=== PATIENT | female | born 1970 | race Caucasian/White ===

== ENCOUNTER → 2017-11-20 09:25 | Outpatient (CLI) | payer OTHER, SELFPAY ==
--- NOTE | 2017-11-20 09:32 | HPBI_ITS ---
MAMMOGRAPHY - BILATERAL SCREENING REASON FOR EXAM: Female, 47 years old. Routine annual screening examination. PERTINENT HISTORY: Non-contributory. TECHNIQUE: Digital bilateral breast dequan (3D mammographic acquisition) in the CC and MLO projections. 2-D mediolateral oblique (MLO) and craniocaudad (CC) views of both breasts were obtained. CAD: Full Field Digital Mammography with Computer Added Detection was performed. COMPARISON: Comparison is made with prior outside examination dated October 31, 2016. FINDINGS: Breast Composition: The breasts are heterogeneously dense, which may obscure small masses. There are no dominant masses or suspicious calcifications. No other significant abnormalities are identified. There has been no significant change since the prior study. HPBI/SCREENING MAMM (CAD), BILAT IMPRESSION: Stable bilateral screening mammogram. Yearly follow-up mammogram recommended. (A) ASSESSMENT CATEGORY: BIRADS Category 1: Negative. A letter regarding these results will be sent to the patient by the facility within 30 days. Approximately 10% of breast cancers are not detected by mammography. A normal mammogram should not delay biopsy of a clinically suspicious abnormality. [id number] Electronically Signed: Rocael Aldridge MD at 10:59 EST Tel [phone], Service support ,
== END ==
PROVIDERS: Family Provider Internal Medicine; PCP Internal Medicine; Visit Provider Obstetrics & Gynecology
DX: Z12.31 Encounter for screening mammogram for malignant neoplasm of breast (principal)
CPT/HCPCS: 77063; 77067

== ENCOUNTER → 2017-11-20 18:01 | Outpatient (CLI) | payer OTHER, SELFPAY ==
[2017-11-26 07:58] LABS: HPV APTIMA, High Risk Negative (Negative)
== END ==
PROVIDERS: Family Provider Internal Medicine; PCP Internal Medicine; Visit Provider Obstetrics & Gynecology
DX: Z12.4 Encounter for screening for malignant neoplasm of cervix (principal)
CPT/HCPCS: 88175; G0145

== ENCOUNTER → 2018-05-05 12:11 | Outpatient (CLI) | payer OTHER, SELFPAY ==
[2018-05-05 12:25] LABS: Potassium 3.9 mmol/L (3.5-5.1)
== END ==
PROVIDERS: Family Provider Nurse Practitioner; PCP Nurse Practitioner; Visit Provider Nurse Practitioner
DX: R79.9 Abnormal finding of blood chemistry, unspecified (principal)
CPT/HCPCS: 84132

== ENCOUNTER → 2018-12-14 13:03 | Outpatient (CLI) | payer OTHER, SELFPAY ==
--- NOTE | 2018-12-14 13:05 | BI_ITS ---
MAMMOGRAPHY - BILATERAL SCREENING REASON FOR EXAM: Female, 48 years old. Routine annual screening examination. PERTINENT HISTORY: Non-contributory. TECHNIQUE: Digital bilateral breast kareem (3D mammographic acquisition) in the CC and MLO projections. 2-D mediolateral oblique (MLO) and craniocaudad (CC) views of both breasts were obtained. CAD: Full Field Digital Mammography with Computer Added Detection was performed. COMPARISON: Comparison is made with prior study dated November 20, 2017 and July 11, 2011. FINDINGS: Breast Composition: The breasts are heterogeneously dense, which may obscure small masses. There are no dominant masses or suspicious calcifications. No other significant abnormalities are identified. There has been no significant change since the prior study. BI/SCREEN MAMM (CAD) W/KRAEEM BILAT IMPRESSION: Stable bilateral screening mammogram. Yearly follow-up mammogram recommended. (A) ASSESSMENT CATEGORY: BIRADS Category 1: Negative. A letter regarding these results will be sent to the patient by the facility within 30 days. Approximately 10% of breast cancers are not detected by mammography. A normal mammogram should not delay biopsy of a clinically suspicious abnormality. [id number] Electronically Signed: Rocael Aldridge, at 15:52 EDT , Service support ,
== END ==
PROVIDERS: Family Provider Internal Medicine; PCP Internal Medicine; Referring Provider Obstetrics & Gynecology; Visit Provider Obstetrics & Gynecology
DX: Z12.31 Encounter for screening mammogram for malignant neoplasm of breast (principal)
CPT/HCPCS: 77063; 77067

== ENCOUNTER → 2020-02-14 07:39 | Outpatient (CLI) | payer OTHER, SELFPAY ==
[2019-03-24 11:34] VITALS: BMI 24.3
--- NOTE | 2020-02-14 07:41 | BI_ITS ---
MAMMOGRAPHY - BILATERAL SCREENING REASON FOR EXAM: Female, 49 years old. Routine annual screening examination. PERTINENT HISTORY: Non-contributory. TECHNIQUE: Digital bilateral breast kareem (3D mammographic acquisition) in the CC and MLO projections. 2-D mediolateral oblique (MLO) and craniocaudad (CC) views of both breasts were obtained. CAD: Full Field Digital Mammography with Computer Added Detection was performed. COMPARISON: Comparison is made with prior examination dated December 14, 2018 and November 20, 2017. FINDINGS: Breast Composition: The breasts are heterogeneously dense, which may obscure small masses. There are no dominant masses or suspicious calcifications. No other significant abnormalities are identified. There has been no significant change since the prior study. BI/SCREEN MAMM (CAD) W/KAREEM BILAT IMPRESSION: Stable bilateral screening mammogram. Yearly follow-up mammogram recommended. (A) ASSESSMENT CATEGORY: BIRADS Category 1: Negative. A letter regarding these results will be sent to the patient by the facility within 30 days. Approximately 10% of breast cancers are not detected by mammography. A normal mammogram should not delay biopsy of a clinically suspicious abnormality. [id number] Electronically Signed: Rocael Aldridge, at 8:43 EDT , Service support ,
== END ==
PROVIDERS: PCP Internal Medicine; Referring Provider Obstetrics & Gynecology; Visit Provider Obstetrics & Gynecology
DX: Z12.31 Encounter for screening mammogram for malignant neoplasm of breast (principal)
CPT/HCPCS: 77063; 77067

== ENCOUNTER 2021-11-30 07:29 | Outpatient (CLI) | payer OTHER, SELFPAY ==
--- NOTE | 2021-11-30 07:45 | BI_ITS ---
MAMMOGRAPHY - BILATERAL SCREENING REASON FOR EXAM: Female, 51 years old. Routine annual screening examination. PERTINENT HISTORY: Non-contributory. TECHNIQUE: Digital bilateral breast kareem (3D mammographic acquisition) in the CC and MLO projections. 2-D mediolateral oblique (MLO) and craniocaudad (CC) views of both breasts were obtained. CAD: Full Field Digital Mammography with Computer Added Detection was performed. COMPARISON: Comparison is made with prior examination dated 02/14/2020 and 12/14/2018. FINDINGS: Breast Composition: The breasts are heterogeneously dense, which may obscure small masses. There are no dominant masses or suspicious calcifications. No other significant abnormalities are identified. There has been no significant change since the prior study. BI/SCRN MAMM (CAD)W/KAREEM BILAT IMPRESSION: Stable bilateral screening mammogram. Yearly follow-up mammogram recommended. (A) ASSESSMENT CATEGORY: BIRADS Category 1: Negative. A letter regarding these results will be sent to the patient by the facility within 30 days. Approximately 10% of breast cancers are not detected by mammography. A normal mammogram should not delay biopsy of a clinically suspicious abnormality. [id number] Electronically Signed: Rocael Aldridge MD at 8:14 EST ,
== END 2021-11-30 23:59 | disposition home or self-care (01) ==
LOC: OPBI 07:44
PROVIDERS: PCP Internal Medicine; Referring Provider Obstetrics & Gynecology; Visit Provider Obstetrics & Gynecology
DX: Z12.31 Encounter for screening mammogram for malignant neoplasm of breast (principal)
CPT/HCPCS: 77063; 77067

== ENCOUNTER 2022-04-24 06:27 | Day surgery (SDC) | payer OTHER, SELFPAY ==
[2022-04-24] MEDS: Lactated Ringers 1,000 ML 15 ML IV (07:10)
[2022-04-24 07:12] VITALS: BP 132/82; PULSE 86; RESP 18; TEMP 36.8; O2SAT 99; BMI 22.7
--- NOTE | 2022-04-24 07:27 | PCM.HP.STD ---
HPI - General General Chief Complaint: Screening colonoscopy HPI Narrative NAREN LOREDO, is a 51 F who presents today for a colonoscopy. She has no significant past medical story. She has no family history of colon cancer or colon polyps. She has no personal issues with constipation, diarrhea, abdominal pain or has experienced any change in bowel habits. She is not having any bleeding. She is not having any chest pain, shortness of breath or nausea. Overall she is in a very good state health she does take vitamins on a daily basis for preventative disease. [facility] Medical History (Updated 04/22/22 @ 15:37 by Samanta Shah) History of echocardiogram History of stress test Non-smoker Osteopenia Post-menopausal Seasonal allergies Wears contact lenses Wears glasses Home Medications ascorbate calcium (vitamin C) 500 mg tablet 500 mg PO DAILY 02/27/22 [History Last Taken Unknown] cholecalciferol (vitamin D3) 50 mcg (2,000 unit) capsule 50 mcg PO DAILY 02/27/22 [History Last Taken Unknown] multivitamin 1 tab PO DAILY 02/27/22 [History Last Taken Unknown] zinc 50 mg tablet 50 mg PO DAILY 02/27/22 [History Last Taken Unknown] Allergy/AdvReac Type Severity Reaction Status Date / Time No Known Allergies Allergy Verified 04/22/22 15:30 Family History Mother Multiple sclerosis Father Cancer prostate Grandmother Diabetes Cancer lung Grandfather Cancer prostate Surgical History (Updated 04/22/22 @ 15:37 by Samanta Shah) Hx of wisdom tooth extraction Social History (Updated 02/27/22 @ 08:11 by Iraida Murillo) current occupational status: employed 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 Smoking Status: Never smoker alcohol intake: never substance use type: does not use caffeine: Yes what type of physical activity do you participate in: none seatbelt use: always do you feel safe at home: Yes additional social history: [employer]- Self Employed ROS Review of Systems ROS Unobtainable: other Constitutional Constitutional: Denies fatigue, fever(s), poor appetite, weight gain or weight loss ENT HEENT: Denies mouth lesions Cardiovascular Cardiovascular: Denies abdominal bloating, abdominal edema or abdominal pain Respiratory/Chest Respiratory/Chest: Denies change in mental status, change in phlegm color, chest congestion or chest tightness Gastrointestinal Gastrointestinal: Denies belching, bloating, change in bowel habits, change in stool character, chewing difficulty, coffee ground emesis, constipation, cramping, diarrhea, dyspepsia, dysphagia, early satiety, excessive flatus, fecal incontinence, heartburn, hematemesis, hematochezia, hemorrhoids, loose stools, melena, nausea, odynophagia, rectal bleeding, tenesmus, vomiting or weight changes Genitourinary Genitourinary: Denies abdominal discomfort, burning urination or itching Musculoskeletal Musculoskeletal: Reports as per HPI; Denies muscle weakness or myalgias Integumentary Integumentary: Denies jaundice Neurologic Neurologic: Denies lack of coordination or weakness Psychiatric Psychiatric: Denies confusion, depression, memory loss, mood swings, paranoia or suicidal ideation Endocrine Endocrinology: Denies systems reviewed and no addt'l complaints, except as documented Hematologic/Lymphatic Hematologic/Lymphatic: Denies anemia, easy bleeding, easy bruising or lymphadenopathy Allergic/Immunologic Allergic/Immunologic: Denies systems reviewed and no addt'l complaints, except as documented Vital Signs Vital Signs Vital Signs: 04/24/22 07:12 04/24/22 07:12 Temperature 98.3 F Temperature Source Temporal Pulse Rate 86 Respiratory Rate 18 Respiratory Pattern Normal Blood Pressure 132/82 H Blood Pressure Mean 98 Blood Pressure Source Monitor Blood Pressure Position Semi-Fowlers Blood Pressure Location Right Arm Pulse Ox 99 Oxygen Delivery Method Room Air Weight Weight: 145 lb Body Mass Index (BMI) 22.7 Physical Exam Const alert, oriented x3, no apparent distress, healthy appearing and well nourished General Appearance: cooperative, comfortable, well kempt and well developed Orientation / Consciousness: awake and oriented to person HEENT Head and Scalp: normocephalic and atraumatic Face and Sinus: normal facial exam Mouth: oral and palatal mucosa normal Eyes General Eye: normal appearance of both eyes Neck full ROM Lymph Lymphatic: no lymphadenopathy noted Chest inspection of chest normal Resp normal respiratory effort and no use of accessory muscles Cardio regular rate and regular rhythm GI normal to inspection, nondistended, normoactive bowel sounds, soft to palpation, non-tender, non-distended and no masses Auscultation: normoactive bowel sounds Palpation: soft Percussion: normal to percussion Rectal Exam: visual inspection normal and normal sphincter tone no CVA tenderness Back/Spine no CVA tenderness and normal ROM Extremity normal to inspection Peripheral Pulses: Yes pulses 2+ throughout Skin no rashes or lesions noted General Skin Exam: no breakdown, elasticity normal and turgor normal Neuro oriented x3 Motor Exam: strength 5/5 throughout Psych mental status grossly normal Appearance: grossly normal Attitude: calm Activity / Motor Behavior: appropriate eye contact Speech: normal speech Thought Process: normal thought process Thought Content: normal thought content Attention / Concentration: attention grossly intact Memory / Cognition: memory grossly intact Insight: insight good Judgement: judgement good Assessment & Plan Assessment/Plan (1) Encounter for screening for malignant neoplasm of colon: PLAN: She was explained risk and benefits including not withstanding bleeding, infection, sepsis, perforation, missed polyps, need for emergent surgery and . She would have an ASA of 1 for the procedure.
[2022-04-24 08:06] VITALS: BP 104/79; BP 132/82; PULSE 73; RESP 16; TEMP 36.2; O2SAT 98
--- NOTE | 2022-04-24 08:06 | OP.COLON_ITS ---
Patient Name: Sri Hudson Procedure Date: 04/24/2022 7:27 AM Date of : 1970 Age: 51 Procedure: Colonoscopy Indications: Screening for colorectal malignant neoplasm Providers: Rocael Deras DO Medicines: Monitored Anesthesia Care Patient Profile: This is a 51 year old female. Refer to note in patient chart for documentation of history and physical. Last Colonoscopy: none. The patient's first colonoscopy is today. Complications: No immediate complications. Procedure: Pre-Anesthesia Assessment: - Prior to the procedure, a History and Physical was performed, and patient medications and allergies were reviewed. The risks and benefits of the procedure and the sedation options and risks were discussed with the patient. All questions were answered and informed consent was obtained. Patient identification and proposed procedure were verified by the physician in the pre-procedure area. Mental Status Examination: alert and oriented. Airway Examination: normal oropharyngeal airway and neck mobility. Respiratory Examination: clear to auscultation. CV Examination: normal. Prophylactic Antibiotics: The patient does not require prophylactic antibiotics. Prior Anticoagulants: The patient has taken no previous anticoagulant or antiplatelet agents. After reviewing the risks and benefits, the patient was deemed in satisfactory condition to undergo the procedure. The anesthesia plan was to use moderate sedation / analgesia (conscious sedation). Immediately prior to administration of medications, the patient was re-assessed for adequacy to receive sedatives. The heart rate, respiratory rate, oxygen saturations, blood pressure, adequacy of pulmonary ventilation, and response to care were monitored throughout the procedure. The physical status of the patient was re-assessed after the procedure. After I obtained informed consent, the scope was passed under direct vision. Throughout the procedure, the patient's blood pressure, pulse, and oxygen saturations were monitored continuously. The pediatric colonoscope was introduced through the anus and advanced to the cecum, identified by appendiceal orifice and ileocecal valve. The colonoscopy was performed without difficulty. The patient tolerated the procedure well. The quality of the bowel preparation was good. Scope In: 7:42:26 AM Scope Withdrawal Time 0 hours 11 minutes 49 seconds Scope Out: 8:02:48 AM Total Procedure Duration Time 0 hours 20 minutes 22 seconds Findings: Hemorrhoids were found on perianal exam. The colon (entire examined portion) appeared normal. The retroflexed view of the distal rectum and anal verge was normal and showed no anal or rectal abnormalities. Impression: - Hemorrhoids found on perianal exam. - The entire examined colon is normal. - No specimens collected. Recommendation: - Discharge patient to home. - Resume previous diet. - Continue present medications. - Repeat colonoscopy in 10 years for screening purposes. Procedure Code(s): --- Professional --- G0121, Colorectal cancer screening; colonoscopy on individual not meeting criteria for high risk CPT copyright 2017 [employer]. All rights reserved. The codes documented in this report are preliminary and upon caretaker resort review may be revised to meet current compliance requirements. Rocael Deras DO 04/24/2022 8:06:02 AM This report has been signed electronically. Number of Addenda: 1 Note Initiated On: 04/24/2022 7:27 AM Addendum Number: 1 Addendum Date: 07/10/2022 6:16:08 AM MAC was used as sedation for this procedure. Rocael Deras DO 07/10/2022 6:16:12 AM This report has been signed electronically.
--- NOTE | 2022-04-24 08:07 | OP.CCLET_ITS ---
07/10/2022 Lanny Breen [address] [place] [address] Re : Colonoscopy procedure for Sri Hudson Dear Dr. Breen This procedure was performed on Sunday, April 24, 2022. My impressions and recommendations are as follows: Impressions : - Hemorrhoids found on perianal exam. - The entire examined colon is normal. - No specimens collected. Recommendations : - Discharge patient to home. - Resume previous diet. - Continue present medications. - Repeat colonoscopy in 10 years for screening purposes. My findings are described in the full procedure note, which is enclosed. If I can be of further assistance, please feel free to contact me at . Sincerely, Rocael Deras, 04/24/2022 8:06:02 AM This report has been signed electronically.
[2022-04-24 08:10] VITALS: BP 109/78; BP 132/82; PULSE 71; RESP 16; O2SAT 98
[2022-04-24 08:15] VITALS: BP 104/77; BP 132/82; PULSE 76; RESP 16; O2SAT 99
[2022-04-24 08:20] VITALS: BP 109/84; BP 132/82; PULSE 72; RESP 16; TEMP 36.2; O2SAT 99
[2022-04-24 08:37] VITALS: BP 132/82
== END 2022-04-24 08:39 | disposition home or self-care (01) ==
LOC: EN 06:28 → AC 06:29
PROVIDERS: PCP Internal Medicine; Referring Provider Internal Medicine; Visit Provider Internal Medicine Gastroenterology
PROC: 0DJD8ZZ Inspection of Lower Intestinal Tract, Via Natural or Artificial Opening Endoscopic (ICD-10-PCS; CPT 45378; principal; 2022-04-24 07:25)
DX: Z12.11 Encounter for screening for malignant neoplasm of colon (principal); K64.9 Unspecified hemorrhoids
CPT/HCPCS: 45378; J7120; J2405

== ENCOUNTER → 2022-12-11 | Outpatient (CLI) | payer OTHER, SELFPAY ==
--- NOTE | 2022-12-11 07:13 | BI_ITS ---
MAMMOGRAPHY - BILATERAL SCREENING REASON FOR EXAM: Female, 52 years old. Routine annual screening examination. PERTINENT HISTORY: Non-contributory. TECHNIQUE: Digital bilateral breast kareem (3D mammographic acquisition) in the CC and MLO projections. 2-D mediolateral oblique (MLO) and craniocaudad (CC) views of both breasts were obtained. CAD: Full Field Digital Mammography with Computer Added Detection was performed. COMPARISON: Comparison is made with prior study of November 30, 2021 and February 14, 2020. FINDINGS: Breast Composition: The breasts are heterogeneously dense, which may obscure small masses. There are no dominant masses or suspicious calcifications. No other significant abnormalities are identified. There has been no significant change since the prior study. BI/SCRN MAMM (CAD)W/KAREEM BILAT IMPRESSION: Stable bilateral screening mammogram. Yearly follow-up mammogram recommended. (A) ASSESSMENT CATEGORY: BIRADS Category 1: Negative. A letter regarding these results will be sent to the patient by the facility within 30 days. Approximately 10% of breast cancers are not detected by mammography. A normal mammogram should not delay biopsy of a clinically suspicious abnormality. [id number] Electronically Signed: Rocael Aldridge MD at 12:24 EST ,
== END | disposition home or self-care (01) ==
LOC: OPBI 07:12
PROVIDERS: PCP Internal Medicine; Referring Provider Nurse Practitioner Women's Health; Visit Provider Nurse Practitioner Women's Health
DX: Z12.31 Encounter for screening mammogram for malignant neoplasm of breast (principal)
CPT/HCPCS: 77063; 77067

== ENCOUNTER → 2023-03-05 | Outpatient (CLI) | payer OTHER, SELFPAY ==
[2023-03-10 15:07] LABS: HPV APTIMA, High Risk Negative (Negative)
== END | disposition home or self-care (01) ==
LOC: LABSPEC 10:20
PROVIDERS: PCP Internal Medicine; Referring Provider Nurse Practitioner Women's Health; Visit Provider Nurse Practitioner Women's Health
DX: Z78.0 Asymptomatic menopausal state (principal)
CPT/HCPCS: 87624; 88175; G0145

== ENCOUNTER 2023-03-26 07:00 | Outpatient (RCR) | payer OTHER, SELFPAY ==
--- NOTE | 2023-02-21 07:54 | HP.PTEVAL ---
Patient's Visit Information NAREN LOREDO is a 52 year old F referred to Physical Therapy by Dr. Lanny Breen DO with a diagnosis of LBP with scoliosis. Date of Evaluation: 02/21/23 Physical Therapist: Juan Francisco Davalos PT, ATC - Visit Plan Frequency: 1x/Week Duration: 2 Weeks Plan: Pt was issued and instructed on a HEP of L side bending and L rotational stretches for the spine. Pt will follow up in 3 weeks to assess benefit of stretching program and to add core strengthening ex's at that time. - Subjective Pt reports her LBP has been present since October. Pt reports she was being treated by a chiropractor over this time span but the pain has remained the same. Pt reports her pain had an insidious onset in nature. Pt reports she was very inactive over the winter and believes this may have been the cause. Pt reports she has had xrays which revealed scoliosis. Pt denies any tingling or numbness in her LE's, but does reports pain along the IT band in both legs. Pt reports no sleep difficulty at this time but does note he experiences pain when she is lying on her stomach and lifts her head. Pt reports in general it is bending backwards that provokes her pain (like when she is in the shower washing her hair). Pt [place] and notes she is limited with daily chores at times secondary to pain. 0/10 pain at rest, 1/10 pain at worst - Pain LBP Pain Intensity (Out of 10): 0 Pain Intensity Range: 1 - Objective Neuro: B LE sensation is WNL to light touch. B patellar reflex= 2/3. palpation: pt presents with scoliosis of spine, R concavity with L convexity. MMT: B LE's are grossly 5/5 throughout. ROM: Pt is moderately limited with L/S ext, and R SB. All other motions are WNL - Balance/Special Test Scores Oswestry Low Back Score: 0 - Goals Goal 1:: I with HEP of spinal stretches and core strengthening Goal Time Frame: 2-4 Weeks Goal 2:: Decrease back pain x 50% to aid with IADL's Goal Time Frame: 2-4 Weeks - Rehabilitation Potential Physical Therapy Diagnosis: Pt has LBP and difficulty with performing IADL's secondary to scoliosis Rehabilitation Potential: Good - Anticipated Interventions Patient/Client Instruction: Educate patient on: Condition, Plan of Care For the Purpose of:: To improve self management Therapeutic Exercise to Include: Strength training, Body mechanics, Postural training, Flexibilty training, Dynamic Lumbar Stabilization For the Purpose of:: To decrease pain, To increase ROM, To improve muscle performance and motor function Thank you for the opportunity to evaluate your patient. For Medicare and Medicare HMO plans, please review the plan of care and approve it. It will need to be FAXED BACK to us at [phone] for Medicare purposes. For Medicare only, by signing this I certify the plan of care. Please let me know if there are questions or concerns regarding this plan of care. Physician Signature: Date:
--- NOTE | 2023-06-18 12:51 | HP.PT.NRP ---
Patient Information Patient Information: NAREN LOREDO was seen in my office for initial evaluation on 02/21/23. The following Plan of Care was established for this patient: POC Established Initial Frequency: 1x/Week Initial Duration: 2 Weeks Anticipated Interventions Patient/Client Instruction: Educate patient on: Condition and Plan of Care For the Purpose of:: To improve self management Therapeutic Exercise to Include: Strength training, Body mechanics, Postural training, Flexibilty training and Dynamic Lumbar Stabilization For the Purpose of:: To decrease pain, To increase ROM and To improve muscle performance and motor function Last Seen Last Seen: This patient was last seen in our office . Pertinent comments regarding their Physical therapy will appear below: Pt was treated for 2 PT visits for LBP through the date of 03/26/23. Pt has not returned through this date and is discontinued at this time. At this point I will be discontinuing this patient from physical therapy. I would be happy to see this patient again in the future if found appropriate by the physician. Thank you! Juan Francisco Davalos, PT, ATC Balance/Gait/Functional tests Balance/Special Test Scores Oswestry Low Back Score: 0
== END 2023-03-26 19:00 | disposition home or self-care (01) ==
LOC: PT 07:00
PROVIDERS: PCP Internal Medicine; Referring Provider Internal Medicine; Visit Provider Internal Medicine
DX: M41.9 Scoliosis, unspecified (principal); M54.50 Low back pain, unspecified
CPT/HCPCS: 97110; 97161

== ENCOUNTER → 2024-10-29 | Outpatient (CLI) | payer OTHER, SELFPAY ==
--- NOTE | 2024-10-29 07:29 | BI_ITS ---
MAMMOGRAPHY - BILATERAL SCREENING REASON FOR EXAM: Female, 54 years old. Routine annual screening examination. PERTINENT HISTORY: Non-contributory. TECHNIQUE: Digital bilateral breast kareem (3D mammographic acquisition) in the CC and MLO projections. 2-D mediolateral oblique (MLO) and craniocaudad (CC) views of both breasts were obtained. CAD: Full Field Digital Mammography with Computer Added Detection was performed. COMPARISON: Comparison is made with prior study dated December 11, 2022 and June 28, 2022. FINDINGS: Breast Composition: The breasts are extremely dense, which lowers the sensitivity of mammography. There are no dominant masses or suspicious calcifications. No other significant abnormalities are identified. There has been no significant change since the prior study. BI/SCRN MAMM (CAD)W/KAREEM BILAT IMPRESSION: Stable bilateral screening mammogram. Yearly follow-up mammogram recommended. (A) ASSESSMENT CATEGORY: BIRADS Category 1: Negative. A letter regarding these results will be sent to the patient by the facility within 30 days. Approximately 10% of breast cancers are not detected by mammography. A normal mammogram should not delay biopsy of a clinically suspicious abnormality. [id number] Electronically Signed: Rocael Aldridge MD at 8:52 EST ,
== END | disposition home or self-care (01) ==
LOC: OPBI 07:28
PROVIDERS: PCP Internal Medicine; Referring Provider Nurse Practitioner Women's Health; Visit Provider Nurse Practitioner Women's Health
DX: Z12.31 Encounter for screening mammogram for malignant neoplasm of breast (principal)
CPT/HCPCS: 77063; 77067

== ENCOUNTER → 2025-09-09 | Outpatient (CLI) | payer OTHER, SELFPAY ==
--- OUTSIDE RECORDS SUMMARY | 2025-09-09 07:38 | XMS RPT_ITS | CCD ---
Author Organization [facility] Care Team Providers Care Director Of Annual Giving Name Role Phone Lanny Breen Unavailable Lanny Breen Unavailable [place] Unavailable Rina Vance Unavailable Unavailable Unavailable Unavailable JamshidLanny aguayo DO Unavailable JamshidLanny aguayo DO Unavailable [facility] Unavailable Rina Vance LPN Unavailable Unavailable Indiana Johnson RN Unavailable Unavailable Unavailable Unavailable Patricia Walsh MA Unavailable Unavailable Lanny Breen DO Unavailable Friend, Dr. Cote Unavailable Dr. Dylan Rodriguez Unavailable [phone] Lanny Breen Primary Care Provider [phone] Dr. Lanny Breen Referring Provider Xi KEY ACCOUNT DIRECTOR, JUSTIN Villalobos Attending Provider [phone] Friend, Dr. Cote Attending Provider Friend, Dr. Cote Other Provider Madai Friend CMA Unavailable Unavailable Lanny Breen DO Attending Unavailable Lanny Breen DO Referring Unavailable Lanny Breen DO Consulting Unavailable [facility] Unavailable Dacia Hernández MA Unavailable Unavailable Dr. Lanny Breen Primary Care Provider [phone] Dr. Lanny Breen Referring Provider [phone] Xi KEY ACCOUNT DIRECTOR, ELPIDIOC Griselda Attending Provider Griselda Layne NP Referring Unavailable Griselda Layne NP Attending Unavailable Lanny Breen Primary Care Unavailable Lanny Breen Primary Care Unavailable Griselda Layne NP Attending Unavailable Lanny Breen Referring Unavailable Medications Current Medications Medication Drug Class(es) Dates Sig (Normalized) Sig (Original) calcium ascorbate 500 mg oral tablet (4 sources) Start: 02-27-2022 take 500 mg by mouth once daily Ascorbate Calcium (Vitamin C) Active 500 MG PO DAILY February 27, 2022 12:00am cholecalciferol 0.05 mg oral capsule (4 sources) Vitamin D Start: 02-27-2022 take 50 ug by mouth once daily Cholecalciferol (Vitamin D3) Active 50 MCG PO DAILY February 27, 2022 12:00am fluconazole 150 mg oral tablet (2 sources) Azole Antifungal Start: 03-05-2023 Fluconazole Active 150 MG PO .COMPLEX 2 March 05, 2023 12:00am 150 mg PO take one po now and repeat in 3 days Multivitamin preparation (20 sources) Start: 02-27-2022 take 1 tablet by mouth once daily Multivitamin Active 1 TABLET PO DAILY February 27, 2022 12:00am End: 08-21-2011 MULTIVITAMIN (PO Liquid) Uns ure When remembers for 0 days Refills: 0 Ordered: 21-Aug-2011 Inocencia Uribe RN End : 21-Aug-2011 Discontinued Comments: This order discontinued per [facility]. End: 08-21-2011 MULTIVITAMIN (PO Liquid) Uns ure When remembers for 0 days Refills: 0 Ordered: 21-Aug-2011 Inocencia Uribe LPN End : 21-Aug-2011 Discontinued Comments: This order discontinued per [facility]. Comment on above: This order discontin ued per [facility]. Zinc (4 sources) Start: 02-27-2022 take 50 mg by mouth once daily Zinc Active 50 MG PO DAILY February 27, 2022 12:00am Completed/Discontinued Medications Medication Drug Class(es) Dates Sig (Normalized) Sig (Original) [id number] 200 actuat albuterol 0.09 mg/actuat metered dose inhaler (16 sources) beta2-Adrenergic Agonist Start: 08-05-2017 End: 05-06-2018 take 2 puff(s) by inhalation every six hours as needed ProAir HFA 108 (90 Base) MCG/ACT Inhalation Aerosol Solution 2 (two) Puff q 6hr prn for 0 days Quantity: 1 {Inhaler} Refills: 0 Ordered: 06-May-2018 Inocencia Uribe RN Start : 05-Aug-2017 End : 06-May-2018 Inactive Start: 08-05-2017 End: 05-06-2018 take 2 puff(s) by inhalation every six hours as needed ProAir HFA 108 (90 Base) MCG/ACT Inhalation Aerosol Solution 2 (two) Puff q 6hr prn for 0 days Quantity: 1 {Inhaler} Refills: 0 Ordered: 06-May-2018 Inocencia Uribe LPN Start : 05-Aug-2017 End : 06-May-2018 Inactive amoxicillin 875 mg / clavulanate 125 mg oral tablet (16 sources) Penicillin-class Antibacterial Start: 12-23-2019 End: 08-06-2021 take 1 tablet by mouth twice daily Amoxicillin-Pot Clavulanate 875-125 MG Oral Tablet 1 (one) Tablet bid for 0 days Quantity: 20 {Tablet} Refills: 0 Ordered: 06-Aug-2021 Rina Vance LPN Start : 23-Dec-2019 End : 06-Aug-2021 Inactive Start: 05-06-2018 End: 07-14-2019 take 1 tablet by mouth twice daily Amoxicillin-Pot Clavulanate 875-125 MG Oral Tablet 1 (one) Tablet bid for 0 days Quantity: 20 {Tablet} Refills: 0 Ordered: 14-Jul-2019 Rina Vance LPN Start : 06-May-2018 End : 14-Jul-2019 Inactive azithromycin 250 mg oral tablet (11 sources) Macrolide Antimicrobial Start: 01-28-2022 End: 02-02-2022 Zithromax Z-Mt 250 MG Oral Tablet 1 (one) Tablet uad - 2 the first day and 1qd x 4 days for 5 days Quantity: 1 {Packet} Refills: 0 Ordered: 28-Jan-2022 Lanny Brene DO, DO, Kathleen Start : 28-Jan-2022 End : 02-Feb-2022 Inactive Start: 12-31-2019 End: 01-05-2020 Zithromax Z-Mt 250 MG Oral Tablet 1 (one) Tablet uad - 2 the first day and 1qd x 4 days for 5 days Quantity: 1 {Package} Refills: 0 Ordered: 31-Dec-2019 Indiana Johnson RN Start : 31-Dec-2019 End : 05-Jan-2020 Inactive benzonatate 200 mg oral capsule (16 sources) Non-narcotic Antitussive Start: 07-21-2017 End: 08-05-2017 take 1 capsule by mouth three times daily as needed for cough Benzonatate 200 MG Oral Capsule 1 (one) Capsule PO TID PRN Cough for 0 days Quantity: 21 {Capsule} Refills: 0 Ordered: 05-Aug-2017 Indiana Johnson RN Start : 21-Jul-2017 End : 05-Aug-2017 Inactive budesonide 0.032 mg/actuat metered dose nasal spray (16 sources) Corticosteroid Start: 11-19-2010 End: 08-21-2011 RHINOCORT AQUA, 32MCG/ACT (Nasal Suspension) 2 (two) Puff(s) once daily for 0 days Quantity: 1 {Suspension} Refills: 0 Ordered: 21-Aug-2011 Inocencia Uribe RN Start : 19-Nov-2010 End : 21-Aug-2011 Inactive citalopram 10 mg oral tablet (16 sources) Serotonin Reuptake Inhibitor Start: 07-14-2019 End: 08-06-2021 take 1 tablet by mouth once daily at bedtime CeleXA 10 MG Oral Tablet 1 (one) Tablet qhs for 0 days Quantity: 30 {Tablet} Refills: 3 Ordered: 06-Aug-2021 Rina Vance LPN Start : 14-Jul-2019 End : 06-Aug-2021 Inactive 12 hr fexofenadine hydrochloride 60 mg / pseudoephedrine hydrochloride 120 mg extended release oral tablet (16 sources) alpha-Adrenergic Agonist, Histamine-1 Receptor Antagonist Start: 11-19-2010 End: 08-21-2011 take 60-120 mg by mouth every twelve hours BRIANNE-D 12 HOUR, 60-120MG (Oral Tablet Extended Release 12 Hour) 1 Tablet ER 12HR q12hr for 0 days Quantity: 20 {Tablet_ER_12HR} Refills: 0 Ordered: 19-Nov-2010 Inocencia Uribe RN Start : 19-Nov-2010 End : 21-Aug-2011 Discontinued Comments: This order discontinued per [facility]. Comment on above: This order discontin ued per [facility]. fluticasone furoate 0.0275 mg/actuat metered dose nasal spray (16 sources) Corticosteroid Start: 12-21-2007 End: 11-19-2010 VERAMYST, 27.5MCG/SPRAY (Nasal Suspension) 2 (two) Suspension Daily for 0 days Refills: 0 Ordered: 19-Nov-2010 Start : 21-Dec-2007 End : 19-Nov-2010 Inactive hyoscyamine sulfate 0.125 mg sublingual tablet (16 sources) Start: 12-16-2006 End: 12-21-2007 take 1 tablet under the tongue three times daily as needed LEVSIN/SL, 0.125MG (Sublingual Tablet Sublingual) Tab Sublingual TID/PRN for 0 days Quantity: 10 {Tab_Sublingual} Refills: 3 Ordered: 16-Dec-2006 Inocencia Uribe RN Start : 16-Dec-2006 End : 21-Dec-2007 Inactive lansoprazole 30 mg delayed release oral capsule (16 sources) Proton Pump Inhibitor Start: 11-24-2006 End: 12-21-2007 PREVACID, 30MG (Oral Capsule Delayed Release) Capsule DR QD for 0 days Quantity: 30 {Capsule_DR} Refills: 0 Ordered: 24-Nov-2006 Inocencia Uribe RN Start : 24-Nov-2006 End : 21-Dec-2007 Inactive levoFLOXacin 500 mg oral tablet (16 sources) Quinolone Antimicrobial Start: 12-21-2007 End: 11-19-2010 take 1 tablet by mouth once daily LEVAQUIN, 500MG (Oral Tablet) 1 Tablet Daily for 0 days Quantity: 10 {Tablet} Refills: 0 Ordered: 19-Nov-2010 Start : 21-Dec-2007 End : 19-Nov-2010 Inactive No current meds at this time. (12 sources) No current meds at this time. Inactive No current meds at this time. Active predniSONE 10 mg oral tablet (20 sources) Start: 07-16-2020 End: 02-27-2022 Prednisone Discontinued 10 M G PO .COMPLEX July 16, 2020 12:00am February 27, 2022 8:10am Take 4 pills for 3 days, 3 pills for 3 days, 2 pills for 3 days, take 1 pill for 3 days Start: 05-05-2015 End: 11-21-2016 PredniSONE 10 MG Oral Tablet 3 (three) Tablet pills for 3 days 2 pills for 3 days 1 pill for 3 days for 0 days Quantity: 18 {Tablet} Refills: 0 Ordered: 21-Nov-2016 Inocencia Uribe RN Start : 05-May-2015 End : 21-Nov-2016 Inactive Comments: take with food in am Comment on above: take with food in am Problems Active Problems Problem Classification Problem Date Documented Date Episodic/Chronic Abdominal pain (20 sources) Acute abdominal pain; Translations: [Epigastric pain] Resolved: 05-24-2014 11-21-2016 Episodic Comment on above: better?ibs? colonic gas, ? follicle burst reveiwed with patient recent tests CT and labs good, ocass cramp in colon, told call if return, consider egd or colonscope if return told to call if vomiting, lightheadedness, blood in stools, fever, intractable diarrhea, severe abdominal pain. Administrative/social admission (19 sources) Counseling procedure with explicit context; Translations: [Vaccine counseling] 08-06-2021 Episodic Allergic reactions (20 sources) Eczema; Translations: [Dermatitis] 07-14-2019 Episodic Anxiety disorders (20 sources) Acute stress disorder; Translations: [Stress reaction] Resolved: 02-13-2023 07-14-2019 Chronic Coronary atherosclerosis and other heart disease (12 sources) Coronary atherosclerosis and other heart disease Fever of unknown origin (20 sources) Fever; Translations: [Fever, unspecified] 07-14-2019 Episodic Fluid and electrolyte disorders (20 sources) Hyperkalemia; Translations: [Acidosis] Resolved: 11-21-2016 11-21-2016 Episodic Heart valve disorders (20 sources) Mitral valve prolapse; Translations: [Mitral valve prolapse] 07-14-2019 Chronic Comment on above: very minor and not p resent on repeat echo very minor and not p resent on repeat echono valvular disorder Immunizations and screening for infectious disease (19 sources) Contact with or exposure to other viral diseases; Translations: [Exposure to COVID-19 virus] 08-06-2021 Episodic Lymphadenitis (20 sources) Lymphadenopathy; Translations: [Enlarged lymph nodes, unspecified] Resolved: 11-21-2016 11-21-2016 Episodic Menstrual disorders (20 sources) Amenorrhea; Translations: [Amenorrhea] Resolved: 11-21-2016 11-21-2016 Chronic Miscellaneous mental health disorders (15 sources) Crying; Translations: [Tearfulness] Resolved: 02-13-2023 08-06-2021 Episodic Mood disorders (20 sources) Acute depression; Translations: [Depression, acute] Resolved: 02-13-2023 07-14-2019 Chronic Nutritional deficiencies (20 sources) Vitamin D deficiency, unspecified; Translations: [Vitamin D deficiency] 07-14-2019 Chronic Other bone disease and musculoskeletal deformities (16 sources) Idiopathic scoliosis AND/OR kyphoscoliosis; Translations: [Scoliosis (and kyphoscoliosis), idiopathic] 07-14-2019 Chronic Other bone disease and musculoskeletal deformities (6 sources) Bone pain; Translations: [Bone pain] 01-29-2023 Episodic Other bone disease and musculoskeletal deformities (2 sources) Osteopenia; Translations: [Osteopenia] 02-13-2023 Episodic Other circulatory disease (20 sources) Abnormal chest sounds; Translations: [Abnormal lung sounds] Resolved: 04-30-2018 04-30-2018 Episodic Other congenital anomalies (2 sources) Congenital postural scoliosis; Translations: [Congenital scoliosis] 02-13-2023 Chronic Other lower respiratory disease (20 sources) Cough; Translations: [Cough] 07-14-2019 Episodic Other lower respiratory disease (20 sources) Wheezing; Translations: [Wheezing] Resolved: 02-23-2009 11-21-2016 Episodic Other lower respiratory disease (20 sources) Productive cough ; Translations: [Cough with expectoration] Resolved: 04-30-2018 04-30-2018 Episodic Other nutritional; endocrine; and metabolic disorders (20 sources) Overweight in adulthood with body mass index of 25 or more but less than 30; Translations: [BMI 25.0-25.9,adult] Resolved: 07-14-2019 08-05-2017 Episodic Other screening for suspected conditions (not mental disorders or infectious disease) (20 sources) Blood chemistry abnormal; Translations: [Mammography abnormal] Onset: 12-08-2024 Resolved: 11-21-2016 07-14-2019 Episodic Other upper respiratory infections (20 sources) Bacterial sinusitis; Translations: [Sinusitis, bacterial] Resolved: 02-13-2023 07-14-2019 Chronic Other upper respiratory infections (20 sources) Viral upper respiratory tract infection; Translations: [Acute sinusitis] Resolved: 02-23-2009 07-14-2019 Episodic Pneumonia (except that caused by tuberculosis or sexually transmitted disease) (18 sources) Severe acute respiratory syndrome; Translations: [SARS (severe acute respiratory syndrome)] 01-28-2022 Episodic Residual codes; unclassified (20 sources) Memory loss; Translations: [Memory impairment] Episodic Residual codes; unclassified (20 sources) FH: Hypercholesterolemia; Translations: [Family history of high cholesterol] 07-14-2019 Episodic Residual codes; unclassified (20 sources) FH: Diabetes mellitus; Translations: [Family history of diabetes mellitus] 07-14-2019 Episodic Residual codes; unclassified (20 sources) Postmenopausal state; Translations: [Postmenopausal] 07-14-2019 Episodic Comment on above: as of 2013 Residual codes; unclassified (20 sources) Body mass index 20-24 - normal; Translations: [BMI 22.0-22.9, adult] Resolved: 07-14-2019 08-06-2021 Episodic Residual codes; unclassified (20 sources) Non-smoker; Translations: [Non-smoker] 08-06-2021 Episodic Spondylosis; intervertebral disc disorders; other back problems (2 sources) Low back pain; Translations: [Low back pain, episodic] 02-13-2023 Episodic Unclassified (20 sources) Abnormal blood chemistry Unclassified (20 sources) Unclassified (20 sources) Patient encounter status; Translations: [Encounter for screening for lipid disorder] 07-14-2019 Unclassified (20 sources) Non-smoker; Translations: [Non-smoker] 07-14-2019 Unclassified (12 sources) Family history of high cholesterol Unclassified (12 sources) Postmenopausal Unclassified (20 sources) BMI 25.0-25.9,adult Unclassified (20 sources) Sinusitis, bacterial Unclassified (12 sources) BMI 26.0-26.9,adult Viral infection (20 sources) Infectious mononucleosis; Translations: [Viral disease] Resolved: 05-24-2014 11-21-2016 Episodic Comment on above: 08/10 Past or Other Problems Problem Classification Problem Date Documented Date Episodic/Chronic Anxiety disorders (5 sources) Crying; Translations: [Tearfulness] 07-14-2019 Mood disorders (12 sources) Mood disorders Nonmalignant breast conditions (16 sources) Mastodynia; Translations: [Mastodynia] Resolved: 11-21-2016 11-21-2016 Episodic Nonspecific chest pain (16 sources) Chest pain; Translations: [Other chest pain] Resolved: 05-24-2014 11-21-2016 Episodic Other connective tissue disease (16 sources) Muscle pain; Translations: [Myalgia and myositis] Resolved: 02-23-2009 11-21-2016 Episodic Comment on above: Musculoskeletal Other nutritional; endocrine; and metabolic disorders (10 sources) Body mass index 25-29 - overweight; Translations: [BMI 26.0-26.9,adult] Resolved: 07-14-2019 07-14-2019 Chronic Other nutritional; endocrine; and metabolic disorders (10 sources) Body mass index 25-29 - overweight; Translations: [BMI 25.0-25.9,adult] Resolved: 07-14-2019 08-05-2017 Episodic Residual codes; unclassified (16 sources) Memory impairment; Translations: [Memory loss] Resolved: 11-21-2016 11-21-2016 Episodic Comment on above: mri sched for sat -- ins will cover this instead of ct Unclassified (12 sources) SYMPTOMS INVOLVING CARDIOVASCULAR SYSTEM; ENLARGEMENT OF LYMPH NODES (785.6) Unclassified (16 sources) Deliveries (Parity); Translations: [Deliveries (Parity)] 07-14-2019 Comment on above: Term, 3 Unclassified (20 sources) Abdominal Pain,LLQ (789.04) Unclassified (12 sources) SYMPTOM, FEVER, UNSPECIFIED (780.60) Unclassified (16 sources) Pregnancies (); Translations: [Pregnancies ()] 07-14-2019 Comment on above: 3 Unclassified (20 sources) Abnormal blood chemistry (790.6) Unclassified (20 sources) Body mass index 20-24 - normal; Translations: [BMI 23.0-23.9, adult] Resolved: 07-14-2019 07-14-2019 Unclassified (12 sources) Viral upper respiratory tract infection with cough Unclassified (12 sources) Abnormal lung sounds Unclassified (12 sources) Fever, unspecified Unclassified (12 sources) Cough with expectoration Unclassified (5 sources) Screening status; Translations: [Screening for hyperlipidemia] Resolved: 05-24-2014 11-21-2016 Unclassified (20 sources) BMI 22.0-22.9, adult Unclassified (12 sources) Tearfulness Unclassified (12 sources) Stress reaction Unclassified (20 sources) Unspecified Diagnosis 12-31-2019 Unclassified (13 sources) Vaccine counseling Unclassified (14 sources) Exposure to COVID-19 virus Unclassified (10 sources) Encounter for screening colonoscopy Viral infection (11 sources) Disease caused by 2019-nCoV Results Test Name Value Interpretation Reference Range Facility [facility] Visit Reporton 12-08-2024 [facility] Visit Report [facility]'[address], [address] [place] [address] OFFICE VISIT Date of Service: 12/08/24 MR#: [id number] Acct: [id number] Name: NAREN LOREDO Rep #: [id number] : 1970 Provider: JUSTIN mckoy Age/Sex: 54/F [place] [facility] [place]: Signed Intake Vital Signs 03/05/23 08:53 12/08/24 09:19 12/08/24 09:22 Height 5 ft 7 in 5 ft 7 in 5 ft 7 in Weight: 146 lb BMI 22.8 BP 116/82 H 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COMPLEX #2 tabs 3 12/08/24 Rx Is last menstrual period known: No Post menopausal: Yes Patient : No : No PFSH Medical History Post-menopausal Wears contact lenses Wears glasses Non-smoker History of stress test History of echocardiogram Seasonal allergies Osteopenia Surgical History Hx of wisdom tooth extraction Family History Mother Multiple sclerosis Father Cancer prostate Grandmother Diabetes Cancer lung Grandfather Cancer prostate Social History current occupational status: employed 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 Date Name GA/Weeks Outcome Route Bth Weight Infant Gen Labor Lgth Anesthesia Del Locatn Provider FOB Unknown 1994 Esvin Unknown 1996 Thuan Unknown 1999 Oswaldo HPI Encounter for routine gynecological examination Details: NAREN LOREDO is a 54 year old who presents for annual exam. Denies concern Last PAP: 2022 History of abnormal PAP: no Last mammogram: 10/2024 History of abnormal mammogram: no Colon cancer screenin Other preventative health care screenings: Jamshid Female Reproductive History Questions: metorrhagia: No, sexually active: Yes, dyspareunia: No and PCB: No ROS Const Constitutional: Denies fatigue, weight gain or weight loss Cardio Card: Denies chest pain Resp Resp: Denies cough or dyspnea on exertion GI GI: Denies abdominal pain, bloating, change in stool character, constipation or vomiting : Reports as per HPI; Denies difficulty voiding, pelvic pain, urinary frequency, urinary incontinence, urinary urgency, vaginal discharge or vaginal pruritus Exam Const General: cooperative, healthy appearing, no acute distress and well developed Orientation: alert, oriented to person and oriented to place HENWA Head: normal to inspection Neck Neck: normal visual inspection Thyroid: thyroid normal Lymphatic: no lymphadenopathy noted Chest Breast inspection: normal inspection of the breasts and normal inspection of the axillae Breast palpation: normal palpation of the breasts, normal palpation of the axillae and no axillary lymphadenopathy Resp Effort Inspection: normal respiratory effort GI Palpation: soft, no masses and nontender Rectal Exam: deferred External Female Exam: normal external appearance and normal appearance of the urethra Urethra: normal appearance of the urethra and normal palpation Speculum Exam - Vagina: normal appearance of the vagina and normal vaginal discharge Speculum Exam - Cervix: normal appearance of the cervix Bimanual Exam- Vagina Uterus: normal bimanual exam, uterine size normal, uterine shape normal and non-tender Bimanual Exam- Adnexa, other: normal adnexae, no masses, normal and non-tender Pelvic Support: normal Neuro General: patient alert and patient oriented x3 Psych Affect: normal affect Coding Level of Care Code Off vis,est,prev 40-64yrs Diagnoses Encounter for gynecological examination without abnormal findin (more content not included)... Normal [facility] SCRN MAMM (CAD)W/KAREEM BILATo n 10-29-2024 SCRN MAMM (CAD)W/KAREEM [facility] [address] [place] [address] SCRN MAMM (CAD)W/KAREEM BILAT MR#: [id number] Acct: [id number] Name: NAREN LOREDO Rep #: [id number] : 1970 F 54 From: Rocael adam MD PCP: Dr. Lanny Breen, Status: [facility] Study: SCRN MAMM (CAD)W/KAREEM BILAT Date of Exam: 10/07 01/28 Exam# [id number] Ordering Dr: Griselda Layne KEY ACCOUNT DIRECTOR KEY ACCOUNT DIRECTOR -C [id number] MAMMOGRAPHY - BILATERAL SCREENING REASON FOR EXAM: Female, 54 years old. Routine annual screening examination. PERTINENT HISTORY: Non-contributory. TECHNIQUE: Digital bilateral breast kareem (3D mammographic acquisition) in the CC and MLO projections. 2-D mediolateral oblique (MLO) and craniocaudad (CC) views of both breasts were obtained. CAD: Full Field Digital Mammography with Computer Added Detection was performed. COMPARISON: Comparison is made with prior study dated December 11, 2022 and June 28, 2022. FINDINGS: Breast Composition: The breasts are extremely dense, which lowers the sensitivity of mammography. There are no dominant masses or suspicious calcifications. No other significant abnormalities are identified. There has been no significant change since the prior study. BI/SCRN MAMM (CAD)W/KAREEM BILAT IMPRESSION: Stable bilateral screening mammogram. Yearly follow-up mammogram recommended. (A) ASSESSMENT CATEGORY: BIRADS Category 1: Negative. A letter regarding these results will be sent to the patient by the facility within 30 days. Approximately 10% of breast cancers are not detected by mammography. A normal mammogram should not delay biopsy of a clinically suspicious abnormality. [id number] Electronically Signed: Rocael Aldridge MD at 8:52 EST , CC: JUSTIN Layne; Dr. Lanny Breen, Supervisor [employer]: Signed Normal [facility] Cervical or vagninal specime n microscopic examination by cytology stain (reported asOrdered By: Griselda Layne on 03-05-2023 Cytology report Cyto stain Doc (Cvx/Vag) Comment . [facility] Comment on above: The Pap smear is a s creening test designed to aid in thedetection of premalignant and malignant conditions of theuterine cervix. It is not a diagnostic procedure andshould not be used as the sole means of detecting cervicalcancer. Both false-positive and false-negative reports dooccur. Detection in cervical specim en of any of human papilloma virus (HPV) 16, 18, 31, 33,Ordered By: Griselda Layne on 03-05-2023 HPV 16+18+31+33+35+39+45+ 51+52+56+58+59+66+68 DNA Probe+sig amp Ql (Cvx) Negative Negative [facility] Comment on above: This nucleic acid am plification test detects fourteen high- risk HPV types (16,18,31,33,35,39,45,51,52,56,58,59,66,68)without differentiation. Laboratory - CytologyOrdered By: Griselda Layne on 03-05-2023 Acid Operator Cyto stain Nom (Cvx/Vag) [ID] Comment . [facility] Comment on above: Abelino Calixto totechnologist (ASCP) Laboratory - Miscellaneous t estsOrdered By: Griselda Layne on 03-05-2023 Service comment (Unsp spec) [Interp] Comment . [facility] Comment on above: This liquid based Th inPrep(R) pap test was screened withthe use of an image guided system. Service comment (Unsp spec) [Interp] . . [facility] Liquid-based cerv Pap + CT/G C by JHONY w reflex to high-risk HPV for ASCUSOrdered By: Griselda Layne on 03-05-2023 Cytology report Cyto stain.thin prep Doc (Cvx/Vag) Comment . [facility] Comment on above: Criteria not met, HP V Genotype not performed.Performed at: - [facility] [id number] Director: Zehra Narvaez MD, Phone: [phone] at: =[facility] [id number] Director: Zehra Narvaez MD, Phone: [phone] No Panel InformationOrdered By: Griselda Layne on 03-05-2023 Pap Smear QC Review Comment . [facility] Comment on above: Abelino Douglas totechnologist Pathology report final diagnosis Narrative Comment . [facility] Comment on above: NEGATIVE FOR INTRAEP ITHELIAL LESION OR MALIGNANCY.CELLULAR CHANGES ASSOCIATED WITH ATROPHY ARE PRESENT.THIS SPECIMEN WAS RESCREENED PART OF OUR CERTIFIED MEDICAL ASST PROGRAM. C-Reactive Protein (03659)Or dered By: Shirt Sorter on 01-31-2023 CRP [Mass/Vol] mg/L Normal 0-10 Comprehens nazario Internal [facility]; [facility] Work Phone: Comment on above: PATIENT WAS FASTINGP ERFORMED BY: [facility] Ungsvh5483 [facility] [id number] BY: [address] [id number] CBC W/AUTO DIFF WBC (84591)O rdered By: Shirt Sorter on 01-31-2023 Basophils (Bld) [#/Vol] 0.0 10*3/uL Normal 0.0-0.2 [facility]; [facility] Work Phone: Comment on above: PATIENT WAS FASTINGP ERFORMED BY: [facility] HospitalWzrsxz0456 [facility] [id number] BY: [address] [id number] Basophils/100 WBC (Bld) 1 % Normal [facility]; [facility] Work Phone: Comment on above: PATIENT WAS FASTINGP ERFORMED BY: Labco[place] 3814170 [facility] [id number] BY: [address] [id number] Eosinophils (Bld) [#/Vol] 0.1 10*3/uL Normal 0.0-0.4 [facility]; [facility] Work Phone: Comment on above: PATIENT WAS FASTINGP ERFORMED BY: [facility] Icegvr1698 [facility] [id number] BY: [address] [id number] Eosinophils/100 WBC (Bld) 2 % Normal [facility]; [facility] Work Phone: Comment on above: PATIENT WAS FASTINGP ERFORMED BY: [facility] Wcluuq0435 [facility] [id number] BY: [address] [id number] Erythrocyte distribution width (RBC) [Ratio] 12.3 % Normal 11.7-15.4 [facility]; [facility] Work Phone: Comment on above: PATIENT WAS FASTINGP ERFORMED BY: [facility] Zkgzwt6107 [facility] [id number] BY: [address] [id number] Hematocrit (Bld) [Volume fraction] 41.0 % Normal 34.0-46.6 [facility]; [facility] Work Phone: Comment on above: PATIENT WAS FASTINGP ERFORMED BY: [facility] Xlhizn0472 [facility] [id number] BY: [address] [id number] Hemoglobin (Bld) [Mass/Vol] 14.0 g/dL Normal 11.1-15.9 [facility]; [facility] Work Phone: Comment on above: PATIENT WAS FASTINGP ERFORMED BY: [facility]ault6370 [facility] [id number] BY: [address] [id number] Immature granulocytes (Bld) [#/Vol] 0.0 10*3/uL Normal 0.0-0.1 [facility]; [facility] Work Phone: Comment on above: PATIENT WAS FASTINGP ERFORMED BY: [facility] Iuisns3236 [facility] [id number] BY: [address] [id number] Immature granulocytes/100 WBC (Bld) 0 % Normal [facility]; [facility] Work Phone: Comment on above: PATIENT WAS FASTINGP ERFORMED BY: [facility] Yyioub2211 [facility] [id number] BY: [address] [id number] Lymphocytes (Bld) [#/Vol] 2.9 10*3/uL Normal 0.7-3.1 [facility]; [facility] Work Phone: Comment on above: PATIENT WAS FASTINGP ERFORMED BY: [facility] Hbyybq4310 [facility] [id number] BY: [address] [id number] Lymphocytes/100 WBC (Bld) 52 % Normal [facility]; [facility] Work Phone: Comment on above: PATIENT WAS FASTINGP ERFORMED BY: [facility] Qmixcc3396 [facility] [id number] BY: [address] [id number] MCH (RBC) [Entitic mass] 28.1 pg Normal 26.6-33.0 [facility]; [facility] Work Phone: Comment on above: PATIENT WAS FASTINGP ERFORMED BY: [facility] Daorcy4139 [facility] [id number] BY: [address] [id number] MCHC (RBC) [Mass/Vol] 34.1 g/dL Normal 31.5-35.7 [facility] Internal [facility]; [facility] Work Phone: Comment on above: PATIENT WAS FASTINGP ERFORMED BY: [facility] Ylzgai4905 [facility] [id number] BY: [address] [id number] MCV (RBC) [Entitic vol] 82 fL Normal 79-97 [facility]; [facility] Work Phone: Comment on above: PATIENT WAS FASTINGP ERFORMED BY: [facility] Tgfmfj9082 [facility] [id number] BY: [address] [id number] Monocytes (Bld) [#/Vol] 0.5 10*3/uL Normal 0.1-0.9 [facility]; [facility] Work Phone: Comment on above: PATIENT WAS FASTINGP ERFORMED BY: CB [facility] Bqpmci6205 [place] [facility]bl[facility] [id number] BY: [facility] [address] [id number] Monocytes/100 WBC (Bld) 9 % Normal [facility]; [facility] Work Phone: Comment on above: PATIENT WAS FASTINGP ERFORMED BY: CB [facility] Ktzwld4298 [place] [facility] [id number] BY: BN [facility] [address] [id number] Neutrophils (Bld) [#/Vol] 1.9 10*3/uL Normal 1.4-7.0 [facility]; [facility] Work Phone: Comment on above: PATIENT WAS FASTINGP ERFORMED BY: CB [facility] Azqbkv7824 [place] [facility] [id number] BY: [facility] [address] [id number] Neutrophils/100 WBC (Bld) 36 % Normal [facility]; [facility] Work Phone: Comment on above: PATIENT WAS FASTINGP ERFORMED BY: CB [facility] Rvzedg6899 [place] [facility] [id number] BY: [facility] [address] [id number] Platelets (Bld) [#/Vol] 319 10*3/uL Normal 150-450 [facility]; [facility] Work Phone: Comment on above: PATIENT WAS FASTINGP ERFORMED BY: CB [facility] Ebrrba9512 [place] [facility] [id number] BY: [facility] [address] [id number] RBC (Bld) [#/Vol] 4.98 10*6/uL Normal 3.77-5.28 Compr [facility] Internal Medicine; [facility] Work Phone: Comment on above: PATIENT WAS FASTINGP ERFORMED BY: [facility] Ndticw1734 [place] [facility] [id number] BY: [facility] [id number] WBC (Bld) [#/Vol] 5.4 10*3/uL Normal 3.4-10.8 [facility] Internal [facility]; [facility] Work Phone: Comment on above: PATIENT WAS FASTINGP ERFORMED BY: [facility] Cbiiis6149 [facility] [id number] BY: [facility] [id number] Creatine Kinase Total (27971 )Ordered By: Shirt Sorter on 01-31-2023 CK [Catalytic activity/Vol] 46 U/L Normal 32-182 [facility]; [facility] Work Phone: Comment on above: PATIENT WAS FASTINGP ERFORMED BY: [facility] Kgcvdk8771 [facility] [id number] BY: [facility] [id number] ESR-F (SED RATE ERYTHROCYTE - FEMALE) (25750)Ordered By: Shirt Sorter on 01-31-2023 ESR (Bld) [Velocity] 4 mm/h Normal 0-40 Comp rehensive Internal Medicine; [facility] Work Phone: Comment on above: PATIENT WAS FASTINGP ERFORMED BY: [facility] Jejvni3405 [facility] [id number] BY: [facility] [id number] METABOLIC PANEL, COMPREHENSI VE (60200)Ordered By: Shirt Sorter on 01-31-2023 Albumin [Mass/Vol] 4.5 g/dL Normal 3.8-4.9 [facility] Internal [facility]; [facility] Work Phone: Comment on above: PATIENT WAS FASTINGP ERFORMED BY: [facility] Gxsdop7708 [facility] [id number] BY: [facility] [id number] Albumin/Globulin [Mass ratio] 2.3 {ratio} Abnormal 1.2-2.2 [facility]; [facility] Work Phone: Comment on above: PATIENT WAS FASTINGP ERFORMED BY: TRAN [facility] Dlsffd2537 [facility] [id number] BY: [facility] [id number] ALP [Catalytic activity/Vol] 63 U/L Normal 44-121 [facility]; [facility] Work Phone: Comment on above: PATIENT WAS FASTINGP ERFORMED BY: TRAN [facility] Efyfhu9744 [facility] [id number] BY: [address] [id number] ALT [Catalytic activity/Vol] 13 U/L Normal 0-32 [facility]; [facility] Work Phone: Comment on above: PATIENT WAS FASTINGP ERFORMED BY: TRAN [facility] Eyidcc3038 [facility] [id number] BY: [address] [id number] AST [Catalytic activity/Vol] 18 U/L Normal 0-40 [facility]; [facility] Work Phone: Comment on above: PATIENT WAS FASTINGP ERFORMED BY: [facility] Pedgsj3574 [facility] [id number] BY: [address] [id number] Bilirubin [Mass/Vol] 0.4 mg/dL Normal 0.0-1.2 [facility] rehensive Internal Medicine; [facility] Work Phone: Comment on above: PATIENT WAS FASTINGP ERFORMED BY: [facility] Xrwurn6865 [facility] [id number] BY: [facility] [id number] Calcium [Mass/Vol] 9.8 mg/dL Normal 8.7-10.2 [facility] Internal [facility]; [facility] Work Phone: Comment on above: PATIENT WAS FASTINGP ERFORMED BY: [facility] Tqobjl1202 [place] RoadDublin [place] [id number] BY: [facility] [id number] Chloride [Moles/Vol] 101 mmol/L Normal 96-106 [facility] rehensive Internal Medicine; [facility] Work Phone: Comment on above: PATIENT WAS FASTINGP ERFORMED BY: CB [facility] Hcbbcr0560 [place] RoadC[facility] [id number] BY: [address] [id number] CO2 [Moles/Vol] 25 mmol/L Normal 20-29 Comprehen [facility]; [facility] Work Phone: Comment on above: PATIENT WAS FASTINGP ERFORMED BY: [facility] Azndxg8707 [place] [facility] [id number] BY: [address] [id number] Creatinine [Mass/Vol] 0.68 mg/dL Normal 0.57-1.00 [facility]; [facility] Work Phone: Comment on above: PATIENT WAS FASTINGP ERFORMED BY: [facility] Tudrcy7292 [place] RoadSt. Luke'S Hospitalin [place] [id number] BY: [facility] [id number] GFR/1.73 sq M.predicted among non-blacks MDRD (S/P/Bld) [Vol rate/Area] 104 mL/min/{1.73_m2} Normal Comprehensi ve Internal Medicine; [facility] Work Phone: Comment on above: PATIENT WAS FASTINGP ERFORMED BY: CB [facility] Iibzxk4467 [place] RoadCape [facility] [id number] BY: [facility] [id number] Globulin (S) [Mass/Vol] 2.0 g/dL Normal 1.5-4.5 [facility]; [facility] Work Phone: Comment on above: PATIENT WAS FASTINGP ERFORMED BY: [facility] Ksqpjq9008 [facility] [id number] BY: [address] [id number] Glucose [Mass/Vol] 82 mg/dL Normal 70-99 [facility] Internal Medicine; [facility] Work Phone: Comment on above: PATIENT WAS FASTINGP ERFORMED BY: [facility] Pwrchi3542 [facility] [id number] BY: [address] [id number] Potassium [Moles/Vol] 4.0 mmol/L Normal 3.5-5.2 [facility]; [facility] Work Phone: Comment on above: PATIENT WAS FASTINGP ERFORMED BY: [facility]coM[facility]owview Psychiatric HospitalRdlyzo9030 [facility] [id number] BY: [address] [id number] Protein [Mass/Vol] 6.5 g/dL Normal 6.0-8.5 [facility] Internal [facility]; [facility] Work Phone: Comment on above: PATIENT WAS FASTINGP ERFORMED BY: [facility] Ipiozu2400 [facility] [id number] BY: [address] [id number] Sodium [Moles/Vol] 138 mmol/L Normal 134-144 [facility] Internal [facility]; [facility] Work Phone: Comment on above: PATIENT WAS FASTINGP ERFORMED BY: [facility] Nqisum8913 [facility] [id number] BY: [facility] Health[facility] CampusNffhyavpdu9259 [facility] [id number] Urea nitrogen [Mass/Vol] 13 mg/dL Normal 6-24 [facility]; [facility] Work Phone: Comment on above: PATIENT WAS FASTINGP ERFORMED BY: [facility] Bwrlqy4134 [facility] [id number] BY: [facility] [id number] Urea nitrogen/Creatinine [Mass ratio] 19 mg/mg Normal 9-23 [facility]; [facility] Work Phone: Comment on above: PATIENT WAS FASTINGP ERFORMED BY: [facility] Hxdsbs8999 [facility] [id number] BY: [facility] [id number] SARS-CoV-2 Antibody, IgGOrde red By: Shirt Sorter on 07-25-2021 SARS-CoV-2 Antibody, IgG Negative Normal [facility]; [facility] Work Phone: Comment on above: This sample does not contain detectable SARS-CoV-2 IgG antibodies.This negative result does not rule out SARS-CoV-2 infection.Correlation with epidemiologic risk factors and other clinical andlaboratory findings is recommended. Serologic results should not beused as the sole basis to diagnose or exclude recent FQWT-OhU-8knkuhcvef.This assay was performed using the [employer]ison(R)SARS-CoV-2 S1/S2 IgG assay.This assay detects antibodies against SARS-CoV-2 spike proteinincluding the receptor binding domain (RBD).Effective August 13, 2021, this test will be changing froma qualitative assay to a semi-quantitative assay for WQST-LeU-2igjbkjryrb against the viral spike protein. Test(s) 364011-DHJZ- CoV-2 Antibody, IgGhas not been FDA cleared or approved. This test hasbeen authorized by FDA under an Emergency Use Authorization(EUA). This test is only authorized for the duration of thedeclaration that circumstances exist justifying the authorizationof emergency use of in vitro diagnostics for detection and/ordiagnosis of COVID-19 under Section 564(b)(1) of the Act, 21U.S.C. 360bbb-3(b)(1), unless the authorization is terminated orrevoked sooner. This test has been authorized only for detectingthe presence of antibodies against SARS-CoV-2, not for any otherviruses or pathogens.PATIENT NOT FASTINGPERFORMED BY: [facility] Vadems5143 [facility] [id number] POTASSIUM SERUM (91563)Order ed By: Shirt Sorter on 05-05-2018 Potassium [Moles/Vol] 3.9 mmol/L Normal 3.5-5.1 [facility] prehensive Internal Medicine Work Phone: Comment on above: STAT STAT STAT; Orde r Date: 05/05/18Order Info: 2823-3 - KComments: STAT STAT STATWOhio [facility] Abclpexzbo1072 [place], [address] CALCIFEDIOL (07145)Ordered B y: Shirt Sorter on 05-04-2018 25-Hydroxyvitamin D2+25-Hydroxyvitamin D3 [Mass/Vol] 41.7 ng/mL Normal 30.0-100.0 [facility] Work Phone: Comment on above: Vitamin D deficiency has been defined by the Flynn ofMedicine and an Endocrine Society practice guideline as alevel of serum 25-OH vitamin D less than 20 ng/mL (1,2).The Endocrine Society went on to further define vitamin Dinsufficiency as a level between 21 and 29 ng/mL (2).1. IOM (Flynn of Medicine). 2010. Dietary reference intakes for calcium and D. [place]: The National Academies Press.2. Karla MF, Brett NC, Rosario MACIEL, et al. Evaluation, treatment, and prevention of vitamin D deficiency: an Endocrine Society clinical practice guideline. JCEM. 2010; 96(7):1911-30. PATIENT WAS FASTINGP ERFORMED BY: [facility] Xeecuk5216 [facility] [id number] CBC & PLATELETS (AUTO) (8502 7)Ordered By: Shirt Sorter on 05-04-2018 Erythrocyte distribution width (RBC) [Ratio] 13.0 % Normal 12.3-15.4 [facility] Work Phone: Comment on above: PATIENT WAS FASTINGP ERFORMED BY: TRAN [facility] Wucrrj5568 [place] RoadDublin [place] [id number] Hematocrit (Bld) [Volume fraction] 39.7 % Normal 34.0-46.6 [facility] Internal Medicine Work Phone: Comment on above: PATIENT WAS FASTINGP ERFORMED BY: [facility] Rywtkd5256 [place] RoadDublin [place] [id number] Hemoglobin (Bld) [Mass/Vol] 13.2 g/dL Normal 11.1-15.9 [facility] Work Phone: Comment on above: PATIENT WAS FASTINGP ERFORMED BY: TRAN [facility] Yqmpen8999 [place] RoadSt. Luke'S Hospitalin [place] [id number] MCH (RBC) [Entitic mass] 27.8 pg Normal 26.6-33.0 [facility] Internal Medicine Work Phone: Comment on above: PATIENT WAS FASTINGP ERFORMED BY: [facility] Nvcgqv1626 [place] RoadDublin [place] [id number] MCHC (RBC) [Mass/Vol] 33.2 g/dL Normal 31.5-35.7 [facility] Internal Medicine Work Phone: Comment on above: PATIENT WAS FASTINGP ERFORMED BY: [facility] Mtrenq3328 [place] RoadDublin [place] [id number] MCV (RBC) [Entitic vol] 84 fL Normal 79-97 [facility] Work Phone: Comment on above: PATIENT WAS FASTINGP ERFORMED BY: CB [facility] Kqrtxs5333 [place] RoadDublin [place] [id number] Platelets (Bld) [#/Vol] 298 {x10E3/uL} Normal 150-379 [facility] Work Phone: Comment on above: PATIENT WAS FASTINGP ERFORMED BY: CB [facility] Qroanj9107 [place] RoadDublin [place] [id number] Platelets (Bld) [#/Vol] 298 10*3/uL Normal 150-379 [facility]; [facility] Work Phone: Comment on above: PATIENT WAS FASTINGP ERFORMED BY: TRAN [facility] Btzhua5989 [place] RoadDublin [place] [id number] RBC (Bld) [#/Vol] 4.74 {x10E6/uL} Normal 3.77-5.28 [facility] Internal Medicine Work Phone: Comment on above: PATIENT WAS FASTINGP ERFORMED BY: CB [facility] Qqkxgx4995 [place] RoadDublin [place] [id number] RBC (Bld) [#/Vol] 4.74 10*6/uL Normal 3.77-5.28 [facility] Internal Medicine; [facility] Work Phone: Comment on above: PATIENT WAS FASTINGP ERFORMED BY: TRAN [facility] Exgyuh6374 [place] RoadDublin [place] [id number] WBC (Bld) [#/Vol] 5.9 {x10E3/uL} Normal 3.4-10.8 [facility] Internal Medicine Work Phone: Comment on above: PATIENT WAS FASTINGP ERFORMED BY: TRAN [facility] Xpekuu0841 [place] RoadDublin [place] [id number] WBC (Bld) [#/Vol] 5.9 10*3/uL Normal 3.4-10.8 [facility] Internal Medicine; [facility] Work Phone: Comment on above: PATIENT WAS FASTINGP ERFORMED BY: CB [facility] Hejnbe1143 [address] RoadDublin [place] [id number] LIPID PANEL (91178)Ordered B y: Shirt Sorter on 05-04-2018 Cholesterol [Mass/Vol] 210 mg/dL Abnormal 100-199 [facility] Work Phone: Comment on above: PATIENT WAS FASTINGP ERFORMED BY: TRAN [facility] Fibjdd7040 [place] RoadDublin [place] [id number] Cholesterol in HDL [Mass/Vol] 78 mg/dL Normal [facility] Work Phone: Comment on above: PATIENT WAS FASTINGP ERFORMED BY: TRAN LabDrake DuronPupzcx[address] [place] [facility]in [place] [id number] Cholesterol in LDL [Mass/Vol] 119 mg/dL Abnormal 0-99 [facility] Work Phone: Comment on above: PATIENT WAS FASTINGP ERFORMED BY: TRAN Duronlin6370 [place] [facility] [id number] Cholesterol in LDL/Cholesterol in HDL [Mass ratio] 1.5 {ratio} Normal 0.0-3.2 [facility] Work Phone: Comment on above: LDL/HDL Ratio Men Wo men 1/2 Avg.Risk 1.0 1.5 Avg.Risk 3.6 3.2 2X Avg.Risk 6.2 5.0 3X Avg.Risk 8.0 6.1 PATIENT WAS FASTINGP ERFORMED BY: TRAN Duronlin6370 [place] [facility] [id number] Cholesterol in VLDL [Mass/Vol] 13 mg/dL Normal 5-40 [facility] Work Phone: Comment on above: PATIENT WAS FASTINGP ERFORMED BY: TRAN Duronlin6370 [facility] [place] [id number] Triglyceride [Mass/Vol] 67 mg/dL Normal 0-149 [facility] Work Phone: Comment on above: PATIENT WAS FASTINGP ERFORMED BY: TRAN Duronlin6370 [facility] [id number] METABOLIC PANEL, COMPREHENSI VE (34737)Ordered By: Shirt Sorter on 05-04-2018 Albumin [Mass/Vol] 4.6 g/dL Normal 3.5-5.5 [facility] Internal Medicine Work Phone: Comment on above: PATIENT WAS FASTINGP ERFORMED BY: TRAN Duronlin6370 [facility] [id number] Albumin/Globulin [Mass ratio] 1.9 {ratio} Normal 1.2-2.2 [facility] Work Phone: Comment on above: PATIENT WAS FASTINGP ERFORMED BY: CB [facility] Jesrcu3033 [address] RoadDublin [place] [id number] ALP [Catalytic activity/Vol] 73 [iU]/L Normal 39-117 [facility] Work Phone: Comment on above: PATIENT WAS FASTINGP ERFORMED BY: [facility] Kcvcgo5671 [place] RoadDublin [place] [id number] ALP [Catalytic activity/Vol] 73 U/L Normal 39-117 [facility]; [facility] Work Phone: Comment on above: PATIENT WAS FASTINGP ERFORMED BY: [facility] Dirxad5551 [place] RoadDublin [place] [id number] ALT [Catalytic activity/Vol] 12 [iU]/L Normal 0-32 [facility] Work Phone: Comment on above: PATIENT WAS FASTINGP ERFORMED BY: [facility] Xzfqku9544 [place] RoadDublin [place] [id number] ALT [Catalytic activity/Vol] 12 U/L Normal 0-32 [facility]; [facility] Work Phone: Comment on above: PATIENT WAS FASTINGP ERFORMED BY: [facility] Wndgfv7839 [address] RoadDublin [place] [id number] AST [Catalytic activity/Vol] 19 [iU]/L Normal 0-40 [facility] Work Phone: Comment on above: PATIENT WAS FASTINGP ERFORMED BY: [facility] Ajedpu9478 [address] RoadDublin [place] [id number] AST [Catalytic activity/Vol] 19 U/L Normal 0-40 [facility]; [facility] Work Phone: Comment on above: PATIENT WAS FASTINGP ERFORMED BY: [facility] Cpbgnr8862 [address] RoadDublin [place] [id number] Bilirubin [Mass/Vol] 0.3 mg/dL Normal 0.0-1.2 [facility] Internal Medicine Work Phone: Comment on above: PATIENT WAS FASTINGP ERFORMED BY: [facility] Cizsca8111 [address] RoadDublin [place] [id number] Calcium [Mass/Vol] 9.8 mg/dL Normal 8.7-10.2 [facility] Internal Medicine Work Phone: Comment on above: PATIENT WAS FASTINGP ERFORMED BY: TRAN [facility] Dqlsdz6338 [address] RoadDublin [place] [id number] Chloride [Moles/Vol] 102 mmol/L Normal 96-106 [facility] Work Phone: Comment on above: PATIENT WAS FASTINGP ERFORMED BY: [facility] Xwrubi0176 [address] RoadSt[address] Luke'S Hospitalin [place] [id number] CO2 [Moles/Vol] 26 mmol/L Normal 20-29 [facility] Internal Medicine Work Phone: Comment on above: PATIENT WAS FASTINGP ERFORMED BY: TRAN [facility] Bbbdub7796 [address] [facility] [id number] Creatinine [Mass/Vol] 0.62 mg/dL Normal 0.57-1.00 [facility] Internal Medicine Work Phone: Comment on above: PATIENT WAS FASTINGP ERFORMED BY: TRAN [facility] Jenfau6463 [address] RoadSt[address] Luke[facility]S Hospitalin [place] [id number] GFR/1.73 sq M predicted among blacks CKD-EPI (S/P/Bld) [Vol rate/Area] 123 mL/min/1.73 Normal [facility] Work Phone: Comment on above: PATIENT WAS FASTINGP ERFORMED BY: [facility] Vbzwot4373 [address] RoadSt[address] Luke'S Hospitalin [place] [id number] GFR/1.73 sq M predicted among non-blacks CKD-EPI (S/P/Bld) [Vol rate/Area] 107 mL/min/1.73 Normal [facility] Work Phone: Comment on above: PATIENT WAS FASTINGP ERFORMED BY: [facility] Nhhnhm7[address] [facility]in [place] [id number] Globulin (S) [Mass/Vol] 2.4 g/dL Normal 1.5-4.5 [facility] Work Phone: Comment on above: PATIENT WAS FASTINGP ERFORMED BY: [facility] Yooevp5044 [address] Roadblin [place] [id number] Glucose [Mass/Vol] 83 mg/dL Normal 65-99 [facility] Internal Medicine Work Phone: Comment on above: PATIENT WAS FASTINGP ERFORMED BY: [facility] Wkbbmh9174 [address] RoadDublin [place] [id number] Potassium [Moles/Vol] 5.5 mmol/L Abnormal 3.5-5.2 [facility] Internal Medicine Work Phone: Comment on above: PATIENT WAS FASTINGP ERFORMED BY: [facility] Jizfpg3000 [address] RoadDublin [place] [id number] Protein [Mass/Vol] 7.0 g/dL Normal 6.0-8.5 [facility] Internal Medicine Work Phone: Comment on above: PATIENT WAS FASTINGP ERFORMED BY: [facility] Hqtklf5034 [address] RoadDublin [place] [id number] Sodium [Moles/Vol] 141 mmol/L Normal 134-144 [facility] Internal Medicine Work Phone: Comment on above: PATIENT WAS FASTINGP ERFORMED BY: [facility] Pftulr7175 [address] RoadDublin [place] [id number] Urea nitrogen [Mass/Vol] 13 mg/dL Normal 6-24 [facility] Internal Medicine Work Phone: Comment on above: PATIENT WAS FASTINGP ERFORMED BY: [facility] Xerssg5240 [address] RoadDublin [place] [id number] Urea nitrogen/Creatinine [Mass ratio] 21 mg/mg Normal 9-23 [facility] Internal Medicine Work Phone: Comment on above: PATIENT WAS FASTINGP ERFORMED BY: CB [facility] Jefaxq0671 [address] RoadDublin [place] [id number] CALCIFIDIOL (59695) VIT D 25 Ordered By: Shirt Sorter on 11-25-2016 25-Hydroxyvitamin D2+25-Hydroxyvitamin D3 [Mass/Vol] 32.7 ng/mL Normal 30.0-100.0 [facility] Internal Medicine Work Phone: Comment on above: Vitamin D deficiency has been defined by the Flynn ofMedicine and an Endocrine Society practice guideline as alevel of serum 25-OH vitamin D less than 20 ng/mL (1,2).The Endocrine Society went on to further define vitamin Dinsufficiency as a level between 21 and 29 ng/mL (2).1. IOM (Flynn of Medicine). 2010. Dietary reference intakes for calcium and D. [place]: The National Academies Press.2. Karla MF, Brett ANTUNEZ, Rosario MACIEL, et al. Evaluation, treatment, and prevention of vitamin D deficiency: an Endocrine Society clinical practice guideline. JCEM. 2010; 96(7):1911-30. PATIENT WAS FASTINGP ERFORMED BY: MobAppCreator [facility] Afxaio0178 [address] RoadDublin [place] [id number] CBC W/AUTO DIFF WBC (11923)O rdered By: Shirt Sorter on 11-25-2016 Basophils (Bld) [#/Vol] 0.0 {x10E3/uL} Normal 0.0-0.2 [facility] Work Phone: Comment on above: PATIENT WAS FASTINGP ERFORMED BY: [facility] Rjrehd2116 [address] RoadDublin [place] [id number] Basophils (Bld) [#/Vol] 0.0 10*3/uL Normal 0.0-0.2 [facility]; [facility] Work Phone: Comment on above: PATIENT WAS FASTINGP ERFORMED BY: [facility] Mxrkla6705 [address] RoadDublin [place] [id number] Basophils/100 WBC (Bld) 1 % Normal [facility] Work Phone: Comment on above: PATIENT WAS FASTINGP ERFORMED BY: [employer]App[employer]or [facility] Qyfyma6916 [address] RoadDublin [place] [id number] Eosinophils (Bld) [#/Vol] 0.1 {x10E3/uL} Normal 0.0-0.4 [facility] Work Phone: Comment on above: PATIENT WAS FASTINGP ERFORMED BY: CB [facility] Wesqxq8628 [address] RoadDublin [place] [id number] Eosinophils (Bld) [#/Vol] 0.1 10*3/uL Normal 0.0-0.4 [facility]; [facility] Work Phone: Comment on above: PATIENT WAS FASTINGP ERFORMED BY: TRAN LabCosuzanne MoncadaHabapp9023 [address] Roadblin [place] [id number] Eosinophils/100 WBC (Bld) 2 % Normal [facility] Work Phone: Comment on above: PATIENT WAS FASTINGP ERFORMED BY: [facility] Ztuzoh2495 [address] [facility] [id number] Erythrocyte distribution width (RBC) [Ratio] 13.7 % Normal 12.3-15.4 [facility] Work Phone: Comment on above: PATIENT WAS FASTINGP ERFORMED BY: [facility] Unjtnl9757 [address] [facility] [id number] Hematocrit (Bld) [Volume fraction] 41.8 % Normal 34.0-46.6 [facility] Work Phone: Comment on above: PATIENT WAS FASTINGP ERFORMED BY: [facility] Qkkiox5162 [address] [facility] [id number] Hemoglobin (Bld) [Mass/Vol] 13.8 g/dL Normal 11.1-15.9 [facility] Work Phone: Comment on above: PATIENT WAS FASTINGP ERFORMED BY: [facility] Qpztsc9355 [address] [facility]in [place] [id number] Immature granulocytes (Bld) [#/Vol] 0.0 {x10E3/uL} Normal 0.0-0.1 [facility] Work Phone: Comment on above: PATIENT WAS FASTINGP ERFORMED BY: [facility] Nkcmxw1781 [address] RoadDublin [place] [id number] Immature granulocytes (Bld) [#/Vol] 0.0 10*3/uL Normal 0.0-0.1 [facility]; [facility] Work Phone: Comment on above: PATIENT WAS FASTINGP ERFORMED BY: [facility] Nahmyi4035 [address] RoadDublin [place] [id number] Immature granulocytes/100 WBC (Bld) 0 % Normal [facility] Work Phone: Comment on above: PATIENT WAS FASTINGP ERFORMED BY: Lab[facility]um[facility] Hospital6370 [address] Roadblin [place] [id number] Lymphocytes (Bld) [#/Vol] 1.9 {x10E3/uL} Normal 0.7-3.1 [facility] Work Phone: Comment on above: PATIENT WAS FASTINGP ERFORMED BY: LabTenet St. LouisFeumlh8[address] [facility] Hospitalblin [place] [id number] Lymphocytes (Bld) [#/Vol] 1.9 10*3/uL Normal 0.7-3.1 [facility] Internal Medicine; [facility] Work Phone: Comment on above: PATIENT WAS FASTINGP ERFORMED BY: [facility]6[address] [facility] [id number] Lymphocytes/100 WBC (Bld) 43 % Normal [facility] Work Phone: Comment on above: PATIENT WAS FASTINGP ERFORMED BY: [facility]6370 [address] [facility] [id number] MCH (RBC) [Entitic mass] 27.5 pg Normal 26.6-33.0 [facility] Internal Medicine Work Phone: Comment on above: PATIENT WAS FASTINGP ERFORMED BY: [facility]6370 [facility] [id number] MCHC (RBC) [Mass/Vol] 33.0 g/dL Normal 31.5-35.7 [facility] Internal Medicine Work Phone: Comment on above: PATIENT WAS FASTINGP ERFORMED BY: [facility] Qjktbk7681 [address] [facility] HospitalDublin [place] [id number] MCV (RBC) [Entitic vol] 83 fL Normal 79-97 [facility] Internal Medicine Work Phone: Comment on above: PATIENT WAS FASTINGP ERFORMED BY: [facility] Zvbfez2162 [address] Roadblin [place] [id number] Monocytes (Bld) [#/Vol] 0.4 {x10E3/uL} Normal 0.1-0.9 [facility] Work Phone: Comment on above: PATIENT WAS FASTINGP ERFORMED BY: CB [facility] Xbjtho3607 [address] RoadDublin [place] [id number] Monocytes (Bld) [#/Vol] 0.4 10*3/uL Normal 0.1-0.9 [facility]; [facility] Work Phone: Comment on above: PATIENT WAS FASTINGP ERFORMED BY: CB [facility] Ejgudj0327 [address] RoadDublin [place] [id number] Monocytes/100 WBC (Bld) 8 % Normal [facility] Work Phone: Comment on above: PATIENT WAS FASTINGP ERFORMED BY: CB [facility] Hlucpv4702 [address] RoadDublin [place] [id number] Neutrophils (Bld) [#/Vol] 2.1 {x10E3/uL} Normal 1.4-7.0 [facility] Work Phone: Comment on above: PATIENT WAS FASTINGP ERFORMED BY: CB [facility] Dutbwh8707 [address] RoadDublin [place] [id number] Neutrophils (Bld) [#/Vol] 2.1 10*3/uL Normal 1.4-7.0 [facility]; [facility] Work Phone: Comment on above: PATIENT WAS FASTINGP ERFORMED BY: [facility] Vvhely7810 [address] RoadDublin [place] [id number] Neutrophils/100 WBC (Bld) 46 % Normal [facility] Work Phone: Comment on above: PATIENT WAS FASTINGP ERFORMED BY: CB [facility] Wfqvft6693 [address] RoadDublin [place] [id number] Platelets (Bld) [#/Vol] 281 {x10E3/uL} Normal 150-379 [facility] Work Phone: Comment on above: PATIENT WAS FASTINGP ERFORMED BY: CB [facility] Vaekjl5166 [address] RoadDublin [place] [id number] Platelets (Bld) [#/Vol] 281 10*3/uL Normal 150-379 [facility]; [facility] Work Phone: Comment on above: PATIENT WAS FASTINGP ERFORMED BY: TRAN Zee Moncada6370 [address] RoadSalvadorblin [place] [id number] RBC (Bld) [#/Vol] 5.02 {x10E6/uL} Normal 3.77-5.28 [facility] Internal Medicine Work Phone: Comment on above: PATIENT WAS FASTINGP ERFORMED BY: TRAN [facility] Uavxtk8373 [address] RoadDublin [place] [id number] RBC (Bld) [#/Vol] 5.02 10*6/uL Normal 3.77-5.28 [facility] Internal Medicine; [facility] Work Phone: Comment on above: PATIENT WAS FASTINGP ERFORMED BY: TRAN LabD[facility] Pgdymm9341 [address] RoadDublin [place] [id number] WBC (Bld) [#/Vol] 4.5 {x10E3/uL} Normal 3.4-10.8 [facility] Internal Medicine Work Phone: Comment on above: PATIENT WAS FASTINGP ERFORMED BY: TRAN LabDrake Slocra2326 [address] RoadDublin [place] [id number] WBC (Bld) [#/Vol] 4.5 10*3/uL Normal 3.4-10.8 [facility] Internal Medicine; [facility] Work Phone: Comment on above: PATIENT WAS FASTINGP ERFORMED BY: TRAN [facility] Wrqhrg0339 [address] RoadDublin [place] [id number] LIPID PANEL ([id number])Ordered B y: Shirt Sorter on 11-25-2016 Cholesterol [Mass/Vol] 258 mg/dL Abnormal 100-199 [facility] Work Phone: Comment on above: PATIENT WAS FASTINGP ERFORMED BY: TRAN LabCosuzanne Hgcojz9351 [address] RoadDublin [place] [id number] Cholesterol in HDL [Mass/Vol] 82 mg/dL Normal [facility] Work Phone: Comment on above: PATIENT WAS FASTINGP ERFORMED BY: TRAN [facility] Mxyjmy3891 [address] [facility] Hospitalblin [place] [id number] Cholesterol in LDL [Mass/Vol] 161 mg/dL Abnormal 0-99 [facility] Work Phone: Comment on above: PATIENT WAS FASTINGP ERFORMED BY: TRAN [facility] Rrutpm6880 [address] [facility] Hospitalblin [place] [id number] Cholesterol in LDL/Cholesterol in HDL [Mass ratio] 2.0 {ratio_units} Normal 0.0-3.2 [facility] Work Phone: Comment on above: LDL/HDL Ratio Men Wo men 1/2 Avg.Risk 1.0 1.5 Avg.Risk 3.6 3.2 2X Avg.Risk 6.2 5.0 3X Avg.Risk 8.0 6.1 PATIENT WAS FASTINGP ERFORMED BY: TRAN [facility] Oxhuvh9303 [address] [facility] [id number] Cholesterol in VLDL [Mass/Vol] 15 mg/dL Normal 5-40 [facility] Work Phone: Comment on above: PATIENT WAS FASTINGP ERFORMED BY: TRAN [facility] Oqezdv6718 [address] [facility]in [place] [id number] Triglyceride [Mass/Vol] 73 mg/dL Normal 0-149 [facility] Work Phone: Comment on above: PATIENT WAS FASTINGP ERFORMED BY: TRAN [facility] Lbrwgn4495 [facility]in [place] [id number] METABOLIC PANEL, COMPREHENSI VE ([id number])Ordered By: Shirt Sorter on 11-25-2016 Albumin [Mass/Vol] 4.6 g/dL Normal 3.5-5.5 [facility] Internal Medicine Work Phone: Comment on above: PATIENT WAS FASTINGP ERFORMED BY: [facility] Crvkts1595 [address] [facility] Hospitalblin [place] [id number] Albumin/Globulin [Mass ratio] 1.9 {ratio} Normal 1.1-2.5 [facility] Work Phone: Comment on above: Effective December the reference interval for A/G Ratio will be changing to: Age Male Female 0 - 7 days 1.1 - 2.3 1.1 - 2.3 8 - 30 days 1.2 - 2.8 1.2 - 2.8 1 - 6 months 1.3 - 3.6 1.3 - 3.6 7 months - 5 years 1.5 - 2.6 1.5 - 2.6 > 5 years 1.2 - 2.2 1.2 - 2.2 PATIENT WAS FASTINGP ERFORMED BY: [place] 6102870 [address] [facility] [id number] ALP [Catalytic activity/Vol] 51 [iU]/L Normal 39-117 [facility] Work Phone: Comment on above: PATIENT WAS FASTINGP ERFORMED BY: [place] 6102870 [address] [facility]in [place] [id number] ALP [Catalytic activity/Vol] 51 U/L Normal 39-117 [facility]; [facility] Work Phone: Comment on above: PATIENT WAS FASTINGP ERFORMED BY: [place] 6102870 [place] [facility] [id number] ALT [Catalytic activity/Vol] 14 [iU]/L Normal 0-32 [facility] Work Phone: Comment on above: PATIENT WAS FASTINGP ERFORMED BY: [place] 6102870 [place] [facility] [id number] ALT [Catalytic activity/Vol] 14 U/L Normal 0-32 [facility]; [facility] Work Phone: Comment on above: PATIENT WAS FASTINGP ERFORMED BY: [place] 6102870 [place] [facility] [id number] AST [Catalytic activity/Vol] 19 [iU]/L Normal 0-40 [facility] Work Phone: Comment on above: PATIENT WAS FASTINGP ERFORMED BY: [place] 6102870 [address] [facility]in [place] [id number] AST [Catalytic activity/Vol] 19 U/L Normal 0-40 [facility]; [facility] Work Phone: Comment on above: PATIENT WAS FASTINGP ERFORMED BY: [facility] Depwrr8850 [address] RoadDublin [place] [id number] Bilirubin [Mass/Vol] 0.4 mg/dL Normal 0.0-1.2 [facility] Work Phone: Comment on above: PATIENT WAS FASTINGP ERFORMED BY: [facility] Wqnalq3549 [address] RoadDublin [place] [id number] Calcium [Mass/Vol] 9.5 mg/dL Normal 8.7-10.2 [facility] Internal Medicine Work Phone: Comment on above: PATIENT WAS FASTINGP ERFORMED BY: [facility] Kzglja5107 [address] RoadDublin [place] [id number] Chloride [Moles/Vol] 97 mmol/L Normal 96-106 [facility] Internal [facility] Work Phone: Comment on above: PATIENT WAS FASTINGP ERFORMED BY: [facility] Uiodog6459 [address] RoadDublin [place] [id number] CO2 [Moles/Vol] 23 mmol/L Normal 18-29 [facility] Internal Medicine Work Phone: Comment on above: PATIENT WAS FASTINGP ERFORMED BY: [facility] Qdknrh9166 [address] RoadDublin [place] [id number] Creatinine [Mass/Vol] 0.63 mg/dL Normal 0.57-1.00 [facility] Internal Medicine Work Phone: Comment on above: PATIENT WAS FASTINGP ERFORMED BY: [facility] Tvdzfn0770 [address] RoadDublin [place] [id number] GFR/1.73 sq M predicted among blacks CKD-EPI (S/P/Bld) [Vol rate/Area] 124 mL/min/1.73 Normal [facility] Work Phone: Comment on above: PATIENT WAS FASTINGP ERFORMED BY: [facility] Iztiua7013 [address] RoadDublin [place] [id number] GFR/1.73 sq M predicted among non-blacks CKD-EPI (S/P/Bld) [Vol rate/Area] 107 mL/min/1.73 Normal [facility] Work Phone: Comment on above: PATIENT WAS FASTINGP ERFORMED BY: [facility] Prlvnu5650 [address] RoadDublin [place] [id number] Globulin (S) [Mass/Vol] 2.4 g/dL Normal 1.5-4.5 [facility] Internal Medicine Work Phone: Comment on above: PATIENT WAS FASTINGP ERFORMED BY: [facility] Ugajku4997 [address] [facility] Hospitalblin [place] [id number] Glucose [Mass/Vol] 66 mg/dL Normal 65-99 [facility] Internal Medicine Work Phone: Comment on above: PATIENT WAS FASTINGP ERFORMED BY: [facility] Ptunxp0311 [address] [facility]in [place] [id number] Potassium [Moles/Vol] 4.5 mmol/L Normal 3.5-5.2 [facility] Internal Medicine Work Phone: Comment on above: PATIENT WAS FASTINGP ERFORMED BY: [facility]6370 [address] [facility]in [place] [id number] Protein [Mass/Vol] 7.0 g/dL Normal 6.0-8.5 [facility] Internal Medicine Work Phone: Comment on above: PATIENT WAS FASTINGP ERFORMED BY: LabTenet St. LouisJuoyju8268 [address] [facility]in [place] [id number] Sodium [Moles/Vol] 141 mmol/L Normal 134-144 [facility] Internal Medicine Work Phone: Comment on above: PATIENT WAS FASTINGP ERFORMED BY: [facility] Quhwgr4122 [address] [facility]in [place] [id number] Urea nitrogen [Mass/Vol] 12 mg/dL Normal 6-24 [facility] Internal Medicine Work Phone: Comment on above: PATIENT WAS FASTINGP ERFORMED BY: [facility] Xdnzgp7953 [address] RoadDublin [place] [id number] Urea nitrogen/Creatinine [Mass ratio] 19 mg/mg Normal 9-23 [facility] Internal Medicine Work Phone: Comment on above: PATIENT WAS FASTINGP ERFORMED BY: [facility] Yxezsm8241 [address] [facility]in [place] [id number] Potassium Serum (41876)Order ed By: Shirt Sorter on 05-05-2015 Potassium [Moles/Vol] 4.8 mmol/L Normal 3.5-5.2 [facility] Work Phone: Comment on above: PATIENT WAS FASTINGP ERFORMED BY: [facility] Zompwd3082 [facility] [id number] Information: [id number] Metabolic Panel, Comprehensi ve ([id number])Ordered By: Shirt Sorter on 07-05-2014 Albumin [Mass/Vol] 4.8 g/dL Normal 3.5-5.5 [facility] Internal Medicine Work Phone: Comment on above: 3-4 weeks; PATIENT N OT FASTINGPERFORMED BY: [facility] Ghzyep4217 [address] [facility] [id number] Information: [id number] Albumin/Globulin [Mass ratio] 1.8 {ratio} Normal 1.1-2.5 [facility] Internal Medicine Work Phone: Comment on above: 3-4 weeks; PATIENT N OT FASTINGPERFORMED BY: TRAN [facility] Ntrprq4225 [facility] [id number] Information: [id number] ALP [Catalytic activity/Vol] 70 [iU]/L Normal 39-117 [facility] Work Phone: Comment on above: 3-4 weeks; PATIENT N OT FASTINGPERFORMED BY: [facility] Arhndw4903 [address] [facility]in [place] [id number] Information: [id number] ALP [Catalytic activity/Vol] 70 U/L Normal 39-117 [facility]; [facility] Work Phone: Comment on above: 3-4 weeks; PATIENT N OT FASTINGPERFORMED BY: TRAN [facility] Dypdsh1392 [address] [facility]in [place] [id number] Information: [id number] ALT [Catalytic activity/Vol] 11 [iU]/L Normal 0-32 [facility] Work Phone: Comment on above: 3-4 weeks; PATIENT N OT FASTINGPERFORMED BY: CB [facility] Kxygvr5741 [address] [facility] Hospitalblin [place] [id number] Information: [id number] ALT [Catalytic activity/Vol] 11 U/L Normal 0-32 [facility]; [facility] Work Phone: Comment on above: 3-4 weeks; PATIENT N OT FASTINGPERFORMED BY: CB [facility] Bzrosd8457 [address] RoadDuin [place] [id number] Information: [id number] AST [Catalytic activity/Vol] 16 [iU]/L Normal 0-40 [facility] Work Phone: Comment on above: 3-4 weeks; PATIENT N OT FASTINGPERFORMED BY: CB [facility] Qlvues3339 [address] RoadCape [facility] [id number] Information: [id number] AST [Catalytic activity/Vol] 16 U/L Normal 0-40 [facility]; [facility] Work Phone: Comment on above: 3-4 weeks; PATIENT N OT FASTINGPERFORMED BY: CB [facility] Vvrkav5772 [place] [facility] [id number] Information: [id number] Bilirubin [Mass/Vol] 0.4 mg/dL Normal 0.0-1.2 Comp [facility] Internal [facility] Work Phone: Comment on above: 3-4 weeks; PATIENT N OT FASTINGPERFORMED BY: CB [facility] Ueghtr9186 [place] [facility] [id number] Information: [id number] Calcium [Mass/Vol] 9.9 mg/dL Normal 8.7-10.2 Compre [facility] Internal Medicine Work Phone: Comment on above: 3-4 weeks; PATIENT N OT FASTINGPERFORMED BY: CB [facility] Ajggnu9134 [address] [facility] [id number] Information: [id number] Chloride [Moles/Vol] 99 mmol/L Normal 97-108 [facility] Work Phone: Comment on above: 3-4 weeks; PATIENT N OT FASTINGPERFORMED BY: CB [facility] Dslquv6652 [facility] [id number] Information: [id number] CO2 [Moles/Vol] 27 mmol/L Normal 18-29 [facility] Internal Medicine Work Phone: Comment on above: 3-4 weeks; PATIENT N OT FASTINGPERFORMED BY: CB [facility] Tgcgxk4171 [facility] [id number] Information: [id number] Creatinine [Mass/Vol] 0.76 mg/dL Normal 0.57-1.00 [facility] Internal Medicine Work Phone: Comment on above: 3-4 weeks; PATIENT N OT FASTINGPERFORMED BY: [facility] Totjbt5292 [facility] [id number] Information: [id number] GFR/1.73 sq M predicted among blacks CKD-EPI (S/P/Bld) [Vol rate/Area] 110 mL/min/1.73 Normal [facility] Work Phone: Comment on above: 3-4 weeks; PATIENT N OT FASTINGPERFORMED BY: [facility] Cqisbt0466 [facility] [id number] Information: [id number] GFR/1.73 sq M predicted among non-blacks CKD-EPI (S/P/Bld) [Vol rate/Area] 95 mL/min/1.73 Normal [facility] Work Phone: Comment on above: 3-4 weeks; PATIENT N OT FASTINGPERFORMED BY: [facility] Iozrdz4634 [facility] [id number] Information: [id number] Globulin (S) [Mass/Vol] 2.7 g/dL Normal 1.5-4.5 [facility] Work Phone: Comment on above: 3-4 weeks; PATIENT N OT FASTINGPERFORMED BY: CB [facility] Qzhfnm9312 [address] RoadDublin [place] [id number] Information: [id number] Glucose [Mass/Vol] 84 mg/dL Normal 65-99 [facility] Internal Medicine Work Phone: Comment on above: 3-4 weeks; PATIENT N OT FASTINGPERFORMED BY: CB [facility] Zzxgjc4345 [place] RoadSt[address] Luke'S Hospitalin [place] [id number] Information: [id number] Potassium [Moles/Vol] 4.1 mmol/L Normal 3.5-5.2 [facility] Internal Medicine Work Phone: Comment on above: 3-4 weeks; PATIENT N OT FASTINGPERFORMED BY: CB [facility] Hokcro1222 [address] [facility] [place] [id number] Information: [id number] Protein [Mass/Vol] 7.5 g/dL Normal 6.0-8.5 [facility] Internal Medicine Work Phone: Comment on above: 3-4 weeks; PATIENT N OT FASTINGPERFORMED BY: CB [facility] Rbsgxe5239 [address] [facility] [place] [id number] Information: [id number] Sodium [Moles/Vol] 142 mmol/L Normal 134-144 [facility] Internal Medicine Work Phone: Comment on above: 3-4 weeks; PATIENT N OT FASTINGPERFORMED BY: CB [facility] Jyyqmr6490 [address] [facility] [place] [id number] Information: [id number] Urea nitrogen [Mass/Vol] 11 mg/dL Normal 6-24 [facility] Internal Medicine Work Phone: Comment on above: 3-4 weeks; PATIENT N OT FASTINGPERFORMED BY: CB [facility] Oxxjmh0217 [address]blin [place] [id number] Information: [id number] Urea nitrogen/Creatinine [Mass ratio] 14 mg/mg Normal 9-23 [facility] Internal Medicine Work Phone: Comment on above: 3-4 weeks; PATIENT N OT FASTINGPERFORMED BY: TRAN [facility] Wkepea4156 [facility] [id number] Information: [id number] Potassium Serum (52521)Order ed By: Shirt Sorter on 06-07-2014 Potassium [Moles/Vol] 4.1 mmol/L Normal 3.5-5.2 [facility] Internal Medicine Work Phone: Comment on above: PATIENT NOT FASTINGP ERFORMED BY: TRAN [facility] Fbnusl6675 [facility] [id number] Information: [id number] Metabolic Panel, Comprehensi ve (32325)Ordered By: Shirt Sorter on 05-31-2014 Albumin [Mass/Vol] 4.5 g/dL Normal 3.5-5.5 [facility] Internal Medicine Work Phone: Comment on above: Test(s) Potassium, S jeyson called to Dr Chavis on 05/31/2014 at 23:30 ESTPATIENT NOT FASTINGPERFORMED BY: [facility] Cbtcfe5965 [facility] [id number] Information: [id number] Albumin/Globulin [Mass ratio] 1.7 {ratio} Normal 1.1-2.5 [facility] Internal Medicine Work Phone: Comment on above: Test(s) Potassium, S jeyson called to Dr Chavis on 05/31/2014 at 23:30 ESTPATIENT NOT FASTINGPERFORMED BY: [facility] Mdblqx4195 [facility] [id number] Information: [id number] ALP [Catalytic activity/Vol] 58 [iU]/L Normal 39-117 [facility] Work Phone: Comment on above: Test(s) Potassium, S jeyson called to Dr Chavis on 05/31/2014 at 23:30 ESTPATIENT NOT FASTINGPERFORMED BY: [facility] Oipybc6294 [facility] [id number] Information: [id number] ALP [Catalytic activity/Vol] 58 U/L Normal 39-117 [facility]; [facility] Work Phone: Comment on above: Test(s) Potassium, S jeyson called to Dr Chavis on 05/31/2014 at 23:30 ESTPATIENT NOT FASTINGPERFORMED BY: LabHELIX BIOMEDIXDeanna V[place] 3814170 [facility] [id number] Information: [id number] ALT [Catalytic activity/Vol] 9 [iU]/L Normal 0-32 [facility] Work Phone: Comment on above: Test(s) Potassium, S jeyson called to Dr Chavis on 05/31/2014 at 23:30 ESTPATIENT NOT FASTINGPERFORMED BY: Lab[facility] BIOMEDIX[address] [id number] Information: [id number] ALT [Catalytic activity/Vol] 9 U/L Normal 0-32 [facility]; [facility] Work Phone: Comment on above: Test(s) Potassium, S jeyson called to Dr Chavis on 05/31/2014 at 23:30 ESTPATIENT NOT FASTINGPERFORMED BY: Lab[facility] BIOMEDIX[address] [id number] Information: [id number] AST [Catalytic activity/Vol] 16 [iU]/L Normal 0-40 [facility] Work Phone: Comment on above: Test(s) Potassium, S jeyson called to Dr Chavis on 05/31/2014 at 23:30 ESTPATIENT NOT FASTINGPERFORMED BY: [place] 6102870 [facility] [id number] Information: [id number] AST [Catalytic activity/Vol] 16 U/L Normal 0-40 [facility]; [facility] Work Phone: Comment on above: Test(s) Potassium, S jeyson called to Dr Chavis on 05/31/2014 at 23:30 ESTPATIENT NOT FASTINGPERFORMED BY: [facility]6370 [facility] [id number] Information: [id number] Bilirubin [Mass/Vol] 0.4 mg/dL Normal 0.0-1.2 [facility] Work Phone: Comment on above: Test(s) Potassium, S jeyson called to Dr Chavis on 05/31/2014 at 23:30 ESTPATIENT NOT FASTINGPERFORMED BY: [place] 6102870 [facility] [id number] Information: [id number] Calcium [Mass/Vol] 10.2 mg/dL Normal 8.7-10.2 [facility] Internal Medicine Work Phone: Comment on above: Test(s) Potassium, S jeyson called to Dr Chavis on 05/31/2014 at 23:30 ESTPATIENT NOT FASTINGPERFORMED BY: [place] 6102870 [facility] [id number] Information: [id number],[id number] Chloride [Moles/Vol] 101 mmol/L Normal 97-108 [facility] Work Phone: Comment on above: Test(s) Potassium, S jeyson called to Dr Chavis on 05/31/2014 at 23:30 ESTPATIENT NOT FASTINGPERFORMED BY: [facility]6370 [facility] [id number] Information: [id number],[id number] CO2 [Moles/Vol] 24 mmol/L Normal 18-29 [facility] Internal Medicine Work Phone: Comment on above: Test(s) Potassium, S jeyson called to Dr Chavis on 05/31/2014 at 23:30 ESTPATIENT NOT FASTINGPERFORMED BY: [place] 6102870 [facility] [id number] Information: [id number] Creatinine [Mass/Vol] 0.88 mg/dL Normal 0.57-1.00 [facility] Internal Medicine Work Phone: Comment on above: Test(s) Potassium, S jeyson called to Dr Chavis on 05/31/2014 at 23:30 ESTPATIENT NOT FASTINGPERFORMED BY: Transparentrees Ntdoyl0971 [facility] [id number] Information: [id number] GFR/1.73 sq M predicted among blacks CKD-EPI (S/P/Bld) [Vol rate/Area] 92 mL/min/1.73 Normal [facility] Work Phone: Comment on above: Test(s) Potassium, S jeyson called to Dr Chavis on 05/31/2014 at 23:30 ESTPATIENT NOT FASTINGPERFORMED BY: Transparentrees Rznbwa3011 [facility] [id number] Information: [id number] GFR/1.73 sq M predicted among non-blacks CKD-EPI (S/P/Bld) [Vol rate/Area] 80 mL/min/1.73 Normal [facility] Work Phone: Comment on above: Test(s) Potassium, S jeyson called to Dr Chavis on 05/31/2014 at 23:30 ESTPATIENT NOT FASTINGPERFORMED BY: Transparentrees Vkauck3498 [facility] [id number] Information: [id number],[id number] Globulin (S) [Mass/Vol] 2.6 g/dL Normal 1.5-4.5 [facility] Work Phone: Comment on above: Test(s) Potassium, S jeyson called to Dr Chavis on 05/31/2014 at 23:30 ESTPATIENT NOT FASTINGPERFORMED BY: Transparentrees Uoqlke0893 [facility] [id number] Information: [id number],[id number] Glucose [Mass/Vol] 87 mg/dL Normal 65-99 [facility] Internal Medicine Work Phone: Comment on above: Test(s) Potassium, S jeyson called to Dr Chavis on 05/31/2014 at 23:30 ESTPATIENT NOT FASTINGPERFORMED BY: Transparentrees Xfrvus9832 [facility] [id number] Information: [id number] Potassium [Moles/Vol] 5.6 mmol/L Abnormal 3.5-5.2 [facility] Internal Medicine Work Phone: Comment on above: Client Requested Fla g Test(s) Potassium, S jeyson called to Dr Chavis on 05/31/2014 at 23:30 ESTPATIENT NOT FASTINGPERFORMED BY: Transparentrees Ovjqec5262 [facility] [id number] Information: [id number] Protein [Mass/Vol] 7.1 g/dL Normal 6.0-8.5 [facility] Internal Medicine Work Phone: Comment on above: Test(s) Potassium, S jeyson called to Dr Chavis on 05/31/2014 at 23:30 ESTPATIENT NOT FASTINGPERFORMED BY: Transparentrees Ypforr4595 [facility] [id number] Information: [id number] Sodium [Moles/Vol] 142 mmol/L Normal 134-144 [facility] Internal Medicine Work Phone: Comment on above: Test(s) Potassium, S jeyson called to Dr Chavis on 05/31/2014 at 23:30 ESTPATIENT NOT FASTINGPERFORMED BY: Transparentrees Urgzgj1986 [facility] [id number] Information: [id number] Urea nitrogen [Mass/Vol] 11 mg/dL Normal 6-24 [facility] Internal Medicine Work Phone: Comment on above: Test(s) Potassium, S jeyson called to Dr Chavis on 05/31/2014 at 23:30 ESTPATIENT NOT FASTINGPERFORMED BY: Transparentrees Iglkrf2327 [facility] [id number] Information: [id number] Urea nitrogen/Creatinine [Mass ratio] 13 mg/mg Normal 9-23 [facility] Work Phone: Comment on above: Test(s) Potassium, S jeyson called to Dr Chavis on 05/31/2014 at 23:30 ESTPATIENT NOT FASTINGPERFORMED BY: [facility]6370 [facility] [id number] Information: [id number] CBC W/AUTO DIFF WBC (30665)O rdered By: Shirt Sorter on 05-26-2014 Basophils (Bld) [#/Vol] 0.0 {x10E3/uL} Normal 0.0-0.2 [facility] Work Phone: Comment on above: Test(s) Potassium, S jeyson called to Dr Breen on 05/27/2014 at 03:58 ESTPATIENT WAS FASTINGPERFORMED BY: [facility]6370 [facility] [id number] Information: [id number] Basophils (Bld) [#/Vol] 0.0 10*3/uL Normal 0.0-0.2 [facility]; [facility] Work Phone: Comment on above: Test(s) Potassium, S jeyson called to Dr Breen on 05/27/2014 at 03:58 ESTPATIENT WAS FASTINGPERFORMED BY: [facility] [id number] Information: [id number] Basophils/100 WBC (Bld) 0 % Normal 0-3 [facility] Work Phone: Comment on above: Test(s) Potassium, S jeyson called to Dr Breen on 05/27/2014 at 03:58 ESTPATIENT WAS FASTINGPERFORMED BY: [facility]6370 [facility] [id number] Information: [id number],[id number] Eosinophils (Bld) [#/Vol] 0.1 {x10E3/uL} Normal 0.0-0.4 [facility] Work Phone: Comment on above: Test(s) Potassium, S jeyson called to Dr Breen on 05/27/2014 at 03:58 ESTPATIENT WAS FASTINGPERFORMED BY: [facility]6370 [facility] [id number] Information: [id number],[id number] Eosinophils (Bld) [#/Vol] 0.1 10*3/uL Normal 0.0-0.4 [facility]; [facility] Work Phone: Comment on above: Test(s) Potassium, S jeyson called to Dr Breen on 05/27/2014 at 03:58 ESTPATIENT WAS FASTINGPERFORMED BY: Transparentrees Eujnwx8782 [facility] [id number] Information: [id number] Eosinophils/100 WBC (Bld) 1 % Normal 0-5 [facility] Work Phone: Comment on above: Test(s) Potassium, S jeyson called to Dr Breen on 05/27/2014 at 03:58 ESTPATIENT WAS FASTINGPERFORMED BY: Rallyhood70 [facility] [id number] Information: [id number] Erythrocyte distribution width (RBC) [Ratio] 13.2 % Normal 12.3-15.4 [facility] Work Phone: Comment on above: Test(s) Potassium, S jeyson called to Dr Breen on 05/27/2014 at 03:58 ESTPATIENT WAS FASTINGPERFORMED BY: Transparentrees Uwvufr9735 [facility] [id number] Information: [id number] Hematocrit (Bld) [Volume fraction] 41.5 % Normal 34.0-46.6 [facility] Work Phone: Comment on above: Test(s) Potassium, S jeyson called to Dr Breen on 05/27/2014 at 03:58 ESTPATIENT WAS FASTINGPERFORMED BY: Transparentrees Csqcyn1135 [facility] [id number] Information: [id number] Hemoglobin (Bld) [Mass/Vol] 14.4 g/dL Normal 11.1-15.9 [facility] Work Phone: Comment on above: Test(s) Potassium, S jeyson called to Dr Breen on 05/27/2014 at 03:58 ESTPATIENT WAS FASTINGPERFORMED BY: [facility]6370 [facility] [id number] Information: [id number] Immature granulocytes (Bld) [#/Vol] 0.0 {x10E3/uL} Normal 0.0-0.1 [facility] Work Phone: Comment on above: Test(s) Potassium, S jeyson called to Dr Breen on 05/27/2014 at 03:58 ESTPATIENT WAS FASTINGPERFORMED BY: [place] 6102870 [facility] [id number] Information: [id number] Immature granulocytes (Bld) [#/Vol] 0.0 10*3/uL Normal 0.0-0.1 [facility]; [facility] Work Phone: Comment on above: Test(s) Potassium, S jeyson called to Dr Breen on 05/27/2014 at 03:58 ESTPATIENT WAS FASTINGPERFORMED BY: [facility] HospitalHELIX BIOMEDIXDeanna V[place] 3814170 [facility] [id number] Information: [id number] Immature granulocytes/100 WBC (Bld) 0 % Normal 0-2 [facility] Work Phone: Comment on above: Test(s) Potassium, S jeyson called to Dr Breen on 05/27/2014 at 03:58 ESTPATIENT WAS FASTINGPERFORMED BY: [place] 6102870 [facility] [id number] Information: [id number] Lymphocytes (Bld) [#/Vol] 2.5 {x10E3/uL} Normal 0.7-3.1 [facility] Work Phone: Comment on above: Test(s) Potassium, S jeyson called to Dr Breen on 05/27/2014 at 03:58 ESTPATIENT WAS FASTINGPERFORMED BY: [facility]6370 [facility] [id number] Information: [id number] Lymphocytes (Bld) [#/Vol] 2.5 10*3/uL Normal 0.7-3.1 [facility]; [facility] Work Phone: Comment on above: Test(s) Potassium, S jeyson called to Dr Breen on 05/27/2014 at 03:58 ESTPATIENT WAS FASTINGPERFORMED BY: Transparentrees Ilhyfs9970 [facility] [id number] Information: [id number] Lymphocytes/100 WBC (Bld) 36 % Normal 14-46 [facility] Work Phone: Comment on above: Test(s) Potassium, S jeyson called to Dr Breen on 05/27/2014 at 03:58 ESTPATIENT WAS FASTINGPERFORMED BY: Rallyhood70 [facility] [id number] Information: [id number] MCH (RBC) [Entitic mass] 28.4 pg Normal 26.6-33.0 [facility] Work Phone: Comment on above: Test(s) Potassium, S jeyson called to Dr Breen on 05/27/2014 at 03:58 ESTPATIENT WAS FASTINGPERFORMED BY: Transparentrees Kmypou2811 [facility] [id number] Information: [id number] MCHC (RBC) [Mass/Vol] 34.7 g/dL Normal 31.5-35.7 [facility] prehensive Internal Medicine Work Phone: Comment on above: Test(s) Potassium, S jeyson called to Dr Breen on 05/27/2014 at 03:58 ESTPATIENT WAS FASTINGPERFORMED BY: LabHEL[facility] BIOMEDIX Kqqnhh4641 [facility] [id number] Information: [id number] MCV (RBC) [Entitic vol] 82 fL Normal 79-97 [facility] Work Phone: Comment on above: Test(s) Potassium, S jeyson called to Dr Breen on 05/27/2014 at 03:58 ESTPATIENT WAS FASTINGPERFORMED BY: LabHEL[facility] BIOMEDIX Dfprji0360 [facility] [id number] Information: [id number] Monocytes (Bld) [#/Vol] 0.5 {x10E3/uL} Normal 0.1-0.9 [facility] Work Phone: Comment on above: Test(s) Potassium, S jeyson called to Dr Breen on 05/27/2014 at 03:58 ESTPATIENT WAS FASTINGPERFORMED BY: TransparentreesPresbyterian Kaseman HospitalZffspu5022 [facility] [id number] Information: [id number] Monocytes (Bld) [#/Vol] 0.5 10*3/uL Normal 0.1-0.9 [facility]; [facility] Work Phone: Comment on above: Test(s) Potassium, S jeyson called to Dr Breen on 05/27/2014 at 03:58 ESTPATIENT WAS FASTINGPERFORMED BY: Transparentrees Eqknyz4161 [facility] [id number] Information: 704291,[id number] Monocytes/100 WBC (Bld) 8 % Normal 4-12 [facility] Work Phone: Comment on above: Test(s) Potassium, S jeyson called to Dr Breen on 05/27/2014 at 03:58 ESTPATIENT WAS FASTINGPERFORMED BY: Transparentrees Bnifpk0717 [facility] [id number] Information: [id number] Neutrophils (Bld) [#/Vol] 3.7 {x10E3/uL} Normal 1.4-7.0 [facility] Work Phone: Comment on above: Test(s) Potassium, S jeyson called to Dr Breen on 05/27/2014 at 03:58 ESTPATIENT WAS FASTINGPERFORMED BY: [facility] [id number] Information: [id number] Neutrophils (Bld) [#/Vol] 3.7 10*3/uL Normal 1.4-7.0 [facility]; [facility] Work Phone: Comment on above: Test(s) Potassium, S jeyson called to Dr Breen on 05/27/2014 at 03:58 ESTPATIENT WAS FASTINGPERFORMED BY: [facility] Loqhbe9710 [facility] [id number] Information: [id number] Neutrophils/100 WBC (Bld) 55 % Normal 40-74 [facility] Work Phone: Comment on above: Test(s) Potassium, S jeyson called to Dr Breen on 05/27/2014 at 03:58 ESTPATIENT WAS FASTINGPERFORMED BY: LabTenet St. LouisOrontt0126 [facility] [id number] Information: 137696,[id number] Platelets (Bld) [#/Vol] 284 {x10E3/uL} Normal 150-379 [facility] Work Phone: Comment on above: Test(s) Potassium, S jeyson called to Dr Breen on 05/27/2014 at 03:58 ESTPATIENT WAS FASTINGPERFORMED BY: AmplitudeTenet St. LouisWxdlcm8832 [facility] [id number] Information: [id number] Platelets (Bld) [#/Vol] 284 10*3/uL Normal 150-379 [facility]; [facility] Work Phone: Comment on above: Test(s) Potassium, S jeyson called to Dr Breen on 05/27/2014 at 03:58 ESTPATIENT WAS FASTINGPERFORMED BY: [facility] Yveyaq2440 [facility] [id number] Information: [id number] RBC (Bld) [#/Vol] 5.07 {x10E6/uL} Normal 3.77-5.28 [facility] Internal Medicine Work Phone: Comment on above: Test(s) Potassium, S jeyson called to Dr Breen on 05/27/2014 at 03:58 ESTPATIENT WAS FASTINGPERFORMED BY: [facility] Iejeeg8105 [facility] [id number] Information: [id number] RBC (Bld) [#/Vol] 5.07 10*6/uL Normal 3.77-5.28 [facility] Internal Medicine; [facility] Work Phone: Comment on above: Test(s) Potassium, S jeyson called to Dr Breen on 05/27/2014 at 03:58 ESTPATIENT WAS FASTINGPERFORMED BY: Rallyhood70 [place] [facility] [id number] Information: [id number] WBC (Bld) [#/Vol] 6.8 {x10E3/uL} Normal 3.4-10.8 [facility] Internal Medicine Work Phone: Comment on above: Test(s) Potassium, S jeyson called to Dr Breen on 05/27/2014 at 03:58 ESTPATIENT WAS FASTINGPERFORMED BY: TRAN Rallyhood70 [employer] PartnerNov[facility] [id number] Information: [id number] WBC (Bld) [#/Vol] 6.8 10*3/uL Normal 3.4-10.8 [facility] Internal Medicine; [facility] Work Phone: Comment on above: Test(s) Potassium, S jeyson called to Dr Breen on 05/27/2014 at 03:58 ESTPATIENT WAS FASTINGPERFORMED BY: TRAN Rallyhood70 [employer] PartnerNov[facility] [id number] Information: [id number] GONADOTROPIN-FSH (29791)Orde red By: Shirt Sorter on 05-26-2014 Follitropin Qn 153.5 m[IU]/mL Normal [facility] Internal Medicine Work Phone: Comment on above: Follicular phase 3.5 - 12.5 Ovulation phase 4.7 - 21.5 Luteal phase 1.7 - 7.7 Postmenopausal 25.8 - 134.8 Test(s) Potassium, S jeyson called to Dr Breen on 05/27/2014 at 03:58 ESTPATIENT WAS FASTINGPERFORMED BY: Plum.io70 [place] [facility] PointC[facility] [id number] GONADOTROPIN-LH ([id number])Order ed By: Shirt Sorter on 05-26-2014 Lutropin Qn 47.8 m[IU]/mL Normal [facility] Internal Medicine Work Phone: Comment on above: Follicular phase 2.4 - 12.6 Ovulation phase 14.0 - 95.6 Luteal phase 1.0 - 11.4 Postmenopausal 7.7 - 58.5 Test(s) Potassium, S jeyson called to Dr Breen on 05/27/2014 at 03:58 ESTPATIENT WAS FASTINGPERFORMED BY: MonCV.comNovant Health Cle[facility] [id number] LIPID PANEL (24711)Ordered B y: Shirt Sorter on 05-26-2014 Cholesterol [Mass/Vol] 243 mg/dL Abnormal 100-199 [facility] Work Phone: Comment on above: Test(s) Potassium, S jeyson called to Dr Breen on 05/27/2014 at 03:58 ESTPATIENT WAS FASTINGPERFORMED BY: MonCV.comNovant Health Cle[facility] [id number] Cholesterol in HDL [Mass/Vol] 90 mg/dL Normal [facility] Work Phone: Comment on above: According to ATP-III Guidelines, HDL-C >59 mg/dL is considered anegative risk factor for CHD. Test(s) Potassium, S jeyson called to Dr Breen on 05/27/2014 at 03:58 ESTPATIENT WAS FASTINGPERFORMED BY: [employer] [place] [id number] Cholesterol in LDL [Mass/Vol] 139 mg/dL Abnormal 0-99 [facility] Work Phone: Comment on above: Test(s) Potassium, S jeyson called to Dr Breen on 05/27/2014 at 03:58 ESTPATIENT WAS FASTINGPERFORMED BY: MonCV.comNov[facility] Health [facility] [id number] Cholesterol in LDL/Cholesterol in HDL [Mass ratio] 1.5 {ratio_units} Normal 0.0-3.2 [facility] Work Phone: Comment on above: Test(s) Potassium, S jeyson called to Dr Breen on 05/27/2014 at 03:58 ESTPATIENT WAS FASTINGPERFORMED BY: Plum.io70 [employer] PartnerNov[facility] [id number] Cholesterol in VLDL [Mass/Vol] 14 mg/dL Normal 5-40 [facility] Work Phone: Comment on above: Test(s) Potassium, S jeyson called to Dr Breen on 05/27/2014 at 03:58 ESTPATIENT WAS FASTINGPERFORMED BY: MobAppCreator LabNavPrescience70 [facility] PartnerNov[facility] [id number] Triglyceride [Mass/Vol] 70 mg/dL Normal 0-149 [facility] Work Phone: Comment on above: Test(s) Potassium, S jeyson called to Dr Breen on 05/27/2014 at 03:58 ESTPATIENT WAS FASTINGPERFORMED BY: MobAppCreator LabNavPrescience70 [facility] PartnerNov[facility] [id number] METABOLIC PANEL, COMPREHENSI VE ([id number])Ordered By: Shirt Sorter on 05-26-2014 Albumin [Mass/Vol] 4.9 g/dL Normal 3.5-5.5 [facility] Internal Medicine Work Phone: Comment on above: Test(s) Potassium, S jeyson called to Dr Breen on 05/27/2014 at 03:58 ESTPATIENT WAS FASTINGPERFORMED BY: LabNavPrescience70 [employer] PartnerNovant [facility] [id number] Albumin/Globulin [Mass ratio] 1.8 {ratio} Normal 1.1-2.5 [facility] Work Phone: Comment on above: Test(s) Potassium, S jeyson called to Dr Breen on 05/27/2014 at 03:58 ESTPATIENT WAS FASTINGPERFORMED BY: [email or web address] [employer] PartnerNov[facility] [id number] ALP [Catalytic activity/Vol] 65 [iU]/L Normal 39-117 [facility] Work Phone: Comment on above: Test(s) Potassium, S jeyson called to Dr Breen on 05/27/2014 at 03:58 ESTPATIENT WAS FASTINGPERFORMED BY: LabHELIX BIOMEDIX Rptjoa1562 [address] RoadDublin [place] [id number] ALP [Catalytic activity/Vol] 65 U/L Normal 39-117 [facility]; [facility] Work Phone: Comment on above: Test(s) Potassium, S jeyson called to Dr Breen on 05/27/2014 at 03:58 ESTPATIENT WAS FASTINGPERFORMED BY: MobAppCreator LabHELIX BIOMEDIXrp Dfuixl5493 [address] RoadDublin [place] [id number] ALT [Catalytic activity/Vol] 10 [iU]/L Normal 0-32 [facility] Work Phone: Comment on above: Test(s) Potassium, S jeyson called to Dr Breen on 05/27/2014 at 03:58 ESTPATIENT WAS FASTINGPERFORMED BY: Eashmart[address] Social PointDublin [place] [id number] ALT [Catalytic activity/Vol] 10 U/L Normal 0-32 [facility]; [facility] Work Phone: Comment on above: Test(s) Potassium, S jeyson called to Dr Breen on 05/27/2014 at 03:58 ESTPATIENT WAS FASTINGPERFORMED BY: [email or web address] [place] Social PointCape Fear/Harnett Health [id number] AST [Catalytic activity/Vol] 16 [iU]/L Normal 0-40 [facility] Work Phone: Comment on above: Test(s) Potassium, S jeyson called to Dr Breen on 05/27/2014 at 03:58 ESTPATIENT WAS FASTINGPERFORMED BY: Eashmart6370 [address] RoadDublin [place] [id number] AST [Catalytic activity/Vol] 16 U/L Normal 0-40 [facility]; [facility] Work Phone: Comment on above: Test(s) Potassium, S jeyson called to Dr Breen on 05/27/2014 at 03:58 ESTPATIENT WAS FASTINGPERFORMED BY: Eashmart6370 [address] RoadDuin [place] [id number] Bilirubin [Mass/Vol] 0.4 mg/dL Normal 0.0-1.2 [facility] Work Phone: Comment on above: Test(s) Potassium, S jeyson called to Dr Breen on 05/27/2014 at 03:58 ESTPATIENT WAS FASTINGPERFORMED BY: [email or web address] [employer] Mobile PartnerNov[facility] [id number] Calcium [Mass/Vol] 10.6 mg/dL Abnormal 8.7-10.2 [facility] Internal Medicine Work Phone: Comment on above: Test(s) Potassium, S jeyson called to Dr Breen on 05/27/2014 at 03:58 ESTPATIENT WAS FASTINGPERFORMED BY: MonCV.comRegenaStem [place] [id number] Chloride [Moles/Vol] 99 mmol/L Normal 97-108 [facility] Work Phone: Comment on above: Test(s) Potassium, S jeyson called to Dr Breen on 05/27/2014 at 03:58 ESTPATIENT WAS FASTINGPERFORMED BY: [email or web address] [employer] PartnerNov[facility] [id number] CO2 [Moles/Vol] 25 mmol/L Normal 18-29 [facility] Internal Medicine Work Phone: Comment on above: Test(s) Potassium, S jeyson called to Dr Breen on 05/27/2014 at 03:58 ESTPATIENT WAS FASTINGPERFORMED BY: [email or web address] [employer] Mobile PartnerNov[facility] [id number] Creatinine [Mass/Vol] 0.75 mg/dL Normal 0.57-1.00 [facility] Internal Medicine Work Phone: Comment on above: Test(s) Potassium, S jeyson called to Dr Breen on 05/27/2014 at 03:58 ESTPATIENT WAS FASTINGPERFORMED BY: [email or web address] [employer] Mobile PartnerNov[facility] [id number] GFR/1.73 sq M predicted among blacks CKD-EPI (S/P/Bld) [Vol rate/Area] 111 mL/min/1.73 Normal [facility] Internal Medicine Work Phone: Comment on above: Test(s) Potassium, S jeyson called to Dr Breen on 05/27/2014 at 03:58 ESTPATIENT WAS FASTINGPERFORMED BY: [email or web address] [employer] Mobile PartnerNov[facility] [id number] GFR/1.73 sq M predicted among non-blacks CKD-EPI (S/P/Bld) [Vol rate/Area] 97 mL/min/1.73 Normal [facility] Internal Medicine Work Phone: Comment on above: Test(s) Potassium, S jeyson called to Dr Breen on 05/27/2014 at 03:58 ESTPATIENT WAS FASTINGPERFORMED BY: [email or web address] [employer] Mobile PartnerNov[facility] [id number] Globulin (S) [Mass/Vol] 2.8 g/dL Normal 1.5-4.5 [facility] Internal Medicine Work Phone: Comment on above: Test(s) Potassium, S jeyson called to Dr Breen on 05/27/2014 at 03:58 ESTPATIENT WAS FASTINGPERFORMED BY: [email or web address] [employer] Mobile PartnerNov[facility] [id number] Glucose [Mass/Vol] 87 mg/dL Normal 65-99 [facility] Internal Medicine Work Phone: Comment on above: Test(s) Potassium, S jeyson called to Dr Breen on 05/27/2014 at 03:58 ESTPATIENT WAS FASTINGPERFORMED BY: [email or web address] [employer] Mobile PartnerNov[facility] [id number] Potassium [Moles/Vol] 5.7 mmol/L Abnormal 3.5-5.2 [facility] Internal Medicine Work Phone: Comment on above: Client Requested Fla g Test(s) Potassium, S jeyson called to Dr Breen on 05/27/2014 at 03:58 ESTPATIENT WAS FASTINGPERFORMED BY: [email or web address] [place] Social PointCape Fear/Harnett Health [id number] Protein [Mass/Vol] 7.7 g/dL Normal 6.0-8.5 [facility] Internal Medicine Work Phone: Comment on above: Test(s) Potassium, S ejyson called to Dr Breen on 05/27/2014 at 03:58 ESTPATIENT WAS FASTINGPERFORMED BY: [email or web address] [employer] Mobile PartnerNov[facility] [id number] Sodium [Moles/Vol] 141 mmol/L Normal 134-144 [facility] Internal Medicine Work Phone: Comment on above: Test(s) Potassium, S jeyson called to Dr Breen on 05/27/2014 at 03:58 ESTPATIENT WAS FASTINGPERFORMED BY: [email or web address] [employer] Mobile PartnerNov[facility] [id number] Urea nitrogen [Mass/Vol] 16 mg/dL Normal 6-24 [facility] Work Phone: Comment on above: Test(s) Potassium, S jeyson called to Dr Breen on 05/27/2014 at 03:58 ESTPATIENT WAS FASTINGPERFORMED BY: MonCV.comNovant Health [facility] [id number] Urea nitrogen/Creatinine [Mass ratio] 21 mg/mg Normal 9-23 [facility] Work Phone: Comment on above: Test(s) Potassium, S jeyson called to Dr Breen on 05/27/2014 at 03:58 ESTPATIENT WAS FASTINGPERFORMED BY: [email or web address] GroupsiteCape Fear/Harnett Health [id number] PROLACTIN ([id number])Ordered By: Shirt Sorter on 05-26-2014 Prolactin [Mass/Vol] 13.3 ng/mL Normal 4.8-23.3 [facility] Internal Medicine Work Phone: Comment on above: Test(s) Potassium, S jeyson called to Dr Breen on 05/27/2014 at 03:58 ESTPATIENT WAS FASTINGPERFORMED BY: [email or web address] GroupsiteCape Fear/H[facility] Health [id number] TSH ([id number])Ordered By: Syste m Life Sciences Director on 05-26-2014 TSH Qn 2.850 {uIU/mL} Normal 0.450-4.500 [facility] Internal Medicine Work Phone: Comment on above: Test(s) Potassium, S jeyson called to Dr Breen on 05/27/2014 at 03:58 ESTPATIENT WAS FASTINGPERFORMED BY: Eashmart6370 Keystone Mobile Partnerblin [place] [id number] Vitamin D Hydroxy (79182)Ord ered By: Shirt Sorter on 05-26-2014 25-Hydroxyvitamin D2+25-Hydroxyvitamin D3 [Mass/Vol] 35.1 ng/mL Normal 30.0-100.0 [facility] Internal Medicine Work Phone: Comment on above: Vitamin D deficiency has been defined by the Flynn ofMedicine and an Endocrine Society practice guideline as alevel of serum 25-OH vitamin D less than 20 ng/mL (1,2).The Endocrine Society went on to further define vitamin Dinsufficiency as a level between 21 and 29 ng/mL (2).1. IOM (Flynn of Medicine). 2010. Dietary reference intakes for calcium and D. [place]: The National Academies Press.2. Karla MF, Brett ANTUNEZ, Rosario MACIEL, et al. Evaluation, treatment, and prevention of vitamin D deficiency: an Endocrine Society clinical practice guideline. JCEM. 2010; 96(7):1911-30. Test(s) PotassiumGalileom called to Dr Breen on 05/27/2014 at 03:58 ESTPATIENT WAS FASTINGPERFORMED BY: Eashmart6370 Keystone Mobile Partnerblin [place] [id number] CALCIFIDIOL (90675) VIT D 25 Ordered By: Shirt Sorter on 08-22-2011 Calcitriol [Mass/Vol] 31.0 ng/mL Abnormal 32.0-100.0 [facility] Internal [facility] Work Phone: Comment on above: Effective Novembe r 2010 Vitamin D, 25-Hydroxy reference intervals will be changing to 30-100. .Recent studies consider the lower limit of 32.0 ng/mL to be athreshold for optimal health.Brandon ABERNATHY. J Nutr. 2004;135(2):317-22. PATIENT WAS FASTINGP ERFORMED BY: Eashmart6370 GroupsiteDublin [place] [id number] CBC (AUTO) (03243)Ordered By : Shirt Sorter on 08-22-2011 Erythrocyte distribution width (RBC) [Ratio] 12.9 % Normal 11.7-15.0 [facility] Work Phone: Comment on above: PATIENT WAS FASTINGP ERFORMED BY: TRAN ChulaDrake DuronLmwgnp8204 [address] RoadDublin [place] [id number] Hematocrit (Bld) [Volume fraction] 42.0 % Normal 34.0-44.0 [facility] Work Phone: Comment on above: PATIENT WAS FASTINGP ERFORMED BY: TRAN [facility] Xaaake1486 [address] RoadDublin [place] [id number] Hemoglobin (Bld) [Mass/Vol] 14.3 g/dL Normal 11.5-15.0 [facility] Internal Medicine Work Phone: Comment on above: PATIENT WAS FASTINGP ERFORMED BY: TRAN LabDrake DuronAjqgoz7384 [address] RoadDublin [place] [id number] MCH (RBC) [Entitic mass] 28.3 pg Normal 27.0-34.0 [facility] Internal Medicine Work Phone: Comment on above: PATIENT WAS FASTINGP ERFORMED BY: TRAN LabCosuzanne DuronWborfg1142 [address] RoadDublin [place] [id number] MCHC (RBC) [Mass/Vol] 34.0 g/dL Normal 32.0-36.0 [facility] Internal Medicine Work Phone: Comment on above: PATIENT WAS FASTINGP ERFORMED BY: TRAN [facility] Usdght5457 [address] RoadDublin [place] [id number] MCV (RBC) [Entitic vol] 83 fL Normal 80-98 [facility] Work Phone: Comment on above: PATIENT WAS FASTINGP ERFORMED BY: TRAN [facility] Rspqdq7106 [address] RoadDublin [place] [id number] Platelets (Bld) [#/Vol] 291 {x10E3/uL} Normal 140-415 [facility] Work Phone: Comment on above: PATIENT WAS FASTINGP ERFORMED BY: TRAN [facility] Lcdzxv7628 [address] RoadDublin [place] [id number] Platelets (Bld) [#/Vol] 291 10*3/uL Normal 140-415 [facility]; [facility] Work Phone: Comment on above: PATIENT WAS FASTINGP ERFORMED BY: TRAN LabCosuzanne MoncadaBpdeji7922 [address] RoadDublin [place] [id number] RBC (Bld) [#/Vol] 5.06 {x10E6/uL} Normal 3.80-5.10 [facility] Internal Medicine Work Phone: Comment on above: PATIENT WAS FASTINGP ERFORMED BY: TRAN [facility] Qlhbiq7858 [address] RoadDublin [place] [id number] RBC (Bld) [#/Vol] 5.06 10*6/uL Normal 3.80-5.10 [facility] Internal Medicine; [facility] Work Phone: Comment on above: PATIENT WAS FASTINGP ERFORMED BY: TRAN LabCo Dhjywu8622 [address] Roadblin [place] [id number] WBC (Bld) [#/Vol] 6.5 {x10E3/uL} Normal 4.0-10.5 [facility] Internal Medicine Work Phone: Comment on above: PATIENT WAS FASTINGP ERFORMED BY: TRAN [facility] Gyszui5485 [address] Roadblin [place] [id number] WBC (Bld) [#/Vol] 6.5 10*3/uL Normal 4.0-10.5 [facility] Internal Medicine; [facility] Work Phone: Comment on above: PATIENT WAS FASTINGP ERFORMED BY: TRAN [facility] Postfa3389 [address] RoadDublin [place] [id number] LIPID PANEL (24655)Ordered B y: Shirt Sorter on 08-22-2011 Cholesterol [Mass/Vol] 211 mg/dL Abnormal 100-199 [facility] Work Phone: Comment on above: PATIENT WAS FASTINGP ERFORMED BY: TRAN [facility] Qknsdd2511 [address] RoadDublin [place] [id number] Cholesterol in HDL [Mass/Vol] 77 mg/dL Normal [facility] Work Phone: Comment on above: According to ATP-III Guidelines, HDL-C >59 mg/dL is considered anegative risk factor for CHD. PATIENT WAS FASTINGP ERFORMED BY: TRAN [facility] Fncpga[address] [facility] Hospitalblin [place] [id number] Cholesterol in LDL [Mass/Vol] 119 mg/dL Abnormal 0-99 [facility] Work Phone: Comment on above: PATIENT WAS FASTINGP ERFORMED BY: CB [facility] Fytfps[address] [facility]in [place] [id number] Cholesterol in LDL/Cholesterol in HDL [Mass ratio] 1.5 {ratio_units} Normal 0.0-3.2 [facility] Work Phone: Comment on above: PATIENT WAS FASTINGP ERFORMED BY: TRAN [facility] Ufacvn4038 [address] [facility] [id number] Cholesterol in VLDL [Mass/Vol] 15 mg/dL Normal 5-40 [facility] Work Phone: Comment on above: PATIENT WAS FASTINGP ERFORMED BY: TRAN [facility] Rhzwlf5586 [address] [facility] [id number] Triglyceride [Mass/Vol] 76 mg/dL Normal 0-149 [facility] Work Phone: Comment on above: PATIENT WAS FASTINGP ERFORMED BY: TRAN [facility] Vgrvwr6589 [address] [facility] [id number] METABOLIC PANEL, COMPREHENSI VE (75086)Ordered By: Shirt Sorter on 08-22-2011 Albumin [Mass/Vol] 4.5 g/dL Normal 3.5-5.5 [facility] Internal Medicine Work Phone: Comment on above: PATIENT WAS FASTINGP ERFORMED BY: CB [facility] Ftuoxh4[address] [facility] Hospitalin [place] [id number] Information: [id number] Albumin/Globulin [Mass ratio] 1.6 {ratio} Normal 1.1-2.5 [facility] Work Phone: Comment on above: PATIENT WAS FASTINGP ERFORMED BY: CB [facility] Atbsgl1845 [facility] [id number] Information: [id number] ALP [Catalytic activity/Vol] 67 [iU]/L Normal 25-150 [facility] Work Phone: Comment on above: PATIENT WAS FASTINGP ERFORMED BY: [facility] [facility] [id number] Information: [id number] ALP [Catalytic activity/Vol] 67 U/L Normal 25-150 [facility]; [facility] Work Phone: Comment on above: PATIENT WAS FASTINGP ERFORMED BY: LabBe[facility]ont Hospital6370 [facility] [id number] Information: [id number] ALT [Catalytic activity/Vol] 13 [iU]/L Normal 0-40 [facility] Work Phone: Comment on above: PATIENT WAS FASTINGP ERFORMED BY: [place] 6102870 [facility] [id number] Information: [id number] ALT [Catalytic activity/Vol] 13 U/L Normal 0-40 [facility]; [facility] Work Phone: Comment on above: PATIENT WAS FASTINGP ERFORMED BY: [facility]6370 [facility] [id number] Information: [id number] AST [Catalytic activity/Vol] 18 [iU]/L Normal 0-40 [facility] Work Phone: Comment on above: PATIENT WAS FASTINGP ERFORMED BY: [facility] Vfitxf8655 [facility] [id number] Information: [id number] AST [Catalytic activity/Vol] 18 U/L Normal 0-40 [facility]; [facility] Work Phone: Comment on above: PATIENT WAS FASTINGP ERFORMED BY: [facility] Dygeou12[address] [facility] [id number] Information: [id number] Bilirubin [Mass/Vol] 0.6 mg/dL Normal 0.0-1.2 [facility] Internal [facility] Work Phone: Comment on above: PATIENT WAS FASTINGP ERFORMED BY: LabCo Yipfta0333 [address] [facility] [id number] Information: [id number] Calcium [Mass/Vol] 9.9 mg/dL Normal 8.7-10.2 [facility] Internal Medicine Work Phone: Comment on above: PATIENT WAS FASTINGP ERFORMED BY: LabCo Xmfnpl5239 [facility] [id number] Information: [id number] Chloride [Moles/Vol] 103 mmol/L Normal 97-108 [facility] Work Phone: Comment on above: PATIENT WAS FASTINGP ERFORMED BY: LabCo Dwvcok3996 [facility] [id number] Information: [id number] CO2 [Moles/Vol] 25 mmol/L Normal 20-32 Comprehen [facility] Internal Medicine Work Phone: Comment on above: PATIENT WAS FASTINGP ERFORMED BY: LabCo Vrcxvd9471 [facility] [id number] Information: [id number] Creatinine [Mass/Vol] 0.83 mg/dL Normal 0.57-1.00 [facility] Internal Medicine Work Phone: Comment on above: PATIENT WAS FASTINGP ERFORMED BY: LabCo Eznnbw3796 [facility] [id number] Information: [id number] GFR/1.73 sq M predicted among blacks MDRD (S/P/Bld) [Vol rate/Area] 101 mL/min/{1.73_m2} Normal Comprehensi Internal Medicine Work Phone: Comment on above: Note: A persistent e GFR <60 mL/min/1.73 m2 (3 months or more) mayindicate chronic kidney disease. An eGFR >59 mL/min/1.73 m2 with anelevated urine protein also may indicate chronic kidney disease.Calculated using CKD-EPI formula. PATIENT WAS FASTINGP ERFORMED BY: [facility]ulaBe[facility]umont Hospital6370 [facility] [id number] Information: [id number] GFR/1.73 sq M predicted among non-blacks CKD-EPI (S/P/Bld) [Vol rate/Area] 87 mL/min/1.73 Normal [facility] Internal Medicine Work Phone: Comment on above: PATIENT WAS FASTINGP ERFORMED BY: [place] [id number] [facility] [id number] Information: [id number] Globulin (S) [Mass/Vol] 2.8 g/dL Normal 1.5-4.5 [facility] Internal Medicine Work Phone: Comment on above: PATIENT WAS FASTINGP ERFORMED BY: [place] 6102870 [facility] [id number] Information: [id number] Glucose [Mass/Vol] 84 mg/dL Normal 65-99 [facility] Internal Medicine Work Phone: Comment on above: PATIENT WAS FASTINGP ERFORMED BY: [facility]6370 [facility] [id number] Information: [id number] Potassium [Moles/Vol] 4.9 mmol/L Normal 3.5-5.2 [facility] Internal Medicine Work Phone: Comment on above: PATIENT WAS FASTINGP ERFORMED BY: [facility]6370 [facility] [id number] Information: [id number] Protein [Mass/Vol] 7.3 g/dL Normal 6.0-8.5 [facility] Internal Medicine Work Phone: Comment on above: PATIENT WAS FASTINGP ERFORMED BY: [facility]6370 [facility] [id number] Information: [id number] Sodium [Moles/Vol] 141 mmol/L Normal 135-145 Compre hensive Internal Medicine Work Phone: Comment on above: PATIENT WAS FASTINGP ERFORMED BY: TRAN LabDrake Moncada6[address] RoadDublin [place] [id number] Information: [id number] Urea nitrogen [Mass/Vol] 14 mg/dL Normal 6-24 [facility] Work Phone: Comment on above: PATIENT WAS FASTINGP ERFORMED BY: TRAN [facility] Oxwvkp1811 [address] Roadblin [place] [id number] Information: [id number] Urea nitrogen/Creatinine [Mass ratio] 17 mg/mg Normal 9-23 [facility] Work Phone: Comment on above: PATIENT WAS FASTINGP ERFORMED BY: TRAN LabDrake DuronUaxxpq5684 Toledo RoadCape Fear/Harnett Health [id number] Information: [id number] TSH ([id number])Ordered By: Syste m Life Sciences Director on 08-22-2011 TSH Qn 3.460 {uIU/mL} Normal 0.450-4.500 Comprehen sive Internal Medicine Work Phone: Comment on above: PATIENT WAS FASTINGP ERFORMED BY: TRAN Duronlin[address] [facility] Hospitalbl[facility] [place] [id number] URINALYSIS W/O MICRO (28692) Ordered By: Shirt Sorter on 08-22-2011 Appearance (U) Clear Normal Comprehens nazario Internal Medicine Work Phone: Comment on above: PATIENT WAS FASTINGP ERFORMED BY: TRAN [facility] Btywfu1767 [address] RoadDublin [place] [id number] Bilirubin Ql (U) Negative Normal Comprehe nsive Internal Medicine Work Phone: Comment on above: PATIENT WAS FASTINGP ERFORMED BY: TRAN [facility] Cbwhrn5837 [address] RoadDublin [place] [id number] Bilirubin Ql (U) Negative Normal Comprehe nsive Internal Medicine; [facility] Work Phone: Comment on above: PATIENT WAS FASTINGP ERFORMED BY: TRAN Moncada6[address] RoadSt[address] Luke[facility]S Hospitalin [place] [id number] Color (U) Yellow Normal [facility] Work Phone: Comment on above: PATIENT WAS FASTINGP ERFORMED BY: TRAN Duronlin6[address] RoadSt[address] Luke'S Hospitalin [place] [id number] Glucose Ql (U) Negative Normal Comprehens nazario Internal Medicine Work Phone: Comment on above: PATIENT WAS FASTINGP ERFORMED BY: TRAN Moncada6370 [address] RoadCape Fear/H[facility]ett Health [id number] Glucose Ql (U) Negative Normal Comprehens nazario Internal Medicine; [facility] Work Phone: Comment on above: PATIENT WAS FASTINGP ERFORMED BY: TRAN Duronlin[address] [facility] [id number] Hemoglobin Ql (U) 3+ Abnormal Compreh ensive Internal Medicine Work Phone: Comment on above: PATIENT WAS FASTINGP ERFORMED BY: TRAN Duronlin[address] [facility] [id number] Ketones Ql (U) Negative Normal Comprehens nazario Internal Medicine Work Phone: Comment on above: PATIENT WAS FASTINGP ERFORMED BY: TRAN Duronlin[address] [facility] [id number] Ketones Ql (U) Negative Normal Comprehens nazario Internal Medicine; [facility] Work Phone: Comment on above: PATIENT WAS FASTINGP ERFORMED BY: TRAN Duronlin[address] [facility] [id number] Leukocyte esterase Test strip Ql (U) Negative Normal [facility] Work Phone: Comment on above: PATIENT WAS FASTINGP ERFORMED BY: TRAN Duronlin6370 [address] RoadDumeadowview psychiatric hospital [place] [id number] Leukocyte esterase Test strip Ql (U) Negative Normal [facility]; [facility] Work Phone: Comment on above: PATIENT WAS FASTINGP ERFORMED BY: TRAN Duronlin[address] [facility] [id number] Microscopic observation LM Nom (Urine sed) See below: Normal [facility] Work Phone: Comment on above: PATIENT WAS FASTINGP ERFORMED BY: TRAN ChulaDrake DuronHbnanv9846 [facility]edo[facility] [id number] Nitrite Ql (U) Negative Normal Comprehens nazario Internal Medicine Work Phone: Comment on above: PATIENT WAS FASTINGP ERFORMED BY: TRAN Moncada6370 [facility] [id number] Nitrite Ql (U) Negative Normal Comprehens nazario Internal Medicine; [facility] Work Phone: Comment on above: PATIENT WAS FASTINGP ERFORMED BY: TRAN Moncada6370 [facility] [id number] pH (U) 5.5 [pH] Normal 5.0-7.5 [facility] Work Phone: Comment on above: PATIENT WAS FASTINGP ERFORMED BY: TRAN Moncada6370 [facility] [id number] Protein Ql (U) Negative Normal Comprehens nazario Internal Medicine Work Phone: Comment on above: PATIENT WAS FASTINGP ERFORMED BY: TRAN Moncada6370 [facility] [id number] Protein Ql (U) Negative Normal Comprehens nazario Internal Medicine; [facility] Work Phone: Comment on above: PATIENT WAS FASTINGP ERFORMED BY: TRAN Moncada6370 [facility] [id number] Specific gravity (U) [Rel density] 1.027 1 Normal 1.005-1.030 [facility] Work Phone: Comment on above: PATIENT WAS FASTINGP ERFORMED BY: TRAN [id number] [facility] [id number] Urobilinogen (U) [Mass/Vol] 0.2 mg/dL Normal 0.0-1.9 [facility]; [facility] Work Phone: Comment on above: PATIENT WAS FASTINGP ERFORMED BY: [employer] [id number]Dublin [place] [id number] Urobilinogen Test strip (U) [Mass/Vol] 0.2 mg/dL Normal 0.0-1.9 [facility] Work Phone: Comment on above: PATIENT WAS FASTINGP ERFORMED BY: [employer] [id number]Dublin [place] [id number] VITAMIN B-12 (CYANOCOBALAMIN ) ([id number])Ordered By: Shirt Sorter on 08-22-2011 Cobalamin (Vitamin B12) [Mass/Vol] 471 pg/mL Normal [id number] [facility] Work Phone: Comment on above: PATIENT WAS FASTINGP ERFORMED BY: [employer] [id number]Dublin [place] [id number] Urinalysis, Office ([id number])Or dered By: Deisi Blanco on 07-30-2010 Bilirubin Ql (U) Negative Normal Comprehe ns[facility] Work Phone: Bilirubin Ql (U) Negative Normal [facility]; [facility] Work Phone: Glucose Test strip (U) [Mass/Vol] Negative Normal [facility] Work Phone: Glucose Test strip (U) [Mass/Vol] Negative Normal [facility]; [facility] Work Phone: Hemoglobin Ql (U) Negative Normal Compre[facility] ens[facility] Work Phone: Hemoglobin Ql (U) Negative Normal Compre[facility]; [facility] Work Phone: Ketones Ql (U) Small Normal Comprehens [facility] Work Phone: Leukocyte esterase Test strip Ql (U) Negative Normal [facility] Work Phone: Leukocyte esterase Test strip Ql (U) Negative Normal [facility]; [facility] Work Phone: Nitrite Ql (U) Negative Normal [facility] Work Phone: Nitrite Ql (U) Negative Normal [facility]; [facility] Work Phone: pH (U) 5.0 [pH] Normal [facility] Work Phone: Protein Ql (U) Negative Normal [facility] Work Phone: Protein Ql (U) Negative Normal [facility]; [facility] Work Phone: Specific gravity (U) [Rel density] 1.005 1 Normal [facility] Work Phone: Urobilinogen (24H U) [Mass/Time] Normal Normal [facility] Work Phone: Urine Test, Office ([id number])Ordered By: Deisi Blanco on 07-30-2010 Beta HCG ( test) Ql (U) Negative Normal [facility] Work Phone: Comment on above: menstrual cycle late by 2 weeks Beta HCG ( test) Ql (U) Negative Normal [facility]; [facility] Work Phone: Comment on above: menstrual cycle late by 2 weeks Vital Signs Date Time Vital Sign Value Performing Clinician Facility 03-05-2023 08:53-0400 Body height 170.[address] Lanny Breen Work Phone: [facility] 03-05-2023 08:51-0400 Body mass index (BMI) [Ratio] 23.1 kg/m2 Dr. Lanny Breen Work Phone: [facility] 03-05-2023 08:51-0400 Body weight 67.[address] Lanny Breen Work Phone: [facility] 03-05-2023 08:51-0400 Diastolic blood pressure 74 mm[Hg] Dr. Lanny Breen Work Phone: [facility] 03-05-2023 08:51-0400 Systolic blood pressure 108 mm[Hg] Dr. Lanny Breen Work Phone: [facility] 02-13-2023 09:34-0400 Body height 170.18 cm Lanny Breen DO Work Phone: [facility]; [facility] Work Phone: 02-13-2023 09:34-0400 Body mass index (BMI) [Ratio] 23.18 kg/m2 Lanny Jamshid DO Work Phone: [facility]; [facility] Work Phone: 02-13-2023 09:34-0400 Body surface area Derived from formula 1.78 m2 Lanny Breen DO Work Phone: [facility]; [facility] Work Phone: 02-13-2023 09:34-0400 Body temperature 96.7 [degF] Lanny Breen DO Work Phone: [facility]; [facility] Work Phone: 02-13-2023 09:34-0400 Body weight 67.13 kg Lanny Breen DO Work Phone: [facility]; [facility] Work Phone: 02-13-2023 09:34-0400 Diastolic blood pressure 62 mm[Hg] Lanny Breen DO Work Phone: [facility]; [facility] Work Phone: Comment on above: Patient Position: Sitting; Cuff Location : Left Arm; Cuff Size: Standard 02-13-2023 09:34-0400 Heart rate 85 /min Lanny Breen DO Work Phone: [facility]; [facility] Work Phone: Comment on above: Pattern: Regular 02-13-2023 09:34-0400 Respiratory rate 16 /min Lanny Breen DO Work Phone: [facility]; [facility] Work Phone: Comment on above: Pattern: Unlabored 02-13-2023 09:34-0400 SaO2% (BldA) [Mass fraction] 96 % Lanny Washburnon DO Work Phone: [facility]; [facility] Work Phone: Comment on above: Room air 02-13-2023 09:34-0400 Systolic blood pressure 132 mm[Hg] Lanny Breen DO Work Phone: [facility]; [facility] Work Phone: Comment on above: Patient Position: Sitting; Cuff Location : Left Arm; Cuff Size: Standard 04-24-2022 08:20-0400 Body temperature 97.1 [degF] Dr. Lanny Breen Work Phone: [facility] Work Phone: 04-24-2022 08:20-0400 Diastolic blood pressure 84 mm[Hg] Dr. Lanny Breen Work Phone: [facility] Work Phone: 04-24-2022 08:20-0400 Heart rate 72 /min Dr. Lanny Breen Work Phone: [facility] Work Phone: 04-24-2022 08:20-0400 Respiratory rate 16 /min Dr. Lanny Breen Work Phone: [facility] Work Phone: 04-24-2022 08:20-0400 SaO2% (BldA) [Mass fraction] 99 % Dr. Lanny Breen Work Phone: [facility] Work Phone: 04-24-2022 08:20-0400 Systolic blood pressure 109 mm[Hg] Dr. Lanny Breen Work Phone: [facility] Work Phone: 04-24-2022 07:12-0400 Body height 170.[address] Lanny Breen Work Phone: [facility] Work Phone: 04-24-2022 07:12-0400 Body mass index (BMI) [Ratio] 22.7 kg/m2 Dr. Lanny Breen Work Phone: [facility] Work Phone: 04-24-2022 07:12-0400 Body weight 65.[address] Lanny Breen Work Phone: [facility] Work Phone: 02-27-2022 08:12-0400 Body mass index (BMI) [Ratio] 22.1 kg/m2 Dr. Lanny Breen Work Phone: [facility] Work Phone: 02-27-2022 08:12-0400 Body weight 64.[address] Lanny Breen Work Phone: [facility] Work Phone: 02-27-2022 08:12-0400 Diastolic blood pressure 76 mm[Hg] Dr. Lanny Breen Work Phone: [facility] Work Phone: 02-27-2022 08:12-0400 Systolic blood pressure 104 mm[Hg] Dr. Lanny Breen Work Phone: [facility] Work Phone: 01-28-2022 09:40-0400 Body height 170.18 cm Rina Vance LPN [facility]; [facility] Work Phone: 01-28-2022 09:40-0400 Body mass index (BMI) [Ratio] 22.77 kg/m2 Rina Vance LPN [facility]; [facility] Work Phone: 01-28-2022 09:40-0400 Body surface area Derived from formula 1.77 m2 Rina Vance LPN [facility]; [facility] Work Phone: 01-28-2022 09:40-0400 Body temperature 100 [degF] Rina Vance LPN [facility]; [facility] Work Phone: 01-28-2022 09:40-0400 Body weight 65.94 kg Rina Vance LPN [facility]; [facility] Work Phone: 10-10-2021 10:14-0500 Body height 170.18 cm Lanny Washburnon DO Work Phone: [facility]; [facility] Work Phone: Comment on above: pt reported 10-10-2021 10:14-0500 Body mass index (BMI) [Ratio] 22.77 kg/m2 Lanny Washburnon DO Work Phone: [facility]; [facility] Work Phone: Comment on above: pt reported 10-10-2021 10:14-0500 Body surface area Derived from formula 1.77 m2 Lanny Washburnon DO Work Phone: [facility]; [facility] Work Phone: Comment on above: pt reported 10-10-2021 10:14-0500 Body temperature 97.8 [degF] Lanny Washburnon DO Work Phone: [facility]; [facility] Work Phone: Comment on above: Method: Oral pt reported 10-10-2021 10:14-0500 Body weight 65.94 kg Lanny Breen DO Work Phone: [facility]; [facility] Work Phone: Comment on above: pt reported 10-10-2021 10:14-0500 Heart rate 80 /min Lanny Washburnon DO Work Phone: [facility]; [facility] Work Phone: Comment on above: Pattern: Regular pt reported 08-06-2021 11:48-0400 Body height 170.18 cm Rina Slarb [employer] [facility]; [facility] Work Phone: Comment on above: pt did not report 08-06-2021 11:48-0400 Body mass index (BMI) [Ratio] 22.77 kg/m2 Rina Slarb [employer] [facility]; [facility] Work Phone: Comment on above: pt did not report 08-06-2021 11:48-0400 Body surface area Derived from formula 1.77 m2 Rina Slarb [employer] [facility]; [facility] Work Phone: Comment on above: pt did not report 08-06-2021 11:48-0400 Body weight 65.94 kg Rina Slarb [employer] [facility]; [facility] Work Phone: Comment on above: pt did not report 07-14-2019 09:07-0400 BMI (Body Mass Index) 22.77 kg/m2 Rina Slarb [employer] Comprehen s[facility] Work Phone: 07-14-2019 09:07-0400 Body weight 65.94 kg Rina Slarb [employer] [facility] Work Phone: 07-14-2019 09:07-0400 BP Diastolic 82 mm[Hg] Rina Slarb [employer] [facility] Work Phone: Comment on above: Patient Position: Sitting; Cuff Location : Left Arm; Cuff Size: Standard 07-14-2019 09:07-0400 BP Systolic 132 mm[Hg] Rina Slarb [employer] [facility] Work Phone: Comment on above: Patient Position: Sitting; Cuff Location : Left Arm; Cuff Size: Standard 07-14-2019 09:07-0400 BSA (Body Surface Area) 1.77 m2 Rina Slarb [employer] [facility] Work Phone: 07-14-2019 09:07-0400 Height 170.18 cm Rina Slarb [employer] [facility] Work Phone: 07-14-2019 09:07-0400 Pulse (Heart Rate) 68 /min Rina Slarb [employer] Comprehensiv e [facility] Work Phone: Comment on above: Pattern: Regular 07-14-2019 09:07-0400 Pulse Oximetry 98 % Lanny Breen [facility] Work Phone: Comment on above: Room air 07-14-2019 09:07-0400 Respiratory Rate 16 /min Rina Slarb [employer] [facility] Work Phone: Comment on above: Pattern: Unlabored 07-14-2019 09:07-0400 SaO2% (BldA) [Mass fraction] 98 % Rina Vance LPN [facility]; [facility] Work Phone: Comment on above: Room air 05-06-2018 14:42-0400 BMI (Body Mass Index) 26.16 kg/m2 Inocencia Uribe RN [facility] Work Phone: 05-06-2018 14:42-0400 Body weight 75.75 kg Inocencia Uribe RN [facility] Work Phone: 05-06-2018 14:42-0400 BP Diastolic 64 mm[Hg] Inocencia Uribe RN [facility] Work Phone: Comment on above: Patient Position: Sitting; Cuff Location : Left Arm; Cuff Size: Large 05-06-2018 14:42-0400 BP Systolic 110 mm[Hg] Inocencia Uribe RN [facility] Work Phone: Comment on above: Patient Position: Sitting; Cuff Location : Left Arm; Cuff Size: Large 05-06-2018 14:42-0400 BSA (Body Surface Area) 1.87 m2 Inocencia Uribe RN [facility] Work Phone: 05-06-2018 14:42-0400 Height 170.18 cm Inocencia Uribe RN [facility] Work Phone: 05-06-2018 14:42-0400 Pulse (Heart Rate) 67 /min Inocencia Uribe RN [facility] Work Phone: Comment on above: Pattern: Regular 05-06-2018 14:42-0400 Pulse Oximetry 97 % Lanny Breen [facility] Work Phone: Comment on above: Room air 05-06-2018 14:42-0400 Respiratory Rate 18 /min Inocencia Uribe RN [facility] Work Phone: Comment on above: Pattern: Unlabored 05-06-2018 14:42-0400 SaO2% (BldA) [Mass fraction] 97 % Inocencia Uribe RN [facility]; [facility] Work Phone: Comment on above: Room air 08-05-2017 11:03-0400 BMI (Body Mass Index) 23.96 kg/m2 Indiana Johnson RN [facility] Work Phone: 08-05-2017 11:03-0400 Body Temperature 98.8 [degF] Indiana Johnson RN [facility] Work Phone: Comment on above: Method: Temporal 08-05-2017 11:03-0400 Body weight 69.4 kg Indiana Johnson RN [facility] Work Phone: 08-05-2017 11:03-0400 BP Diastolic 78 mm[Hg] Indiana Johnson RN [facility] Work Phone: Comment on above: Patient Position: Sitting; Cuff Location : Left Arm; Cuff Size: Standard 08-05-2017 11:03-0400 BP Systolic 120 mm[Hg] Indiana Johnson RN [facility] Work Phone: Comment on above: Patient Position: Sitting; Cuff Location : Left Arm; Cuff Size: Standard 08-05-2017 11:03-0400 BSA (Body Surface Area) 1.8 m2 Indiana Johnson RN [facility] Work Phone: 08-05-2017 11:03-0400 Height 170.18 cm Indiana Johnson RN [facility] Work Phone: 08-05-2017 11:03-0400 Pulse (Heart Rate) 78 /min Indiana Johnson RN [facility] Work Phone: Comment on above: Pattern: Regular 08-05-2017 11:03-0400 Pulse Oximetry 94 % Lanny Jamshid [facility] Work Phone: Comment on above: Room air 08-05-2017 11:03-0400 Respiratory Rate 15 /min Indiana Johnson RN [facility] Work Phone: Comment on above: Pattern: Unlabored 08-05-2017 11:03-0400 SaO2% (BldA) [Mass fraction] 94 % Indiana Johnson RN [facility]; [facility] Work Phone: Comment on above: Room air 07-21-2017 09:03-0400 BMI (Body Mass Index) 25.69 kg/m2 Iman Huynh [facility] Work Phone: 07-21-2017 09:03-0400 Body weight 74.39 kg Iamn Huyhn [facility] Work Phone: 07-21-2017 09:03-0400 BP Diastolic 78 mm[Hg] Iman Huynh [facility] Work Phone: Comment on above: Patient Position: Sitting; Cuff Location : Left Arm; Cuff Size: Standard 07-21-2017 09:03-0400 BP Systolic 122 mm[Hg] Iman Huynh [facility] Work Phone: Comment on above: Patient Position: Sitting; Cuff Location : Left Arm; Cuff Size: Standard 07-21-2017 09:03-0400 BSA (Body Surface Area) 1.86 m2 [facility] Work [facility]: 07-21-2017 09:03-0400 Height 170.18 cm Iman Huynh [facility] Work Phone: 07-21-2017 09:03-0400 Pulse (Heart Rate) 70 /min Iman Huynh [facility] Work Phone: Comment on above: Pattern: Regular 07-21-2017 09:03-0400 Pulse Oximetry 98 % Lanny Breen [facility] Work Phone: Comment on above: Room air 07-21-2017 09:03-0400 Respiratory Rate 16 /min Iman Huynh [facility] Work Phone: Comment on above: Pattern: Unlabored 07-21-2017 09:03-0400 SaO2% (BldA) [Mass fraction] 98 % [facility] Work Phone: Comment on above: Room air 11-21-2016 12:58-0500 BMI (Body Mass Index) 25.69 kg/m2 Inocencia Uribe RN [facility] Work Phone: 11-21-2016 12:58-0500 Body weight 74.39 kg Inocencia Uribe RN [facility] Work Phone: 11-21-2016 12:58-0500 BP Diastolic 64 mm[Hg] Inocencia Uribe RN [facility] Work Phone: Comment on above: Patient Position: Sitting; Cuff Location : Left Arm; Cuff Size: Large 11-21-2016 12:58-0500 BP Systolic 128 mm[Hg] Inocencia Uribe RN [facility] Work Phone: Comment on above: Patient Position: Sitting; Cuff Location : Left Arm; Cuff Size: Large 11-21-2016 12:58-0500 BSA (Body Surface Area) 1.86 m2 Inocencia Uribe RN [facility] Work Phone: 11-21-2016 12:58-0500 Height 170.18 cm Inocencia Uribe RN [facility] Work Phone: 11-21-2016 12:58-0500 Pulse (Heart Rate) 95 /min Inocencia Uribe RN [facility] Work Phone: Comment on above: Pattern: Regular 11-21-2016 12:58-0500 Pulse Oximetry 96 % Lanny Breen [facility] Work Phone: Comment on above: Room air 11-21-2016 12:58-0500 Respiratory Rate 18 /min Inocencia Uribe RN [facility] Work Phone: Comment on above: Pattern: Unlabored 11-21-2016 12:58-0500 SaO2% (BldA) [Mass fraction] 96 % Inocencia Uribe RN [facility]; [facility] Work Phone: Comment on above: Room air 05-05-2015 10:41-0400 BMI (Body Mass Index) 25.37 kg/m2 Ivanna Dali [facility] Work Phone: 05-05-2015 10:41-0400 Body Temperature 97 [degF] Ivanna Mcnally [facility] Work Phone: 05-05-2015 10:41-0400 Body weight 73.48 kg Ivanna Mcnally [facility] Work Phone: 05-05-2015 10:41-0400 BP Diastolic 70 mm[Hg] [facility] Work Phone: Comment on above: Patient Position: Sitting; Cuff Location : Left Arm; Cuff Size: Standard 05-05-2015 10:41-0400 BP Systolic 118 mm[Hg] [facility] Work Phone: Comment on above: Patient Position: Sitting; Cuff Location : Left Arm; Cuff Size: Standard 05-05-2015 10:41-0400 BSA (Body Surface Area) 1.85 m2 [facility] Work Phone: 05-05-2015 10:41-0400 Height 170.18 cm [facility] Work Phone: 05-05-2015 10:41-0400 Pulse (Heart Rate) 71 /min [facility] Work Phone: Comment on above: Pattern: Regular 05-05-2015 10:41-0400 Pulse Oximetry 97 % Lanny Jamshid [facility] Work Phone: Comment on above: Room air 05-05-2015 10:41-0400 SaO2% (BldA) [Mass fraction] 97 % [facility]; [facility] Work Phone: Comment on above: Room air 05-24-2014 14:35-0400 BMI (Body Mass Index) 25.84 kg/m2 [facility] Work Phone: 05-24-2014 14:35-0400 Body Temperature 98.5 [degF] Deisi Blanco [facility] Work Phone: 05-24-2014 14:35-0400 Body weight 74.84 kg Deisi Blanco [facility] Work Phone: 05-24-2014 14:35-0400 BP Diastolic 78 mm[Hg] Deisi Blanco [facility] Work Phone: Comment on above: Patient Position: Sitting; Cuff Location : Left Arm; Cuff Size: Large 05-24-2014 14:35-0400 BP Systolic 102 mm[Hg] Deisi Leonraghu [facility] Work Phone: Comment on above: Patient Position: Sitting; Cuff Location : Left Arm; Cuff Size: Large 05-24-2014 14:35-0400 BSA (Body Surface Area) 1.86 m2 Deisi Lopezwilliam [facility] Work Phone: 05-24-2014 14:35-0400 Height 170.18 cm Deisi Lopezwilliam [facility] Work Phone: 05-24-2014 14:35-0400 Pulse (Heart Rate) 72 /min Deisi Blanco [facility] Work Phone: Comment on above: Pattern: Regular 05-24-2014 14:35-0400 Respiratory Rate 16 /min Deisi Lopezwilliam [facility] Work Phone: Comment on above: Pattern: Unlabored 08-27-2011 14:19-0500 BMI (Body Mass Index) 26.93 kg/m2 Inocencia Uribe RN [facility] Work Phone: 08-27-2011 14:19-0500 Body Temperature 97.6 [degF] Inocencia Uribe RN [facility] Work Phone: Comment on above: Method: Oral 08-27-2011 14:19-0500 Body weight 80.34 kg Inocencia Uribe RN [facility] Work Phone: 08-27-2011 14:19-0500 BP Diastolic 82 mm[Hg] Inocencia Uribe RN [facility] Work Phone: Comment on above: Patient Position: Sitting; Cuff Location : Left Arm; Cuff Size: Large 08-27-2011 14:19-0500 BP Systolic 118 mm[Hg] Inocencia Uribe RN [facility] Work Phone: Comment on above: Patient Position: Sitting; Cuff Location : Left Arm; Cuff Size: Large 08-27-2011 14:19-0500 BSA (Body Surface Area) 1.94 m2 Inocencia Uribe RN [facility] Work Phone: 08-27-2011 14:19-0500 Height 172.72 cm Inocencia Uribe RN [facility] Work Phone: 08-27-2011 14:19-0500 Pulse (Heart Rate) 80 /min Inocencia Uribe RN [facility] Work Phone: Comment on above: Pattern: Regular 08-27-2011 14:19-0500 Respiratory Rate 16 /min Inocencia Uribe RN [facility] Work Phone: Comment on above: Pattern: Unlabored 08-21-2011 08:00-0500 BMI (Body Mass Index) 26.93 kg/m2 Inocencia Uribe RN [facility] Work Phone: 08-21-2011 08:00-0500 Body Temperature 98.3 [degF] Inocencia Uribe RN [facility] Work Phone: Comment on above: Method: Oral 08-21-2011 08:00-0500 Body weight 80.34 kg Inocencia Uribe RN [facility] Work Phone: 08-21-2011 08:00-0500 BP Diastolic 78 mm[Hg] Inocencia Uribe RN [facility] Work Phone: Comment on above: Patient Position: Sitting; Cuff Location : Left Arm; Cuff Size: Large 08-21-2011 08:00-0500 BP Systolic 122 mm[Hg] Inocencia Uribe RN [facility] Work Phone: Comment on above: Patient Position: Sitting; Cuff Location : Left Arm; Cuff Size: Large 08-21-2011 08:00-0500 BSA (Body Surface Area) 1.94 m2 Inocencia Uribe RN [facility] Work Phone: 08-21-2011 08:00-0500 Height 172.72 cm Inocencia Uribe RN [facility] Work Phone: 08-21-2011 08:00-0500 Pulse (Heart Rate) 60 /min Inocencia Uribe RN [facility] Work Phone: Comment on above: Pattern: Regular 08-21-2011 08:00-0500 Respiratory Rate 18 /min Inocencia Uribe RN [facility] Work Phone: Comment on above: Pattern: Unlabored 11-19-2010 10:09-0500 Pulse Oximetry 100 % Lanny Breen [facility] Work Phone: Comment on above: Room air 11-19-2010 10:09-0500 SaO2% (BldA) [Mass fraction] 100 % Indiana Johnson RN [facility]; [facility] Work Phone: Comment on above: Room air 11-19-2010 09:42-0500 Body Temperature 100.8 [degF] Lanny Breen [facility] Work Phone: Comment on above: Method: Oral 11-19-2010 09:42-0500 Body weight 77.11 kg Lanny Breen [facility] Work Phone: 11-19-2010 09:42-0500 BP Diastolic 78 mm[Hg] Lanny Breen [facility] Work Phone: Comment on above: Patient Position: Sitting; Cuff Location : Left Arm; Cuff Size: Standard 11-19-2010 09:42-0500 BP Systolic 132 mm[Hg] Lanny Breen [facility] Work Phone: Comment on above: Patient Position: Sitting; Cuff Location : Left Arm; Cuff Size: Standard 11-19-2010 09:42-0500 Pulse (Heart Rate) 96 /min Lanny Breen [facility] Work Phone: Comment on above: Pattern: Regular 11-19-2010 09:42-0500 Pulse Oximetry 97 % Lanny Breen [facility] Work Phone: Comment on above: Room air 11-19-2010 09:42-0500 SaO2% (BldA) [Mass fraction] 97 % Lanny Breen DO Work Phone: [facility]; [facility] Work Phone: Comment on above: Room air 07-30-2010 11:09-0400 Body Temperature 98.7 [degF] Deisi Blanco [facility] Work Phone: 07-30-2010 11:09-0400 Body weight 77.11 kg Deisi Blanco [facility] Medicine Work Phone: 07-30-2010 11:09-0400 BP Diastolic 80 mm[Hg] Deisi Lopezwilliam [facility] Internal Medicine Work Phone: Comment on above: Patient Position: Sitting; Cuff Location : Left Arm; Cuff Size: Standard 07-30-2010 11:09-0400 BP Systolic 128 mm[Hg] Deisi Blanco [facility] Internal Medicine Work Phone: Comment on above: Patient Position: Sitting; Cuff Location : Left Arm; Cuff Size: Standard 07-30-2010 11:09-0400 Pulse (Heart Rate) 92 /min Deisi Leonraghu [facility] Work Phone: Comment on above: Pattern: Regular 07-30-2010 11:09-0400 Respiratory Rate 18 /min Deisi Bella [facility] Internal Medicine Work Phone: Comment on above: Pattern: Unlabored 12-21-2007 14:46-0400 Body Temperature 97.6 [degF] Inocencia Uribe RN [facility] Work Phone: Comment on above: Method: Oral 12-21-2007 14:46-0400 Body weight 70.31 kg Inocencia Uribe RN [facility] Work Phone: 12-21-2007 14:46-0400 BP Diastolic 64 mm[Hg] Inocencia Uribe RN [facility] Work Phone: Comment on above: Patient Position: Sitting; Cuff Location : Left Arm; Cuff Size: Standard 12-21-2007 14:46-0400 BP Systolic 118 mm[Hg] Inocencia Uribe RN [facility] Work Phone: Comment on above: Patient Position: Sitting; Cuff Location : Left Arm; Cuff Size: Standard 12-21-2007 14:46-0400 Head Circumference 0 cm Lanny Brene [facility] Work Phone: 12-21-2007 14:46-0400 Head Occipital-frontal circumference 0 cm Inocencia Uribe RN [facility]; [facility] Work Phone: 12-21-2007 14:46-0400 Height 0 cm Inocencia Uribe RN [facility] Work Phone: 12-21-2007 14:46-0400 Pulse (Heart Rate) 60 /min Inocencia Uribe RN [facility] Work Phone: Comment on above: Pattern: Regular 12-21-2007 14:46-0400 Respiratory Rate 16 /min Inocencia Uribe RN [facility] Work Phone: Comment on above: Pattern: Unlabored 12-16-2006 13:49-0400 Body Temperature 98.8 [degF] BRYSON Duran LPN [facility] Work Phone: Comment on above: Method: Oral 12-16-2006 13:49-0400 Body weight 70.31 kg BRYSON Duran LPN [facility] Work Phone: 12-16-2006 13:49-0400 BP Diastolic 74 mm[Hg] BRYSON Duran LPN [facility] Work Phone: Comment on above: Patient Position: Sitting; Cuff Location : Left Arm; Cuff Size: Standard 12-16-2006 13:49-0400 BP Systolic 122 mm[Hg] BRYSON Duran LPN [facility] Work Phone: Comment on above: Patient Position: Sitting; Cuff Location : Left Arm; Cuff Size: Standard 12-16-2006 13:49-0400 Head Circumference 0 cm Lanny Jamshid [facility] Work Phone: 12-16-2006 13:49-0400 Head Occipital-frontal circumference 0 cm BRYSON Duran LPN [facility]; [facility] Work Phone: 12-16-2006 13:49-0400 Height 0 cm BRYSON Duran LPN [facility] Work Phone: 12-16-2006 13:49-0400 Pulse (Heart Rate) 70 /min BRYSON Roger RICHARDSON [facility] Work Phone: Comment on above: Pattern: Regular 12-16-2006 13:49-0400 Respiratory Rate 20 /min BRYSON Roger RICHARDSON [facility] Work Phone: Comment on above: Pattern: Unlabored 11-24-2006 08:06-0500 Body Temperature 98.9 [degF] Lannymadhavi Breen [facility] Work Phone: Comment on above: Method: Oral 11-24-2006 08:06-0500 Body weight 0 kg Lanny Breen [facility] Internal Medicine Work Phone: 11-24-2006 08:06-0500 BP Diastolic 70 mm[Hg] Lanny Breen [facility] Internal Medicine Work Phone: Comment on above: Patient Position: Sitting; Cuff Location : Left Arm; Cuff Size: Standard 11-24-2006 08:06-0500 BP Systolic 108 mm[Hg] Lanny Breen [facility] Work Phone: Comment on above: Patient Position: Sitting; Cuff Location : Left Arm; Cuff Size: Standard 11-24-2006 08:06-0500 Head Circumference 0 cm Lanny Breen [facility] Work Phone: 11-24-2006 08:06-0500 Head Occipital-frontal circumference 0 cm Lanny Breen DO Work Phone: [facility]; [facility] Work Phone: 11-24-2006 08:06-0500 Height 0 cm Lanny Breen [facility] Work Phone: 11-24-2006 08:06-0500 Pulse (Heart Rate) 76 /min Lanny Breen [facility] Internal Medicine Work Phone: Comment on above: Pattern: Regular 11-24-2006 08:06-0500 Respiratory Rate 16 /min Lanny Breen [facility] Medicine Work Phone: Comment on above: Pattern: Unlabored 10-28-2006 09:21-0500 Body Temperature 97.7 [degF] Deisi Lopezwilliam [facility] Internal Medicine Work Phone: Comment on above: Method: Oral 10-28-2006 09:21-0500 Body weight 70.45 kg Deisi Leonraghu [facility] Internal Medicine Work Phone: 10-28-2006 09:21-0500 BP Diastolic 82 mm[Hg] Deisi Bella [facility] Internal Medicine Work Phone: Comment on above: Patient Position: Sitting; Cuff Location : Left Arm; Cuff Size: Standard 10-28-2006 09:21-0500 BP Systolic 110 mm[Hg] Deisi Blanco [facility] Work Phone: Comment on above: Patient Position: Sitting; Cuff Location : Left Arm; Cuff Size: Standard 10-28-2006 09:21-0500 Head Circumference 0 cm Lanny Breen [facility] Internal Medicine Work Phone: 10-28-2006 09:21-0500 Head Occipital-frontal circumference 0 cm Deisi Blanco [facility]; [facility] Work Phone: 10-28-2006 09:21-0500 Height 0 cm Deisi Blanco [facility] Medicine Work Phone: 10-28-2006 09:21-0500 Pulse (Heart Rate) 88 /min [facility]isi [facility]anco [facility] Work Phone: Comment on above: Pattern: Regular 10-28-2006 09:21-0500 Respiratory Rate 16 /min Deisi Blanco [facility] Work Phone: Comment on above: Pattern: Unlabored Encounters Encounter Date Encounter Type Care Provider Facility Start: 12-08-2024 End: 12-08-2024 ambulatory Lanny Breen Facility:[facility] Start: 10-29-2024 End: 10-29-2024 ambulatory Griselda Layne NP Facility:[facility] Start: 03-26-2023 End: 03-26-[address] Lanny Breen Work Phone: [facility] Work Phone: Start: 03-26-2023 End: 03-26-[address] Lanny Breen Work Phone: [facility]-Physical Therapy Work Phone: Start: 03-05-2023 End: 03-05-[address] aLnny Breen Work Phone: [facility] Work Phone: Start: 03-05-2023 End: 03-05-[address] Lanny Breen Work Phone: [facility]-Laboratory, Specimen Start: 03-05-2023 End: 03-05-[address] Lanny Breen Work Phone: [facility] Start: 02-21-[address] Sarah Breen Work Phone: [facility]-Physical Therapy Start: 02-13-2023 Review Lanny vann DO Work Phone: [facility] Start: 01-29-2023 End: 01-30-2023 Phone Encounter Lanny Breen DO Work Phone: [facility] Start: 01-27-2023 ambulatory Lanny Breen DO [facility] Start: 01-27-2023 End: 01-27-2023 Phone Encounter Lanny Breen DO Work Phone: [facility] Start: 12-11-2022 End: 12-11-2022 ambulatory [facility] Work Phone: Start: 12-11-2022 End: 12-11-2022 Patient encounter procedure [facility]Outpatient Breast Imaging Start: 04-24-2022 End: 04-24-2022 Phone Encounter Lanny Breen DO Work Phone: [facility] Start: 04-24-2022 Non-patient / Non-visit Dr. Lanny Breen Work Phone: [facility] Start: 04-24-2022 End: 04-24-2022 Admission to same day surgery center Dr. Lanny Breen Work Phone: [facility]-Endoscopy Start: 02-27-2022 End: 02-27-[address] Lanny Breen Work Phone: [facility] Start: 01-28-2022 End: 01-28-2022 Office outpatient visit 10 minutes Lanny Jamshid DO Work Phone: [facility] Start: 01-10-2022 End: 01-10-2022 Annotation/Addendum Lanny Jamshid DO Work Phone: [facility] Start: 12-11-2021 End: 12-11-2021 Annotation/Addendum Lanny Jamshid DO Work Phone: [facility] Start: 10-10-2021 End: 10-10-2021 Office outpatient visit 10 minutes Lanny Jamshid DO Work Phone: [facility] Start: 08-06-2021 End: 08-06-2021 Office outpatient visit 10 minutes Lanny Jamshid DO Work Phone: [facility] Start: 07-25-2021 End: 07-25-2021 Lab Order Lanny Jamshid DO Work Phone: [facility] Start: 07-25-2021 End: 07-25-2021 Annotation/Addendum Lanny Jamshid DO Work Phone: [facility] Start: 12-31-2019 End: 12-31-2019 Phone Encounter Lanny Jamshid DO Work Phone: [facility] Start: 12-23-2019 End: 12-23-2019 Office outpatient visit 15 minutes Lanny Jamshid DO Work Phone: [facility] Start: 07-14-2019 End: 07-14-2019 Office outpatient visit 15 minutes Lanny Jamshid [facility] Start: 05-06-2018 End: 05-06-2018 Office outpatient visit 15 minutes Lanny Jamshid [facility] Start: 05-05-2018 End: 05-05-2018 Lab Order Lanny Jamshid [facility] Start: 04-30-2018 End: 04-30-2018 Phone Encounter Lanny Jamshid [facility] Start: 08-05-2017 End: 08-05-2017 Office outpatient visit 15 minutes Lanny Jamshid [facility] Start: 07-21-2017 End: 07-21-2017 Office outpatient visit 10 minutes Lanny Jamshid [facility] Start: 04-15-2017 End: 04-15-2017 Phone Encounter Lanny Breen [facility] Start: 01-17-2017 End: 01-17-2017 Phone Encounter Lanny Breen [facility] Start: 11-21-2016 End: 11-21-2016 Office outpatient visit 15 minutes Lanny Jamshid [facility] Start: 05-05-2015 End: 05-07-2015 Office outpatient visit 5 minutes Lanny Jamshid [facility] Start: 06-10-2014 End: 06-10-2014 Phone Encounter Lanny Breen [facility] Start: 06-03-2014 End: 06-03-2014 Phone Encounter Lanny Breen [facility] Start: 05-27-2014 End: 05-27-2014 Phone Encounter Lanny Breen [facility] Start: 05-24-2014 End: 05-24-2014 Office outpatient visit 15 minutes Lanny Jamshid [facility] Start: 08-27-2011 End: 08-27-2011 Patient encounter procedure Lanny Breen [facility] Start: 08-23-2011 End: 08-23-2011 Lab Order Lanny Jamshid [facility] Start: 08-21-2011 End: 08-21-2011 Patient encounter procedure Lanny Breen [facility] Start: 11-19-2010 End: 11-19-2010 Office outpatient visit 15 minutes Lanny Breen [facility] Start: 07-30-2010 End: 07-30-2010 Phone Encounter Lannymadhavi Washburnon [facility] Start: 07-30-2010 End: 07-30-2010 Patient encounter procedure Lanny Comer [facility] Start: 12-21-2007 End: 12-21-2007 Patient encounter procedure Alnny Jamshid [facility] Start: 12-16-2006 End: 12-16-2006 Office outpatient visit 15 minutes Lanny Comer [facility] Start: 11-24-2006 End: 11-24-2006 Patient encounter procedure Lanny Breen [facility] Start: 10-28-2006 End: 10-28-2006 Office outpatient visit 25 minutes Lanny Breen [facility] Start: 10-22-2006 End: 10-22-2006 Historical Summary Lanny Breen [facility] Procedures Date Procedure Procedure Detail Performing Clinician Start: 12-11-2022 Screening mammography Start: 12-11-2022 End: 12-11-2022 SCRN MAMM (CAD)W/KAREEM BILAT Procedure Note: See Note; NOTES: [facility] Imaging Services [address] [place] [id number] SCRN MAMM (CAD)W/KAREEM BILAT MR#: [id number] Acct: [id number] Name: NAREN LOREDO Rep #: [id number] : 1970 F 52 From: Rocael adam MD PCP: Dr. Lanny Breen, DO Status: [facility] Study: SCRN MAMM (CAD)W/KAREEM BILAT Date of Exam: 05/28 Exam# [id number] Ordering Dr: Griselda Layne NP KEY ACCOUNT DIRECTOR -C MAMMOGRAPHY - BILATERAL SCREENING REASON FOR EXAM: Female, 52 years old. Routine annual screening examination. PERTINENT HISTORY: Non-contributory. TECHNIQUE: Digital bilateral breast kareem (3D mammographic acquisition) in the CC and MLO projections. 2-D mediolateral oblique (MLO) and craniocaudad (CC) views of both breasts were obtained. CAD: Full Field Digital Mammography with Computer Added Detection was performed. COMPARISON: Comparison is made with prior study of November 30, 2021 and February 14, 2020. FINDINGS: Breast Composition: The breasts are heterogeneously dense, which may obscure small masses. There are no dominant masses or suspicious calcifications. No other significant abnormalities are identified. There has been no significant change since the prior study. BI/SCRN MAMM (CAD)W/KAREEM BILAT IMPRESSION: Stable bilateral screening mammogram. Yearly follow-up mammogram recommended. (A) ASSESSMENT CATEGORY: BIRADS Category 1: Negative. A letter regarding these results will be sent to the patient by the facility within 30 days. Approximately 10% of breast cancers are not detected by mammography. A normal mammogram should not delay biopsy of a clinically suspicious abnormality. [id number] Electronically Signed: Rocael Aldridge MD at 12:24 EST , CC: JUSTIN Layne; Dr. Lanny Breen DO [employer]: Signed Lanny Breen DO Work Phone: Start: 04-24-2022 End: 07-10-2022 Colonoscopy Report Comments: See Note; NOTES: [facility] Medical Records Department [address] [place] [address] Colonoscopy Report MR#: [id number] Acct: [id number] Name: NAREN LOREDO Rep #: [id number] : 1970 51 From: Rocael Deras DO PCP: Dr. Lanny Breen DO Status:[facility] [place] Patient Name: Naren Loredo Procedure Date: 04/24/2022 7:27 AM Date of : 1970 Age: 51 Procedure: Colonoscopy Indications: Screening for colorectal malignant neoplasm Providers: Rocael Deras DO Medicines: Monitored Anesthesia Care Patient Profile: This is a 51 year old female. Refer to note in patient chart for documentation of history and physical. Last Colonoscopy: none. The patient's first colonoscopy is today. Complications: No immediate complications. Procedure: Pre-Anesthesia Assessment: - Prior to the procedure, a History and Physical was performed, and patient medications and allergies were reviewed. The risks and benefits of the procedure and the sedation options and risks were discussed with the patient. All questions were answered and informed consent was obtained. Patient identification and proposed procedure were verified by the physician in the pre-procedure area. Mental Status Examination: alert and oriented. Airway Examination: normal oropharyngeal airway and neck mobility. Respiratory Examination: clear to auscultation. CV Examination: normal. Prophylactic Antibiotics: The patient does not require prophylactic antibiotics. Prior Anticoagulants: The patient has taken no previous anticoagulant or antiplatelet agents. After reviewing the risks and benefits, the patient was deemed in satisfactory condition to undergo the procedure. The anesthesia plan was to use moderate sedation / analgesia (conscious sedation). Immediately prior to administration of medications, the patient was re-assessed for adequacy to receive sedatives. The heart rate, respiratory rate, oxygen saturations, blood pressure, adequacy of pulmonary ventilation, and response to care were monitored throughout the procedure. The physical status of the patient was re-assessed after the procedure. After I obtained informed consent, the scope was passed under direct vision. Throughout the procedure, the patient's blood pressure, pulse, and oxygen saturations were monitored continuously. The pediatric colonoscope was introduced through the anus and advanced to the cecum, identified by appendiceal orifice and ileocecal valve. The colonoscopy was performed without difficulty. The patient tolerated the procedure well. The quality of the bowel preparation was good. Scope In: 7:42:26 AM Scope Withdrawal Time 0 hours 11 minutes 49 seconds Scope Out: 8:02:48 AM Total Procedure Duration Time 0 hours 20 minutes 22 seconds Findings: Hemorrhoids were found on perianal exam. The colon (entire examined portion) appeared normal. The retroflexed view of the distal rectum and anal verge was normal and showed no anal or rectal abnormalities. Impression: - Hemorrhoids found on perianal exam. - The entire examined colon is normal. - No specimens collected. Recommendation: - Discharge patient to home. - Resume previous diet. - Continue present medications. - Repeat colonoscopy in 10 years for screening purposes. Procedure Code(s): --- Professional --- G0121, Colorectal cancer screening; colonoscopy on individual not meeting criteria for high risk CPT copyright 2017 [employer]. All rights reserved. The codes documented in this report are preliminary and upon desk top publisher review may be revised to meet current compliance requirements. Rocael Deras DO 04/24/2022 8:06:02 AM This report has been signed electronically. Number of Addenda: 0 Note Initiated On: 04/24/2022 7:27 AM 04/24/22 0806 Date Rocael Montes Signature: Date (if indicated) CC: Dr. Lanny Breen DO; Rocael Deras DO Date Dictated: 04/24/22726 Date Transcribed: [employer]: KAN Signed Lanny Breen DO Work Phone: Start: 04-24-[address] Lanny Breen Work Phone: Start: 04-24-2022 End: 04-24-2022 History and Physical Exam Comments: See Note; NOTES: [facility] Medical Records Department [address] [place] [address] History Physical Exam 04/24/22726 MR#: [id number] Acct: [id number] Name: NAREN LOREDO Rep #: [id number] : 1970 51 From: Rocael Deras DO PCP: Dr. Lanny Breen DO Status:[facility] Location: [place] [address] HPI - General General Chief Complaint: Screening colonoscopy HPI Narrative NAREN LOREDO, is a 51 F who presents today for a colonoscopy. She has no significant past medical story. She has no family history of colon cancer or colon polyps. She has no personal issues with constipation, diarrhea, abdominal pain or has experienced any change in bowel habits. She is not having any bleeding. She is not having any chest pain, shortness of breath or nausea. Overall she is in a very good state health she does take vitamins on a daily basis for preventative disease. [facility] Medical History (Updated 04/22/22 @ 15:37 by Samanta Shah) History of echocardiogram History of stress test Non-smoker Osteopenia Post-menopausal Seasonal allergies Wears contact lenses Wears glasses Home Medications ascorbate calcium (vitamin C) 500 mg tablet 500 mg PO DAILY 02/27/22 [History Last Taken Unknown] cholecalciferol (vitamin D3) 50 mcg (2,000 unit) capsule 50 mcg PO DAILY 02/27/22 [History Last Taken Unknown] multivitamin 1 tab PO DAILY 02/27/22 [History Last Taken Unknown] zinc 50 mg tablet 50 mg PO DAILY 02/27/22 [History Last Taken Unknown] Allergy/AdvReac Type Severity Reaction Status Date / Time No Known Allergies Allergy Verified 04/22/22 15:30 Family History Mother Multiple sclerosis Father Cancer prostate Grandmother Diabetes Cancer lung Grandfather Cancer prostate Surgical History (Updated 04/22/22 @ 15:37 by Samanta Shah) Hx of wisdom tooth extraction Social History (Updated 02/27/22 @ 08:11 by Iraida Murillo) current occupational status: employed 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 Smoking Status: Never smoker alcohol intake: never substance use type: does not use caffeine: Yes what type of physical activity do you participate in: none seatbelt use: always do you feel safe at home: Yes additional social history: [employer]- Self Employed ROS Review of Systems ROS Unobtainable: other Constitutional Constitutional: Denies fatigue, fever(s), poor appetite, weight gain or weight loss ENT HEENT: Denies mouth lesions Cardiovascular Cardiovascular: Denies abdominal bloating, abdominal edema or abdominal pain Respiratory/Chest Respiratory/Chest: Denies change in mental status, change in phlegm color, chest congestion or chest tightness Gastrointestinal Gastrointestinal: Denies belching, bloating, change in bowel habits, change in stool character, chewing difficulty, coffee ground emesis, constipation, cramping, diarrhea, dyspepsia, dysphagia, early satiety, excessive flatus, fecal incontinence, heartburn, hematemesis, hematochezia, hemorrhoids, loose stools, melena, nausea, odynophagia, rectal bleeding, tenesmus, vomiting or weight changes Genitourinary Genitourinary: Denies abdominal discomfort, burning urination or itching Musculoskeletal Musculoskeletal: Reports as per HPI; Denies muscle weakness or myalgias Integumentary Integumentary: Denies jaundice Neurologic Neurologic: Denies lack of coordination or weakness Psychiatric Psychiatric: Denies confusion, depression, memory loss, mood swings, paranoia or suicidal ideation Endocrine Endocrinology: Denies systems reviewed and no addt'l complaints, except as documented Hematologic/Lymphatic Hematologic/Lymphatic: Denies anemia, easy bleeding, easy bruising or lymphadenopathy Allergic/Immunologic Allergic/Immunologic: Denies systems reviewed and no addt'l complaints, except as documented Vital Signs Vital Signs Vital Signs: 04/24/22 07:12 07/20/22 07:12 Temperature 98.3 F Temperature Source Temporal Pulse Rate 86 Respiratory Rate 18 Respiratory Pattern Normal Blood Pressure 132/82 H Blood Pressure Mean 98 Blood Pressure Source Monitor Blood Pressure Position Semi-Fowlers Blood Pressure Location Right Arm Pulse Ox 99 Oxygen Delivery Method Room Air Weight Weight: 145 lb Body Mass Index (BMI) 22.7 Physical Exam Const alert, oriented x3, no apparent distress, healthy appearing and well nourished General Appearance: cooperative, comfortable, well kempt and well developed Orientation / Consciousness: awake and oriented to person HEENT Head and Scalp: normocephalic and atraumatic Face and Sinus: normal facial exam Mouth: oral and palatal mucosa normal Eyes General Eye: normal appearance of both eyes Neck full ROM Lymph Lymphatic: no lymphadenopathy noted Chest inspection of chest normal Resp normal respiratory effort and no use of accessory muscles Cardio regular rate and regular rhythm GI normal to inspection, nondistended, normoactive bowel sounds, soft to palpation, non-tender, non- distended and no masses Auscultation: normoactive bowel sounds Palpation: soft Percussion: normal to percussion Rectal Exam: visual inspection normal and normal sphincter tone no CVA tenderness Back/Spine no CVA tenderness and normal ROM Extremity normal to inspection Peripheral Pulses: Yes pulses 2+ throughout Skin no rashes or lesions noted General Skin Exam: no breakdown, elasticity normal and turgor normal Neuro oriented x3 Motor Exam: strength 5/5 throughout Psych mental status grossly normal Appearance: grossly normal Attitude: calm Activity / Motor Behavior: appropriate eye contact Speech: normal speech Thought Process: normal thought process Thought Content: normal thought content Attention / Concentration: attention grossly intact Memory / Cognition: memory grossly intact Insight: insight good Judgement: judgement good Assessment Plan Assessment/Plan (1) Encounter for screening for malignant neoplasm of colon: PLAN: She was explained risk and benefits including not withstanding bleeding, infection, sepsis, perforation, missed polyps, need for emergent surgery and . She would have an ASA of 1 for the procedure. 04/24/22 0729 <Electronically signed by Rocael Deras DO> Cosigner Signature (if applicable): CC: Dr. Lanny Breen DO; Rocael Deras DO Signed Lanny Breen DO Work Phone: Start: 02-27-2022 End: 02-27-2022 [place] Office Visit Report Comments: See Note; NOTES: [facility] 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) Allergies No Known Allergies Allergy (Verified 02/27/22 08:10) Medications ascorbate calcium (vitamin C) 500 mg tablet 500 mg PO DAILY 02/27/22 [History Confirmed 02/27/22] cholecalciferol (vitamin D3) 50 mcg (2,000 unit) capsule 50 mcg PO DAILY 02/27/22 [History Confirmed 02/27/22] multivitamin 1 tab PO DAILY 02/27/22 [History Confirmed 02/27/22] zinc 50 mg tablet 50 mg PO DAILY 02/27/22 [History Confirmed 02/27/22] Post menopausal: Yes PFSH Medical History Osteopenia Seasonal allergies Family History Mother Multiple sclerosis Father Cancer prostate Grandmother Diabetes Cancer lung Grandfather Cancer prostate Social History (Updated 02/27/22 @ 08:11 by Iraida Murillo) current occupational status: employed 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 Date Name GA/Weeks Outcome Route Bth Weight Gen Labor Lgth Anesthesia Del Locatn Provider FOB Unknown 1994 Esvin Unknown 1996 Thuan Unknown 1999 [facility] Encounter for routine gynecological examination Details: NAREN LOREDO is a 51 year old who presents for annual exam. No concerns Last PAP: 2018 History of abnormal PAP: no Last mammogram: 11/2021 History of abnormal mammogram: no Colon cancer screening: [facility] 04/2022 Other preventative health care screenings: Jamshid ROS Const Constitutional: Denies fatigue, weight gain or weight loss Cardio Card: Denies chest pain Resp Resp: Denies cough or dyspnea on exertion GI GI: Denies abdominal pain, bloating, change in stool character, constipation or vomiting : Reports as per HPI; Denies difficulty voiding, pelvic pain, urinary frequency, urinary incontinence, urinary urgency, vaginal discharge or vaginal pruritus Exam Const General: cooperative, healthy appearing, no acute distress and well developed Orientation: alert, oriented to person and oriented to place HENMT Head: normal to inspection Neck Neck: normal visual inspection Thyroid: thyroid normal Lymphatic: no lymphadenopathy noted Chest Breast inspection: normal inspection of the breasts and normal inspection of the axillae Breast palpation: normal palpation of the breasts, normal palpation of the axillae and no axillary lymphadenopathy Resp Effort Inspection: normal respiratory effort GI Palpation: soft, no masses and nontender Rectal Exam: deferred External Female Exam: normal external appearance and normal appearance of the urethra Urethra: normal appearance of the urethra and normal palpation Speculum Exam - Vagina: normal appearance of the vagina and normal vaginal discharge Speculum Exam - Cervix: normal appearance of the cervix Bimanual Exam- Vagina Uterus: normal bimanual exam, uterine size normal, uterine shape normal and non-tender Bimanual Exam- Adnexa, other: normal adnexae, no masses, normal and non-tender Pelvic Support: normal Neuro General: patient alert and patient oriented x3 Psych Affect: normal affect Coding Level of Care Code Off vis,new,prev 1-4yrs Diagnoses Encounter for routine gynecological examination Z01.419 Gynecological examination findings: abnormal findings ABSENT Assessment and Plan Assessment and Plan (1) Encounter for routine gynecological examination: Qualifiers: Gynecological examination findings: abnormal findings ABSENT Qualified Code(s): Z01.419 - Encounter for gynecological examination (general) (routine) without abnormal findings Plan - Griselda Layne KEY ACCOUNT DIRECTOR, KEY ACCOUNT DIRECTOR-C: Completed breast and pelvic exam Reviewed diet and exercise Pap 2018, will be due next year Mammogram recent breast self exam encouraged monthly health screen labs Colonoscopy scheduled 04/2022 Bone density with PCP RTO 1 year, prn with problems Griselda Layne MAPPING PILOT Plan Details Other Orders: Orders: Vitamin D,25 Hydroxy Today Z13.21 Glucose Today Z13.1 Lipid Profile Today Z13.220 Thyroid Stim Hormone (TSH) Today Z13.29 02/27/22 0832 <Electronically signed by Griselda Layne KEY ACCOUNT DIRECTOR KEY ACCOUNT DIRECTOR-C> Date Griselda Layne KEY ACCOUNT DIRECTOR KEY ACCOUNT DIRECTOR-C Cosigner Signature: Date (if applicable) CC: Lanny Breen DO Work Phone: Start: 11-30-2021 End: 11-30-2021 SCRN MAMM (CAD)W/KAREEM BILAT Comments: See Note; NOTES: [facility] Services [address] [place] [address] SCRN MAMM (CAD)W/KAREEM BILAT MR#: [id number] Acct: [id number] Name: NAREN LOREDO Rep #: [id number] : 1970 F 51 From: Rocael adam MD PCP: Dr. Lanny Breen, Status: REG CLI Study: SCRN MAMM (CAD)W/KAREEM BILAT Date of Exam: 11/07 02/24 Exam# [id number] Ordering Dr: Deisi Dunaway DO MAMMOGRAPHY - BILATERAL SCREENING REASON FOR EXAM: Female, 51 years old. Routine annual screening examination. PERTINENT HISTORY: Non-contributory. TECHNIQUE: Digital bilateral breast kareem (3D mammographic acquisition) in the CC and MLO projections. 2-D mediolateral oblique (MLO) and craniocaudad (CC) views of both breasts were obtained. CAD: Full Field Digital Mammography with Computer Added Detection was performed. COMPARISON: Comparison is made with prior examination dated 02/14/2020 and 12/14/2018. FINDINGS: Breast Composition: The breasts are heterogeneously dense, which may obscure small masses. There are no dominant masses or suspicious calcifications. No other significant abnormalities are identified. There has been no significant change since the prior study. BI/SCRN MAMM (CAD)W/KAREEM BILAT IMPRESSION: Stable bilateral screening mammogram. Yearly follow-up mammogram recommended. (A) ASSESSMENT CATEGORY: BIRADS Category 1: Negative. A letter regarding these results will be sent to the patient by the facility within 30 days. Approximately 10% of breast cancers are not detected by mammography. A normal mammogram should not delay biopsy of a clinically suspicious abnormality. [id number] Electronically Signed: Rocael Aldridge MD at 8:14 EST Reading Location ID and State: [address] [place] [address] , Service support , CC: Dr. Deisi Dunaway DO; Dr. Lanny Breen DO Supervisor Game Farm: Signed Lanny Breen DO Work Phone: Start: 07-16-2020 End: 07-16-2020 Urgent Care Visit Report Comments: See Note; NOTES: [facility] [address] [place] [address] OFFICE VISIT Date of Service: 07/16/20 MR#: [id number] Acct: [id number] Name: NAREN LOREDO Rep #: [id number] : 1970 Provider: MELVIN Woodard Age/Sex: 50/F Location: [facility] Status: Signed Intake Vital Signs 10/11/20 BMI 24.3 07/16/20 Height 5 ft 9 in 07/16/20 Weight: 157 lb 07/16/20 BMI 23.1 07/16/20 BP 140/90 H 07/16/20 Blood Pressure Location Lt brachial 07/16/20 Position Sitting 07/16/20 Respiration 14 07/16/20 Pulse 73 07/16/20 Pulse Source Monitor 07/16/20 Temp 97.6 F L 07/16/20 Temp Source Temporal 07/16/20 Pulse Oximetry (%) 99 07/16/20 Oxygen Delivery Method room air Intake Visit Reasons: YELLOW JACKET STING Allergies No Known Allergies Allergy (Verified 03/24/19 11:11) Medications prednisone 10 mg tablet 10 mg PO .COMPLEX #30 tab 07/16/20 [Rx Confirmed 07/16/20] PFSH Medical History Seasonal allergies (Acute) Osteopenia (Acute) Family History Mother Multiple sclerosis Father Cancer prostate Grandmother Diabetes Cancer lung Grandfather Cancer prostate Social History (Updated 07/16/20 @ 14:14 by Lori CHARLES, PA) Smoking Status: Never smoker alcohol intake: never substance use type: does not use caffeine: Yes what type of physical activity do you participate in: none seatbelt use: always do you feel safe at home: Yes 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 Patient states that over the last 2 weeks she has had 6 bee stings. The one that she had yesterday her arm is swelling. She was stung on her right forearm. It is swollen up to her elbow and is now going into her wrist it is all on her palmar side. It is itchy and warm to touch. She does not have any other hives that is noted. She does not have any fevers or chills. She has never had a reaction to this before. ROS Const Constitutional: Positive for other (ROS is negative x10 except what is described above) Exam Const General: cooperative, healthy appearing, no acute distress Nutritional Appearance: average body habitus Orientation: alert, awake, oriented x3 HENMT Head: normal to inspection, atraumatic Ears: hearing grossly normal bilaterally Nose: external nose normal Face and sinus: normal facial exam Mouth: oral mucosae normal Eyes General: appearance normal, both eyes and all related structures Resp Effort Inspection: normal respiratory effort Auscultation: Bilateral: Clear to Auscultation Cardio Palpation: normal PMI Rate: regular rate Rhythm: regular rhythm Heart Sounds: S1 normal, S2 normal, no gallops, no murmurs, no rubs GI Inspection: normal to inspection Auscultation: normal bowel sounds Palpation: soft, no hepatosplenomegaly, nontender Neuro General: alert, awake, oriented x3, CN's II-XI intact bilaterally Extrem Other: Right forearm swollen, red, warm to touch. It does extend throughout the whole palmar side of her forearm. Does it starting to extend to her and her wrist and up to her elbow Assessment Plan Problems 1. Allergic reaction to bee sting T63.441A Plan We will treat patient with prednisone. She was advised that she could still also use Benadryl. She was advised to monitor for worsening symptoms of an allergic reaction. Medications New: prednisone Take 4 pills for 3 days, 3 pills for 3 days, 2 pills for 3 days, take 1 pill for 3 days 30 tabs 0RF Coding Level of Care Code Off vis,est,level 3 Diagnoses Allergic reaction to bee sting T63.441A 07/16/20 1414 <Electronically signed by Lori Espitia> Date Lori CHARLES Cosigner Signature: Date (if applicable) CC: Lanny Breen DO Work Phone: Start: 02-14-2020 End: 02-14-2020 SCREEN MAMM (CAD) W/KAREEM BILAT Comments: See Note; NOTES: [facility] [address] [place] [address] SCREEN MAMM (CAD) W/KAREEM BILAT MR#: [id number] Acct: [id number] Name: NAREN LOREDO Rep #: [id number] : 1970 F 49 From: Rocael adam MD PCP: Dr. Lanny Breen, DO Status: [facility] Study: SCREEN MAMM (CAD) W/KAREEM BILAT Date of Exam: 0 02/14/20 Exam# [id number] Ordering Dr: Latasha Schmitt MAMMOGRAPHY - BILATERAL SCREENING REASON FOR EXAM: Female, 49 years old. Routine annual screening examination. PERTINENT HISTORY: Non-contributory. TECHNIQUE: Digital bilateral breast kareem (3D mammographic acquisition) in the CC and MLO projections. 2-D mediolateral oblique (MLO) and craniocaudad (CC) views of both breasts were obtained. CAD: Full Field Digital Mammography with Computer Added Detection was performed. COMPARISON: Comparison is made with prior examination dated December 14, 2018 and November 20, 2017. FINDINGS: Breast Composition: The breasts are heterogeneously dense, which may obscure small masses. There are no dominant masses or suspicious calcifications. No other significant abnormalities are identified. There has been no significant change since the prior study. BI/SCREEN MAMM (CAD) W/KAREEM BILAT IMPRESSION: Stable bilateral screening mammogram. Yearly follow-up mammogram recommended. (A) ASSESSMENT CATEGORY: BIRADS Category 1: Negative. A letter regarding these results will be sent to the patient by the facility within 30 days. Approximately 10% of breast cancers are not detected by mammography. A normal mammogram should not delay biopsy of a clinically suspicious abnormality. [id number] Electronically Signed: Rocael Aldridge, at 8:43 EDT , Service support , CC: Dr. Lanny Breen DO; Dr. Latasha Schmitt MD Supervisor Game Farm: Signed Lanny Breen DO Work Phone: Start: 03-27-2019 End: 03-27-2019 [place] Office Visit Report Comments: See Note; NOTES: [facility] [address] [place] [address] OFFICE VISIT Date of Service: 03/24/19 MR#: [id number] Acct: [id number] Name: NAREN LOREDO Rep #: [id number] : 1970 Provider: Latasha Schmitt MD Age/Sex: 48/F [place] [facility] [place]: Signed Intake Vital Signs03/24/19 Body Mass Index (BMI) 24.3 03/24/19 Height 5 ft 8 in 03/24/19 Weight: 150 lb 6 oz 03/24/19 Body Mass Index (BMI) 22.8 03/24/19 Blood Pressure 104/82 H Intake Visit Reasons: ANNUAL EXAM Chief Complaint: est annual Diabetes Manager Required: No Is patient in pain?: No Allergies No Known Allergies Allergy (Verified 03/24/19 11:11) Medications NK 11/20/17 [History Confirmed 03/24/19] Is last menstrual period known: No Post menopausal: No Patient : No : No [facility] Medical History (Updated 03/24/19 @ 11:29 by Latasha Schmitt MD) Osteopenia (Acute) Family History Mother Multiple sclerosis Father Cancer prostate Grandmother Diabetes Cancer lung Grandfather Cancer prostate Social History (Updated 03/27/19 @ 05:48 by Latasha Schmitt MD) Smoking Status: Never smoker alcohol intake: never substance use type: does not use caffeine: Yes what type of physical activity do you participate in: none seatbelt use: always do you feel safe at home: Yes 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 DatName GA/WeeksOutcome Route [facility] e ht en hi HPI ANNUAL EXAM: Details: NAREN LOREDO is a 48 year old who presents for annual exam. eldest sone getting next march, first empty nest soon Last PAP: 2017 n History of abnormal PAP: 12/22 Last mammogram: 12/22 History of abnormal mammogram: no Colon cancer screening: Other preventative health care screenings: dr breen Female Reproductive History Questions: Metorrhagia: No, Sexually active: Yes, Dyspareunia: No, PCB: No Menopausal Symptoms: No hot flashes, No night sweats, No weight change, No mood changes, No difficulty concentrating, No sleep problems, No change in libido ROS Const Constitutional: Reports as per HPI; denies fatigue, increased appetite, poor appetite, night sweats, weight gain or weight loss Cardio Card: Denies chest pain Resp Resp: Denies cough or dyspnea GI GI: Reports as per HPI; denies abdominal pain, bloating, constipation, nausea or vomiting : Reports as per HPI and other; denies difficulty urinating, painful urination, blood in urine, hot flashes, nipple discharge, pelvic pain, prolapse symptoms, urinary frequency, urinary incontinence, urinary urgency, vaginal discharge, vaginal dryness, vaginal odor or vaginal itching Skin Skin/Breast: Denies changing lesions, breast lump, breast pain, breast skin changes or nipple discharge Psych Psych: Denies anxiety, change in sex drive, depression or difficulty concentrating Exam Const General: cooperative, healthy appearing, comfortable, no acute distress, well developed, well groomed [facility] Head: normal to inspection, normocephalic Ears: hearing grossly normal bilaterally, external ears normal Nose: external nose normal Face and sinus: normal facial exam Neck Neck: normal visual inspection, full ROM, no lymphadenopathy Thyroid: thyroid normal Chest Chest palpation AND inspection: normal inspection of the chest Breast inspection: normal inspection of the breasts, normal inspection of the axillae Breast palpation: normal palpation of the breasts, normal palpation of the axillae, no axillary lymphadenopathy Resp Effort AND Inspection: normal respiratory effort GI Inspection: normal to inspection, non-distended Palpation: soft, no hepatosplenomegaly, no guarding General: bladder normal to palpation External Female Exam: normal external appearance, normal appearance of the urethra, no lesions Urethra: normal appearance of the urethra, normal palpation Speculum Exam - Vagina: normal appearance of the vagina, normal vaginal discharge Speculum Exam - Cervix: normal appearance of the cervix, no cervical discharge, no lesions, nontender Bimanual Exam- Vagina AND Uterus: normal bimanual exam, uterine size normal, bladder normal to palpation, No cervical tenderness, uterine mobility normal, uterine consistency normal, uterus non-tender, no cervical motion tenderness Bimanual Exam- Adnexa, other: normal adnexae, no adnexal masses, adnexae non-tender Skin General: no rashes or lesions noted Neuro General: alert, moves all extremities, no focal motor deficits Extrem General: normal to inspection, no pedal edema Psych Appearance: grossly normal Mental Status: mental status grossly normal Affect: normal affect Speech and Movement: speech and movement normal Attitude: cooperative Assessment AND Plan Problems 1. Encounter for gynecological examination (general) (routine) without abnormal findings Z01.419 Plan Cervical cancer screening: pap 2018 Breast cancer screening: mamm other health maintenance examination reviewed and orders placed if needed. Encouraged maintenance of a healthy weight and active lifestyle and handout given. Annual exam handout including recommendations for good health guidelines, Calcium/vitamin D recommendations, and basic screening information given. Problem list up to date, see problem list details for any additional plan information. Follow up in one year for annual health maintenance exam or sooner if needed. Coding Level of Care Code Off vis,est,prev 40-64yrs Diagnoses Encounter for gynecological examination (general) (routine) without abnormal findings Z01.419 03/27/19 0548 <Electronically signed by Latasha Schmitt MD> Date Latasha Schmitt MD Cosigner Signature: Date (if applicable) CC: Lanny Breen Start: 12-14-2018 End: 12-14-2018 SCREEN MAMM (CAD) W/KAREEM BILAT Comments: See Note; NOTES: [facility] [address] [place] [address] SCREEN MAMM (CAD) W/KAREEM BILAT MR#: [id number] Acct: [id number] Name: NAREN LOREDO Rep #: [id number] : 1970 F 48 From: Rocael Aldridge MD PCP: Lanny Breen DO Status: [facility] Study: SCREEN MAMM (CAD) W/KAREEM BILAT Date of Exam: 12/14/18 Exam# [id number] Ordering Dr: Latasha Schmitt MD MAMMOGRAPHY - BILATERAL SCREENING REASON FOR EXAM: Female, 48 years old. Routine annual screening examination. PERTINENT HISTORY: Non-contributory. TECHNIQUE: Digital bilateral breast kareem (3D mammographic acquisition) in the CC and MLO projections. 2-D mediolateral oblique (MLO) and craniocaudad (CC) views of both breasts were obtained. CAD: Full Field Digital Mammography with Computer Added Detection was performed. COMPARISON: Comparison is made with prior study dated November 20, 2017 and July 11, 2011. FINDINGS: Breast Composition: The breasts are heterogeneously dense, which may obscure small masses. There are no dominant masses or suspicious calcifications. No other significant abnormalities are identified. There has been no significant change since the prior study. BI/SCREEN MAMM (CAD) W/KAREEM BILAT IMPRESSION: Stable bilateral screening mammogram. Yearly follow-up mammogram recommended. (A) ASSESSMENT CATEGORY: BIRADS Category 1: Negative. A letter regarding these results will be sent to the patient by the facility within 30 days. Approximately 10% of breast cancers are not detected by mammography. A normal mammogram should not delay biopsy of a clinically suspicious abnormality. [id number] Electronically Signed: Rocael Aldridge, at 15:52 EDT , Service support , CC: Lanny Breen DO; Latasha Schmitt MD Supervisor [employer]: Signed Lanny Breen Start: 11-20-2017 End: 11-20-2017 Upper [place] Office Visit Report Comments: See Note; NOTES: [facility] [address] [place] [address]. 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) Chief Complaint: est annual Diabetes Manager Required: No Is patient in pain?: No Allergies No Known Allergies Allergy (Unverified 11/20/17 13:35) Medications NK [NK] 11/20/17 [History Confirmed 11/20/17] Is last menstrual period known: No Post menopausal: No Patient : No : No PFSH Family History Mother Multiple sclerosis Father Cancer prostate Grandmother Diabetes Cancer lung Grandfather Cancer prostate Social History Smoking Status: Never smoker alcohol intake: never substance use type: does not use caffeine: Yes what type of physical activity do you participate in: none seatbelt use: always do you feel safe at home: Yes 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 youngest son looking at college Last PAP: due History of abnormal PAP: no Last mammogram: done today History of abnormal mammogram: Colon cancer screening: Other preventative health care screenings: Dr Breen- up to date- getting records Female Reproductive History Questions: Metorrhagia: No, Sexually active: Yes, Dyspareunia: No, PCB: No Menopausal Symptoms: No hot flashes, No night sweats, No weight change, No mood changes, No difficulty concentrating, No sleep problems, No change in libido ROS Const Constitutional: Reports as per HPI; denies poor appetite, fatigue, increased appetite, weight gain, weight loss or night sweats Cardio Card: Denies chest pain Resp Resp: Denies dyspnea or cough GI GI: Reports as per HPI; denies bloating, abdominal pain, constipation, vomiting or nausea : Reports as per HPI and other; denies blood in urine, vaginal odor, vaginal itching, vaginal dryness, vaginal discharge, urinary urgency, urinary incontinence, urinary frequency, pelvic pain, painful urination, difficulty urinating, prolapse symptoms, nipple discharge or hot flashes Skin Skin/Breast: Denies breast pain, breast skin changes, nipple discharge, breast lump or changing lesions Psych Psych: Denies difficulty concentrating or change in sex drive Exam Const General: cooperative, healthy appearing, comfortable, no acute distress, well developed, well groomed [facility] Head: normal to inspection, normocephalic Ears: hearing grossly normal bilaterally, external ears normal Nose: external nose normal Face and sinus: normal facial exam Neck Neck: normal visual inspection, full ROM, no lymphadenopathy Thyroid: thyroid normal Chest Chest palpation AND inspection: normal inspection of the chest Breast inspection: normal inspection of the breasts, normal inspection of the axillae Breast palpation: normal palpation of the breasts, normal palpation of the axillae, no axillary lymphadenopathy Resp Effort AND Inspection: normal respiratory effort GI Inspection: normal to inspection, non-distended Palpation: no guarding, soft, no hepatosplenomegaly General: bladder normal to palpation External Female Exam: normal external appearance, normal appearance of the urethra, no lesions Urethra: normal appearance of the urethra, normal palpation Speculum Exam - Vagina: normal appearance of the vagina, normal vaginal discharge Speculum Exam - Cervix: normal appearance of the cervix, no cervical discharge, no lesions, nontender Bimanual Exam- Vagina AND Uterus: No cervical tenderness, normal bimanual exam, uterine size normal, bladder normal to palpation, uterine mobility normal, uterine consistency normal, uterus non-tender, no cervical motion tenderness Bimanual Exam- Adnexa, other: normal adnexae, no adnexal masses, adnexae non-tender Skin General: no rashes or lesions noted Neuro General: alert, moves all extremities, no focal motor deficits Extrem General: no pedal edema, normal to inspection Psych Appearance: grossly normal Mental Status: mental status grossly normal Affect: normal affect Speech and Movement: speech and movement normal Attitude: cooperative Assessment AND Plan Problems 1. Encounter for gynecological examination without abnormal finding Z01.419 2. Screening for cervical cancer Z12.4 3. Screening for HPV (human papillomavirus) Z11.51 Plan Cervical cancer screening: pap hpv Breast cancer screening: helen done today other health maintenance examination reviewed and up to date. Encouraged maintenance of a healthy weight and active lifestyle and handout given. Calcium/vitamin D recommendations provided. Annual exam handout including recommendations for good health guidelines and basic screening information given. Problem list up to date, see problem list details for any additional plan information. Follow up in one year for annual health maintenance exam or sooner if needed. Orders Orders: Coding Level of Care Code Off vis,est,prev 40-64yrs Diagnoses Encounter for gynecological examination without abnormal finding Z01.419 Gynecological examination findings: abnormal findings ABSENT Screening for cervical cancer Z12.4 Screening for HPV (human papillomavirus) Z11.51 11/20/17 1428 <Electronically signed by Latasha Schmitt MD> Date Latasha Schmitt MD Cosigner Signature: Date (if applicable) CC: Lanny Breen Start: 11-20-2017 End: 11-20-2017 SCREENING MAMM (CAD), BILAT Comments: See Note; NOTES: [facility] [address] [place] [address] SCREENING MAMM (CAD), BILAT MR#: [id number] Acct: [id number] Name: NAREN LOREDO Rep #: [id number] : 1970 F 47 From: Rocael Aldridge MD PCP: Lanny Breen DO Status: REG CLI Study: SCREENING MAMM (CAD), BILAT Date of Exam: 11/20/17 Exam# [id number] Ordering Dr: Latasha Schmitt MD MAMMOGRAPHY - BILATERAL SCREENING REASON FOR EXAM: Female, 47 years old. Routine annual screening examination. PERTINENT HISTORY: Non-contributory. TECHNIQUE: Digital bilateral breast kareem (3D mammographic acquisition) in the CC and MLO projections. 2-D mediolateral oblique (MLO) and craniocaudad (CC) views of both breasts were obtained. CAD: Full Field Digital Mammography with Computer Added Detection was performed. COMPARISON: Comparison is made with prior outside examination dated October 31, 2016. FINDINGS: Breast Composition: The breasts are heterogeneously dense, which may obscure small masses. There are no dominant masses or suspicious calcifications. No other significant abnormalities are identified. There has been no significant change since the prior study. HPBI/SCREENING MAMM (CAD), BILAT IMPRESSION: Stable bilateral screening mammogram. Yearly follow-up mammogram recommended. (A) ASSESSMENT CATEGORY: BIRADS Category 1: Negative. A letter regarding these results will be sent to the patient by the facility within 30 days. Approximately 10% of breast cancers are not detected by mammography. A normal mammogram should not delay biopsy of a clinically suspicious abnormality. [id number] Electronically Signed: Rocael Aldridge MD at 10:59 EST Tel [phone], Service support , CC: Lanny Breen DO; Latasha Schmitt MD Supervisor [employer]: Signed Lanny Breen Start: 11-28-2016 End: 11-28-2016 Dexa Bone Density Study (HP) Comments: See Note; NOTES: [facility] [address] [place] [address] Verdana 4d Dexa Bone Density Study (HP) MR#: [id number] Acct: [id number] Name: NAREN LOREDO Rep #: [id number] : 1970 F 46 From: Rocael Aldridge MD PCP: Lanny Breen DO Status: REG CLI Study: Dexa Bone Density Study () Date of Exam: 11/28/16 Exam# [id number] Ordering Dr: Lanny Breen DO STUDY: DUAL ENERGY X-RAY ABSORPTIOMETRY / DXA REASON FOR EXAM: Female, 46 years old. The patient is postmenopausal. TECHNIQUE: Bone Mineral Density (BMD) measurements of lumbar spine and bilateral hips were obtained. COMPARISON: None. FINDINGS: Lumbar Spine (L1-L4): g/cm2 (1.105) / T-score (-0.6) / Z-score (-0.4) Findings are suggestive of normal bone density with a low fracture risk. Left Femur Total: g/cm2 (0.803) / T-score (-1.6) / Z-score (-1.2) Left Femoral Neck: g/cm2 (0.818) / T-score (-1.6) / Z-score (-0.9) Right Femur Total: g/cm2 (0.859) / T-score (-1.2) / Z-score (-0.8) Right Femoral Neck: g/cm2 (0.820) / T-score (-1.6) / Z-score (-0.9) HPBD/Dexa Bone Density Study (HP) IMPRESSION: The patient is considered osteopenic as outlined below according to World Dank Organization (WHO) criteria with a moderate fracture risk. Reference Information: The T-score is the number of standard deviations above or below the standard which is normal for young adults at their peak bone mineral density. The World Health Organization (WHO) interprets the T-scores as follows: Above -1 Normal bone density Between -1 and -2.5 Osteopenia Equal to / or below -2.5 Osteoporosis As a practical clinical guideline, osteopenia may be graded as follows: Mild -1 through -1.5 Moderate -1.6 through -2.0 Severe -2.1 through -2.4 The Z-score is the number of standard deviations above or below age-matched controls. A Z-score of less than -1.5 would be considered abnormal. References: 1. NIH Osteoporosis and Related Bone Diseases http://www.osteo.org 2. International Society for Clinical Densitometry http://www.iscd.org 3. 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 Screening for osteoporosis Screening for osteoporosis Lanny Breen Screening for osteoporosis Screening for osteoporosis Lanny Breen DO Work Phone: Screening for osteoporosis Screening for osteoporosis Lanny Breen DO Work Phone: Plan of Treatment Date Care Activity Detail Author Start: 03-05-2023 Liquid based cervica l cytology screening [facility] Start: 02-13-2023 Procedure Education Eprescribe d prescriptions (G8553) [facility] Work Phone: Start: 02-13-2023 Provider Instruction s for Treatment Reviewed Lab [facility]; [facility] Work Phone: Start: 02-13-2023 25 hydroxy includes fractions if performed CALCIFEDIOL (62160) [facility]; [facility] Work Phone: Start: 02-13-2023 Protein total xcpt refractometry urine UPEP (63381) [facility]; [facility] Work Phone: Start: 02-13-2023 Protein electrophore tic fractj&quantj serum SPEP (95667) [facility]; [facility] Work Phone: Start: 01-30-2023 Blood count complete auto&auto difrntl wbc CBC W/AUTO DIFF WBC (31476) [facility]; [facility] Work Phone: Start: 01-30-2023 C-reactive protein C-Reactive Protein (25528) [facility]; [facility] Work Phone: Start: 01-30-2023 Comprehensive metabo lic panel METABOLIC PANEL, COMPREHENSIVE (65050) [facility]; [facility] Work Phone: Start: 01-30-2023 Creatine kinase total Creatine Kinase Total (66398) [facility]; [facility] Work Phone: Start: 01-30-2023 Sedimentation rate r bc non-automated ESR-F (SED RATE ERYTHROCYTE - FEMALE) (86573) [facility]; [facility] Work Phone: Start: 01-27-2023 1 25 dihydroxy inclu ronaldo fractions if performed VITAMIN D, 1, 25-DIHYDROXY (73366) [facility]; [facility] Work Phone: Start: 01-27-2023 Assay of thyroid stimulating hormone tsh TSH (54496) [facility]; [facility] Work Phone: Start: 01-27-2023 Lipid panel LIPID PANEL (32860) [facility] Work Phone: Start: 04-24-2022 Patient discharge [facility] Work Phone: Start: 01-28-2022 Procedure Education Eprescribe d prescriptions (G8553) [facility]; [facility] Work Phone: Start: 10-10-2021 Procedure Education Eprescribe d prescriptions (G8553) [facility]; [facility] Work Phone: Start: 08-06-2021 Procedure Education Eprescribe d prescriptions (G8553) [facility]; [facility] Work Phone: Start: 07-25-2021 Sars-cov-2 antibody SARS-CoV-2 Antibody, IgG [facility]; [facility] Work Phone: Start: 12-23-2019 Procedure Education Eprescribe d prescriptions (G8553) [facility]; [facility] Work Phone: Start: 07-14-2019 Procedure Education Eprescribe d prescriptions (G8553) [facility] Work Phone: Start: 05-06-2018 Provider Instruction s for Treatment Reviewed Lab [facility] Work Phone: Start: 08-05-2017 Procedure Education Eprescribe d prescriptions (G8553) [facility] Work Phone: Start: 07-21-2017 Patient Education Cough: respi ratory infection [facility] Work Phone: Start: 07-21-2017 Procedure Education Eprescribe d prescriptions (G8553) [facility] Work Phone: Start: 07-21-2017 Provider Instruction s for Treatment Follow up if no improvement or if symptoms worsen [facility] Work Phone: Start: 05-05-2015 Procedure Education Eprescribe d prescriptions (G8553) [facility] Work Phone: Start: 05-24-2014 Patient Education Menopause *: menstrual period [facility] Work Phone: Start: 05-24-2014 Procedure Education Eprescribe d prescriptions (G8553) [facility] Work Phone: Start: 12-26-2011 25 hydroxy includes fractions if performed CALCIFIDIOL (86287) VIT D 25 [facility] Work Phone: Start: 08-27-2011 Provider Instruction s for Treatment Reviewed Lab [facility] Work Phone: Start: 11-19-2010 Provider Instruction s for Treatment [facility] Work Phone: Start: 07-30-2010 Gonadotropin chorion ic qualitative TEST - SERUM QUANTITATIVE (HCG) (94409) [facility] Work Phone: Comment on above: stat Start: 07-30-2010 C-reactive protein C-REACTIVE PROTEIN (25381) [facility]; [facility] Work Phone: Start: 07-30-2010 CRP [Mass/Vol] C-REACTIVE PRO TEIN (77938) [facility] Work Phone: Start: 07-30-2010 Sedimentation rate r bc non-automated SED RATE ERYTHROCYTE (17916) [facility] Work Phone: Start: 07-30-2010 Comprehensive metabo lic panel METABOLIC PANEL, COMPREHENSIVE (38713) [facility] Work Phone: Start: 07-30-2010 Blood count manual c ell count each CBC WITH MANUAL DIFF (93751) [facility] Work Phone: Start: 07-30-2010 Culture bacterial quanttative colony count urine URINE MINA CULTURE-CAMELIA COL COUNT (75512) [facility] Work Phone: Start: 12-21-2007 Provider Instruction s for Treatment [facility] Work Phone: Glucose [Mass/volume ] in Serum or Plasma [facility] Work Phone: Lipid 1996 panel - S jeyson or Plasma [facility] Work Phone: Path report.final Dx Spec [facility] Patient referral [facility] Work Phone: Thyroid stimulating hormone measurement [facility] Work Phone: Vitamin D, 25-hydrox y measurement [facility] Work Phone: [facility] Work Phone: [facility] Work Phone: [facility] Work Phone: [facility] Work Phone: [facility] Work Phone: [facility] Work Phone: [facility] Work Phone: [facility] Work Phone: [facility] Work Phone: [facility] Work Phone: Immunizations Immunization Date Immunization Notes Care Provider [facility] 09-16-2021 COVID-Moderna (50 MCG/0.5 ML) Lanny Breen DO Work Phone: [facility]; [facility] Work Phone: Payers Date Payer Category Payer Self-pay [id number] 2007 Unknown [id number] 2007 Unknown [id number] 2006 Unknown [id number] 2002 Unknown [id number] 1970 Unknown [id number] 16.84 [id number] Unknown [facility] Unknown [id number] Unknown [facility] PACKAGE PLAN [id number] Unknown [id number] 16.8 [id number] Unknown [id number] 16.8 [id number] Social History Date Type Detail Facility Exercise History Exercise History [facility] Work Phone: Comment on above: Light 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 3 Tobacco use: Tobacco use: [facility] Work Phone: Comment on above: 08/27/11 Tobacco use: Tobacco use: [facility] Work Phone: Comment on above: 08/27/11 Start: 04-22-2022 End: 03-05-2023 Tobacco smoking status NHIS Unknown if ever smoked [facility] Start: 1970 Sex Assigned At Female [facility] Goals Date Patient Goal Desired Activity /State Mental Status Date Assessment Result Facility 04-24-2022 Cognitive function Voice/Name [facility] Work Phone: Clinical Notes 03-05-2023 to 06-18-2023 Note Date & Type Note Facility 06-18-2023 Discharge summary Note Date/Time June 18, 2023 12:51pm [facility] Physical [facility] [address] [place] [address]. [address] [place] [address] / REHABILITATION SERVICES DISCHARGE SUMMARY MR#: [id number] Acct: [id number] Name: NAREN LOREDO Rep #: [id number] : 1970 53 From: Juan Francisco Davalos PT, ATC Referring Dr.: Dr. Lanny Breen, DO Status: REG R Insurance: [facility] PACKAGE PLAN Patient Information Patient Information: NAREN LOREDO was seen in my office for initial evaluation on 02/21/23. The following Plan of Care was established for this patient: POC Established Initial Frequency: 1x/Week Initial Duration: 2 Weeks Anticipated Interventions Patient/Client Instruction: Educate patient on: Condition and Plan of Care For the Purpose of:: To improve self management Therapeutic Exercise to Include: Strength training, Body mechanics, Postural training, Flexibilty training and Dynamic Lumbar Stabilization For the Purpose of:: To decrease pain, To increase ROM and To improve muscle performance and motor function Last Seen Last Seen: This patient was last seen in our office . Pertinent comments regarding their Physical therapy will appear below: Pt was treated for 2 PT visits for LBP through the date of 03/26/23. Pt has not returned through this date and is discontinued at this time. At this point I will be discontinuing this patient from physical therapy. I would be happy to see this patient again in the future if found appropriate by the physician. Thank you! Juan Francisco Davalos, PT, ATC Balance/Gait/Functional tests Balance/Special Test Scores Oswestry Low Back Score: 0 <Electronically signed by Juan Francisco Davalos PT, ATC> 06/18/23 1251 CC: Dr. Lanny Breen, DO ~ [facility] Signed [facility] Work Phone: [phone]) 111-731905-31-2023 NotePap Smear Specimen AdequacyMay 2022 11:59pmComment.Satisfactory for evaluation. Endocervical component may not bedistinguished in cases of atrophy.[facility] INTERFACED A#[id number] Valley HospitalComment on above:Satisfactory for evaluation. Endocervical component may not bedistinguished in cases of atrophy.Evaluation note* Diagnosis Onset Date Resolution Status Encounter for routine gynecological examination noneactive Encounter for screening for malignant neoplasm of colon acute [facility] Work Phone: Evaluation noteNo assessment information available [facility] Work Phone: Evaluation note* Diagnosis Onset Date Resolution Status Encounter for routine gynecological examination noneactive [facility] Work Phone: Instructions* Name Dates Details Patient Instructions Indication:Non-smoker Start:06-Aug-2021 Instruction Type:Provider Instructions for Treatment How to Access Health Informa tion Online using Patient Portal and 3rd Libertarian Apps Indication:Non-smoker Start:06-Aug-2021 Instruction Type:Patient Education How to access health informa tion online Indication:Sinusitis, bacterial Start:23-Dec-2019 Instruction Type:Patient Education How to access health informa tion online - Detail Indication:Sinusitis, bacterial Start:23-Dec-2019 Instruction Type:Patient Education How to access health informa tion online Indication:Tearfulness Start:14-Jul-2019 Instruction Type:Patient Education How to access health informa tion online - Detail Indication:Tearfulness Start:14-Jul-2019 Instruction Type:Patient Education Patient Instructions Indication:Tearfulness Start:14-Jul-2019 Instruction Type:Provider Instructions for Treatment How to access health informa tion online Indication:BMI 26.0-26.9,adult Start:06-May-2018 Instruction Type:Patient Education How to access health informa tion online - Detail Indication:BMI 26.0-26.9,adult Start:06-May-2018 Instruction Type:Patient Education Patient Instructions Indication:BMI 26.0-26.9,adult Start:06-May-2018 Instruction Type:Provider Instructions for Treatment How to access health informa tion online Indication:BMI 23.0-23.9, adult Start:05-Aug-2017 Instruction Type:Patient Education How to access health informa tion online - Detail Indication:BMI 23.0-23.9, adult Start:05-Aug-2017 Instruction Type:Patient Education Patient Instructions Indication:BMI 23.0-23.9, adult Start:05-Aug-2017 Instruction Type:Provider Instructions for Treatment How to access health informa tion online Indication:BMI 25.0-25.9,adult Start:21-Jul-2017 Instruction Type:Patient Education How to access health informa tion online - Detail Indication:BMI 25.0-25.9,adult Start:21-Jul-2017 Instruction Type:Patient Education Patient Instructions Indication:Viral upper respiratory tract infection with cough Start:21-Jul-2017 Instruction Type:Provider Instructions for Treatment How to access health informa tion online Indication:Non-smoker Start:21-Nov-2016 Instruction Type:Patient Education How to access health informa tion online - Detail Indication:Non-smoker Start:21-Nov-2016 Instruction Type:Patient Education Patient Instructions Indication:Non-smoker Start:21-Nov-2016 Instruction Type:Provider Instructions for Treatment Patient Instructions Indication:Dermatitis Start:05-May-2015 Instruction Type:Provider Instructions for Treatment How to access health informa tion online Indication:Vitamin D deficiency, unspecified Start:24-May-2014 Instruction Type:Patient Education How to access health informa tion online - Detail Indication:Vitamin D deficiency, unspecified Start:24-May-2014 Instruction Type:Patient Education Patient Instructions Indication:Vitamin D deficiency, unspecified Start:24-May-2014 Instruction Type:Provider Instructions for Treatment [facility] Work Phone: Instructions* Name Dates Details Patient Instructions Indication:BMI 22.0-22.9, adult Start:10-Oct-2021 Instruction Type:Provider Instructions for Treatment How to Access Health Informa tion Online using Patient Portal and 3rd [employer] Apps Indication:BMI 22.0-22.9, adult Start:10-Oct-2021 Instruction Type:Patient Education Patient Instructions Indication:Non-smoker Start:06-Aug-2021 Instruction Type:Provider Instructions for Treatment How to Access Health Informa tion Online using Patient Portal and 3rd [employer] Apps Indication:Non-smoker Start:06-Aug-2021 Instruction Type:Patient Education How to access health informa tion online Indication:Sinusitis, bacterial Start:23-Dec-2019 Instruction Type:Patient Education How to access health informa tion online - Detail Indication:Sinusitis, bacterial Start:23-Dec-2019 Instruction Type:Patient Education How to access health informa tion online Indication:Tearfulness Start:14-Jul-2019 Instruction Type:Patient Education How to access health informa tion online - Detail Indication:Tearfulness Start:14-Jul-2019 Instruction Type:Patient Education Patient Instructions Indication:Tearfulness Start:14-Jul-2019 Instruction Type:Provider Instructions for Treatment How to access health informa tion online Indication:BMI 26.0-26.9,adult Start:06-May-2018 Instruction Type:Patient Education How to access health informa tion online - Detail Indication:BMI 26.0-26.9,adult Start:06-May-2018 Instruction Type:Patient Education Patient Instructions Indication:BMI 26.0-26.9,adult Start:06-May-2018 Instruction Type:Provider Instructions for Treatment How to access health informa tion online Indication:BMI 23.0-23.9, adult Start:05-Aug-2017 Instruction Type:Patient Education How to access health informa tion online - Detail Indication:BMI 23.0-23.9, adult Start:05-Aug-2017 Instruction Type:Patient Education Patient Instructions Indication:BMI 23.0-23.9, adult Start:05-Aug-2017 Instruction Type:Provider Instructions for Treatment How to access health informa tion online Indication:BMI 25.0-25.9,adult Start:21-Jul-2017 Instruction Type:Patient Education How to access health informa tion online - Detail Indication:BMI 25.0-25.9,adult Start:21-Jul-2017 Instruction Type:Patient Education Patient Instructions Indication:Viral upper respiratory tract infection with cough Start:21-Jul-2017 Instruction Type:Provider Instructions for Treatment How to access health informa tion online Indication:Non-smoker Start:21-Nov-2016 Instruction Type:Patient Education How to access health informa tion online - Detail Indication:Non-smoker Start:21-Nov-2016 Instruction Type:Patient Education Patient Instructions Indication:Non-smoker Start:21-Nov-2016 Instruction Type:Provider Instructions for Treatment Patient Instructions Indication:Dermatitis Start:05-May-2015 Instruction Type:Provider Instructions for Treatment How to access health informa tion online Indication:Vitamin D deficiency, unspecified Start:24-May-2014 Instruction Type:Patient Education How to access health informa tion online - Detail Indication:Vitamin D deficiency, unspecified Start:24-May-2014 Instruction Type:Patient Education Patient Instructions Indication:Vitamin D deficiency, unspecified Start:24-May-2014 Instruction Type:Provider Instructions for Treatment [facility]; [facility] Work Phone: Instructions* Name Dates Details Patient Instructions Indication:Non-smoker Start:28-Jan-2022 Instruction Type:Provider Instructions for Treatment How to Access Health Informa tion Online using Patient Portal and [employer] Apps Indication:Non-smoker Start:28-Jan-2022 Instruction Type:Patient Education Patient Instructions Indication:BMI 22.0-22.9, adult Start:10-Oct-2021 Instruction Type:Provider Instructions for Treatment How to Access Health Informa tion Online using Patient Portal and [employer] Apps Indication:BMI 22.0-22.9, adult Start:10-Oct-2021 Instruction Type:Patient Education Patient Instructions Indication:Non-smoker Start:06-Aug-2021 Instruction Type:Provider Instructions for Treatment How to Access Health Informa tion Online using Patient Portal and [employer] Apps Indication:Non-smoker Start:06-Aug-2021 Instruction Type:Patient Education How to access health informa tion online Indication:Sinusitis, bacterial Start:23-Dec-2019 Instruction Type:Patient Education How to access health informa tion online - Detail Indication:Sinusitis, bacterial Start:23-Dec-2019 Instruction Type:Patient Education How to access health informa tion online Indication:Tearfulness Start:14-Jul-2019 Instruction Type:Patient Education How to access health informa tion online - Detail Indication:Tearfulness Start:14-Jul-2019 Instruction Type:Patient Education Patient Instructions Indication:Tearfulness Start:14-Jul-2019 Instruction Type:Provider Instructions for Treatment How to access health informa tion online Indication:BMI 26.0-26.9,adult Start:06-May-2018 Instruction Type:Patient Education How to access health informa tion online - Detail Indication:BMI 26.0-26.9,adult Start:06-May-2018 Instruction Type:Patient Education Patient Instructions Indication:BMI 26.0-26.9,adult Start:06-May-2018 Instruction Type:Provider Instructions for Treatment How to access health informa tion online Indication:BMI 23.0-23.9, adult Start:05-Aug-2017 Instruction Type:Patient Education How to access health informa tion online - Detail Indication:BMI 23.0-23.9, adult Start:05-Aug-2017 Instruction Type:Patient Education Patient Instructions Indication:BMI 23.0-23.9, adult Start:05-Aug-2017 Instruction Type:Provider Instructions for Treatment How to access health informa tion online Indication:BMI 25.0-25.9,adult Start:21-Jul-2017 Instruction Type:Patient Education How to access health informa tion online - Detail Indication:BMI 25.0-25.9,adult Start:21-Jul-2017 Instruction Type:Patient Education Patient Instructions Indication:Viral upper respiratory tract infection with cough Start:21-Jul-2017 Instruction Type:Provider Instructions for Treatment How to access health informa tion online Indication:Non-smoker Start:21-Nov-2016 Instruction Type:Patient Education How to access health informa tion online - Detail Indication:Non-smoker Start:21-Nov-2016 Instruction Type:Patient Education Patient Instructions Indication:Non-smoker Start:21-Nov-2016 Instruction Type:Provider Instructions for Treatment Patient Instructions Indication:Dermatitis Start:05-May-2015 Instruction Type:Provider Instructions for Treatment How to access health informa tion online Indication:Vitamin D deficiency, unspecified Start:24-May-2014 Instruction Type:Patient Education How to access health informa tion online - Detail Indication:Vitamin D deficiency, unspecified Start:24-May-2014 Instruction Type:Patient Education Patient Instructions Indication:Vitamin D deficiency, unspecified Start:24-May-2014 Instruction Type:Provider Instructions for Treatment [facility]; [facility] Work Phone: Instructions* Name Dates Details Patient Instructions Indication:Non-smoker Start:28-Jan-2022 Instruction Type:Provider Instructions for Treatment How to Access Health Informa tion Online using Patient Portal and [employer] Apps Indication:Non-smoker Start:28-Jan-2022 Instruction Type:Patient Education Patient Instructions Indication:BMI 22.0-22.9, adult Start:10-Oct-2021 Instruction Type:Provider Instructions for Treatment How to Access Health Informa tion Online using Patient Portal and [employer] Apps Indication:BMI 22.0-22.9, adult Start:10-Oct-2021 Instruction Type:Patient Education Patient Instructions Indication:Non-smoker Start:06-Aug-2021 Instruction Type:Provider Instructions for Treatment How to Access Health Informa tion Online using Patient Portal and [employer] Apps Indication:Non-smoker Start:06-Aug-2021 Instruction Type:Patient Education How to access health informa tion online Indication:Sinusitis, bacterial Start:23-Dec-2019 Instruction Type:Patient Education How to access health informa tion online - Detail Indication:Sinusitis, bacterial Start:23-Dec-2019 Instruction Type:Patient Education How to access health informa tion online Indication:Tearfulness Start:14-Jul-2019 Instruction Type:Patient Education How to access health informa tion online - Detail Indication:Tearfulness Start:14-Jul-2019 Instruction Type:Patient Education Patient Instructions Indication:Tearfulness Start:14-Jul-2019 Instruction Type:Provider Instructions for Treatment How to access health informa tion online Indication:BMI 26.0-26.9,adult Start:06-May-2018 Instruction Type:Patient Education How to access health informa tion online - Detail Indication:BMI 26.0-26.9,adult Start:06-May-2018 Instruction Type:Patient Education Patient Instructions Indication:BMI 26.0-26.9,adult Start:06-May-2018 Instruction Type:Provider Instructions for Treatment How to access health informa tion online Indication:BMI 23.0-23.9, adult Start:05-Aug-2017 Instruction Type:Patient Education How to access health informa tion online - Detail Indication:BMI 23.0-23.9, adult Start:05-Aug-2017 Instruction Type:Patient Education Patient Instructions Indication:BMI 23.0-23.9, adult Start:05-Aug-2017 Instruction Type:Provider Instructions for Treatment How to access health informa tion online Indication:BMI 25.0-25.9,adult Start:21-Jul-2017 Instruction Type:Patient Education How to access health informa tion online - Detail Indication:BMI 25.0-25.9,adult Start:21-Jul-2017 Instruction Type:Patient Education Patient Instructions Indication:Viral upper respiratory tract infection with cough Start:21-Jul-2017 Instruction Type:Provider Instructions for Treatment How to access health informa tion online Indication:Non-smoker Start:21-Nov-2016 Instruction Type:Patient Education How to access health informa tion online - Detail Indication:Non-smoker Start:21-Nov-2016 Instruction Type:Patient Education Patient Instructions Indication:Non-smoker Start:21-Nov-2016 Instruction Type:Provider Instructions for Treatment Patient Instructions Indication:Dermatitis Start:05-May-2015 Instruction Type:Provider Instructions for Treatment How to access health informa tion online Indication:Vitamin D deficiency, unspecified Start:24-May-2014 Instruction Type:Patient Education How to access health informa tion online - Detail Indication:Vitamin D deficiency, unspecified Start:24-May-2014 Instruction Type:Patient Education Patient Instructions Indication:Vitamin D deficiency, unspecified Start:24-May-2014 Instruction Type:Provider Instructions for Treatment [facility]; [facility] Work Phone: Instructions* Name Dates Details Patient Instructions Indication:Non-smoker Start:28-Jan-2022 Instruction Type:Provider Instructions for Treatment How to Access Health Informa tion Online using Patient Portal and [employer] Apps Indication:Non-smoker Start:28-Jan-2022 Instruction Type:Patient Education Patient Instructions Indication:BMI 22.0-22.9, adult Start:10-Oct-2021 Instruction Type:Provider Instructions for Treatment How to Access Health Informa tion Online using Patient Portal and [employer] Apps Indication:BMI 22.0-22.9, adult Start:10-Oct-2021 Instruction Type:Patient Education Patient Instructions Indication:Non-smoker Start:06-Aug-2021 Instruction Type:Provider Instructions for Treatment How to Access Health Informa tion Online using Patient Portal and [employer] Apps Indication:Non-smoker Start:06-Aug-2021 Instruction Type:Patient Education How to access health informa tion online Indication:Sinusitis, bacterial Start:23-Dec-2019 Instruction Type:Patient Education How to access health informa tion online - Detail Indication:Sinusitis, bacterial Start:23-Dec-2019 Instruction Type:Patient Education How to access health informa tion online Indication:Tearfulness Start:14-Jul-2019 Instruction Type:Patient Education How to access health informa tion online - Detail Indication:Tearfulness Start:14-Jul-2019 Instruction Type:Patient Education Patient Instructions Indication:Tearfulness Start:14-Jul-2019 Instruction Type:Provider Instructions for Treatment How to access health informa tion online Indication:BMI 26.0-26.9,adult Start:06-May-2018 Instruction Type:Patient Education How to access health informa tion online - Detail Indication:BMI 26.0-26.9,adult Start:06-May-2018 Instruction Type:Patient Education Patient Instructions Indication:BMI 26.0-26.9,adult Start:06-May-2018 Instruction Type:Provider Instructions for Treatment How to access health informa tion online Indication:BMI 23.0-23.9, adult Start:05-Aug-2017 Instruction Type:Patient Education How to access health informa tion online - Detail Indication:BMI 23.0-23.9, adult Start:05-Aug-2017 Instruction Type:Patient Education Patient Instructions Indication:BMI 23.0-23.9, adult Start:05-Aug-2017 Instruction Type:Provider Instructions for Treatment How to access health informa tion online Indication:BMI 25.0-25.9,adult Start:21-Jul-2017 Instruction Type:Patient Education How to access health informa tion online - Detail Indication:BMI 25.0-25.9,adult Start:21-Jul-2017 Instruction Type:Patient Education Patient Instructions Indication:Viral upper respiratory tract infection with cough Start:21-Jul-2017 Instruction Type:Provider Instructions for Treatment How to access health informa tion online Indication:Non-smoker Start:21-Nov-2016 Instruction Type:Patient Education How to access health informa tion online - Detail Indication:Non-smoker Start:21-Nov-2016 Instruction Type:Patient Education Patient Instructions Indication:Non-smoker Start:21-Nov-2016 Instruction Type:Provider Instructions for Treatment Patient Instructions Indication:Dermatitis Start:05-May-2015 Instruction Type:Provider Instructions for Treatment How to access health informa tion online Indication:Vitamin D deficiency, unspecified Start:24-May-2014 Instruction Type:Patient Education How to access health informa tion online - Detail Indication:Vitamin D deficiency, unspecified Start:24-May-2014 Instruction Type:Patient Education Patient Instructions Indication:Vitamin D deficiency, unspecified Start:24-May-2014 Instruction Type:Provider Instructions for Treatment [facility]; [facility] Work Phone: Instructions* Name Dates Details Patient Instructions Indication:Non-smoker Start:28-Jan-2022 Instruction Type:Provider Instructions for Treatment How to Access Health Informa tion Online using Patient Portal and [employer] Apps Indication:Non-smoker Start:28-Jan-2022 Instruction Type:Patient Education Patient Instructions Indication:BMI 22.0-22.9, adult Start:10-Oct-2021 Instruction Type:Provider Instructions for Treatment How to Access Health Informa tion Online using Patient Portal and [employer] Apps Indication:BMI 22.0-22.9, adult Start:10-Oct-2021 Instruction Type:Patient Education Patient Instructions Indication:Non-smoker Start:06-Aug-2021 Instruction Type:Provider Instructions for Treatment How to Access Health Informa tion Online using Patient Portal and [employer] Apps Indication:Non-smoker Start:06-Aug-2021 Instruction Type:Patient Education How to access health informa tion online Indication:Sinusitis, bacterial Start:23-Dec-2019 Instruction Type:Patient Education How to access health informa tion online - Detail Indication:Sinusitis, bacterial Start:23-Dec-2019 Instruction Type:Patient Education How to access health informa tion online Indication:Tearfulness Start:14-Jul-2019 Instruction Type:Patient Education How to access health informa tion online - Detail Indication:Tearfulness Start:14-Jul-2019 Instruction Type:Patient Education Patient Instructions Indication:Tearfulness Start:14-Jul-2019 Instruction Type:Provider Instructions for Treatment How to access health informa tion online Indication:BMI 26.0-26.9,adult Start:06-May-2018 Instruction Type:Patient Education How to access health informa tion online - Detail Indication:BMI 26.0-26.9,adult Start:06-May-2018 Instruction Type:Patient Education Patient Instructions Indication:BMI 26.0-26.9,adult Start:06-May-2018 Instruction Type:Provider Instructions for Treatment How to access health informa tion online Indication:BMI 23.0-23.9, adult Start:05-Aug-2017 Instruction Type:Patient Education How to access health informa tion online - Detail Indication:BMI 23.0-23.9, adult Start:05-Aug-2017 Instruction Type:Patient Education Patient Instructions Indication:BMI 23.0-23.9, adult Start:05-Aug-2017 Instruction Type:Provider Instructions for Treatment How to access health informa tion online Indication:BMI 25.0-25.9,adult Start:21-Jul-2017 Instruction Type:Patient Education How to access health informa tion online - Detail Indication:BMI 25.0-25.9,adult Start:21-Jul-2017 Instruction Type:Patient Education Patient Instructions Indication:Viral upper respiratory tract infection with cough Start:21-Jul-2017 Instruction Type:Provider Instructions for Treatment How to access health informa tion online Indication:Non-smoker Start:21-Nov-2016 Instruction Type:Patient Education How to access health informa tion online - Detail Indication:Non-smoker Start:21-Nov-2016 Instruction Type:Patient Education Patient Instructions Indication:Non-smoker Start:21-Nov-2016 Instruction Type:Provider Instructions for Treatment Patient Instructions Indication:Dermatitis Start:05-May-2015 Instruction Type:Provider Instructions for Treatment How to access health informa tion online Indication:Vitamin D deficiency, unspecified Start:24-May-2014 Instruction Type:Patient Education How to access health informa tion online - Detail Indication:Vitamin D deficiency, unspecified Start:24-May-2014 Instruction Type:Patient Education Patient Instructions Indication:Vitamin D deficiency, unspecified Start:24-May-2014 Instruction Type:Provider Instructions for Treatment [facility]; [facility] Work Phone: Instructions* Name Dates Details Patient Instructions Indication:Non-smoker Start:28-Jan-2022 Instruction Type:Provider Instructions for Treatment How to Access Health Informa tion Online using Patient Portal and [employer] Apps Indication:Non-smoker Start:28-Jan-2022 Instruction Type:Patient Education Patient Instructions Indication:BMI 22.0-22.9, adult Start:10-Oct-2021 Instruction Type:Provider Instructions for Treatment How to Access Health Informa tion Online using Patient Portal and [employer] Apps Indication:BMI 22.0-22.9, adult Start:10-Oct-2021 Instruction Type:Patient Education Patient Instructions Indication:Non-smoker Start:06-Aug-2021 Instruction Type:Provider Instructions for Treatment How to Access Health Informa tion Online using Patient Portal and [employer] Apps Indication:Non-smoker Start:06-Aug-2021 Instruction Type:Patient Education How to access health informa tion online Indication:Sinusitis, bacterial Start:23-Dec-2019 Instruction Type:Patient Education How to access health informa tion online - Detail Indication:Sinusitis, bacterial Start:23-Dec-2019 Instruction Type:Patient Education How to access health informa tion online Indication:Tearfulness Start:14-Jul-2019 Instruction Type:Patient Education How to access health informa tion online - Detail Indication:Tearfulness Start:14-Jul-2019 Instruction Type:Patient Education Patient Instructions Indication:Tearfulness Start:14-Jul-2019 Instruction Type:Provider Instructions for Treatment How to access health informa tion online Indication:BMI 26.0-26.9,adult Start:06-May-2018 Instruction Type:Patient Education How to access health informa tion online - Detail Indication:BMI 26.0-26.9,adult Start:06-May-2018 Instruction Type:Patient Education Patient Instructions Indication:BMI 26.0-26.9,adult Start:06-May-2018 Instruction Type:Provider Instructions for Treatment How to access health informa tion online Indication:BMI 23.0-23.9, adult Start:05-Aug-2017 Instruction Type:Patient Education How to access health informa tion online - Detail Indication:BMI 23.0-23.9, adult Start:05-Aug-2017 Instruction Type:Patient Education Patient Instructions Indication:BMI 23.0-23.9, adult Start:05-Aug-2017 Instruction Type:Provider Instructions for Treatment How to access health informa tion online Indication:BMI 25.0-25.9,adult Start:21-Jul-2017 Instruction Type:Patient Education How to access health informa tion online - Detail Indication:BMI 25.0-25.9,adult Start:21-Jul-2017 Instruction Type:Patient Education Patient Instructions Indication:Viral upper respiratory tract infection with cough Start:21-Jul-2017 Instruction Type:Provider Instructions for Treatment How to access health informa tion online Indication:Non-smoker Start:21-Nov-2016 Instruction Type:Patient Education How to access health informa tion online - Detail Indication:Non-smoker Start:21-Nov-2016 Instruction Type:Patient Education Patient Instructions Indication:Non-smoker Start:21-Nov-2016 Instruction Type:Provider Instructions for Treatment Patient Instructions Indication:Dermatitis Start:05-May-2015 Instruction Type:Provider Instructions for Treatment How to access health informa tion online Indication:Vitamin D deficiency, unspecified Start:24-May-2014 Instruction Type:Patient Education How to access health informa tion online - Detail Indication:Vitamin D deficiency, unspecified Start:24-May-2014 Instruction Type:Patient Education Patient Instructions Indication:Vitamin D deficiency, unspecified Start:24-May-2014 Instruction Type:Provider Instructions for Treatment [facility]; [facility] Work Phone: Instructions* Name Dates Details Patient Instructions Indication:Non-smoker Start:28-Jan-2022 Instruction Type:Provider Instructions for Treatment How to Access Health Informa tion Online using Patient Portal and [employer] Apps Indication:Non-smoker Start:28-Jan-2022 Instruction Type:Patient Education Patient Instructions Indication:BMI 22.0-22.9, adult Start:10-Oct-2021 Instruction Type:Provider Instructions for Treatment How to Access Health Informa tion Online using Patient Portal and [employer] Apps Indication:BMI 22.0-22.9, adult Start:10-Oct-2021 Instruction Type:Patient Education Patient Instructions Indication:Non-smoker Start:06-Aug-2021 Instruction Type:Provider Instructions for Treatment How to Access Health Informa tion Online using Patient Portal and [employer] Apps Indication:Non-smoker Start:06-Aug-2021 Instruction Type:Patient Education How to access health informa tion online Indication:Sinusitis, bacterial Start:23-Dec-2019 Instruction Type:Patient Education How to access health informa tion online - Detail Indication:Sinusitis, bacterial Start:23-Dec-2019 Instruction Type:Patient Education How to access health informa tion online Indication:Tearfulness Start:14-Jul-2019 Instruction Type:Patient Education How to access health informa tion online - Detail Indication:Tearfulness Start:14-Jul-2019 Instruction Type:Patient Education Patient Instructions Indication:Tearfulness Start:14-Jul-2019 Instruction Type:Provider Instructions for Treatment How to access health informa tion online Indication:BMI 26.0-26.9,adult Start:06-May-2018 Instruction Type:Patient Education How to access health informa tion online - Detail Indication:BMI 26.0-26.9,adult Start:06-May-2018 Instruction Type:Patient Education Patient Instructions Indication:BMI 26.0-26.9,adult Start:06-May-2018 Instruction Type:Provider Instructions for Treatment How to access health informa tion online Indication:BMI 23.0-23.9, adult Start:05-Aug-2017 Instruction Type:Patient Education How to access health informa tion online - Detail Indication:BMI 23.0-23.9, adult Start:05-Aug-2017 Instruction Type:Patient Education Patient Instructions Indication:BMI 23.0-23.9, adult Start:05-Aug-2017 Instruction Type:Provider Instructions for Treatment How to access health informa tion online Indication:BMI 25.0-25.9,adult Start:21-Jul-2017 Instruction Type:Patient Education How to access health informa tion online - Detail Indication:BMI 25.0-25.9,adult Start:21-Jul-2017 Instruction Type:Patient Education Patient Instructions Indication:Viral upper respiratory tract infection with cough Start:21-Jul-2017 Instruction Type:Provider Instructions for Treatment How to access health informa tion online Indication:Non-smoker Start:21-Nov-2016 Instruction Type:Patient Education How to access health informa tion online - Detail Indication:Non-smoker Start:21-Nov-2016 Instruction Type:Patient Education Patient Instructions Indication:Non-smoker Start:21-Nov-2016 Instruction Type:Provider Instructions for Treatment Patient Instructions Indication:Dermatitis Start:05-May-2015 Instruction Type:Provider Instructions for Treatment How to access health informa tion online Indication:Vitamin D deficiency, unspecified Start:24-May-2014 Instruction Type:Patient Education How to access health informa tion online - Detail Indication:Vitamin D deficiency, unspecified Start:24-May-2014 Instruction Type:Patient Education Patient Instructions Indication:Vitamin D deficiency, unspecified Start:24-May-2014 Instruction Type:Provider Instructions for Treatment [facility]; [facility] Work Phone: Instructions* Name Dates Details Patient Instructions Indication:BMI 22.0-22.9, adult Start:13-Feb-2023 Instruction Type:Provider Instructions for Treatment How to Access Health Informa tion Online using Patient Portal and [employer] Indication:BMI 22.0-22.9, adult Start:13-Feb-2023 Instruction Type:Patient Education Patient Instructions Indication:Non-smoker Start:28-Jan-2022 Instruction Type:Provider Instructions for Treatment How to Access Health Informa tion Online using Patient Portal and [employer] Indication:Non-smoker Start:28-Jan-2022 Instruction Type:Patient Education Patient Instructions Indication:BMI 22.0-22.9, adult Start:10-Oct-2021 Instruction Type:Provider Instructions for Treatment How to Access Health Informa tion Online using Patient Portal and [employer] Indication:BMI 22.0-22.9, adult Start:10-Oct-2021 Instruction Type:Patient Education Patient Instructions Indication:Non-smoker Start:06-Aug-2021 Instruction Type:Provider Instructions for Treatment How to Access Health Informa tion Online using Patient Portal and [employer] Indication:Non-smoker Start:06-Aug-2021 Instruction Type:Patient Education How to access health informa tion online Indication:Sinusitis, bacterial Start:23-Dec-2019 Instruction Type:Patient Education How to access health informa tion online - Detail Indication:Sinusitis, bacterial Start:23-Dec-2019 Instruction Type:Patient Education How to access health informa tion online Indication:Tearfulness Start:14-Jul-2019 Instruction Type:Patient Education How to access health informa tion online - Detail Indication:Tearfulness Start:14-Jul-2019 Instruction Type:Patient Education Patient Instructions Indication:Tearfulness Start:14-Jul-2019 Instruction Type:Provider Instructions for Treatment How to access health informa tion online Indication:BMI 26.0-26.9,adult Start:06-May-2018 Instruction Type:Patient Education How to access health informa tion online - Detail Indication:BMI 26.0-26.9,adult Start:06-May-2018 Instruction Type:Patient Education Patient Instructions Indication:BMI 26.0-26.9,adult Start:06-May-2018 Instruction Type:Provider Instructions for Treatment How to access health informa tion online Indication:BMI 23.0-23.9, adult Start:05-Aug-2017 Instruction Type:Patient Education How to access health informa tion online - Detail Indication:BMI 23.0-23.9, adult Start:05-Aug-2017 Instruction Type:Patient Education Patient Instructions Indication:BMI 23.0-23.9, adult Start:05-Aug-2017 Instruction Type:Provider Instructions for Treatment How to access health informa tion online Indication:BMI 25.0-25.9,adult Start:21-Jul-2017 Instruction Type:Patient Education How to access health informa tion online - Detail Indication:BMI 25.0-25.9,adult Start:21-Jul-2017 Instruction Type:Patient Education Patient Instructions Indication:Viral upper respiratory tract infection with cough Start:21-Jul-2017 Instruction Type:Provider Instructions for Treatment How to access health informa tion online Indication:Non-smoker Start:21-Nov-2016 Instruction Type:Patient Education How to access health informa tion online - Detail Indication:Non-smoker Start:21-Nov-2016 Instruction Type:Patient Education Patient Instructions Indication:Non-smoker Start:21-Nov-2016 Instruction Type:Provider Instructions for Treatment Patient Instructions Indication:Dermatitis Start:05-May-2015 Instruction Type:Provider Instructions for Treatment How to access health informa tion online Indication:Vitamin D deficiency, unspecified Start:24-May-2014 Instruction Type:Patient Education How to access health informa tion online - Detail Indication:Vitamin D deficiency, unspecified Start:24-May-2014 Instruction Type:Patient Education Patient Instructions Indication:Vitamin D deficiency, unspecified Start:24-May-2014 Instruction Type:Provider Instructions for Treatment [facility]; [facility] Work Phone: Family History No Family History Records FoundUnknown Family Member Name Dates Details Brother 1 Comments:Positive for blood clots Status:Active Mother Comments:MS - On Coumadin fo r blood clots Status:Active Unknown Family Member Name Dates Details Brother 1 Comments:Positive for blood clots Status:Active Mother Comments:MS - On Coumadin fo r blood clots Status:Active Unknown Family Member Name Dates Details Brother 1 Comments:Positive for blood clots Status:Active Mother Comments:MS - On Coumadin fo r blood clots Status:Active Unknown Family Member Name Dates Details Brother 1 Comments:Positive for blood clots Status:Active Mother Comments:MS - On Coumadin fo r blood clots Status:Active Unknown Family Member Name Dates Details Brother 1 Comments:Positive for blood clots Status:Active Mother Comments:MS - On Coumadin fo r blood clots Status:Active Unknown Family Member Name Dates Details Brother 1 Comments:Positive for blood clots Status:Active Mother Comments:MS - On Coumadin fo r blood clots Status:Active Relationship Condition Age at Onset Recorded Date/T lionel mother Multiple sclerosis Unknown father Malignant neoplasm Unknown grandmother Diabetes mellitus Unknown Malignant neoplasm Unknown grandfather Malignant neoplasm Unknown Unknown Family Member Name Dates Details Brother 1 Comments:Positive for blood clots Status:Active Mother Comments:MS - On Coumadin fo r blood clots Status:Active Unknown Family Member Name Dates Details Brother 1 Comments:Positive for blood clots Status:Active Mother Comments:MS - On Coumadin fo r blood clots Status:Active Unknown Family Member Name Dates Details Brother 1 Comments:Positive for blood clots Status:Active Mother Comments:MS - On Coumadin fo r blood clots Status:Active Unknown Family Member Name Dates Details Brother 1 Comments:Positive for blood clots Status:Active Mother Comments:MS - On Coumadin fo r blood clots Status:Active Unknown Family Member Name Dates Details Brother 1 Comments:Positive for blood clots Status:Active Mother Comments:MS - On Coumadin fo r blood clots Status:Active Instructions Name Dates Details How to access health informa tion online Indication:Tearfulness Start:14-Jul-2019 Instruction Type:Patient Education How to access health informa tion online - Detail Indication:Tearfulness Start:14-Jul-2019 Instruction Type:Patient Education Patient Instructions Indication:Tearfulness Start:14-Jul-2019 Instruction Type:Provider Instructions for Treatment How to access health informa tion online Indication:BMI 26.0-26.9,adult Start:06-May-2018 Instruction Type:Patient Education How to access health informa tion online - Detail Indication:BMI 26.0-26.9,adult Start:06-May-2018 Instruction Type:Patient Education Patient Instructions Indication:BMI 26.0-26.9,adult Start:06-May-2018 Instruction Type:Provider Instructions for Treatment How to access health informa tion online Indication:BMI 23.0-23.9, adult Start:05-Aug-2017 Instruction Type:Patient Education How to access health informa tion online - Detail Indication:BMI 23.0-23.9, adult Start:05-Aug-2017 Instruction Type:Patient Education Patient Instructions Indication:BMI 23.0-23.9, adult Start:05-Aug-2017 Instruction Type:Provider Instructions for Treatment How to access health informa tion online Indication:BMI 25.0-25.9,adult Start:21-Jul-2017 Instruction Type:Patient Education How to access health informa tion online - Detail Indication:BMI 25.0-25.9,adult Start:21-Jul-2017 Instruction Type:Patient Education Patient Instructions Indication:Viral upper respiratory tract infection with cough Start:21-Jul-2017 Instruction Type:Provider Instructions for Treatment How to access health informa tion online Indication:Non-smoker Start:21-Nov-2016 Instruction Type:Patient Education How to access health informa tion online - Detail Indication:Non-smoker Start:21-Nov-2016 Instruction Type:Patient Education Patient Instructions Indication:Non-smoker Start:21-Nov-2016 Instruction Type:Provider Instructions for Treatment Patient Instructions Indication:Dermatitis Start:05-May-2015 Instruction Type:Provider Instructions for Treatment How to access health informa tion online Indication:Vitamin D deficiency, unspecified Start:24-May-2014 Instruction Type:Patient Education How to access health informa tion online - Detail Indication:Vitamin D deficiency, unspecified Start:24-May-2014 Instruction Type:Patient Education Patient Instructions Indication:Vitamin D deficiency, unspecified Start:24-May-2014 Instruction Type:Provider Instructions for Treatment Name Dates Details How to access health informa tion online Indication:Tearfulness Start:14-Jul-2019 Instruction Type:Patient Education How to access health informa tion online - Detail Indication:Tearfulness Start:14-Jul-2019 Instruction Type:Patient Education Patient Instructions Indication:Tearfulness Start:14-Jul-2019 Instruction Type:Provider Instructions for Treatment How to access health informa tion online Indication:BMI 26.0-26.9,adult Start:06-May-2018 Instruction Type:Patient Education How to access health informa tion online - Detail Indication:BMI 26.0-26.9,adult Start:06-May-2018 Instruction Type:Patient Education Patient Instructions Indication:BMI 26.0-26.9,adult Start:06-May-2018 Instruction Type:Provider Instructions for Treatment How to access health informa tion online Indication:BMI 23.0-23.9, adult Start:05-Aug-2017 Instruction Type:Patient Education How to access health informa tion online - Detail Indication:BMI 23.0-23.9, adult Start:05-Aug-2017 Instruction Type:Patient Education Patient Instructions Indication:BMI 23.0-23.9, adult Start:05-Aug-2017 Instruction Type:Provider Instructions for Treatment How to access health informa tion online Indication:BMI 25.0-25.9,adult Start:21-Jul-2017 Instruction Type:Patient Education How to access health informa tion online - Detail Indication:BMI 25.0-25.9,adult Start:21-Jul-2017 Instruction Type:Patient Education Patient Instructions Indication:Viral upper respiratory tract infection with cough Start:21-Jul-2017 Instruction Type:Provider Instructions for Treatment How to access health informa tion online Indication:Non-smoker Start:21-Nov-2016 Instruction Type:Patient Education How to access health informa tion online - Detail Indication:Non-smoker Start:21-Nov-2016 Instruction Type:Patient Education Patient Instructions Indication:Non-smoker Start:21-Nov-2016 Instruction Type:Provider Instructions for Treatment Patient Instructions Indication:Dermatitis Start:05-May-2015 Instruction Type:Provider Instructions for Treatment How to access health informa tion online Indication:Vitamin D deficiency, unspecified Start:24-May-2014 Instruction Type:Patient Education How to access health informa tion online - Detail Indication:Vitamin D deficiency, unspecified Start:24-May-2014 Instruction Type:Patient Education Patient Instructions Indication:Vitamin D deficiency, unspecified Start:24-May-2014 Instruction Type:Provider Instructions for Treatment Chief Complaint and Reason for Visit 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 RX HERE Reason for Visit Encounter for routin e gynecological examination Advance Directives No Advanced Directives Records Found Advance Directive Response Recorded Date/ Time Name of Medical Power of Employee Relations Specialist CARL LOREDO April 22, 2022 3:37pm Living Will Yes April 22, 2022 3:37pm Power of Employee Relations Specialist Yes April 22 3:37pm Advance Directive Response Recorded Date/ Time Living Will Yes April 22, 2022 3:37pm Power of Employee Relations Specialist Yes April 22 3:37pm Name Dates Details Immunization Registry [place] - Effective on 02/13/2023. Expiration date unspecified Effective:13-Feb-2023 Summary Purpose Additional Source Comments Care Teams (unrecognized sec tion and content) Team Status: Active Member Role Status Dates Dr. Lanny Breen , DO Family Provider Active Dr. Lanny Breen , DO Primary Care Provider Active Team Status: Inactive Member Role Status Dates Dr. Lanny Breen , DO Primary Care Provider Active Griselda Layne KEY ACCOUNT DIRECTOR, KEY ACCOUNT DIRECTOR-C Attending Provider, Referring Provider Active Team Status: Inactive Member Role Status Dates Dr. Lanny Breen , DO Primary Care Provider, Referr ing Provider Active Griselda Layne KEY ACCOUNT DIRECTOR, KEY ACCOUNT DIRECTOR-C Attending Provider Active Team Status: Active Member Role Status Dates Dr. Lanny Breen , DO Primary Care Pr ovider, Attending Provider, Referring Provider Active Team Status: Inactive Member Role Status Dates Dr. Lanny Breen , DO Primary Care Pr ovider, Attending Provider, Referring Provider Active Goals (unrecognized section and content) Goals may be documented in a n alternate sectionGoals may be documented in an alternate sectionGoals may be documented in an alternate section INFORMATION SOURCE (unrecogn ized section and content) DATE CREATED AUTHOR 01/28/2023 [facility] DATE CREATED AUTHOR AUTHOR'S ORGANIZ ATLUIS 12/10/2024 [facility] FOR RECORDS PERTAINING TO PATIENTS WHO ARE OR HAVE BEEN ENROLLED IN A CHEMICAL DEPENDENCY/SUBSTANCEABUSE PROGRAM, SOME INFORMATION MAY BE OMITTED. This clinical summary was aggregated from multiple sources. Caution should be exercised in using it in the provision of clinical care. This summary normalizes information from multiple sources, and as a consequence, information in this document may materially change the coding, format and clinical context of patient data. In addition, data may be omitted in some cases. CLINICAL DECISIONS SHOULD BE BASED ON THE PRIMARY CLINICAL RECORDS. [facility] [employer] [facility]. provides no warranty or guarantee of the accuracy or completeness of information in this document.
[2025-09-09 10:41] LABS: Hematocrit 40.3 % (37-47); Hemoglobin 13.3 g/dL (12.0-15.0); Immature Granulocytes Count 0.010 X10^3/uL (0.0-0.0); Mean Corp Hgb Conc 33.0 g/dL (32-36); Mean Corpuscular Volume 82.2 fL (81-99); Mean Platelet Vol. 7.9 fl (6.2-12.0); NRBC Flagged by Analyzer 0 % (0-5); Platelet Count 271 K/mm3 (150-450); RBC Distribution Width CV 13.4 % (11.6-14.6); RBC Distribution Width SD 40.0 fl (35.1-43.9); Red Blood Count 4.90 M/mm3 (4.2-5.4); White Blood Count 5.8 K/mm3 (4.4-11.0)
[2025-09-09 11:00] LABS: AST(SGOT) 51 U/L (<=31); Alanine Aminotransfer ALT/SGPT 50 U/L (<=34); Albumin, Serum 4.1 g/dL (3.5-5.0); Alkaline Phosphatase 85 U/L (35-104); Anion Gap 11 (5-15); BUN 10 mg/dL (4-19); BUN/Creat Ratio 14.0 RATIO (10-20); Calcium,Total 9.5 mg/dL (7.6-11.0); Carbon Dioxide 27.1 mmol/L (21.0-32.0); Chloride 101 mmol/L (98-108); Cholesterol 180 mg/dL (<=200); Globulin 2.8 g/dL (2.2-4.2); Glucose 88 mg/dL (70-99); Low Density Lipoprotein Calc. 113 mg/dL; Magnesium 2.1 mg/dL (1.5-2.2); Potassium 4.3 mmol/L (3.3-5.1); Triglycerides 83 mg/dL; Very Low Density Lipoprotein 17 mg/dL (5-40); Vitamin D,25 Hydroxy 32.1 ng/mL (30-100); cholesterol:hdl ratio screen 3.50
== END | disposition home or self-care (01) ==
LOC: CIMLAB 07:32
PROVIDERS: PCP Internal Medicine; Referring Provider Internal Medicine; Visit Provider Internal Medicine
DX: M85.80 Other specified disorders of bone density and structure, unspecified site (principal); E55.9 Vitamin D deficiency, unspecified; Z13.220 Encounter for screening for lipoid disorders
CPT/HCPCS: 36415; 80053; 80061; 82306; 83735; 85025

== ENCOUNTER → 2025-09-14 | Outpatient (CLI) | payer OTHER, SELFPAY ==
--- OUTSIDE RECORDS SUMMARY | 2025-09-14 07:17 | XMS RPT_ITS | CCD ---
Author Organization [facility] Care Team Providers Care Business Writer Name Role Phone Lanny Breen Unavailable Lanny Breen Unavailable [facility] Unavailable Rina Vance Unavailable Unavailable Unavailable Unavailable JamshidLanny aguayo DO Unavailable JamshidLanny aguayo DO Unavailable [facility] Unavailable Rina Vance LPN Unavailable Unavailable Indiana Johnson RN Unavailable Unavailable Unavailable Unavailable Patricia Walsh MA Unavailable Unavailable Lanny Breen DO Unavailable Friend, Dr. Cote Unavailable [phone] Dylan Rodriguez Unavailable Dr. Lanny Breen Primary Care Provider [phone] Dr. Lanny Breen Referring Provider [phone] Xi PEDIATRIC UROLOGIST, JUSTIN Villalobos Attending Provider [phone] Friend, Dr. Cote Attending Provider Friend, Dr. Cote Other Provider Madai Friend CMA Unavailable Unavailable Lanny Breen DO Attending Unavailable Lanny Breen DO Referring Unavailable Lanny Breen DO Consulting Unavailable [facility] Unavailable [phone] Dacia Hernández MA Unavailable Unavailable Dr. Lanny Breen Primary Care Provider [phone] Dr. Lanny Breen Referring Provider Xi PEDIATRIC UROLOGIST, ELPIDIOC Griselda Attending Provider Griselda Layne NP [...] Drug Class(es) Dates Sig (Normalized) Sig (Original) [id number] 200 actuat albuterol 0.09 mg/actuat metered dose [...] 1 {Packet} Refills: 0 Ordered: 28-Jan-2022 Lanny Breen DO, DO, Kathleen Start : 28-Jan-2022 End [...] Test Name Value Interpretation Reference Range Facility Roll Cutter Office Visit Reporton 12-08-2024 Roll [facility] Office Visit Report [facility]'[address], [address] [place] [address] OFFICE VISIT Date of Service: 12/08/24 MR#: [id number] Acct: [id number] Name: NAREN LOREDO Rep #: [id number] : 1970 Provider: JUSTIN mckoy Age/Sex: 54/F Location: [facility] Status: Signed Intake Vital Signs 03/05/23 08:53 12/08/24 09:19 12/08/24 09:22 Height 5 ft 7 in 5 ft 7 in 5 ft 7 in Weight: 146 lb BMI 22.8 BP 116/82 H Intake Visit 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 Normal [facility] SCRN MAMM (CAD)W/KAREEM BILATo n 10-29-2024 SCRN MAMM (CAD)W[facility] Imaging Services [address] [place] [address] SCRN MAMM (CAD)W/KAREEM BILAT MR#: [id number] Acct: [id number] Name: NAREN LOREDO Rep #: [id number] : 1970 F 54 From: Rocael adam MD PCP: Dr. Lanny Breen, Status: [facility] Study: SCRN MAMM (CAD)W/KAREEM BILAT Date of Exam: 10/07 01/28 Exam# [id number] Ordering Dr: Griselda Layne PEDIATRIC UROLOGIST PEDIATRIC UROLOGIST -C [id number] MAMMOGRAPHY - BILATERAL SCREENING REASON FOR EXAM: [...] delay biopsy of a clinically suspicious abnormality. [id number] Electronically Signed: Rocael Aldridge MD at 8:52 EST , CC: JUSTIN Layne; Dr. Lanny Breen, Software Analyst: Signed Normal [facility] Cervical or vagninal specime n microscopic examination by cytology stain (reported asOrdered By: Griselda Layne on 03-05-2023 Cytology report Cyto stain Doc (Cvx/Vag) Comment . [facility] Comment on above: The Pap smear [...] DNA Probe+sig amp Ql (Cvx) Negative Negative [facility] Comment on above: This nucleic acid am plification test detects fourteen high- risk HPV types (16,18,31,33,35,39,45,51,52,56,58,59,66,68)without differentiation. Laboratory - CytologyOrdered By: Grsielda Layne on 03-05-2023 Closing Machine Operator Cyto stain Nom (Cvx/Vag) [ID] Comment . [facility] Comment on above: Abelino Calixto totechnologist (ASCP) Laboratory - Miscellaneous t estsOrdered By: Griselda Layne on 03-05-2023 Service comment (Unsp spec) [Interp] Comment . [facility] Comment on above: This liquid based Th inPrep(R) pap test was screened withthe use of an image guided system. Service comment (Unsp spec) [Interp] . . [facility] Liquid-based cerv Pap + CT/G C by JHONY w reflex to high-risk HPV for ASCUSOrdered By: Griselda Layne on 03-05-2023 Cytology report Cyto stain.thin prep Doc (Cvx/Vag) Comment . [facility] Comment on above: Criteria not met, HP V Genotype not performed.Performed at: - [facility] [id number] Director: Zehra Narvaez MD, Phone: [phone] at: =[facility] [id number] Director: Zehra Narvaez MD, Phone: [phone] No Panel InformationOrdered By: Griselda Layne on 03-05-2023 Pap Smear QC Review Comment . [facility] Comment on above: Abelino Douglas totechnologist Pathology report final diagnosis Narrative Comment . [facility] Comment on above: NEGATIVE FOR INTRAEP ITHELIAL LESION OR MALIGNANCY.CELLULAR CHANGES ASSOCIATED WITH ATROPHY ARE PRESENT.THIS SPECIMEN WAS RESCREENED PART OF OUR ANGIOGRAPHY TECHNOLOGIST PROGRAM. C-Reactive Protein (50602)Or dered By: Quality Engineer Medical Device on 01-31-2023 CRP [Mass/Vol] mg/L Normal 0-10 Comprehens [facility]ario [facility]; [facility] Work Phone: Comment on above: PATIENT WAS FASTINGP ERFORMED BY: [facility] Vcgfwu1730 [facility] [id number] BY: [address] [id number] CBC W/AUTO DIFF WBC (35008)O rdered By: Quality Engineer Medical Device on 01-31-2023 Basophils (Bld) [#/Vol] 0.0 10*3/uL Normal 0.0-0.2 [facility]; [facility] Work Phone: Comment on above: PATIENT WAS FASTINGP ERFORMED BY: [facility]coPasc[facility] CenterNafccy5254 [facility] [id number] BY: [facility] [id number] Basophils/100 WBC (Bld) 1 % Normal [facility]; [facility] Work Phone: Comment on above: PATIENT WAS FASTINGP ERFORMED BY: LabcoRebecca [place] 7171670 [facility] [id number] BY: [address] [id number] Eosinophils (Bld) [#/Vol] 0.1 10*3/uL Normal 0.0-0.4 [facility]; [facility] Work Phone: Comment on above: PATIENT WAS FASTINGP ERFORMED BY: [facility] Nrkjcg1011 [facility] [id number] BY: [facility] [id number] Eosinophils/100 WBC (Bld) 2 % Normal [facility]; [facility] Work Phone: Comment on above: PATIENT WAS FASTINGP ERFORMED BY: [facility] Lzqqjm6172 [facility] [id number] BY: [address] [id number] Erythrocyte distribution width (RBC) [Ratio] 12.3 % Normal 11.7-15.4 [facility]; [facility] Work Phone: Comment on above: PATIENT WAS FASTINGP ERFORMED BY: [facility] Tdzlao4952 [facility] [id number] BY: [facility] [id number] Hematocrit (Bld) [Volume fraction] 41.0 % Normal 34.0-46.6 [facility]; [facility] Work Phone: Comment on above: PATIENT WAS FASTINGP ERFORMED BY: [facility] Pxbgtx5694 [facility] [id number] BY: [address] [id number] Hemoglobin (Bld) [Mass/Vol] 14.0 g/dL Normal 11.1-15.9 [facility]; [facility] Work Phone: Comment on above: PATIENT WAS FASTINGP ERFORMED BY: LabCaro Center6370 [facility] [id number] BY: [facility] [id number] Immature granulocytes (Bld) [#/Vol] 0.0 10*3/uL Normal 0.0-0.1 [facility]; [facility] Work Phone: Comment on above: PATIENT WAS FASTINGP ERFORMED BY: [facility] Krrmyg0821 [facility] [id number] BY: [address] [id number] Immature granulocytes/100 WBC (Bld) 0 % Normal [facility]; [facility] Work Phone: Comment on above: PATIENT WAS FASTINGP ERFORMED BY: [facility] Kbdbxp8826 [facility] [id number] BY: [address] [id number] Lymphocytes (Bld) [#/Vol] 2.9 10*3/uL Normal 0.7-3.1 [facility]; [facility] Work Phone: Comment on above: PATIENT WAS FASTINGP ERFORMED BY: [facility] Ccikux8858 [facility] [id number] BY: [address] [id number] Lymphocytes/100 WBC (Bld) 52 % Normal [facility]; [facility] Work Phone: Comment on above: PATIENT WAS FASTINGP ERFORMED BY: [facility] Jembgx7378 [facility] [id number] BY: [address] [id number] MCH (RBC) [Entitic mass] 28.1 pg Normal 26.6-33.0 [facility]; [facility] Work Phone: Comment on above: PATIENT WAS FASTINGP ERFORMED BY: [facility] Hrzmob3923 [facility] [id number] BY: [address] [id number] MCHC (RBC) [Mass/Vol] 34.1 g/dL Normal 31.5-35.7 [facility] Internal [facility]; [facility] Work Phone: Comment on above: PATIENT WAS FASTINGP ERFORMED BY: [facility] Ovkjtq4831 [facility] [id number] BY: [address] [id number] MCV (RBC) [Entitic vol] 82 fL Normal 79-97 [facility]; [facility] Work Phone: Comment on above: PATIENT WAS FASTINGP ERFORMED BY: [facility] Sygdkv1032 [facility] [id number] BY: [address] [id number] Monocytes (Bld) [#/Vol] 0.5 10*3/uL Normal 0.1-0.9 [facility]; [facility] Work Phone: Comment on above: PATIENT WAS FASTINGP ERFORMED BY: CB [facility] Rkczyd9684 [place] [facility] [id number] BY: [facility] [address] [id number] Monocytes/100 WBC (Bld) 9 % Normal [facility]; [facility] Work Phone: Comment on above: PATIENT WAS FASTINGP ERFORMED BY: CB [facility] Cssxkx6023 [place] [facility] [id number] BY: BN [facility] [address] [id number] Neutrophils (Bld) [#/Vol] 1.9 10*3/uL Normal 1.4-7.0 [facility]; [facility] Work Phone: Comment on above: PATIENT WAS FASTINGP ERFORMED BY: CB [facility] Uygyvy6735 [place] [facility] [id number] BY: [facility] [address] [id number] Neutrophils/100 WBC (Bld) 36 % Normal [facility]; [facility] Work Phone: Comment on above: PATIENT WAS FASTINGP ERFORMED BY: CB [facility] Rcklji7992 [place] [facility] [id number] BY: [facility] [address] [id number] Platelets (Bld) [#/Vol] 319 10*3/uL Normal 150-450 [facility]; [facility] Work Phone: Comment on above: PATIENT WAS FASTINGP ERFORMED BY: CB [facility] Xslgbd0585 [place] [facility] [id number] BY: [facility] [address] [id number] RBC (Bld) [#/Vol] 4.98 10*6/uL Normal 3.77-5.28 Compr [facility] Internal Medicine; [facility] Work Phone: Comment on above: PATIENT WAS FASTINGP ERFORMED BY: [facility] Pemhsj6343 [place] [facility] [id number] BY: ILD [employer] [id number] WBC (Bld) [#/Vol] 5.4 10*3/uL Normal 3.4-10.8 [facility]; [facility] Work Phone: Comment on above: PATIENT WAS FASTINGP ERFORMED BY: [facility] Kptoor2289 [facility] [id number] BY: [employer] [id number] Creatine Kinase Total (39136 )Ordered By: Quality Engineer Medical Device on 01-31-2023 CK [Catalytic activity/Vol] 46 U/L Normal 32-182 [facility]; [facility] Work Phone: Comment on above: PATIENT WAS FASTINGP ERFORMED BY: [facility] Pyivvw2484 [facility] [id number] BY: [employer] [id number] ESR-F (SED RATE ERYTHROCYTE - FEMALE) (11577)Ordered By: Quality Engineer Medical Device on 01-31-2023 ESR (Bld) [Velocity] 4 mm/h Normal 0-40 Comp rehensive Internal Medicine; [facility] Work Phone: Comment on above: PATIENT WAS FASTINGP ERFORMED BY: [facility] Gtywtl0148 [facility] [id number] BY: [employer]D [employer] [id number] METABOLIC PANEL, COMPREHENSI VE (28854)Ordered By: Quality Engineer Medical Device on 01-31-2023 Albumin [Mass/Vol] 4.5 g/dL Normal 3.8-4.9 [facility]; [facility] Work Phone: Comment on above: PATIENT WAS FASTINGP ERFORMED BY: [facility] Oootbl6283 [facility] [id number] BY: [facility] [id number] Albumin/Globulin [Mass ratio] 2.3 {ratio} Abnormal 1.2-2.2 [facility]; [facility] Work Phone: Comment on above: PATIENT WAS FASTINGP ERFORMED BY: TRAN [facility] Zffpmt5066 [facility] [id number] BY: [facility] [id number] ALP [Catalytic activity/Vol] 63 U/L Normal 44-121 [facility]; [facility] Work Phone: Comment on above: PATIENT WAS FASTINGP ERFORMED BY: TRAN [facility] Aiuhbi0285 [facility] [id number] BY: [address] [id number] ALT [Catalytic activity/Vol] 13 U/L Normal 0-32 [facility]; [facility] Work Phone: Comment on above: PATIENT WAS FASTINGP ERFORMED BY: TRAN [facility] Pbbhjo4686 [facility] [id number] BY: Lab[address] [id number] AST [Catalytic activity/Vol] 18 U/L Normal 0-40 [facility]; [facility] Work Phone: Comment on above: PATIENT WAS FASTINGP ERFORMED BY: [facility] Tzwwin3709 [facility] [id number] BY: Lab[address] [id number] Bilirubin [Mass/Vol] 0.4 mg/dL Normal 0.0-1.2 [facility] rehensive Internal Medicine; [facility] Work Phone: Comment on above: PATIENT WAS FASTINGP ERFORMED BY: [facility] Qcctxn8130 [facility] [id number] BY: Lab[address] [id number] Calcium [Mass/Vol] 9.8 mg/dL Normal 8.7-10.2 [facility]; [facility] Work Phone: Comment on above: PATIENT WAS FASTINGP ERFORMED BY: [facility] Borltk6486 [place] RoadDublin [place] [id number] BY: [facility] [id number] Chloride [Moles/Vol] 101 mmol/L Normal 96-106 [facility] rehensive Internal Medicine; [facility] Work Phone: Comment on above: PATIENT WAS FASTINGP ERFORMED BY: CB [facility] Ujxius0997 [place] RoadReplaced by [facility] [id number] BY: [address] [id number] CO2 [Moles/Vol] 25 mmol/L Normal 20-29 Comprehen [facility]; [facility] Work Phone: Comment on above: PATIENT WAS FASTINGP ERFORMED BY: [facility] Uzutip7862 [place] [facility] [id number] BY: Lab[address] [id number] Creatinine [Mass/Vol] 0.68 mg/dL Normal 0.57-1.00 [facility]; [facility] Work Phone: Comment on above: PATIENT WAS FASTINGP ERFORMED BY: [facility] Zehyqn8465 [place] RoadCarepartners Rehabilitation Hospitalin [place] [id number] BY: [facility] [id number] GFR/1.73 sq M.predicted among non-blacks MDRD (S/P/Bld) [Vol rate/Area] 104 mL/min/{1.73_m2} Normal Comprehensi ve Internal Medicine; [facility] Work Phone: Comment on above: PATIENT WAS FASTINGP ERFORMED BY: CB [facility] Bjvabr3700 [place] RoadReplaced by [facility] [id number] BY: Lab[address] [id number] Globulin (S) [Mass/Vol] 2.0 g/dL Normal 1.5-4.5 [facility]; [facility] Work Phone: Comment on above: PATIENT WAS FASTINGP ERFORMED BY: [facility] Stcvdt3297 [facility] [id number] BY: [address] [id number] Glucose [Mass/Vol] 82 mg/dL Normal 70-99 [facility] Internal [facility]; [facility] Work Phone: Comment on above: PATIENT WAS FASTINGP ERFORMED BY: [facility] Pdryzm7433 [facility] [id number] BY: Lab[address] [id number] Potassium [Moles/Vol] 4.0 mmol/L Normal 3.5-5.2 [facility]; [facility] Work Phone: Comment on above: PATIENT WAS FASTINGP ERFORMED BY: LabcoPascack Valley Medical CenterBewtuf7392 [facility] [id number] BY: Lab[address] [id number] Protein [Mass/Vol] 6.5 g/dL Normal 6.0-8.5 [facility]; [facility] Work Phone: Comment on above: PATIENT WAS FASTINGP ERFORMED BY: [facility] Woqzwx3392 [facility] [id number] BY: [address] [id number] Sodium [Moles/Vol] 138 mmol/L Normal 134-144 [facility]; [facility] Work Phone: Comment on above: PATIENT WAS FASTINGP ERFORMED BY: [facility] Xmvguh9817 [facility] [id number] BY: SyndiantEssex County HospitalXdedrsxhcp2934 [facility] [id number] Urea nitrogen [Mass/Vol] 13 mg/dL Normal 6-24 [facility]; [facility] Work Phone: Comment on above: PATIENT WAS FASTINGP ERFORMED BY: [facility] Roinpf7766 [facility] [id number] BY: [facility] [id number] Urea nitrogen/Creatinine [Mass ratio] 19 mg/mg Normal 9-23 [facility]; [facility] Work Phone: Comment on above: PATIENT WAS FASTINGP ERFORMED BY: [facility] Cfwxvm8096 [facility] [id number] BY: Syndi[employer] [id number] SARS-CoV-2 Antibody, IgGOrde red By: Quality Engineer Medical Device on 07-25-2021 SARS-CoV-2 Antibody, IgG Negative Normal [facility]; [facility] Work Phone: Comment on above: This sample does not contain detectable SARS-CoV-2 IgG antibodies.This negative result does not rule out SARS-CoV-2 infection.Correlation with epidemiologic risk factors and other clinical andlaboratory findings is recommended. Serologic results should not beused as the sole basis to diagnose or exclude recent BAXB-CdQ-7hljehvixp.This assay was performed using the D[employer] Liaison(R)SARS-CoV-2 S1/S2 IgG assay.This assay detects antibodies against SARS-CoV-2 spike proteinincluding the receptor binding domain (RBD).Effective August 13, 2021, this test will be changing froma qualitative assay to a semi-quantitative assay for SIGC-OhN-9mcjmiqyqxy against the viral spike protein. Test(s) 069913-DGGB- CoV-2 Antibody, IgGhas not been FDA cleared [...] otherviruses or pathogens.PATIENT NOT FASTINGPERFORMED BY: [facility] Cdbmlk6577 [facility] [id number] POTASSIUM SERUM (69772)Order ed By: Quality Engineer Medical Device on 05-05-2018 Potassium [Moles/Vol] 3.9 mmol/L Normal 3.5-5.1 [facility] prehensive Internal Medicine Work Phone: Comment on above: STAT STAT STAT; Orde r Date: 05/05/18Order Info: 2823-3 - KComments: STAT STAT STATWMem[facility] Pbzbvyksyb1250 [place], [address] CALCIFEDIOL (25140)Ordered B y: Quality Engineer Medical Device on 05-04-2018 25-Hydroxyvitamin D2+25-Hydroxyvitamin D3 [Mass/Vol] 41.7 ng/mL Normal 30.0-100.0 [facility] Work Phone: Comment on above: Vitamin D deficiency has been defined by the [place] ofMedicine and an Endocrine Society practice guideline as alevel of serum 25-OH vitamin D less than 20 ng/mL (1,2).The Endocrine Society went on to further define vitamin Dinsufficiency as a level between 21 and 29 ng/mL (2).1. IOM ([place] of Medicine). 2010. Dietary reference intakes for calcium and D. [place]: The National Academies Press.2. Karla MF, Brett NC, Rosario MACIEL, et al. Evaluation, treatment, and prevention of vitamin D deficiency: an Endocrine Society clinical practice guideline. JCEM. 2010; 96(7):1911-30. PATIENT WAS FASTINGP ERFORMED BY: [facility] Prshoz1734 [facility] [id number] CBC & PLATELETS (AUTO) (8502 7)Ordered By: Quality Engineer Medical Device on 05-04-2018 Erythrocyte distribution width (RBC) [Ratio] 13.0 % Normal 12.3-15.4 [facility] Work Phone: Comment on above: PATIENT WAS FASTINGP ERFORMED BY: TRAN [facility] Syeyke4743 [place] RoadDublin [place] [id number] Hematocrit (Bld) [Volume fraction] 39.7 % Normal 34.0-46.6 [facility] Internal Medicine Work Phone: Comment on above: PATIENT WAS FASTINGP ERFORMED BY: [facility] Hnkecu8416 [address] RoadDublin [place] [id number] Hemoglobin (Bld) [Mass/Vol] 13.2 g/dL Normal 11.1-15.9 [facility] Work Phone: Comment on above: PATIENT WAS FASTINGP ERFORMED BY: TRAN [facility] Smiwgn6749 [place] RoadCarepartners Rehabilitation Hospitalin [place] [id number] MCH (RBC) [Entitic mass] 27.8 pg Normal 26.6-33.0 [facility] Internal Medicine Work Phone: Comment on above: PATIENT WAS FASTINGP ERFORMED BY: [facility] Uxitwi6411 [address] RoadDublin [place] [id number] MCHC (RBC) [Mass/Vol] 33.2 g/dL Normal 31.5-35.7 [facility] Internal Medicine Work Phone: Comment on above: PATIENT WAS FASTINGP ERFORMED BY: [facility] Lifouh2686 [address] RoadDublin [place] [id number] MCV (RBC) [Entitic vol] 84 fL Normal 79-97 [facility] Work Phone: Comment on above: PATIENT WAS FASTINGP ERFORMED BY: CB [facility] Jpkvwd5623 [place] RoadDublin [place] [id number] Platelets (Bld) [#/Vol] 298 {x10E3/uL} Normal 150-379 [facility] Work Phone: Comment on above: PATIENT WAS FASTINGP ERFORMED BY: CB [facility] Jilnww6970 [address] RoadDublin [place] [id number] Platelets (Bld) [#/Vol] 298 10*3/uL Normal 150-379 [facility]; [facility] Work Phone: Comment on above: PATIENT WAS FASTINGP ERFORMED BY: TRAN [facility] Vezgsm8278 [place] RoadDublin [place] [id number] RBC (Bld) [#/Vol] 4.74 {x10E6/uL} Normal 3.77-5.28 [facility] Internal Medicine Work Phone: Comment on above: PATIENT WAS FASTINGP ERFORMED BY: CB [facility] Qhdhfd8441 [address] RoadDublin [place] [id number] RBC (Bld) [#/Vol] 4.74 10*6/uL Normal 3.77-5.28 [facility] Internal Medicine; [facility] Work Phone: Comment on above: PATIENT WAS FASTINGP ERFORMED BY: TRAN [facility] Ymklrl2578 [address] RoadDublin [place] [id number] WBC (Bld) [#/Vol] 5.9 {x10E3/uL} Normal 3.4-10.8 [facility] Internal Medicine Work Phone: Comment on above: PATIENT WAS FASTINGP ERFORMED BY: TRAN [facility] Ckisvu5011 [address] RoadDublin [place] [id number] WBC (Bld) [#/Vol] 5.9 10*3/uL Normal 3.4-10.8 [facility] Internal Medicine; [facility] Work Phone: Comment on above: PATIENT WAS FASTINGP ERFORMED BY: CB [facility] Ylphgt5665 [address] RoadDublin [place] [id number] LIPID PANEL ([id number])Ordered B y: Quality Engineer Medical Device on 05-04-2018 Cholesterol [Mass/Vol] 210 mg/dL Abnormal 100-199 [facility] Work Phone: Comment on above: PATIENT WAS FASTINGP ERFORMED BY: TRAN [facility] Ompych7019 [address] RoadDublin [place] [id number] Cholesterol in HDL [Mass/Vol] 78 mg/dL Normal [facility] Work Phone: Comment on above: PATIENT WAS FASTINGP ERFORMED BY: TRAN Lab[facility] DuronQiisak[address] [facility]in [place] [id number] Cholesterol in LDL [Mass/Vol] 119 mg/dL Abnormal 0-99 [facility] Work Phone: Comment on above: PATIENT WAS FASTINGP ERFORMED BY: TRAN uDronlin6370 [address] [facility] [id number] Cholesterol in LDL/Cholesterol in HDL [Mass ratio] 1.5 {ratio} Normal 0.0-3.2 [facility] Work Phone: Comment on above: LDL/HDL Ratio Men Wo men 1/2 Avg.Risk 1.0 1.5 Avg.Risk 3.6 3.2 2X Avg.Risk 6.2 5.0 3X Avg.Risk 8.0 6.1 PATIENT WAS FASTINGP ERFORMED BY: TRAN Duronlin6370 [address] [facility] [id number] Cholesterol in VLDL [Mass/Vol] 13 mg/dL Normal 5-40 [facility] Work Phone: Comment on above: PATIENT WAS FASTINGP ERFORMED BY: TRAN Duronlin6370 [facility]in [place] [id number] Triglyceride [Mass/Vol] 67 mg/dL Normal 0-149 [facility] Work Phone: Comment on above: PATIENT WAS FASTINGP ERFORMED BY: TRAN Duronlin6370 [facility] [id number] METABOLIC PANEL, COMPREHENSI VE ([id number])Ordered By: Quality Engineer Medical Device on 05-04-2018 Albumin [Mass/Vol] 4.6 g/dL Normal 3.5-5.5 [facility] Medicine Work Phone: Comment on above: PATIENT WAS FASTINGP ERFORMED BY: TRAN Duronlin6370 [facility] [id number] Albumin/Globulin [Mass ratio] 1.9 {ratio} Normal 1.2-2.2 [facility] Work Phone: Comment on above: PATIENT WAS FASTINGP ERFORMED BY: CB [facility] Xyficq5416 [address] RoadDublin [place] [id number] ALP [Catalytic activity/Vol] 73 [iU]/L Normal 39-117 [facility] Work Phone: Comment on above: PATIENT WAS FASTINGP ERFORMED BY: [facility] Wvdhxv6794 [address] RoadDublin [place] [id number] ALP [Catalytic activity/Vol] 73 U/L Normal 39-117 [facility]; [facility] Work Phone: Comment on above: PATIENT WAS FASTINGP ERFORMED BY: [facility] Eaqgho4006 [address] RoadDublin [place] [id number] ALT [Catalytic activity/Vol] 12 [iU]/L Normal 0-32 [facility] Work Phone: Comment on above: PATIENT WAS FASTINGP ERFORMED BY: [facility] Uamiyy8875 [address] RoadDublin [place] [id number] ALT [Catalytic activity/Vol] 12 U/L Normal 0-32 [facility]; [facility] Work Phone: Comment on above: PATIENT WAS FASTINGP ERFORMED BY: [facility] Nuhymy3556 [address] RoadDublin [place] [id number] AST [Catalytic activity/Vol] 19 [iU]/L Normal 0-40 [facility] Work Phone: Comment on above: PATIENT WAS FASTINGP ERFORMED BY: [facility] Qtwmqs0495 [address] RoadDublin [place] [id number] AST [Catalytic activity/Vol] 19 U/L Normal 0-40 [facility]; [facility] Work Phone: Comment on above: PATIENT WAS FASTINGP ERFORMED BY: [facility] Khcuzx7214 [address] RoadDublin [place] [id number] Bilirubin [Mass/Vol] 0.3 mg/dL Normal 0.0-1.2 [facility] Internal Medicine Work Phone: Comment on above: PATIENT WAS FASTINGP ERFORMED BY: [facility] Aepryo3209 [address] RoadDublin [place] [id number] Calcium [Mass/Vol] 9.8 mg/dL Normal 8.7-10.2 [facility] Internal Medicine Work Phone: Comment on above: PATIENT WAS FASTINGP ERFORMED BY: TRAN [facility] Dzdire1991 [address]Dublin [place] [id number] Chloride [Moles/Vol] 102 mmol/L Normal 96-106 [facility] Work Phone: Comment on above: PATIENT WAS FASTINGP ERFORMED BY: [facility] Xhpdlb4374 [address] RoadCarepartners Rehabilitation Hospitalin [place] [id number] CO2 [Moles/Vol] 26 mmol/L Normal 20-29 [facility] Internal Medicine Work Phone: Comment on above: PATIENT WAS FASTINGP ERFORMED BY: TRAN [facility] Jlbfgr1114 [address] [facility] [id number] Creatinine [Mass/Vol] 0.62 mg/dL Normal 0.57-1.00 [facility] Internal Medicine Work Phone: Comment on above: PATIENT WAS FASTINGP ERFORMED BY: TRAN [facility] Xwwggd4861 [address] RoadCarepartners Rehabilitation Hospitalin [place] [id number] GFR/1.73 sq M predicted among blacks CKD-EPI (S/P/Bld) [Vol rate/Area] 123 mL/min/1.73 Normal [facility] Work Phone: Comment on above: PATIENT WAS FASTINGP ERFORMED BY: [facility] Bvjkyc2862 [address] RoadCarepartners Rehabilitation Hospitalin [place] [id number] GFR/1.73 sq M predicted among non-blacks CKD-EPI (S/P/Bld) [Vol rate/Area] 107 mL/min/1.73 Normal [facility] Work Phone: Comment on above: PATIENT WAS FASTINGP ERFORMED BY: [facility] Weapcy[address] [facility]in [place] [id number] Globulin (S) [Mass/Vol] 2.4 g/dL Normal 1.5-4.5 [facility] Work Phone: Comment on above: PATIENT WAS FASTINGP ERFORMED BY: [facility] Fbqjvj7126 [address] Roadblin [place] [id number] Glucose [Mass/Vol] 83 mg/dL Normal 65-99 [facility] Internal Medicine Work Phone: Comment on above: PATIENT WAS FASTINGP ERFORMED BY: [facility] Woxfqs5389 [address] RoadDublin [place] [id number] Potassium [Moles/Vol] 5.5 mmol/L Abnormal 3.5-5.2 [facility] Internal Medicine Work Phone: Comment on above: PATIENT WAS FASTINGP ERFORMED BY: [facility] Jacjge4295 [address] RoadDublin [place] [id number] Protein [Mass/Vol] 7.0 g/dL Normal 6.0-8.5 [facility] Internal Medicine Work Phone: Comment on above: PATIENT WAS FASTINGP ERFORMED BY: [facility] Yajctb2569 [address] RoadDublin [place] [id number] Sodium [Moles/Vol] 141 mmol/L Normal 134-144 [facility] Internal Medicine Work Phone: Comment on above: PATIENT WAS FASTINGP ERFORMED BY: [facility] Sjugwg3266 [address] RoadDublin [place] [id number] Urea nitrogen [Mass/Vol] 13 mg/dL Normal 6-24 [facility] Internal Medicine Work Phone: Comment on above: PATIENT WAS FASTINGP ERFORMED BY: [facility] Jdkgdc5956 [address] RoadDublin [place] [id number] Urea nitrogen/Creatinine [Mass ratio] 21 mg/mg Normal 9-23 [facility] Internal Medicine Work Phone: Comment on above: PATIENT WAS FASTINGP ERFORMED BY: CB [facility] Imrews3370 [address] RoadDublin [place] [id number] CALCIFIDIOL (26581) VIT D 25 Ordered By: Quality Engineer Medical Device on 11-25-2016 25-Hydroxyvitamin D2+25-Hydroxyvitamin D3 [Mass/Vol] 32.7 ng/mL Normal 30.0-100.0 [facility] Internal Medicine Work Phone: Comment on above: Vitamin D deficiency has been defined by the [place] ofMedicine and an Endocrine Society practice guideline as alevel of serum 25-OH vitamin D less than 20 ng/mL (1,2).The Endocrine Society went on to further define vitamin Dinsufficiency as a level between 21 and 29 ng/mL (2).1. IOM ([place] of Medicine). 2010. Dietary reference intakes for calcium and D. [place]: The National Academies Press.2. Karla MF, Brett ANTUNEZ, Rosario MACIEL, et al. Evaluation, treatment, and prevention of vitamin D deficiency: an Endocrine Society clinical practice guideline. JCEM. 2010; 96(7):1911-30. PATIENT WAS FASTINGP ERFORMED BY: Health Gorilla [facility] Qaypyh7652 [address] RoadDublin [place] [id number] CBC W/AUTO DIFF WBC ([id number])O rdered By: Quality Engineer Medical Device on 11-25-2016 Basophils (Bld) [#/Vol] 0.0 {x10E3/uL} Normal 0.0-0.2 [facility] Work Phone: Comment on above: PATIENT WAS FASTINGP ERFORMED BY: [facility] Rvzabu4383 [address] RoadDublin [place] [id number] Basophils (Bld) [#/Vol] 0.0 10*3/uL Normal 0.0-0.2 [facility]; [facility] Work Phone: Comment on above: PATIENT WAS FASTINGP ERFORMED BY: [facility] Ajzrbu2907 [address] RoadDublin [place] [id number] Basophils/100 WBC (Bld) 1 % Normal [facility] Work Phone: Comment on above: PATIENT WAS FASTINGP ERFORMED BY: Health Gorilla [facility] Hvcpim7404 [address] RoadDublin [place] [id number] Eosinophils (Bld) [#/Vol] 0.1 {x10E3/uL} Normal 0.0-0.4 [facility] Work Phone: Comment on above: PATIENT WAS FASTINGP ERFORMED BY: CB [facility] Pouems2652 [address] RoadDublin [place] [id number] Eosinophils (Bld) [#/Vol] 0.1 10*3/uL Normal 0.0-0.4 [facility]; [facility] Work Phone: Comment on above: PATIENT WAS FASTINGP ERFORMED BY: TRAN LabCosuzanne MoncadaSllvgw1215 [address] Roadblin [place] [id number] Eosinophils/100 WBC (Bld) 2 % Normal [facility] Work Phone: Comment on above: PATIENT WAS FASTINGP ERFORMED BY: [facility] Badpbn2435 [address] [facility] [id number] Erythrocyte distribution width (RBC) [Ratio] 13.7 % Normal 12.3-15.4 [facility] Work Phone: Comment on above: PATIENT WAS FASTINGP ERFORMED BY: [facility] Luyvqj8454 [address] [facility] [id number] Hematocrit (Bld) [Volume fraction] 41.8 % Normal 34.0-46.6 [facility] Work Phone: Comment on above: PATIENT WAS FASTINGP ERFORMED BY: [facility] Dtbgdr0678 [address] [facility] [id number] Hemoglobin (Bld) [Mass/Vol] 13.8 g/dL Normal 11.1-15.9 [facility] Work Phone: Comment on above: PATIENT WAS FASTINGP ERFORMED BY: [facility] Zqtmjj8918 [address] [facility]in [place] [id number] Immature granulocytes (Bld) [#/Vol] 0.0 {x10E3/uL} Normal 0.0-0.1 [facility] Work Phone: Comment on above: PATIENT WAS FASTINGP ERFORMED BY: [facility] Sbauut1675 [address] RoadDublin [place] [id number] Immature granulocytes (Bld) [#/Vol] 0.0 10*3/uL Normal 0.0-0.1 [facility]; [facility] Work Phone: Comment on above: PATIENT WAS FASTINGP ERFORMED BY: [facility] Uulbwp6487 [address] RoadDublin [place] [id number] Immature granulocytes/100 WBC (Bld) 0 % Normal [facility] Work Phone: Comment on above: PATIENT WAS FASTINGP ERFORMED BY: LabM[facility]in[facility]6[address]bl[address] [place] [id number] Lymphocytes (Bld) [#/Vol] 1.9 {x10E3/uL} Normal 0.7-3.1 [facility] Work Phone: Comment on above: PATIENT WAS FASTINGP ERFORMED BY: LabNorth [facility] HospitalZaraip6495 [address] [facility] Hospitalbl[facility] [place] [id number] Lymphocytes (Bld) [#/Vol] 1.9 10*3/uL Normal 0.7-3.1 [facility]; [facility] Work Phone: Comment on above: PATIENT WAS FASTINGP ERFORMED BY: [facility]6370 [address] [facility] [id number] Lymphocytes/100 WBC (Bld) 43 % Normal [facility] Work Phone: Comment on above: PATIENT WAS FASTINGP ERFORMED BY: [facility]6370 [address] [facility] [id number] MCH (RBC) [Entitic mass] 27.5 pg Normal 26.6-33.0 [facility] Internal Medicine Work Phone: Comment on above: PATIENT WAS FASTINGP ERFORMED BY: [facility]6370 [facility] [id number] MCHC (RBC) [Mass/Vol] 33.0 g/dL Normal 31.5-35.7 [facility] Internal Medicine Work Phone: Comment on above: PATIENT WAS FASTINGP ERFORMED BY: [facility] Yvxnvr8843 [address] [facility] [place] [id number] MCV (RBC) [Entitic vol] 83 fL Normal 79-97 [facility] Internal Medicine Work Phone: Comment on above: PATIENT WAS FASTINGP ERFORMED BY: [facility] Wauqsn1680 [address] Roadblin [place] [id number] Monocytes (Bld) [#/Vol] 0.4 {x10E3/uL} Normal 0.1-0.9 [facility] Work Phone: Comment on above: PATIENT WAS FASTINGP ERFORMED BY: CB [facility] Tmfspd4177 [address] RoadDublin [place] [id number] Monocytes (Bld) [#/Vol] 0.4 10*3/uL Normal 0.1-0.9 [facility]; [facility] Work Phone: Comment on above: PATIENT WAS FASTINGP ERFORMED BY: CB [facility] Pzisrv0717 [address] RoadDublin [place] [id number] Monocytes/100 WBC (Bld) 8 % Normal [facility] Work Phone: Comment on above: PATIENT WAS FASTINGP ERFORMED BY: CB [facility] Qwsgxl4091 [address] RoadDublin [place] [id number] Neutrophils (Bld) [#/Vol] 2.1 {x10E3/uL} Normal 1.4-7.0 [facility] Work Phone: Comment on above: PATIENT WAS FASTINGP ERFORMED BY: CB [facility] Grikvm0899 [address] RoadDublin [place] [id number] Neutrophils (Bld) [#/Vol] 2.1 10*3/uL Normal 1.4-7.0 [facility]; [facility] Work Phone: Comment on above: PATIENT WAS FASTINGP ERFORMED BY: [facility] Ekswnn8363 [address] RoadDublin [place] [id number] Neutrophils/100 WBC (Bld) 46 % Normal [facility] Work Phone: Comment on above: PATIENT WAS FASTINGP ERFORMED BY: CB [facility] Fkvpgk9705 [address] RoadDublin [place] [id number] Platelets (Bld) [#/Vol] 281 {x10E3/uL} Normal 150-379 [facility] Work Phone: Comment on above: PATIENT WAS FASTINGP ERFORMED BY: CB [facility] Adtttq3107 [address] RoadDublin [place] [id number] Platelets (Bld) [#/Vol] 281 10*3/uL Normal 150-379 [facility]; [facility] Work Phone: Comment on above: PATIENT WAS FASTINGP ERFORMED BY: TRAN Zee Moncada6370 [address] RoadSalvadorblin [place] [id number] RBC (Bld) [#/Vol] 5.02 {x10E6/uL} Normal 3.77-5.28 [facility] Internal Medicine Work Phone: Comment on above: PATIENT WAS FASTINGP ERFORMED BY: TRAN [facility] Nikduv1725 [address] RoadDublin [place] [id number] RBC (Bld) [#/Vol] 5.02 10*6/uL Normal 3.77-5.28 [facility] Internal [facility]; [facility] Work Phone: Comment on above: PATIENT WAS FASTINGP ERFORMED BY: TRAN LabDrake Qfvrdh3874 [address] RoadDublin [place] [id number] WBC (Bld) [#/Vol] 4.5 {x10E3/uL} Normal 3.4-10.8 [facility] Internal Medicine Work Phone: Comment on above: PATIENT WAS FASTINGP ERFORMED BY: TRAN LabDrake Wdbqcj9295 [address] RoadDublin [place] [id number] WBC (Bld) [#/Vol] 4.5 10*3/uL Normal 3.4-10.8 [facility]; [facility] Work Phone: Comment on above: PATIENT WAS FASTINGP ERFORMED BY: TRAN [facility] Lorzhl5531 [address] RoadDublin [place] [id number] LIPID PANEL ([id number])Ordered B y: Quality Engineer Medical Device on 11-25-2016 Cholesterol [Mass/Vol] 258 mg/dL Abnormal 100-199 [facility] Work Phone: Comment on above: PATIENT WAS FASTINGP ERFORMED BY: TRAN LabCosuzanne Cvpjvc4449 [address] RoadDublin [place] [id number] Cholesterol in HDL [Mass/Vol] 82 mg/dL Normal [facility] Work Phone: Comment on above: PATIENT WAS FASTINGP ERFORMED BY: TRAN [facility] Kgoaca0655 [address] [facility]bl[facility] [place] [id number] Cholesterol in LDL [Mass/Vol] 161 mg/dL Abnormal 0-99 [facility] Work Phone: Comment on above: PATIENT WAS FASTINGP ERFORMED BY: TRAN [facility] Piamlo3210 [address] [facility] Hospitalbl[facility] [place] [id number] Cholesterol in LDL/Cholesterol in HDL [Mass ratio] 2.0 {ratio_units} Normal 0.0-3.2 [facility] Work Phone: Comment on above: LDL/HDL Ratio Men Wo men 1/2 Avg.Risk 1.0 1.5 Avg.Risk 3.6 3.2 2X Avg.Risk 6.2 5.0 3X Avg.Risk 8.0 6.1 PATIENT WAS FASTINGP ERFORMED BY: TRAN [facility] Yocqpa2005 [place] [facility] [id number] Cholesterol in VLDL [Mass/Vol] 15 mg/dL Normal 5-40 [facility] Work Phone: Comment on above: PATIENT WAS FASTINGP ERFORMED BY: TRAN [facility] Zpbefe2021 [address] [facility]in [place] [id number] Triglyceride [Mass/Vol] 73 mg/dL Normal 0-149 [facility] Work Phone: Comment on above: PATIENT WAS FASTINGP ERFORMED BY: TRAN [facility] Gzwjxk3148 [facility]in [place] [id number] METABOLIC PANEL, COMPREHENSI VE ([id number])Ordered By: Quality Engineer Medical Device on 11-25-2016 Albumin [Mass/Vol] 4.6 g/dL Normal 3.5-5.5 [facility] Internal Medicine Work Phone: Comment on above: PATIENT WAS FASTINGP ERFORMED BY: [facility] Ntushe8394 [address] [facility] Hospitalbl[facility] [place] [id number] Albumin/Globulin [Mass ratio] 1.9 {ratio} Normal 1.1-2.5 [...] - 2.2 PATIENT WAS FASTINGP ERFORMED BY: [place] 65049[address] [facility] [id number] ALP [Catalytic activity/Vol] 51 [iU]/L Normal 39-117 [facility] Work Phone: Comment on above: PATIENT WAS FASTINGP ERFORMED BY: [place] 6504970 [address] [facility]in [place] [id number] ALP [Catalytic activity/Vol] 51 U/L Normal 39-117 [facility]; [facility] Work Phone: Comment on above: PATIENT WAS FASTINGP ERFORMED BY: [place] 6504970 [place] [facility] [id number] ALT [Catalytic activity/Vol] 14 [iU]/L Normal 0-32 [facility] Work Phone: Comment on above: PATIENT WAS FASTINGP ERFORMED BY: [place] 6504970 [place] [facility] [id number] ALT [Catalytic activity/Vol] 14 U/L Normal 0-32 [facility]; [facility] Work Phone: Comment on above: PATIENT WAS FASTINGP ERFORMED BY: [place] 6504970 [place] [facility] [id number] AST [Catalytic activity/Vol] 19 [iU]/L Normal 0-40 [facility] Work Phone: Comment on above: PATIENT WAS FASTINGP ERFORMED BY: [place] 6504970 [address] [facility]in [place] [id number] AST [Catalytic activity/Vol] 19 U/L Normal 0-40 [facility]; [facility] Work Phone: Comment on above: PATIENT WAS FASTINGP ERFORMED BY: [facility] Pgjyea5570 [address] RoadDublin [place] [id number] Bilirubin [Mass/Vol] 0.4 mg/dL Normal 0.0-1.2 [facility] Work Phone: Comment on above: PATIENT WAS FASTINGP ERFORMED BY: [facility] Dvvycr4380 [address] RoadDublin [place] [id number] Calcium [Mass/Vol] 9.5 mg/dL Normal 8.7-10.2 [facility] Internal Medicine Work Phone: Comment on above: PATIENT WAS FASTINGP ERFORMED BY: [facility] Lnyqxp3534 [address] RoadDublin [place] [id number] Chloride [Moles/Vol] 97 mmol/L Normal 96-106 [facility] Work Phone: Comment on above: PATIENT WAS FASTINGP ERFORMED BY: [facility] Jzdhap4283 [address] RoadDublin [place] [id number] CO2 [Moles/Vol] 23 mmol/L Normal 18-29 [facility] Internal Medicine Work Phone: Comment on above: PATIENT WAS FASTINGP ERFORMED BY: [facility] Akajwz1103 [address]Dublin [place] [id number] Creatinine [Mass/Vol] 0.63 mg/dL Normal 0.57-1.00 [facility] Internal Medicine Work Phone: Comment on above: PATIENT WAS FASTINGP ERFORMED BY: [facility] Dswhpl1509 [address] RoadDublin [place] [id number] GFR/1.73 sq M predicted among blacks CKD-EPI (S/P/Bld) [Vol rate/Area] 124 mL/min/1.73 Normal [facility] Work Phone: Comment on above: PATIENT WAS FASTINGP ERFORMED BY: [facility] Uenlcb1413 [address] RoadDublin [place] [id number] GFR/1.73 sq M predicted among non-blacks CKD-EPI (S/P/Bld) [Vol rate/Area] 107 mL/min/1.73 Normal [facility] Work Phone: Comment on above: PATIENT WAS FASTINGP ERFORMED BY: [facility] Wfspux4524 [address] RoadDublin [place] [id number] Globulin (S) [Mass/Vol] 2.4 g/dL Normal 1.5-4.5 [facility] Internal Medicine Work Phone: Comment on above: PATIENT WAS FASTINGP ERFORMED BY: [facility] Rpappw7234 [address] [facility] Hospitalbl[facility] [place] [id number] Glucose [Mass/Vol] 66 mg/dL Normal 65-99 [facility] Internal Medicine Work Phone: Comment on above: PATIENT WAS FASTINGP ERFORMED BY: [facility] Wggkck7450 [address] [facility]in [place] [id number] Potassium [Moles/Vol] 4.5 mmol/L Normal 3.5-5.2 [facility] Internal Medicine Work Phone: Comment on above: PATIENT WAS FASTINGP ERFORMED BY: [facility]6370 [address] [facility]in [place] [id number] Protein [Mass/Vol] 7.0 g/dL Normal 6.0-8.5 [facility] Internal Medicine Work Phone: Comment on above: PATIENT WAS FASTINGP ERFORMED BY: LabNorth [facility] HospitalZlawjc2884 [address] [facility]in [place] [id number] Sodium [Moles/Vol] 141 mmol/L Normal 134-144 [facility] Internal Medicine Work Phone: Comment on above: PATIENT WAS FASTINGP ERFORMED BY: [facility] Wkmepv3233 [address] [facility]in [place] [id number] Urea nitrogen [Mass/Vol] 12 mg/dL Normal 6-24 [facility] Internal Medicine Work Phone: Comment on above: PATIENT WAS FASTINGP ERFORMED BY: [facility] Msoagi7880 [address] RoadDublin [place] [id number] Urea nitrogen/Creatinine [Mass ratio] 19 mg/mg Normal 9-23 [facility] Internal Medicine Work Phone: Comment on above: PATIENT WAS FASTINGP ERFORMED BY: [facility] Uijqys4766 [address] [facility]in [place] [id number] Potassium Serum ([id number])Order ed By: Quality Engineer Medical Device on 05-05-2015 Potassium [Moles/Vol] 4.8 mmol/L Normal 3.5-5.2 [facility] Work Phone: Comment on above: PATIENT WAS FASTINGP ERFORMED BY: [facility] Zedusx3422 [facility] [id number] Information: [id number] Metabolic Panel, Comprehensi ve ([id number])Ordered By: Quality Engineer Medical Device on 07-05-2014 Albumin [Mass/Vol] 4.8 g/dL Normal 3.5-5.5 [facility] Internal Medicine Work Phone: Comment on above: 3-4 weeks; PATIENT N OT FASTINGPERFORMED BY: [facility] Ckmthd4282 [place] [facility] [id number] Information: [id number] Albumin/Globulin [Mass ratio] 1.8 {ratio} Normal 1.1-2.5 [facility] Internal Medicine Work Phone: Comment on above: 3-4 weeks; PATIENT N OT FASTINGPERFORMED BY: TRAN [facility] Ziembt4914 [facility] [id number] Information: [id number] ALP [Catalytic activity/Vol] 70 [iU]/L Normal 39-117 [facility] Work Phone: Comment on above: 3-4 weeks; PATIENT N OT FASTINGPERFORMED BY: [facility] Nzwphe0410 [address] [facility]in [place] [id number] Information: [id number] ALP [Catalytic activity/Vol] 70 U/L Normal 39-117 [facility]; [facility] Work Phone: Comment on above: 3-4 weeks; PATIENT N OT FASTINGPERFORMED BY: TRAN [facility] Lvispo0610 [address] [facility]in [place] [id number] Information: [id number] ALT [Catalytic activity/Vol] 11 [iU]/L Normal 0-32 [facility] Work Phone: Comment on above: 3-4 weeks; PATIENT N OT FASTINGPERFORMED BY: CB [facility] Lrktcv7255 [address] [facility]bl[facility] [place] [id number] Information: [id number] ALT [Catalytic activity/Vol] 11 U/L Normal 0-32 [facility]; [facility] Work Phone: Comment on above: 3-4 weeks; PATIENT N OT FASTINGPERFORMED BY: CB [facility] Uplthx1489 [address] RoadDuin [place] [id number] Information: [id number] AST [Catalytic activity/Vol] 16 [iU]/L Normal 0-40 [facility] Work Phone: Comment on above: 3-4 weeks; PATIENT N OT FASTINGPERFORMED BY: CB [facility] Xqkbtm0945 [address] RoadReplaced by [facility] [id number] Information: [id number] AST [Catalytic activity/Vol] 16 U/L Normal 0-40 [facility]; [facility] Work Phone: Comment on above: 3-4 weeks; PATIENT N OT FASTINGPERFORMED BY: CB [facility] Yaibod6501 [facility] [id number] Information: [id number] Bilirubin [Mass/Vol] 0.4 mg/dL Normal 0.0-1.2 Comp [facility] Internal [facility] Work Phone: Comment on above: 3-4 weeks; PATIENT N OT FASTINGPERFORMED BY: CB [facility] Jwiogb6882 [facility] [id number] Information: [id number] Calcium [Mass/Vol] 9.9 mg/dL Normal 8.7-10.2 Compre [facility] Internal Medicine Work Phone: Comment on above: 3-4 weeks; PATIENT N OT FASTINGPERFORMED BY: CB [facility] Xacpyv6133 [facility] [id number] Information: [id number] Chloride [Moles/Vol] 99 mmol/L Normal 97-108 [facility] Work Phone: Comment on above: 3-4 weeks; PATIENT N OT FASTINGPERFORMED BY: CB [facility] Syfkdq2373 [facility] [id number] Information: [id number] CO2 [Moles/Vol] 27 mmol/L Normal 18-29 [facility] Internal Medicine Work Phone: Comment on above: 3-4 weeks; PATIENT N OT FASTINGPERFORMED BY: CB [facility] Ioqwyi9861 [facility] [id number] Information: [id number] Creatinine [Mass/Vol] 0.76 mg/dL Normal 0.57-1.00 [facility] Internal Medicine Work Phone: Comment on above: 3-4 weeks; PATIENT N OT FASTINGPERFORMED BY: [facility] Xsbvdz4372 [facility] [id number] Information: [id number] GFR/1.73 sq M predicted among blacks CKD-EPI (S/P/Bld) [Vol rate/Area] 110 mL/min/1.73 Normal [facility] Work Phone: Comment on above: 3-4 weeks; PATIENT N OT FASTINGPERFORMED BY: [facility] Xnschi8266 [facility] [id number] Information: [id number],[id number] GFR/1.73 sq M predicted among non-blacks CKD-EPI (S/P/Bld) [Vol rate/Area] 95 mL/min/1.73 Normal [facility] Work Phone: Comment on above: 3-4 weeks; PATIENT N OT FASTINGPERFORMED BY: [facility] Glzbeh2349 [facility] [id number] Information: [id number] Globulin (S) [Mass/Vol] 2.7 g/dL Normal 1.5-4.5 [facility] Work Phone: Comment on above: 3-4 weeks; PATIENT N OT FASTINGPERFORMED BY: CB [facility] Ubmfmp1283 [place] RoadDublin [place] [id number] Information: [id number],[id number] Glucose [Mass/Vol] 84 mg/dL Normal 65-99 [facility] Internal Medicine Work Phone: Comment on above: 3-4 weeks; PATIENT N OT FASTINGPERFORMED BY: CB [facility] Mvwkqz0417 [place] RoadCarepartners Rehabilitation Hospitalin [place] [id number] Information: [id number],[id number] Potassium [Moles/Vol] 4.1 mmol/L Normal 3.5-5.2 [facility] Internal Medicine Work Phone: Comment on above: 3-4 weeks; PATIENT N OT FASTINGPERFORMED BY: CB [facility] Joosid0262 [place] [facility] [place] [id number] Information: [id number] Protein [Mass/Vol] 7.5 g/dL Normal 6.0-8.5 [facility] Internal Medicine Work Phone: Comment on above: 3-4 weeks; PATIENT N OT FASTINGPERFORMED BY: CB [facility] Qmghtu1956 [place] [facility] [place] [id number] Information: [id number],G19901 Sodium [Moles/Vol] 142 mmol/L Normal 134-144 [facility] Internal Medicine Work Phone: Comment on above: 3-4 weeks; PATIENT N OT FASTINGPERFORMED BY: CB [facility] Hychvf0711 [place] [facility] [place] [id number] Information: [id number] Urea nitrogen [Mass/Vol] 11 mg/dL Normal 6-24 [facility] Internal Medicine Work Phone: Comment on above: 3-4 weeks; PATIENT N OT FASTINGPERFORMED BY: CB [facility] Meotcw3933 [place] Roadblin [place] [id number] Information: [id number] Urea nitrogen/Creatinine [Mass ratio] 14 mg/mg Normal 9-23 [facility] Internal Medicine Work Phone: Comment on above: 3-4 weeks; PATIENT N OT FASTINGPERFORMED BY: TRAN [facility] Sfvlby7704 [facility] [id number] Information: [id number] Potassium Serum (68528)Order ed By: Quality Engineer Medical Device on 06-07-2014 Potassium [Moles/Vol] 4.1 mmol/L Normal 3.5-5.2 [facility] Internal Medicine Work Phone: Comment on above: PATIENT NOT FASTINGP ERFORMED BY: TRAN [facility] Pkzdwu4453 [facility] [id number] Information: [id number] Metabolic Panel, Comprehensi ve (36962)Ordered By: Quality Engineer Medical Device on 05-31-2014 Albumin [Mass/Vol] 4.5 g/dL Normal 3.5-5.5 [facility] Internal Medicine Work Phone: Comment on above: Test(s) Potassium, S jeyson called to Dr Chavis on 05/31/2014 at 23:30 ESTPATIENT NOT FASTINGPERFORMED BY: [facility] Furgok0846 [facility] [id number] Information: [id number] Albumin/Globulin [Mass ratio] 1.7 {ratio} Normal 1.1-2.5 [facility] Internal Medicine Work Phone: Comment on above: Test(s) Potassium, S jeyson called to Dr Chavis on 05/31/2014 at 23:30 ESTPATIENT NOT FASTINGPERFORMED BY: [facility] Irulak1233 [facility] [id number] Information: [id number] ALP [Catalytic activity/Vol] 58 [iU]/L Normal 39-117 [facility] Work Phone: Comment on above: Test(s) Potassium, S jeyson called to Dr Chavis on 05/31/2014 at 23:30 ESTPATIENT NOT FASTINGPERFORMED BY: [facility] Nvsdkm4515 [facility] [id number] Information: 898926,[id number] ALP [Catalytic activity/Vol] 58 U/L Normal 39-117 [facility]; [facility] Work Phone: Comment on above: Test(s) Potassium, S jeyson called to Dr Chavis on 05/31/2014 at 23:30 ESTPATIENT NOT FASTINGPERFORMED BY: LabMedicastRebecca [place] 7171670 [facility] [id number] Information: [id number],[id number] ALT [Catalytic activity/Vol] 9 [iU]/L Normal 0-32 [facility] Work Phone: Comment on above: Test(s) Potassium, S jeyson called to Dr Chavis on 05/31/2014 at 23:30 ESTPATIENT NOT FASTINGPERFORMED BY: LabMedicast[address] [id number] Information: [id number] ALT [Catalytic activity/Vol] 9 U/L Normal 0-32 [facility]; [facility] Work Phone: Comment on above: Test(s) Potassium, S jeyson called to Dr Chavis on 05/31/2014 at 23:30 ESTPATIENT NOT FASTINGPERFORMED BY: LabMedicast[address] [id number] Information: [id number],[id number] AST [Catalytic activity/Vol] 16 [iU]/L Normal 0-40 [facility] Work Phone: Comment on above: Test(s) Potassium, S jeyson called to Dr Chavis on 05/31/2014 at 23:30 ESTPATIENT NOT FASTINGPERFORMED BY: [place] 6504970 [facility] [id number] Information: [id number] AST [Catalytic activity/Vol] 16 U/L Normal 0-40 [facility]; [facility] Work Phone: Comment on above: Test(s) Potassium, S jeyson called to Dr Chavis on 05/31/2014 at 23:30 ESTPATIENT NOT FASTINGPERFORMED BY: [facility]6370 [facility] [id number] Information: 416757,E10070 Bilirubin [Mass/Vol] 0.4 mg/dL Normal 0.0-1.2 [facility] Work Phone: Comment on above: Test(s) Potassium, S jeyson called to Dr Chavis on 05/31/2014 at 23:30 ESTPATIENT NOT FASTINGPERFORMED BY: [place] 6504970 [facility] [id number] Information: [id number] Calcium [Mass/Vol] 10.2 mg/dL Normal 8.7-10.2 [facility] Internal Medicine Work Phone: Comment on above: Test(s) Potassium, S jeyson called to Dr Chavis on 05/31/2014 at 23:30 ESTPATIENT NOT FASTINGPERFORMED BY: [place] 6504970 [facility] [id number] Information: 663277,G91264 Chloride [Moles/Vol] 101 mmol/L Normal 97-108 [facility] Work Phone: Comment on above: Test(s) Potassium, S jeyson called to Dr Chavis on 05/31/2014 at 23:30 ESTPATIENT NOT FASTINGPERFORMED BY: [facility]6370 [facility] [id number] Information: [id number] CO2 [Moles/Vol] 24 mmol/L Normal 18-29 [facility] Internal Medicine Work Phone: Comment on above: Test(s) Potassium, S jeyson called to Dr Chavis on 05/31/2014 at 23:30 ESTPATIENT NOT FASTINGPERFORMED BY: [place] 6504970 [facility] [id number] Information: [id number] Creatinine [Mass/Vol] 0.88 mg/dL Normal 0.57-1.00 [facility] Internal Medicine Work Phone: Comment on above: Test(s) Potassium, S jeyson called to Dr Chavis on 05/31/2014 at 23:30 ESTPATIENT NOT FASTINGPERFORMED BY: [employer] Qqoqcl1833 [facility] [id number] Information: [id number] GFR/1.73 sq M predicted among blacks CKD-EPI (S/P/Bld) [Vol rate/Area] 92 mL/min/1.73 Normal [facility] Work Phone: Comment on above: Test(s) Potassium, S jeyson called to Dr Chavis on 05/31/2014 at 23:30 ESTPATIENT NOT FASTINGPERFORMED BY: [employer] Avglzy7348 [facility] [id number] Information: 906725,M71316 GFR/1.73 sq M predicted among non-blacks CKD-EPI (S/P/Bld) [Vol rate/Area] 80 mL/min/1.73 Normal [facility] Work Phone: Comment on above: Test(s) Potassium, S jeyson called to Dr Chavis on 05/31/2014 at 23:30 ESTPATIENT NOT FASTINGPERFORMED BY: [employer] Inlqos4789 [facility] [id number] Information: 052845,[id number] Globulin (S) [Mass/Vol] 2.6 g/dL Normal 1.5-4.5 [facility] Work Phone: Comment on above: Test(s) Potassium, S jeyson called to Dr Chavis on 05/31/2014 at 23:30 ESTPATIENT NOT FASTINGPERFORMED BY: [employer] Euppkk3847 [facility] [id number] Information: [id number],[id number] Glucose [Mass/Vol] 87 mg/dL Normal 65-99 [facility] Internal Medicine Work Phone: Comment on above: Test(s) Potassium, S jeyson called to Dr Chavis on 05/31/2014 at 23:30 ESTPATIENT NOT FASTINGPERFORMED BY: [employer] Lwclgy1461 [facility] [id number] Information: [id number],[id number] Potassium [Moles/Vol] 5.6 mmol/L Abnormal 3.5-5.2 [facility] Internal Medicine Work Phone: Comment on above: Client Requested Fla g Test(s) Potassium, S jeyson called to Dr Chavis on 05/31/2014 at 23:30 ESTPATIENT NOT FASTINGPERFORMED BY: [employer] Mwrizo2107 [facility] [id number] Information: [id number],Q38905 Protein [Mass/Vol] 7.1 g/dL Normal 6.0-8.5 [facility] Internal Medicine Work Phone: Comment on above: Test(s) Potassium, S jeyson called to Dr Chavis on 05/31/2014 at 23:30 ESTPATIENT NOT FASTINGPERFORMED BY: [employer] Pmsaba4329 [facility] [id number] Information: 236782,[id number] Sodium [Moles/Vol] 142 mmol/L Normal 134-144 [facility] Internal Medicine Work Phone: Comment on above: Test(s) Potassium, S jeyson called to Dr Chavis on 05/31/2014 at 23:30 ESTPATIENT NOT FASTINGPERFORMED BY: [employer] Yhxrjn8869 [facility] [id number] Information: [id number],[id number] Urea nitrogen [Mass/Vol] 11 mg/dL Normal 6-24 [facility] Internal Medicine Work Phone: Comment on above: Test(s) Potassium, S jeyson called to Dr Chavis on 05/31/2014 at 23:30 ESTPATIENT NOT FASTINGPERFORMED BY: [employer] Ivhxth4437 [facility] [id number] Information: [id number] Urea nitrogen/Creatinine [Mass ratio] 13 mg/mg Normal 9-23 [facility] Work Phone: Comment on above: Test(s) Potassium, S jeyson called to Dr Chavis on 05/31/2014 at 23:30 ESTPATIENT NOT FASTINGPERFORMED BY: [facility]6370 [facility] [id number] Information: [id number] CBC W/AUTO DIFF WBC (58161)O rdered By: Quality Engineer Medical Device on 05-26-2014 Basophils (Bld) [#/Vol] 0.0 {x10E3/uL} Normal 0.0-0.2 [facility] Work Phone: Comment on above: Test(s) Potassium, S jeyson called to Dr Breen on 05/27/2014 at 03:58 ESTPATIENT WAS FASTINGPERFORMED BY: [facility]6370 [facility] [id number] Information: [id number] Basophils (Bld) [#/Vol] 0.0 10*3/uL Normal 0.0-0.2 [facility]; [facility] Work Phone: Comment on above: Test(s) Potassium, S jeyson called to Dr Breen on 05/27/2014 at 03:58 ESTPATIENT WAS FASTINGPERFORMED BY: [facility]6370 [facility] [id number] Information: [id number] Basophils/100 WBC (Bld) 0 % Normal 0-3 [facility] Work Phone: Comment on above: Test(s) Potassium, S jeyson called to Dr Breen on 05/27/2014 at 03:58 ESTPATIENT WAS FASTINGPERFORMED BY: [facility]6370 [facility] [id number] Information: 071045,[id number] Eosinophils (Bld) [#/Vol] 0.1 {x10E3/uL} Normal 0.0-0.4 [facility] Work Phone: Comment on above: Test(s) Potassium, S jeyson called to Dr Breen on 05/27/2014 at 03:58 ESTPATIENT WAS FASTINGPERFORMED BY: [facility]6370 [facility] [id number] Information: [id number],S19914 Eosinophils (Bld) [#/Vol] 0.1 10*3/uL Normal 0.0-0.4 [facility]; [facility] Work Phone: Comment on above: Test(s) Potassium, S jeyson called to Dr Breen on 05/27/2014 at 03:58 ESTPATIENT WAS FASTINGPERFORMED BY: [employer] Jxegpc8081 [facility] [id number] Information: [id number] Eosinophils/100 WBC (Bld) 1 % Normal 0-5 [facility] Work Phone: Comment on above: Test(s) Potassium, S jeyson called to Dr Breen on 05/27/2014 at 03:58 ESTPATIENT WAS FASTINGPERFORMED BY: [employer]70 [facility] [id number] Information: 163992,[id number] Erythrocyte distribution width (RBC) [Ratio] 13.2 % Normal 12.3-15.4 [facility] Work Phone: Comment on above: Test(s) Potassium, S jeyson called to Dr Breen on 05/27/2014 at 03:58 ESTPATIENT WAS FASTINGPERFORMED BY: [employer] Swtrah0289 [facility] [id number] Information: [id number] Hematocrit (Bld) [Volume fraction] 41.5 % Normal 34.0-46.6 [facility] Work Phone: Comment on above: Test(s) Potassium, S jeyson called to Dr Breen on 05/27/2014 at 03:58 ESTPATIENT WAS FASTINGPERFORMED BY: [employer] Agqrpk8385 [facility] [id number] Information: 920897,S40704 Hemoglobin (Bld) [Mass/Vol] 14.4 g/dL Normal 11.1-15.9 [facility] Work Phone: Comment on above: Test(s) Potassium, S jeyson called to Dr Breen on 05/27/2014 at 03:58 ESTPATIENT WAS FASTINGPERFORMED BY: [facility]6370 [facility] [id number] Information: 026976,[id number] Immature granulocytes (Bld) [#/Vol] 0.0 {x10E3/uL} Normal 0.0-0.1 [facility] Work Phone: Comment on above: Test(s) Potassium, S jeyson called to Dr Breen on 05/27/2014 at 03:58 ESTPATIENT WAS FASTINGPERFORMED BY: [place] 6504970 [facility] [id number] Information: 277715,[id number] Immature granulocytes (Bld) [#/Vol] 0.0 10*3/uL Normal 0.0-0.1 [facility]; [facility] Work Phone: Comment on above: Test(s) Potassium, S jeyson called to Dr Breen on 05/27/2014 at 03:58 ESTPATIENT WAS FASTINGPERFORMED BY: [place] HospitalMedicastRebecca Ville 7171670 [facility] [id number] Information: [id number],[id number] Immature granulocytes/100 WBC (Bld) 0 % Normal 0-2 [facility] Work Phone: Comment on above: Test(s) Potassium, S jeyson called to Dr Breen on 05/27/2014 at 03:58 ESTPATIENT WAS FASTINGPERFORMED BY: [place] 6504970 [facility] [id number] Information: [id number] Lymphocytes (Bld) [#/Vol] 2.5 {x10E3/uL} Normal 0.7-3.1 [facility] Work Phone: Comment on above: Test(s) Potassium, S jeyson called to Dr Breen on 05/27/2014 at 03:58 ESTPATIENT WAS FASTINGPERFORMED BY: [facility]6370 [facility] [id number] Information: [id number],[id number] Lymphocytes (Bld) [#/Vol] 2.5 10*3/uL Normal 0.7-3.1 [facility]; [facility] Work Phone: Comment on above: Test(s) Potassium, S jeyson called to Dr Breen on 05/27/2014 at 03:58 ESTPATIENT WAS FASTINGPERFORMED BY: [employer] Xdqtld6865 [facility] [id number] Information: [id number] Lymphocytes/100 WBC (Bld) 36 % Normal 14-46 [facility] Work Phone: Comment on above: Test(s) Potassium, S jeyson called to Dr Breen on 05/27/2014 at 03:58 ESTPATIENT WAS FASTINGPERFORMED BY: SubtleData70 [facility] [id number] Information: [id number],[id number] MCH (RBC) [Entitic mass] 28.4 pg Normal 26.6-33.0 [facility] Work Phone: Comment on above: Test(s) Potassium, S jeyson called to Dr Breen on 05/27/2014 at 03:58 ESTPATIENT WAS FASTINGPERFORMED BY: [employer] Mqbmxe8577 [facility] [id number] Information: [id number],[id number] MCHC (RBC) [Mass/Vol] 34.7 g/dL Normal 31.5-35.7 [facility] prehensive Internal Medicine Work Phone: Comment on above: Test(s) Potassium, S jeyson called to Dr Breen on 05/27/2014 at 03:58 ESTPATIENT WAS FASTINGPERFORMED BY: Lab[facility] Rsjcbm7276 [facility] [id number] Information: [id number] MCV (RBC) [Entitic vol] 82 fL Normal 79-97 [facility] Work Phone: Comment on above: Test(s) Potassium, S jeyson called to Dr Breen on 05/27/2014 at 03:58 ESTPATIENT WAS FASTINGPERFORMED BY: [facility] Cbyjcb8472 [facility] [id number] Information: [id number] Monocytes (Bld) [#/Vol] 0.5 {x10E3/uL} Normal 0.1-0.9 [facility] Work Phone: Comment on above: Test(s) Potassium, S jeyson called to Dr Breen on 05/27/2014 at 03:58 ESTPATIENT WAS FASTINGPERFORMED BY: LineHopRehabilitation Hospital of Southern New MexicoHnrwli5554 [facility] [id number] Information: [id number] Monocytes (Bld) [#/Vol] 0.5 10*3/uL Normal 0.1-0.9 [facility]; [facility] Work Phone: Comment on above: Test(s) Potassium, S jeyson called to Dr Breen on 05/27/2014 at 03:58 ESTPATIENT WAS FASTINGPERFORMED BY: [employer] Toxtsh5656 [facility] [id number] Information: [id number] Monocytes/100 WBC (Bld) 8 % Normal 4-12 [facility] Work Phone: Comment on above: Test(s) Potassium, S jeyson called to Dr Breen on 05/27/2014 at 03:58 ESTPATIENT WAS FASTINGPERFORMED BY: [employer] Tcmdvp6976 [facility] [id number] Information: [id number],[id number] Neutrophils (Bld) [#/Vol] 3.7 {x10E3/uL} Normal 1.4-7.0 [facility] Work Phone: Comment on above: Test(s) Potassium, S jeyson called to Dr Breen on 05/27/2014 at 03:58 ESTPATIENT WAS FASTINGPERFORMED BY: [facility]6370 [facility] [id number] Information: 518182,[id number] Neutrophils (Bld) [#/Vol] 3.7 10*3/uL Normal 1.4-7.0 [facility]; [facility] Work Phone: Comment on above: Test(s) Potassium, S jeyson called to Dr Breen on 05/27/2014 at 03:58 ESTPATIENT WAS FASTINGPERFORMED BY: [facility] Kdxxau5249 [facility] [id number] Information: [id number] Neutrophils/100 WBC (Bld) 55 % Normal 40-74 [facility] Work Phone: Comment on above: Test(s) Potassium, S jeyson called to Dr Breen on 05/27/2014 at 03:58 ESTPATIENT WAS FASTINGPERFORMED BY: LabNorth [facility] City HospitalGfgjcu6125 [facility] [id number] Information: 632717,S03073 Platelets (Bld) [#/Vol] 284 {x10E3/uL} Normal 150-379 [facility] Work Phone: Comment on above: Test(s) Potassium, S jeyson called to Dr Breen on 05/27/2014 at 03:58 ESTPATIENT WAS FASTINGPERFORMED BY: ILD TeleservicesNorth Kansas City HospitalHznprw2090 [facility] [id number] Information: [id number] Platelets (Bld) [#/Vol] 284 10*3/uL Normal 150-379 [facility]; [facility] Work Phone: Comment on above: Test(s) Potassium, S jeyson called to Dr Breen on 05/27/2014 at 03:58 ESTPATIENT WAS FASTINGPERFORMED BY: [facility] Klddgm0809 [facility] [id number] Information: [id number] RBC (Bld) [#/Vol] 5.07 {x10E6/uL} Normal 3.77-5.28 [facility] Internal Medicine Work Phone: Comment on above: Test(s) Potassium, S jeyson called to Dr Breen on 05/27/2014 at 03:58 ESTPATIENT WAS FASTINGPERFORMED BY: [facility] Apylxg8534 [facility] [id number] Information: 630881,[id number] RBC (Bld) [#/Vol] 5.07 10*6/uL Normal 3.77-5.28 [facility] Internal Medicine; [facility] Work Phone: Comment on above: Test(s) Potassium, S jeyson called to Dr Breen on 05/27/2014 at 03:58 ESTPATIENT WAS FASTINGPERFORMED BY: [employer]70 [place] MetalCompassReplaced by [facility] [id number] Information: [id number] WBC (Bld) [#/Vol] 6.8 {x10E3/uL} Normal 3.4-10.8 [facility] Internal Medicine Work Phone: Comment on above: Test(s) Potassium, S jeyson called to Dr Breen on 05/27/2014 at 03:58 ESTPATIENT WAS FASTINGPERFORMED BY: TRAN [employer]tleData70 [facility] [id number] Information: [id number] WBC (Bld) [#/Vol] 6.8 10*3/uL Normal 3.4-10.8 [facility] Internal Medicine; [facility] Work Phone: Comment on above: Test(s) Potassium, S jeyson called to Dr Breen on 05/27/2014 at 03:58 ESTPATIENT WAS FASTINGPERFORMED BY: TRAN SubtleData70 [facility] [id number] Information: [id number] GONADOTROPIN-FSH ([id number])Orde red By: Quality Engineer Medical Device on 05-26-2014 Follitropin Qn 153.5 m[IU]/mL Normal [facility] Internal Medicine Work Phone: Comment on above: Follicular phase 3.5 - 12.5 Ovulation phase 4.7 - 21.5 Luteal phase 1.7 - 7.7 Postmenopausal 25.8 - 134.8 Test(s) Potassium, S jeyson called to Dr Breen on 05/27/2014 at 03:58 ESTPATIENT WAS FASTINGPERFORMED BY: [employer]70 [place] MetalCompassReplaced by [facility] [id number] GONADOTROPIN-LH ([id number])Order ed By: Quality Engineer Medical Device on 05-26-2014 Lutropin Qn 47.8 m[IU]/mL Normal Com[facility] Internal Medicine Work Phone: Comment on above: Follicular phase 2.4 - 12.6 Ovulation phase 14.0 - 95.6 Luteal phase 1.0 - 11.4 Postmenopausal 7.7 - 58.5 Test(s) Potassium, S jeyson called to Dr Breen on 05/27/2014 at 03:58 ESTPATIENT WAS FASTINGPERFORMED BY: Dp[facility]isionAt[facility] [id number] LIPID PANEL ([id number])Ordered B y: Quality Engineer Medical Device on 05-26-2014 Cholesterol [Mass/Vol] 243 mg/dL Abnormal 100-199 [facility] Work Phone: Comment on above: Test(s) Potassium, S jeyson called to Dr Breen on 05/27/2014 at 03:58 ESTPATIENT WAS FASTINGPERFORMED BY: DpivisionAt[facility] [id number] Cholesterol in HDL [Mass/Vol] 90 mg/dL Normal [facility] Work Phone: Comment on above: According to ATP-III Guidelines, HDL-C >59 mg/dL is considered anegative risk factor for CHD. Test(s) Potassium, S jeyson called to Dr Breen on 05/27/2014 at 03:58 ESTPATIENT WAS FASTINGPERFORMED BY: [place] [id number] Cholesterol in LDL [Mass/Vol] 139 mg/dL Abnormal 0-99 [facility] Work Phone: Comment on above: Test(s) Potassium, S jeyson called to Dr Breen on 05/27/2014 at 03:58 ESTPATIENT WAS FASTINGPERFORMED BY: [facility] [id number] Cholesterol in LDL/Cholesterol in HDL [Mass ratio] 1.5 {ratio_units} Normal 0.0-3.2 [facility] Work Phone: Comment on above: Test(s) Potassium, S jeyson called to Dr Breen on 05/27/2014 at 03:58 ESTPATIENT WAS FASTINGPERFORMED BY: [employer]70 [facility] [id number] Cholesterol in VLDL [Mass/Vol] 14 mg/dL Normal 5-40 [facility] Work Phone: Comment on above: Test(s) Potassium, S jeyson called to Dr Breen on 05/27/2014 at 03:58 ESTPATIENT WAS FASTINGPERFORMED BY: Health Gorilla LabPixel Qi70 [facility] [id number] Triglyceride [Mass/Vol] 70 mg/dL Normal 0-149 [facility] Work Phone: Comment on above: Test(s) Potassium, S jeyson called to Dr Breen on 05/27/2014 at 03:58 ESTPATIENT WAS FASTINGPERFORMED BY: Health Gorilla LabPixel Qi70 [facility] [id number] METABOLIC PANEL, COMPREHENSI VE ([id number])Ordered By: Quality Engineer Medical Device on 05-26-2014 Albumin [Mass/Vol] 4.9 g/dL Normal 3.5-5.5 [facility] Work Phone: Comment on above: Test(s) Potassium, S jeyson called to Dr Breen on 05/27/2014 at 03:58 ESTPATIENT WAS FASTINGPERFORMED BY: LabPixel Qi70 [facility] [id number] Albumin/Globulin [Mass ratio] 1.8 {ratio} Normal 1.1-2.5 [facility] Work Phone: Comment on above: Test(s) Potassium, S jeyson called to Dr Breen on 05/27/2014 at 03:58 ESTPATIENT WAS FASTINGPERFORMED BY: [employer]70 [facility] [id number] ALP [Catalytic activity/Vol] 65 [iU]/L Normal 39-117 [facility] Work Phone: Comment on above: Test(s) Potassium, S jeyson called to Dr Breen on 05/27/2014 at 03:58 ESTPATIENT WAS FASTINGPERFORMED BY: LabMedicast Yxaych9746 [address] RoadDublin [place] [id number] ALP [Catalytic activity/Vol] 65 U/L Normal 39-117 [facility]; [facility] Work Phone: Comment on above: Test(s) Potassium, S jeyson called to Dr Breen on 05/27/2014 at 03:58 ESTPATIENT WAS FASTINGPERFORMED BY: Health Gorilla LabMedicastrp Teykng7636 [address] RoadDublin [place] [id number] ALT [Catalytic activity/Vol] 10 [iU]/L Normal 0-32 [facility] Work Phone: Comment on above: Test(s) Potassium, S jeyson called to Dr Breen on 05/27/2014 at 03:58 ESTPATIENT WAS FASTINGPERFORMED BY: TripShake[address] MetalCompassDublin [place] [id number] ALT [Catalytic activity/Vol] 10 U/L Normal 0-32 [facility]; [facility] Work Phone: Comment on above: Test(s) Potassium, S jeyson called to Dr Breen on 05/27/2014 at 03:58 ESTPATIENT WAS FASTINGPERFORMED BY: [employer]70 [place] MetalCompassReplaced by [facility] [id number] AST [Catalytic activity/Vol] 16 [iU]/L Normal 0-40 [facility] Work Phone: Comment on above: Test(s) Potassium, S jeyson called to Dr Breen on 05/27/2014 at 03:58 ESTPATIENT WAS FASTINGPERFORMED BY: TripShake6370 [address] RoadDublin [place] [id number] AST [Catalytic activity/Vol] 16 U/L Normal 0-40 [facility]; [facility] Work Phone: Comment on above: Test(s) Potassium, S jeyson called to Dr Breen on 05/27/2014 at 03:58 ESTPATIENT WAS FASTINGPERFORMED BY: TripShake6370 [address] RoadDuin [place] [id number] Bilirubin [Mass/Vol] 0.4 mg/dL Normal 0.0-1.2 [facility] Work Phone: Comment on above: Test(s) Potassium, S jeyson called to Dr Breen on 05/27/2014 at 03:58 ESTPATIENT WAS FASTINGPERFORMED BY: [employer]70 [facility] [id number] Calcium [Mass/Vol] 10.6 mg/dL Abnormal 8.7-10.2 [facility] Medicine Work Phone: Comment on above: Test(s) Potassium, S jeyson called to Dr Breen on 05/27/2014 at 03:58 ESTPATIENT WAS FASTINGPERFORMED BY: DpivisionCYP Design [place] [id number] Chloride [Moles/Vol] 99 mmol/L Normal 97-108 [facility] Work Phone: Comment on above: Test(s) Potassium, S jeyson called to Dr Breen on 05/27/2014 at 03:58 ESTPATIENT WAS FASTINGPERFORMED BY: [employer]70 [facility] [id number] CO2 [Moles/Vol] 25 mmol/L Normal 18-29 [facility] Internal Medicine Work Phone: Comment on above: Test(s) Potassium, S jeyson called to Dr Breen on 05/27/2014 at 03:58 ESTPATIENT WAS FASTINGPERFORMED BY: [employer]70 [facility] [id number] Creatinine [Mass/Vol] 0.75 mg/dL Normal 0.57-1.00 [facility] Internal Medicine Work Phone: Comment on above: Test(s) Potassium, S jeyson called to Dr Breen on 05/27/2014 at 03:58 ESTPATIENT WAS FASTINGPERFORMED BY: [employer]70 [facility] [id number] GFR/1.73 sq M predicted among blacks CKD-EPI (S/P/Bld) [Vol rate/Area] 111 mL/min/1.73 Normal [facility] Internal Medicine Work Phone: Comment on above: Test(s) Potassium, S jeyson called to Dr Breen on 05/27/2014 at 03:58 ESTPATIENT WAS FASTINGPERFORMED BY: SubtleData70 [facility] [id number] GFR/1.73 sq M predicted among non-blacks CKD-EPI (S/P/Bld) [Vol rate/Area] 97 mL/min/1.73 Normal [facility] Internal Medicine Work Phone: Comment on above: Test(s) Potassium, S jeyson called to Dr Breen on 05/27/2014 at 03:58 ESTPATIENT WAS FASTINGPERFORMED BY: SubtleData70 [facility] [id number] Globulin (S) [Mass/Vol] 2.8 g/dL Normal 1.5-4.5 [facility] Internal Medicine Work Phone: Comment on above: Test(s) Potassium, S jeyson called to Dr Breen on 05/27/2014 at 03:58 ESTPATIENT WAS FASTINGPERFORMED BY: SubtleData70 [facility] [id number] Glucose [Mass/Vol] 87 mg/dL Normal 65-99 [facility] Internal Medicine Work Phone: Comment on above: Test(s) Potassium, S jeyson called to Dr Breen on 05/27/2014 at 03:58 ESTPATIENT WAS FASTINGPERFORMED BY: SubtleData70 [facility] [id number] Potassium [Moles/Vol] 5.7 mmol/L Abnormal 3.5-5.2 [facility] Internal Medicine Work Phone: Comment on above: Client Requested Fla g Test(s) Potassium, S jeyson called to Dr Breen on 05/27/2014 at 03:58 ESTPATIENT WAS FASTINGPERFORMED BY: SubtleData70 [place] MetalCompassReplaced by [facility] [id number] Protein [Mass/Vol] 7.7 g/dL Normal 6.0-8.5 [facility] Internal Medicine Work Phone: Comment on above: Test(s) Potassium, S jeyson called to Dr Breen on 05/27/2014 at 03:58 ESTPATIENT WAS FASTINGPERFORMED BY: [employer]70 [facility] [id number] Sodium [Moles/Vol] 141 mmol/L Normal 134-144 [facility] Internal Medicine Work Phone: Comment on above: Test(s) Potassium, S jeyson called to Dr Breen on 05/27/2014 at 03:58 ESTPATIENT WAS FASTINGPERFORMED BY: [employer]70 [facility] [id number] Urea nitrogen [Mass/Vol] 16 mg/dL Normal 6-24 [facility] Work Phone: Comment on above: Test(s) Potassium, S jeyson called to Dr Breen on 05/27/2014 at 03:58 ESTPATIENT WAS FASTINGPERFORMED BY: [facility]At[facility] [id number] Urea nitrogen/Creatinine [Mass ratio] 21 mg/mg Normal 9-23 [facility] Work Phone: Comment on above: Test(s) Potassium, S jeyson called to Dr Breen on 05/27/2014 at 03:58 ESTPATIENT WAS FASTINGPERFORMED BY: [employer]70 MailLiftReplaced by [facility] [id number] PROLACTIN ([id number])Ordered By: Quality Engineer Medical Device on 05-26-2014 Prolactin [Mass/Vol] 13.3 ng/mL Normal 4.8-23.3 [facility] Internal Medicine Work Phone: Comment on above: Test(s) Potassium, S jeyson called to Dr Breen on 05/27/2014 at 03:58 ESTPATIENT WAS FASTINGPERFORMED BY: [employer]70 MailLiftReplaced by [facility] [id number] TSH (34079)Ordered By: Syste m Paper Pattern Folder on 05-26-2014 TSH Qn 2.850 {uIU/mL} Normal 0.450-4.500 [facility] Internal Medicine Work Phone: Comment on above: Test(s) Potassium, S jeyson called to Dr Breen on 05/27/2014 at 03:58 ESTPATIENT WAS FASTINGPERFORMED BY: TripShake6370 [address] [place] [id number] Vitamin D Hydroxy (95676)Ord ered By: Quality Engineer Medical Device on 05-26-2014 25-Hydroxyvitamin D2+25-Hydroxyvitamin D3 [Mass/Vol] 35.1 ng/mL Normal 30.0-100.0 [facility] Internal Medicine Work Phone: Comment on above: Vitamin D deficiency has been defined by the [place] ofMedicine and an Endocrine Society practice guideline as alevel of serum 25-OH vitamin D less than 20 ng/mL (1,2).The Endocrine Society went on to further define vitamin Dinsufficiency as a level between 21 and 29 ng/mL (2).1. IOM ([place] of Medicine). 2010. Dietary reference intakes for calcium and D. [place]: The National Academies Press.2. Karla MF, Brett ANTUNEZ, Rosario MACIEL, et al. Evaluation, treatment, and prevention of vitamin D deficiency: an Endocrine Society clinical practice guideline. JCEM. 2010; 96(7):1911-30. Test(s) PotassiumGalileom called to Dr Breen on 05/27/2014 at 03:58 ESTPATIENT WAS FASTINGPERFORMED BY: TripShake6[address] [place] [id number] CALCIFIDIOL (63671) VIT D 25 Ordered By: Quality Engineer Medical Device on 08-22-2011 Calcitriol [Mass/Vol] 31.0 ng/mL Abnormal 32.0-100.0 [facility] Internal [facility] Work Phone: Comment on above: Effective Novembe r 2010 Vitamin D, 25-Hydroxy reference intervals will be changing to 30-100. .Recent studies consider the lower limit of 32.0 ng/mL to be athreshold for optimal health.Brandon ABERNATHY. J Nutr. 2004;135(2):317-22. PATIENT WAS FASTINGP ERFORMED BY: TripShake6370 MailLiftDublin [place] [id number] CBC (AUTO) ([id number])Ordered By : Quality Engineer Medical Device on 08-22-2011 Erythrocyte distribution width (RBC) [Ratio] 12.9 % Normal 11.7-15.0 [facility] Work Phone: Comment on above: PATIENT WAS FASTINGP ERFORMED BY: TRAN ChulaDrake DuronWvacus4885 [address] RoadDublin [place] [id number] Hematocrit (Bld) [Volume fraction] 42.0 % Normal 34.0-44.0 [facility] Work Phone: Comment on above: PATIENT WAS FASTINGP ERFORMED BY: TRAN [facility] Nttwyy0441 [address] RoadDublin [place] [id number] Hemoglobin (Bld) [Mass/Vol] 14.3 g/dL Normal 11.5-15.0 [facility] Internal Medicine Work Phone: Comment on above: PATIENT WAS FASTINGP ERFORMED BY: TRAN LabDrake DuronYjvofe0522 [address] RoadDublin [place] [id number] MCH (RBC) [Entitic mass] 28.3 pg Normal 27.0-34.0 [facility] Internal Medicine Work Phone: Comment on above: PATIENT WAS FASTINGP ERFORMED BY: TRAN LabCosuzanne DuronGdicsw9029 [address] RoadDublin [place] [id number] MCHC (RBC) [Mass/Vol] 34.0 g/dL Normal 32.0-36.0 [facility] Internal Medicine Work Phone: Comment on above: PATIENT WAS FASTINGP ERFORMED BY: TRAN [facility] Ouitwo4218 [address] RoadDublin [place] [id number] MCV (RBC) [Entitic vol] 83 fL Normal 80-98 [facility] Work Phone: Comment on above: PATIENT WAS FASTINGP ERFORMED BY: TRAN [facility] Uhhawh9348 [address] RoadDublin [place] [id number] Platelets (Bld) [#/Vol] 291 {x10E3/uL} Normal 140-415 [facility] Work Phone: Comment on above: PATIENT WAS FASTINGP ERFORMED BY: TRAN [facility] Qsgjmd1874 [address] RoadDublin [place] [id number] Platelets (Bld) [#/Vol] 291 10*3/uL Normal 140-415 [facility]; [facility] Work Phone: Comment on above: PATIENT WAS FASTINGP ERFORMED BY: TRAN LabCosuzanne MoncadaYdblst2708 [address] RoadDublin [place] [id number] RBC (Bld) [#/Vol] 5.06 {x10E6/uL} Normal 3.80-5.10 [facility] Internal Medicine Work Phone: Comment on above: PATIENT WAS FASTINGP ERFORMED BY: TRAN [facility] Yorntr5640 [address] RoadDublin [place] [id number] RBC (Bld) [#/Vol] 5.06 10*6/uL Normal 3.80-5.10 [facility] Internal Medicine; [facility] Work Phone: Comment on above: PATIENT WAS FASTINGP ERFORMED BY: TRAN LabCo Riynvz8688 [address] Roadblin [place] [id number] WBC (Bld) [#/Vol] 6.5 {x10E3/uL} Normal 4.0-10.5 [facility] Internal Medicine Work Phone: Comment on above: PATIENT WAS FASTINGP ERFORMED BY: TRAN [facility] Ftnwbk0582 [address] Roadblin [place] [id number] WBC (Bld) [#/Vol] 6.5 10*3/uL Normal 4.0-10.5 [facility]; [facility] Work Phone: Comment on above: PATIENT WAS FASTINGP ERFORMED BY: TRAN [facility] Xkjztt9158 [address] RoadDublin [place] [id number] LIPID PANEL ([id number])Ordered B y: Quality Engineer Medical Device on 08-22-2011 Cholesterol [Mass/Vol] 211 mg/dL Abnormal 100-199 [facility] Work Phone: Comment on above: PATIENT WAS FASTINGP ERFORMED BY: TRAN [facility] Fzyzux7679 [address] RoadDublin [place] [id number] Cholesterol in HDL [Mass/Vol] 77 mg/dL Normal [facility] Work Phone: Comment on above: According to ATP-III Guidelines, HDL-C >59 mg/dL is considered anegative risk factor for CHD. PATIENT WAS FASTINGP ERFORMED BY: TRAN [facility] Rfjuhr[address] [facility] Hospitalbl[facility] [place] [id number] Cholesterol in LDL [Mass/Vol] 119 mg/dL Abnormal 0-99 [facility] Work Phone: Comment on above: PATIENT WAS FASTINGP ERFORMED BY: CB [facility] Icfdvi[address] [facility]in [place] [id number] Cholesterol in LDL/Cholesterol in HDL [Mass ratio] 1.5 {ratio_units} Normal 0.0-3.2 [facility] Work Phone: Comment on above: PATIENT WAS FASTINGP ERFORMED BY: TRAN [facility] Ztdtmq5[address] [facility] [id number] Cholesterol in VLDL [Mass/Vol] 15 mg/dL Normal 5-40 [facility] Work Phone: Comment on above: PATIENT WAS FASTINGP ERFORMED BY: TRAN [facility] Vqgzdb1972 [address] [facility] [id number] Triglyceride [Mass/Vol] 76 mg/dL Normal 0-149 [facility] Work Phone: Comment on above: PATIENT WAS FASTINGP ERFORMED BY: TRAN [facility] Mjchgg[address]75 [address] [facility] [id number] METABOLIC PANEL, COMPREHENSI VE ([id number])Ordered By: Quality Engineer Medical Device on 08-22-2011 Albumin [Mass/Vol] 4.5 g/dL Normal 3.5-5.5 [facility] Internal Medicine Work Phone: Comment on above: PATIENT WAS FASTINGP ERFORMED BY: CB [facility] Gdimvg23[address] [facility]in [place] [id number] Information: [id number] Albumin/Globulin [Mass ratio] 1.6 {ratio} Normal 1.1-2.5 [facility] Work Phone: Comment on above: PATIENT WAS FASTINGP ERFORMED BY: CB [facility] Htttdd0127 [facility] [id number] Information: [id number] ALP [Catalytic activity/Vol] 67 [iU]/L Normal 25-150 [facility] Work Phone: Comment on above: PATIENT WAS FASTINGP ERFORMED BY: [facility] [facility] [id number] Information: [id number] ALP [Catalytic activity/Vol] 67 U/L Normal 25-150 [facility]; [facility] Work Phone: Comment on above: PATIENT WAS FASTINGP ERFORMED BY: LabMackin[facility]6370 [facility] [id number] Information: [id number] ALT [Catalytic activity/Vol] 13 [iU]/L Normal 0-40 [facility] Work Phone: Comment on above: PATIENT WAS FASTINGP ERFORMED BY: [place] 6504970 [facility] [id number] Information: [id number] ALT [Catalytic activity/Vol] 13 U/L Normal 0-40 [facility]; [facility] Work Phone: Comment on above: PATIENT WAS FASTINGP ERFORMED BY: [facility]6370 [facility] [id number] Information: [id number] AST [Catalytic activity/Vol] 18 [iU]/L Normal 0-40 [facility] Work Phone: Comment on above: PATIENT WAS FASTINGP ERFORMED BY: [facility] Hoauyk2090 [facility] [id number] Information: [id number] AST [Catalytic activity/Vol] 18 U/L Normal 0-40 [facility]; [facility] Work Phone: Comment on above: PATIENT WAS FASTINGP ERFORMED BY: [facility] Lcwkbx0439 [address] [facility] [id number] Information: [id number] Bilirubin [Mass/Vol] 0.6 mg/dL Normal 0.0-1.2 [facility] Work Phone: Comment on above: PATIENT WAS FASTINGP ERFORMED BY: LabCo Tfruja9360 [address] [facility] [id number] Information: [id number] Calcium [Mass/Vol] 9.9 mg/dL Normal 8.7-10.2 [facility] Internal Medicine Work Phone: Comment on above: PATIENT WAS FASTINGP ERFORMED BY: LabCo Jbihmw5316 [facility] [id number] Information: [id number] Chloride [Moles/Vol] 103 mmol/L Normal 97-108 [facility] Work Phone: Comment on above: PATIENT WAS FASTINGP ERFORMED BY: LabCo Mxchod2442 [facility] [id number] Information: [id number] CO2 [Moles/Vol] 25 mmol/L Normal 20-32 Comprehen [facility] Internal Medicine Work Phone: Comment on above: PATIENT WAS FASTINGP ERFORMED BY: LabCo Zuvegs1542 [facility] [id number] Information: [id number] Creatinine [Mass/Vol] 0.83 mg/dL Normal 0.57-1.00 [facility] Internal Medicine Work Phone: Comment on above: PATIENT WAS FASTINGP ERFORMED BY: LabCo Rllmko7909 [facility] [id number] Information: [id number] GFR/1.73 sq M predicted among blacks MDRD (S/P/Bld) [Vol rate/Area] 101 mL/min/{1.73_m2} Normal Comprehensi Internal Medicine Work Phone: Comment on above: Note: A persistent e GFR <60 mL/min/1.73 m2 (3 months or more) mayindicate chronic kidney disease. An eGFR >59 mL/min/1.73 m2 with anelevated urine protein also may indicate chronic kidney disease.Calculated using CKD-EPI formula. PATIENT WAS FASTINGP ERFORMED BY: [facility]in[facility]6370 [facility] [id number] Information: [id number] GFR/1.73 sq M predicted among non-blacks CKD-EPI (S/P/Bld) [Vol rate/Area] 87 mL/min/1.73 Normal [facility] Internal Medicine Work Phone: Comment on above: PATIENT WAS FASTINGP ERFORMED BY: [place] 6504970 [facility] [id number] Information: [id number] Globulin (S) [Mass/Vol] 2.8 g/dL Normal 1.5-4.5 [facility] Internal Medicine Work Phone: Comment on above: PATIENT WAS FASTINGP ERFORMED BY: [place] 6504970 [facility] [id number] Information: [id number] Glucose [Mass/Vol] 84 mg/dL Normal 65-99 [facility] Internal Medicine Work Phone: Comment on above: PATIENT WAS FASTINGP ERFORMED BY: [facility]6370 [facility] [id number] Information: [id number] Potassium [Moles/Vol] 4.9 mmol/L Normal 3.5-5.2 [facility] Internal Medicine Work Phone: Comment on above: PATIENT WAS FASTINGP ERFORMED BY: [facility]6370 [facility] [id number] Information: [id number] Protein [Mass/Vol] 7.3 g/dL Normal 6.0-8.5 [facility] Internal Medicine Work Phone: Comment on above: PATIENT WAS FASTINGP ERFORMED BY: [facility]6370 [facility] [id number] Information: [id number] Sodium [Moles/Vol] 141 mmol/L Normal 135-145 Compre hensive Internal Medicine Work Phone: Comment on above: PATIENT WAS FASTINGP ERFORMED BY: TRAN LabDrake Moncada6[address] RoadDublin [place] [id number] Information: [id number] Urea nitrogen [Mass/Vol] 14 mg/dL Normal 6-24 [facility] Work Phone: Comment on above: PATIENT WAS FASTINGP ERFORMED BY: TRAN [facility] Hqkehh1305 [address] Roadblin [place] [id number] Information: [id number] Urea nitrogen/Creatinine [Mass ratio] 17 mg/mg Normal 9-23 [facility] Work Phone: Comment on above: PATIENT WAS FASTINGP ERFORMED BY: TRAN LabDrake DuronIxanjo9072 [address] RoadReplaced by [facility] [id number] Information: [id number] TSH ([id number])Ordered By: Syste m Paper Pattern Folder on 08-22-2011 TSH Qn 3.460 {uIU/mL} Normal 0.450-4.500 Comprehen sive Internal Medicine Work Phone: Comment on above: PATIENT WAS FASTINGP ERFORMED BY: TRAN Duronlin[address] [facility]bl[facility] [place] [id number] URINALYSIS W/O MICRO ([id number]) Ordered By: Quality Engineer Medical Device on 08-22-2011 Appearance (U) Clear Normal Comprehens nazario Internal Medicine Work Phone: Comment on above: PATIENT WAS FASTINGP ERFORMED BY: TRAN [facility] Lgsomu1926 [address] RoadDublin [place] [id number] Bilirubin Ql (U) Negative Normal Comprehe nsive Internal Medicine Work Phone: Comment on above: PATIENT WAS FASTINGP ERFORMED BY: TRAN [facility] Spzpsu3350 [address] RoadDublin [place] [id number] Bilirubin Ql (U) Negative Normal Comprehe nsive Internal Medicine; [facility] Work Phone: Comment on above: PATIENT WAS FASTINGP ERFORMED BY: TRAN Moncada6[address] RoadCarepartners Rehabilitation Hospitalin [place] [id number] Color (U) Yellow Normal [facility] Work Phone: Comment on above: PATIENT WAS FASTINGP ERFORMED BY: TRAN Duronlin6[address] RoadCarepartners Rehabilitation Hospitalin [place] [id number] Glucose Ql (U) Negative Normal Comprehens nazario Internal Medicine Work Phone: Comment on above: PATIENT WAS FASTINGP ERFORMED BY: TRAN Moncada6[address] RoadReplaced by [facility] [id number] Glucose Ql (U) Negative Normal Comprehens nazario Internal Medicine; [facility] Work Phone: Comment on above: PATIENT WAS FASTINGP ERFORMED BY: TRAN Duronlin[address] [facility] [id number] Hemoglobin Ql (U) 3+ Abnormal Compreh ensive Internal Medicine Work Phone: Comment on above: PATIENT WAS FASTINGP ERFORMED BY: TRAN Duronlin[address] [facility] [id number] Ketones Ql (U) Negative Normal Comprehens nazario Internal Medicine Work Phone: Comment on above: PATIENT WAS FASTINGP ERFORMED BY: TRAN Duronlin[address] [facility] [id number] Ketones Ql (U) Negative Normal Comprehens nazario Internal Medicine; [facility] Work Phone: Comment on above: PATIENT WAS FASTINGP ERFORMED BY: TRAN Duronlin[address] [facility] [id number] Leukocyte esterase Test strip Ql (U) Negative Normal [facility] Work Phone: Comment on above: PATIENT WAS FASTINGP ERFORMED BY: TRAN Duronlin6[address] RoadDusaint clare[facility] hospital [facility] [place] [id number] Leukocyte esterase Test strip Ql (U) Negative Normal [facility]; [facility] Work Phone: Comment on above: PATIENT WAS FASTINGP ERFORMED BY: TRAN Duronlin[address] [facility] [id number] Microscopic observation LM Nom (Urine sed) See below: Normal [facility] Work Phone: Comment on above: PATIENT WAS FASTINGP ERFORMED BY: TRAN ChulaDrake DuronFnmmyu2165 [facility]edoResearch [facility] [id number] Nitrite Ql (U) Negative Normal Comprehens nazario Internal Medicine Work Phone: Comment on above: PATIENT WAS FASTINGP ERFORMED BY: TRAN [id number] [facility] [id number] Nitrite Ql (U) Negative Normal Comprehens nazario [facility]; [facility] Work Phone: Comment on above: PATIENT WAS FASTINGP ERFORMED BY: TRAN [id number] [facility] [id number] pH (U) 5.5 [pH] Normal 5.0-7.5 [facility] Work Phone: Comment on above: PATIENT WAS FASTINGP ERFORMED BY: TRAN [id number] [facility] [id number] Protein Ql (U) Negative Normal Comprehens [facility] Work Phone: Comment on above: PATIENT WAS FASTINGP ERFORMED BY: TRAN [id number] [facility] [id number] Protein Ql (U) Negative Normal Comprehens [facility]; [facility] Work Phone: Comment on above: PATIENT WAS FASTINGP ERFORMED BY: TRAN [id number] [facility] [id number] Specific gravity (U) [Rel density] 1.027 1 Normal 1.005-1.030 [facility] Work Phone: Comment on above: PATIENT WAS FASTINGP ERFORMED BY: TRAN [id number] [facility] [id number] Urobilinogen (U) [Mass/Vol] 0.2 mg/dL Normal 0.0-1.9 [facility]; [facility] Work Phone: Comment on above: PATIENT WAS FASTINGP ERFORMED BY: Sponsia [id number] [address]Dublin [place] [id number] Urobilinogen Test strip (U) [Mass/Vol] 0.2 mg/dL Normal 0.0-1.9 Comprehensi ve Internal Medicine Work Phone: Comment on above: PATIENT WAS FASTINGP ERFORMED BY: Sponsia [id number] [address] RoadDublin [place] [id number] VITAMIN B-12 (CYANOCOBALAMIN ) ([id number])Ordered By: Quality Engineer Medical Device on 08-22-2011 Cobalamin (Vitamin B12) [Mass/Vol] 471 pg/mL Normal 211-946 [facility] Work Phone: Comment on above: PATIENT WAS FASTINGP ERFORMED BY: Sponsia [id number] [address] RoadDublin [place] [id number] Urinalysis, Office ([id number])Or dered By: Deisi Blanco on 07-30-2010 Bilirubin [...] Internal Medicine Work Phone: Urine Test, Office ([id number])Ordered By: Deisi Blanco on 07-30-2010 Beta HCG [...] 170.[address] Lanny Breen Work Phone: [facility] 03-05-2023 08:51-0400 Body mass index (BMI) [Ratio] 23.1 kg/m2 Dr. Lanny Breen Work Phone: [facility] 03-05-2023 08:51-0400 Body weight 67.[address] Lanny Breen Work Phone: [facility] 03-05-2023 08:51-0400 Diastolic blood pressure 74 mm[Hg] Dr. Lanny Breen Work Phone: [facility] 03-05-2023 08:51-0400 Systolic blood pressure 108 mm[Hg] Dr. Lanny Breen Work Phone: [facility] 02-13-2023 09:34-0400 Body height 170.18 cm [...] 97.1 [degF] Dr. Lanny Breen Work Phone: [facility] Work Phone: 04-24-2022 08:20-0400 Diastolic blood pressure 84 mm[Hg] Dr. Lanny Breen Work Phone: [facility] Work Phone: 04-24-2022 08:20-0400 Heart rate 72 /min Dr. Lanny Breen Work Phone: [facility] Work Phone: 04-24-2022 08:20-0400 Respiratory rate 16 /min Dr. Lanny Breen Work Phone: [facility] Work Phone: 04-24-2022 08:20-0400 SaO2% (BldA) [Mass fraction] 99 % Dr. Lanny Breen Work Phone: [facility] Work Phone: 04-24-2022 08:20-0400 Systolic blood pressure 109 mm[Hg] Dr. Lanny Breen Work Phone: [facility] Work Phone: 04-24-2022 07:12-0400 Body height 170.[address] Lanny Breen Work Phone: [facility] Work Phone: 04-24-2022 07:12-0400 Body mass index (BMI) [Ratio] 22.7 kg/m2 Dr. Lanny Breen Work Phone: [facility] Work Phone: 04-24-2022 07:12-0400 Body weight 65.[address] Lanny Breen Work Phone: [facility] Work Phone: 02-27-2022 08:12-0400 Body mass index (BMI) [Ratio] 22.1 kg/m2 Dr. Lanny Breen Work Phone: [facility] Work Phone: 02-27-2022 08:12-0400 Body weight 64.[address] Lanny Breen Work Phone: [facility] Work Phone: 02-27-2022 08:12-0400 Diastolic blood pressure 76 mm[Hg] Dr. Lanny Breen Work Phone: [facility] Work Phone: 02-27-2022 08:12-0400 Systolic blood pressure 104 mm[Hg] Dr. Lanny Breen Work Phone: [facility] Work Phone: 01-28-2022 09:40-0400 Body height [...] 11:48-0400 Body height 170.18 cm Rina Slarb [employer]URAL [employer] SUPERVISOR [facility]; [facility] Work Phone: Comment on above: pt did not report 08-06-2021 11:48-0400 Body mass index (BMI) [Ratio] 22.77 kg/m2 Rina Slarb [employer] SUPERVISOR [facility]; [facility] Work Phone: Comment on above: pt did not report 08-06-2021 11:48-0400 Body surface area Derived from formula 1.77 m2 Rina Slarb [employer] SUPERVISOR [facility]; [facility] Work Phone: Comment on above: pt did not report 08-06-2021 11:48-0400 Body weight 65.94 kg Rina Slarb [employer] SUPERVISOR [facility]; [facility] Work Phone: Comment on above: pt did not report 07-14-2019 09:07-0400 BMI (Body Mass Index) 22.77 kg/m2 Rina Slarb [employer] SUPERVISOR Comprehen sive Internal Medicine Work Phone: 07-14-2019 09:07-0400 Body weight 65.94 kg Rina Slarb [employer] SUPERVISOR [facility] Work Phone: 07-14-2019 09:07-0400 BP Diastolic 82 mm[Hg] Rina Slarb [employer] SUPERVISOR [facility] Work Phone: Comment on above: Patient Position: Sitting; Cuff Location : Left Arm; Cuff Size: Standard 07-14-2019 09:07-0400 BP Systolic 132 mm[Hg] Rina Slarb [employer] SUPERVISOR [facility] Work Phone: Comment on above: Patient Position: Sitting; Cuff Location : Left Arm; Cuff Size: Standard 07-14-2019 09:07-0400 BSA (Body Surface Area) 1.77 m2 Rina Slarb [employer] SUPERVISOR [facility] Work Phone: 07-14-2019 09:07-0400 Height 170.18 cm Rina Slarb [employer] SUPERVISOR [facility] Work Phone: 07-14-2019 09:07-0400 Pulse (Heart Rate) 68 /min Rina Slarb [employer] SUPERVISOR Comprehensiv e Internal Medicine Work Phone: Comment on above: Pattern: Regular 07-14-2019 09:07-0400 Pulse Oximetry 98 % Lanny Breen [facility] Work Phone: Comment on above: Room air 07-14-2019 09:07-0400 Respiratory Rate 16 /min Rina Slarb [employer] SUPERVISOR [facility] Work Phone: Comment on [...] Mass Index) 23.96 kg/m2 Indiana Johnson RN [facility] Internal Medicine Work Phone: 08-05-2017 11:03-0400 [...] 11:03-0400 SaO2% (BldA) [Mass fraction] 94 % Inidana Johnson RN [facility]; [facility] Work Phone: Comment on above: Room air 07-21-2017 09:03-0400 BMI (Body Mass Index) 25.69 kg/m2 Iman Huynh [facility] Internal Medicine Work Phone: 07-21-2017 09:03-0400 Body weight 74.39 kg Iman Huynh [facility] Internal Medicine Work Phone: 07-21-2017 09:03-0400 BP Diastolic 78 mm[Hg] Iman Huynh [facility] Internal Medicine Work Phone: Comment on above: Patient Position: Sitting; Cuff Location : Left Arm; Cuff Size: Standard 07-21-2017 09:03-0400 BP Systolic 122 mm[Hg] Iman Huynh [facility] Internal Medicine Work Phone: Comment on above: Patient Position: Sitting; Cuff Location : Left Arm; Cuff Size: Standard 07-21-2017 09:03-0400 BSA (Body Surface Area) 1.86 m2 [facility] Work Phone: 07-21-2017 09:03-0400 Height 170.18 cm Iman Huynh [facility] Internal Medicine Work Phone: 07-21-2017 09:03-0400 Pulse (Heart Rate) 70 /min Iman Huynh [facility] Internal Medicine Work Phone: Comment on above: Pattern: Regular 07-21-2017 09:03-0400 Pulse Oximetry 98 % Lanny Breen [facility] Internal Medicine Work Phone: Comment on above: Room air 07-21-2017 09:03-0400 Respiratory Rate 16 /min Iman Huynh [facility] Internal Medicine Work Phone: Comment on above: Pattern: Unlabored 07-21-2017 09:03-0400 SaO2% (BldA) [Mass fraction] 98 % [facility]; [facility] Work Phone: [...] (Body Mass Index) 25.37 kg/m2 Ivanna Dali [facility] Internal Medicine Work Phone: 05-05-2015 10:41-0400 Body Temperature 97 [degF] Ivanna Mcnally [facility] Internal Medicine Work Phone: 05-05-2015 10:41-0400 Body weight 73.48 kg Ivanna Mcnally [facility] Internal Medicine Work Phone: 05-05-2015 10:41-0400 BP Diastolic 70 mm[Hg] [facility] Internal Medicine Work Phone: Comment on above: Patient Position: Sitting; Cuff Location : Left Arm; Cuff Size: Standard 05-05-2015 10:41-0400 BP Systolic 118 mm[Hg] [facility] Internal Medicine Work Phone: Comment on above: Patient Position: Sitting; Cuff Location : Left Arm; Cuff Size: Standard 05-05-2015 10:41-0400 BSA (Body Surface Area) 1.85 m2 [facility] Internal Medicine Work Phone: 05-05-2015 10:41-0400 Height 170.18 cm [facility] Internal Medicine Work Phone: 05-05-2015 10:41-0400 Pulse (Heart Rate) 71 /min [facility] Internal Medicine Work Phone: Comment on above: Pattern: Regular 05-05-2015 10:41-0400 Pulse Oximetry 97 % Lanny Jamshid [facility] Internal Medicine Work Phone: Comment on above: Room air 05-05-2015 10:41-0400 SaO2% (BldA) [Mass fraction] 97 % [facility] Internal Medicine; [facility] Internal Medicine Work Phone: Comment on above: Room air 05-24-2014 14:35-0400 BMI (Body Mass Index) 25.84 kg/m2 Deisi Beedavid [facility] Internal Medicine Work Phone: 05-24-2014 14:35-0400 Body Temperature 98.5 [degF] Deisi Blanco [facility] Internal Medicine Work Phone: 05-24-2014 14:35-0400 Body weight 74.84 kg Deisi Blanco [facility] Internal Medicine Work Phone: 05-24-2014 14:35-0400 BP Diastolic 78 mm[Hg] Deisi Blanco [facility] Internal Medicine Work Phone: Comment on above: Patient Position: Sitting; Cuff Location : Left Arm; Cuff Size: Large 05-24-2014 14:35-0400 BP Systolic 102 mm[Hg] Deisi Leonraghu [facility] Internal Medicine Work Phone: Comment on above: Patient Position: Sitting; Cuff Location : Left Arm; Cuff Size: Large 05-24-2014 14:35-0400 BSA (Body Surface Area) 1.86 m2 Deisi Lopezwilliam [facility] Internal Medicine Work Phone: 05-24-2014 14:35-0400 Height 170.18 cm Deisi Lopezwilliam [facility] Internal Medicine Work Phone: 05-24-2014 14:35-0400 Pulse (Heart Rate) 72 /min Deisi Blanco [facility] Internal Medicine Work Phone: Comment on above: Pattern: Regular 05-24-2014 14:35-0400 Respiratory Rate 16 /min Deisi Lopezwilliam [facility] Internal Medicine Work Phone: Comment [...] 11:09-0400 Body weight 77.11 kg Deisi Blanco [facility] Internal Medicine Work Phone: 07-30-2010 11:09-0400 BP Diastolic 80 mm[Hg] Deisi Lopezwilliam [facility] Internal Medicine Work Phone: Comment on above: Patient Position: Sitting; Cuff Location : Left Arm; Cuff Size: Standard 07-30-2010 11:09-0400 BP Systolic 128 mm[Hg] Deisi Blanco [facility] Internal Medicine Work Phone: Comment on above: Patient Position: Sitting; Cuff Location : Left Arm; Cuff Size: Standard 07-30-2010 11:09-0400 Pulse (Heart Rate) 92 /min [facility]raghu [facility] Work Phone: Comment on above: Pattern: Regular 07-30-2010 11:09-0400 Respiratory Rate 18 /min Deisi Bella [facility] Internal Medicine Work Phone: Comment [...] 12-21-2007 14:46-0400 Head Circumference 0 cm Lanny Breen [facility] Work Phone: 12-21-2007 14:46-0400 [...] 08:06-0500 Body weight 0 kg Lanny Breen [facility] Internal Medicine Work Phone: 11-24-2006 08:06-0500 BP Diastolic 70 mm[Hg] Lanny Breen [facility] Internal Medicine Work Phone: Comment on above: Patient Position: Sitting; Cuff Location : Left Arm; Cuff Size: Standard 11-24-2006 08:06-0500 BP Systolic 108 mm[Hg] Lanny Breen [facility] Internal Medicine Work Phone: Comment on above: Patient Position: Sitting; Cuff Location : Left Arm; Cuff Size: Standard 11-24-2006 08:06-0500 Head Circumference 0 cm Lanny Breen [facility] Internal Medicine Work Phone: 11-24-2006 08:06-0500 Head Occipital-frontal circumference 0 cm Lanny Breen DO Work Phone: [facility]; [facility] Work Phone: 11-24-2006 08:06-0500 Height 0 cm Lanny Breen [facility] Internal Medicine Work Phone: 11-24-2006 08:06-0500 Pulse (Heart Rate) 76 /min Lanny Breen [facility] Internal Medicine Work Phone: Comment on above: Pattern: Regular 11-24-2006 08:06-0500 Respiratory Rate 16 /min Lanny Breen [facility] Internal Medicine Work Phone: Comment on above: Pattern: Unlabored 10-28-2006 09:21-0500 Body Temperature 97.7 [degF] Deisi Lopezwilliam [facility] Internal Medicine Work Phone: Comment on above: Method: Oral 10-28-2006 09:21-0500 Body weight 70.45 kg Deisi Leonraghu [facility] Internal Medicine Work Phone: 10-28-2006 09:21-0500 BP Diastolic 82 mm[Hg] Deisi Bella [facility] Internal Medicine Work Phone: Comment on above: Patient Position: Sitting; Cuff Location : Left Arm; Cuff Size: Standard 10-28-2006 09:21-0500 BP Systolic 110 mm[Hg] Deisi Blanco [facility] Internal Medicine Work Phone: Comment on above: Patient Position: Sitting; Cuff Location : Left Arm; Cuff Size: Standard 10-28-2006 09:21-0500 Head Circumference 0 cm Lanny Breen [facility] Internal Medicine Work Phone: 10-28-2006 09:21-0500 Head Occipital-frontal circumference 0 cm Deisi Blanco [facility]; [facility] Work Phone: 10-28-2006 09:21-0500 Height 0 cm Deisi Blanco [facility] Internal Medicine Work Phone: 10-28-2006 09:21-0500 Pulse (Heart Rate) 88 /min [facility] Work Phone: Comment on above: Pattern: Regular 10-28-2006 09:21-0500 Respiratory Rate 16 /min Deisi Blanco [facility] Internal Medicine Work Phone: Comment on above: Pattern: Unlabored Encounters Encounter Date Encounter Type Care Provider Facility Start: 12-08-2024 End: 12-08-2024 ambulatory Lanny Breen Facility:[facility] Start: 10-29-2024 End: 10-29-2024 ambulatory Griselda Layne NP Facility:[facility] Start: 03-26-2023 End: 03-26-[address] Lanny Breen Work Phone: [facility] Work Phone: Start: 03-26-2023 End: 03-26-[address] Lanny Breen Work Phone: [facility]-Physical Therapy Work Phone: Start: 03-05-2023 End: 03-05-[address] Lanny Breen Work Phone: [facility] Work Phone: Start: 03-05-2023 End: 03-05-[address] Lanny Breen Work Phone: [facility]-Laboratory, Specimen Start: 03-05-2023 End: 03-05-[address] Lanny Breen Work Phone: [facility] Start: 02-21-[address] Sarah Breen Work Phone: [facility]-Physical Therapy Start: 02-13-2023 Review Lanny vann DO Work Phone: [facility] Start: 01-29-2023 End: 01-30-2023 Phone Encounter Lanny Breen DO Work Phone: [facility] Start: 01-27-2023 ambulatory Lanny Breen DO Comp [facility] Start: 01-27-2023 End: 01-27-2023 Phone Encounter Lanny Breen DO Work Phone: [facility] Start: 12-11-2022 End: 12-11-2022 ambulatory [facility] Work Phone: Start: 12-11-2022 End: 12-11-2022 Patient encounter procedure [facility]-Outpatient Breast Imaging Start: 04-24-2022 End: 04-24-2022 Phone Encounter Lanny Breen DO Work Phone: [facility] Start: 04-24-2022 Non-patient / Non-visit Dr. Lanny Breen Work Phone: [facility] Start: 04-24-2022 End: 04-24-2022 Admission to same day surgery center Dr. Lanny Breen Work Phone: [facility]-Endoscopy Start: 02-27-2022 End: 02-27-[address] Lanny Breen Work Phone: [facility] Start: 01-28-2022 End: 01-28-2022 Office outpatient visit [...] Medicine Start: 05-05-2018 End: 05-05-2018 Lab Order Lnany Jamshid [facility] Start: 04-30-2018 End: 04-30-2018 Phone Encounter Lanny Jamshid [facility] Start: 08-05-2017 End: 08-05-2017 Office outpatient visit 15 minutes Lanny Jamshid [facility] Start: 07-21-2017 End: 07-21-2017 Office outpatient visit 10 minutes Lanny Jamshid [facility] Start: 04-15-2017 End: 04-15-2017 Phone Encounter Lanny Breen [facility] Start: 01-17-2017 End: 01-17-2017 Phone Encounter Lanny Breen [facility] Start: 11-21-2016 End: 11-21-2016 Office outpatient visit 15 minutes Lanny Jamshid [facility] Start: 05-05-2015 End: 05-07-2015 Office outpatient visit 5 minutes Lanny Jamshid [facility] Start: 06-10-2014 End: 06-10-2014 Phone Encounter Lanny Breen [facility] Start: 06-03-2014 End: 06-03-2014 Phone Encounter Lanny Breen [facility] Start: 05-27-2014 End: 05-27-2014 Phone Encounter Lanny Breen [facility] Start: 05-24-2014 End: 05-24-2014 Office outpatient visit 15 minutes Lanny Jamshid [facility] Start: 08-27-2011 End: 08-27-2011 Patient encounter procedure Lanny Breen [facility] Start: 08-23-2011 End: 08-23-2011 Lab Order Lanny Jamshid [facility] Start: 08-21-2011 End: 08-21-2011 Patient encounter procedure Lanny Breen [facility] Start: 11-19-2010 End: 11-19-2010 Office outpatient visit 15 minutes Lanny Breen [facility] Start: 07-30-2010 End: 07-30-2010 Phone Encounter Lannymadhavi Washburnon [facility] Start: 07-30-2010 End: 07-30-2010 Patient encounter procedure Lanny Comer [facility] Start: 12-21-2007 End: 12-21-2007 Patient encounter procedure Lanny Jamshid [facility] Start: 12-16-2006 End: 12-16-2006 Office outpatient visit 15 minutes Lanny Comer [facility] Start: 11-24-2006 End: 11-24-2006 Patient encounter procedure Lanny Breen [facility] Start: 10-28-2006 End: 10-28-2006 Office outpatient visit 25 minutes Lanny Breen [facility] Start: 10-22-2006 End: 10-22-2006 Historical Summary Lanny Breen [facility] Procedures Date Procedure Procedure Detail Performing Clinician Start: 12-11-2022 Screening mammography Start: 12-11-2022 End: 12-11-2022 SCRN MAMM (CAD)W/KAREEM BILAT Procedure Note: See Note; NOTES: [facility] Imaging Services [address] [place] [address] SCRN MAMM (CAD)W/KAREEM BILAT MR#: [id number] Acct: [id number] Name: NAREN LOREDO Rep #: [id number] : 1970 F 52 From: Rocael adam MD PCP: Dr. Lanny Breen, DO Status: [facility] Study: SCRN MAMM (CAD)W/KAREEM BILAT Date of Exam: 05/28 Exam# [id number] Ordering Dr: Griselda Layne NP PEDIATRIC UROLOGIST -C MAMMOGRAPHY - BILATERAL SCREENING REASON FOR [...] delay biopsy of a clinically suspicious abnormality. [id number] Electronically Signed: Rocael Aldridge MD at 12:24 EST , CC: JUSTIN Layne; Dr. Lanny Breen DO Software Analyst: Signed Lanny Breen DO Work Phone: Start: 04-24-2022 End: 07-10-2022 Colonoscopy Report Comments: See Note; NOTES: [facility] Medical Records Department [address] [place] [address] Colonoscopy Report MR#: [id number] Acct: [id number] Name: NAREN LOREDO Rep #: [id number] : 1970 51 From: Rocael Deras DO PCP: Dr. Lanny Breen DO [place] Patient Name: Naren Loredo Procedure Date: 04/24/2022 [...] criteria for high risk CPT copyright 2017 [employer]. All rights reserved. The codes documented in this report are preliminary and upon print traffic manager review may be revised to meet current compliance requirements. Rocael Deras DO 04/24/2022 8:06:02 AM This report has been signed electronically. Number of Addenda: 0 Note Initiated On: 04/24/2022 7:27 AM 04/24/22 0806 Date Rocael Montes Signature: Date (if indicated) CC: Dr. Lanny Breen DO; Rocael Deras DO Date Dictated: 04/24/22726 Date Transcribed: Software Analyst: KAN Signed Lanny Breen DO Work Phone: Start: 04-24-[address] Lanny Breen Work Phone: Start: 04-24-2022 End: 04-24-2022 History and Physical Exam Comments: See Note; NOTES: [facility] Medical Records Department [address] [place] [address] History Physical Exam 04/24/22726 MR#: [id number] Acct: [id number] Name: NAREN LOREDO Rep #: [id number] : 1970 51 From: Rocael Deras DO PCP: Dr. Lanny Breen DO Status:[facility] Location: [place] [address] HPI - General General Chief Complaint: Screening [...] on a daily basis for preventative disease. 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 No concerns Last PAP: 2018 History of abnormal PAP: no Last mammogram: 11/2021 History of abnormal mammogram: no Colon cancer screening: [facility] 04/2022 Other preventative health care screenings: [...] without abnormal findings Plan - Griselda Layne PEDIATRIC UROLOGIST, PEDIATRIC UROLOGIST-C: Completed breast and pelvic exam Reviewed diet and exercise Pap 2018, will be due next year Mammogram recent breast self exam encouraged monthly health screen labs Colonoscopy scheduled 04/2022 Bone density with PCP RTO 1 year, prn with problems Griselda Layne [employer] Plan Details Other Orders: Orders: Vitamin D,25 Hydroxy Today Z13.21 Glucose Today Z13.1 Lipid Profile Today Z13.220 Thyroid Stim Hormone (TSH) Today Z13.29 02/27/22 0832 <Electronically signed by Griselda Layne PEDIATRIC UROLOGIST PEDIATRIC UROLOGIST-C> Date Griselda Layne PEDIATRIC UROLOGIST PEDIATRIC UROLOGIST-C Cosigner Signature: Date (if applicable) CC: Lanny Breen DO Work Phone: Start: 11-30-2021 End: 11-30-2021 SCRN MAMM (CAD)W/KAREEM BILAT Comments: See Note; NOTES: [facility] Imaging Services [address] [place] [address] SCRN MAMM (CAD)W/KAREEM BILAT MR#: [id number] Acct: [id number] Name: NAREN LOREDO Rep #: [id number] : 1970 F 51 From: Rocael adam MD PCP: Dr. Lanny Breen, Status: [facility] Study: SCRN MAMM (CAD)W/KAREEM BILAT Date of Exam: 11/07 02/24 Exam# [id number] Ordering Dr: Deisi Dunaway DO MAMMOGRAPHY - [...] delay biopsy of a clinically suspicious abnormality. [id number] Electronically Signed: Rocael Aldridge MD at 8:14 EST Reading Location ID and State: [address] [place] [address] , Service support , CC: Dr. Deisi Dunaway DO; Dr. Lanny Breen DO Software Analyst: Signed Lanny Breen DO Work Phone: Start: 07-16-2020 End: 07-16-2020 Urgent Care Visit Report Comments: See Note; NOTES: [facility] [address] [place] [address] OFFICE VISIT Date of Service: 07/16/20 MR#: [id number] Acct: [id number] Name: NAREN LOREDO Rep #: [id number] : 1970 Provider: MELVIN Woodard Age/Sex: 50/F [...] (CAD) W/KAREEM BILAT Comments: See Note; NOTES: [facility] Imaging Services [address] [place] [address] SCREEN MAMM (CAD) W/KAREEM BILAT MR#: [id number] Acct: [id number] Name: NAREN LOREDO Rep #: [id number] : 1970 F 49 From: Rocael adam MD PCP: Dr. Lanny Breen, DO Status: [facility] Study: SCREEN MAMM (CAD) W/KAREEM BILAT Date of Exam: 0 02/14/20 Exam# [id number] Ordering Dr: Latasha Schmitt MAMMOGRAPHY - BILATERAL [...] delay biopsy of a clinically suspicious abnormality. [id number] Electronically Signed: Rocael Aldridge, at 8:43 EDT , Service support , CC: Dr. Lanny Breen DO; Dr. Latasha Schmitt MD Software Analyst: Signed Lanny Breen DO Work Phone: Start: 03-27-2019 End: 03-27-2019 Roll Cutter Office Visit Report Comments: See Note; NOTES: [facility] 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 DatName GA/WeeksOutcome Route [facility] LocaProviderFOB e ht en ks HPI ANNUAL EXAM: Details: NAREN LOREDO is [...] no acute distress, well developed, well groomed [facility] Head: normal to inspection, normocephalic Ears: hearing [...] (CAD) W/KAREEM BILAT Comments: See Note; NOTES: [facility] Services [address] [place] [address] SCREEN MAMM (CAD) W/KAREEM BILAT MR#: [id number] Acct: [id number] Name: NAREN LOREDO Rep #: [id number] : 1970 F 48 From: Rocael Aldridge MD PCP: Lanny Breen DO Status: [facility] Study: SCREEN MAMM (CAD) W/KAREEM BILAT Date of Exam: 12/14/18 Exam# [id number] Ordering Dr: Latasha Schmitt MD MAMMOGRAPHY - [...] delay biopsy of a clinically suspicious abnormality. [id number] Electronically Signed: Rocael Aldridge, at 15:52 EDT , Service support , CC: Lanny Breen DO; Latasha Schmitt MD Software Analyst: Signed Lanny Breen Start: 11-20-2017 End: 11-20-2017 Roll Cutter Office Visit Report Comments: See Note; NOTES: [facility] [address] [place] [address]. 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] delay biopsy of a clinically suspicious abnormality. [id number] Electronically Signed: Rocael Aldridge MD at 10:59 EST Tel [phone], Service support , CC: Lanny Breen DO; Latasha Schmitt MD Software Analyst: Signed Lanny Breen Start: 11-28-2016 End: 11-28-2016 Dexa Bone Density Study (HP) Comments: See Note; NOTES: [facility] Services [address] [place] [address] Verdana 4d Dexa Bone Density Study (HP) MR#: [id number] Acct: [id number] Name: NAREN LOREDO Rep #: [id number] : 1970 F 46 From: Rocael Aldridge MD PCP: Lanny Breen DO Status: REG CLI Study: Dexa Bone Density Study () Date of Exam: 11/28/16 Exam# [id number] Ordering Dr: Lanny Breen DO STUDY: DUAL [...] Rocael Aldridge MD at 11:09 EST Tel [phone], Service support [phone], CC: Lanny Breen DO Software Analyst: Signed Lanny Breen Work Phone: None Rina Slarb None Rnia Slarb [facility] N None Patricia Espitia None Rina Slarb [facility] N None Kayela [place] [employer] SPECIALIST Screening for osteoporosis Screening for osteoporosis Lanny Breen Screening for osteoporosis Screening for osteoporosis Lanny Breen DO Work Phone: Screening for osteoporosis Screening for osteoporosis Lanny Breen DO Work Phone: Plan of Treatment Date Care Activity Detail Author Start: 03-05-2023 Liquid based cervica l cytology screening [facility] Start: 02-13-2023 Procedure Education Eprescribe d prescriptions (G8553) [facility] Work Phone: Start: 02-13-2023 Provider Instruction s for Treatment Reviewed Lab [facility] Work Phone: Start: 02-13-2023 25 hydroxy includes fractions if performed CALCIFEDIOL (86490) [facility]; [facility] Work Phone: Start: 02-13-2023 Protein total xcpt refractometry urine UPEP (27370) [facility]; [facility] Work Phone: Start: 02-13-2023 Protein electrophore tic fractj&quantj serum SPEP (77665) [facility]; [facility] Work Phone: Start: 01-30-2023 Blood count complete auto&auto difrntl wbc CBC W/AUTO DIFF WBC (60982) [facility]; [facility] Work Phone: Start: 01-30-2023 C-reactive protein C-Reactive Protein (46076) [facility]; [facility] Work Phone: Start: 01-30-2023 Comprehensive metabo lic panel METABOLIC PANEL, COMPREHENSIVE (95310) [facility]; [facility] Work Phone: Start: 01-30-2023 Creatine kinase total Creatine Kinase Total (23905) [facility]; [facility] Work Phone: Start: 01-30-2023 Sedimentation rate r bc non-automated ESR-F (SED RATE ERYTHROCYTE - FEMALE) (01243) [facility]; [facility] Work Phone: Start: 01-27-2023 1 25 dihydroxy inclu ronaldo fractions if performed VITAMIN D, 1, 25-DIHYDROXY (90874) [facility]; [facility] Work Phone: Start: 01-27-2023 Assay of thyroid stimulating hormone tsh TSH (24037) [facility]; [facility] Work Phone: Start: 01-27-2023 Lipid panel LIPID PANEL (59150) [facility] Work Phone: Start: 04-24-2022 Patient discharge [facility] Work Phone: Start: 01-28-2022 Procedure Education Eprescribe [...] 25 hydroxy includes fractions if performed CALCIFIDIOL (55763) VIT D 25 [facility] Work Phone: Start: 08-27-2011 Provider Instruction s for Treatment Reviewed Lab [facility] Work Phone: Start: 11-19-2010 Provider Instruction s for Treatment [facility] Work Phone: Start: 07-30-2010 Gonadotropin chorion ic qualitative TEST - SERUM QUANTITATIVE (HCG) (82216) [facility] Work Phone: Comment on above: stat Start: 07-30-2010 C-reactive protein C-REACTIVE PROTEIN (70334) [facility]; [facility] Work Phone: Start: 07-30-2010 CRP [Mass/Vol] C-REACTIVE PRO TEIN (64748) [facility] Work Phone: Start: 07-30-2010 Sedimentation rate r bc non-automated SED RATE ERYTHROCYTE (12046) [facility] Work Phone: Start: 07-30-2010 Comprehensive metabo lic panel METABOLIC PANEL, COMPREHENSIVE (19231) [facility] Work Phone: Start: 07-30-2010 Blood count manual c ell count each CBC WITH MANUAL DIFF (68233) [facility] Work Phone: Start: 07-30-2010 Culture bacterial quanttative colony count urine URINE MINA CULTURE-CAMELIA COL COUNT (98525) [facility] Work Phone: Start: 12-21-2007 Provider Instruction s for Treatment [facility] Work Phone: Glucose [Mass/volume ] in Serum or Plasma [facility] Work Phone: Lipid 1996 panel - S jeyson or Plasma [facility] Work Phone: Path report.final Dx Spec [facility] Patient referral [facility] Work Phone: Thyroid stimulating hormone measurement [facility] Work Phone: Vitamin D, 25-hydrox y measurement [facility] Work Phone: [facility] Work Phone: [facility] Work Phone: [facility] Work Phone: [facility] Work Phone: [facility] Work Phone: [facility] Work Phone: [facility] Work Phone: [facility] Work Phone: [facility] Work Phone: [facility] Work Phone: Immunizations Immunization Date Immunization Notes Care Provider [facility] 09-16-2021 COVID-Moderna (50 MCG/0.5 ML) Lanny Breen DO Work Phone: [facility]; [facility] Work Phone: Payers Date Payer Category Payer Self-pay [id number] 2007 Unknown [id number] 2007 Unknown [id number] 2006 Unknown [id number] 2002 Unknown [id number] 1970 Unknown [id number] 16.84 [id number] Unknown [facility] Unknown [id number] Unknown [facility] PACKAGE PLAN [id number] Unknown [id number] 16.8 [id number] Unknown [id number] 16.8 [id number] Social History Date Type Detail Facility Exercise History Exercise History [facility] Work Phone: Comment on above: Light 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 3 Tobacco use: Tobacco use: [facility] Work Phone: Comment on above: 08/27/11 Tobacco use: Tobacco use: [facility] Work Phone: Comment on above: 08/27/11 Start: 04-22-2022 End: 03-05-2023 Tobacco smoking status NHIS Unknown if ever smoked [facility] Start: 1970 Sex Assigned At Female [facility] Goals Date Patient Goal Desired Activity /State Mental Status Date Assessment Result Facility 04-24-2022 Cognitive function Voice/Name [facility] Work Phone: Clinical Notes 03-05-2023 to 06-18-2023 Note Date & Type Note Facility 06-18-2023 Discharge summary Note Date/Time June 18, 2023 12:51pm [facility] [address] [place] [address]. [address] [place] [address] / REHABILITATION SERVICES DISCHARGE SUMMARY MR#: [id number] Acct: [id number] Name: NAREN LOREDO Rep #: [id number] : 1970 53 From: Juan Francisco Davalos PT, ATC Referring Dr.: Dr. Lanny Breen, DO Status: REG R Insurance: [facility] PACKAGE PLAN Patient Information Patient Information: NAREN [...] 1251 CC: Dr. Lanny Breen, DO ~ [facility] Signed [facility] Work Phone: [phone] 113-744805-31-2023 NotePap Smear Specimen AdequacyMay 2022 11:59pmComment.Satisfactory for evaluation. Endocervical component may not bedistinguished in cases of atrophy.[facility] INTERFACED A#[id number] Health [facility] HospitalComment on above:Satisfactory for evaluation. Endocervical component may not bedistinguished in cases of atrophy.Evaluation note* Diagnosis Onset Date Resolution Status Encounter for routine gynecological examination noneactive Encounter for screening for malignant neoplasm of colon acute [facility] Work Phone: Evaluation noteNo assessment information available [facility] Work Phone: Evaluation note* Diagnosis Onset Date Resolution Status Encounter for routine gynecological examination noneactive [facility] Work Phone: Instructions* Name Dates Details Patient Instructions Indication:Non-smoker Start:06-Aug-2021 Instruction Type:Provider Instructions for Treatment How to Access Health Informa tion Online using Patient Portal and 3rd [employer] Apps Indication:Non-smoker Start:06-Aug-2021 Instruction Type:Patient Education How [...] tion Online using Patient Portal and 3rd [employer] Apps Indication:BMI 22.0-22.9, adult Start:10-Oct-2021 Instruction Type:Patient Education Patient Instructions Indication:Non-smoker Start:06-Aug-2021 Instruction Type:Provider Instructions for Treatment How to Access Health Informa tion Online using Patient Portal and 3rd [employer] Apps Indication:Non-smoker Start:06-Aug-2021 Instruction Type:Patient Education How [...] tion Online using Patient Portal and 3rd [employer] Apps Indication:Non-smoker Start:28-Jan-2022 Instruction Type:Patient Education Patient Instructions Indication:BMI 22.0-22.9, adult Start:10-Oct-2021 Instruction Type:Provider Instructions for Treatment How to Access Health Informa tion Online using Patient Portal and [employer] Party Apps Indication:BMI 22.0-22.9, adult Start:10-Oct-2021 Instruction Type:Patient Education Patient Instructions Indication:Non-smoker Start:06-Aug-2021 Instruction Type:Provider Instructions for Treatment How to Access Health Informa tion Online using Patient Portal and [employer] Party Apps Indication:Non-smoker Start:06-Aug-2021 Instruction Type:Patient Education How [...] tion Online using Patient Portal and 3rd [employer] Apps Indication:Non-smoker Start:28-Jan-2022 Instruction Type:Patient Education Patient Instructions Indication:BMI 22.0-22.9, adult Start:10-Oct-2021 Instruction Type:Provider Instructions for Treatment How to Access Health Informa tion Online using Patient Portal and 3rd [employer] Apps Indication:BMI 22.0-22.9, adult Start:10-Oct-2021 Instruction Type:Patient Education Patient Instructions Indication:Non-smoker Start:06-Aug-2021 Instruction Type:Provider Instructions for Treatment How to Access Health Informa tion Online using Patient Portal and [employer] Apps Indication:Non-smoker Start:06-Aug-2021 Instruction Type:Patient Education How [...] tion Online using Patient Portal and 3rd [employer] Apps Indication:Non-smoker Start:28-Jan-2022 Instruction Type:Patient Education Patient Instructions Indication:BMI 22.0-22.9, adult Start:10-Oct-2021 Instruction Type:Provider Instructions for Treatment How to Access Health Informa tion Online using Patient Portal and 3rd [employer] Apps Indication:BMI 22.0-22.9, adult Start:10-Oct-2021 Instruction Type:Patient Education Patient Instructions Indication:Non-smoker Start:06-Aug-2021 Instruction Type:Provider Instructions for Treatment How to Access Health Informa tion Online using Patient Portal and 3rd [employer] Apps Indication:Non-smoker Start:06-Aug-2021 Instruction Type:Patient Education How [...] tion Online using Patient Portal and [employer]rd [employer] Apps Indication:Non-smoker Start:28-Jan-2022 Instruction Type:Patient Education Patient Instructions Indication:BMI 22.0-22.9, adult Start:10-Oct-2021 Instruction Type:Provider Instructions for Treatment How to Access Health Informa tion Online using Patient Portal and [employer]rd [employer] Apps Indication:BMI 22.0-22.9, adult Start:10-Oct-2021 Instruction Type:Patient Education Patient Instructions Indication:Non-smoker Start:06-Aug-2021 Instruction Type:Provider Instructions for Treatment How to Access Health Informa tion Online using Patient Portal and 3rd [employer] Apps Indication:Non-smoker Start:06-Aug-2021 Instruction Type:Patient Education How [...] tion Online using Patient Portal and 3rd [employer] Apps Indication:Non-smoker Start:28-Jan-2022 Instruction Type:Patient Education Patient Instructions Indication:BMI 22.0-22.9, adult Start:10-Oct-2021 Instruction Type:Provider Instructions for Treatment How to Access Health Informa tion Online using Patient Portal and [employer]rd [employer] Apps Indication:BMI 22.0-22.9, adult Start:10-Oct-2021 Instruction Type:Patient Education Patient Instructions Indication:Non-smoker Start:06-Aug-2021 Instruction Type:Provider Instructions for Treatment How to Access Health Informa tion Online using Patient Portal and 3rd [employer] Apps Indication:Non-smoker Start:06-Aug-2021 Instruction Type:Patient Education How [...] tion Online using Patient Portal and 3rd [employer] Apps Indication:Non-smoker Start:28-Jan-2022 Instruction Type:Patient Education Patient Instructions Indication:BMI 22.0-22.9, adult Start:10-Oct-2021 Instruction Type:Provider Instructions for Treatment How to Access Health Informa tion Online using Patient Portal and [employer] Apps Indication:BMI 22.0-22.9, adult Start:10-Oct-2021 Instruction Type:Patient Education Patient Instructions Indication:Non-smoker Start:06-Aug-2021 Instruction Type:Provider Instructions for Treatment How to Access Health Informa tion Online using Patient Portal and [employer]rd [employer] Apps Indication:Non-smoker Start:06-Aug-2021 Instruction Type:Patient Education How [...] tion Online using Patient Portal and 3rd [employer] Apps Indication:BMI 22.0-22.9, adult Start:13-Feb-2023 Instruction Type:Patient Education Patient Instructions Indication:Non-smoker Start:28-Jan-2022 Instruction Type:Provider Instructions for Treatment How to Access Health Informa tion Online using Patient Portal and 3rd [employer] Apps Indication:Non-smoker Start:28-Jan-2022 Instruction Type:Patient Education Patient Instructions Indication:BMI 22.0-22.9, adult Start:10-Oct-2021 Instruction Type:Provider Instructions for Treatment How to Access Health Informa tion Online using Patient Portal and [employer] Apps Indication:BMI 22.0-22.9, adult Start:10-Oct-2021 Instruction Type:Patient Education Patient Instructions Indication:Non-smoker Start:06-Aug-2021 Instruction Type:Provider Instructions for Treatment How to Access Health Informa tion Online using Patient Portal and [employer]rd [employer] Apps Indication:Non-smoker Start:06-Aug-2021 Instruction Type:Patient Education How [...] and Reason for Visit 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 RX HERE Reason for Visit Encounter for routin e gynecological examination Advance Directives No Advanced Directives Records Found Advance Directive Response Recorded Date/ Time Name of Medical Power of Photographer Helper CARL LOREDO April 22, 2022 3:37pm Living Will Yes April 22, 2022 3:37pm Power of Photographer Helper Yes April 22 3:37pm Advance Directive Response Recorded Date/ Time Living Will Yes April 22, 2022 3:37pm Power of Photographer Helper Yes April 22 3:37pm Name Dates Details Immunization Registry [place] - Effective on 02/13/2023. Expiration date unspecified Effective:13-Feb-2023 Summary Purpose Additional Source Comments Care Teams (unrecognized sec tion and content) Team Status: Active Member Role Status Dates Dr. Lanny Breen , DO Family Provider Active Dr. Lanny Breen , DO Primary Care Provider Active Team Status: Inactive Member Role Status Dates Dr. Lanny Breen , DO Primary Care Provider Active Griselda Layne PEDIATRIC UROLOGIST, PEDIATRIC UROLOGIST-C Attending Provider, Referring Provider Active Team Status: Inactive Member Role Status Dates Dr. Lanny Breen , DO Primary Care Provider, Referr ing Provider Active Griselda Layne PEDIATRIC UROLOGIST, PEDIATRIC UROLOGIST-C Attending Provider Active Team Status: Active Member [...] DATE CREATED AUTHOR AUTHOR'S ORGANIZ ATLUIS 12/10/2024 [facility] FOR RECORDS PERTAINING TO PATIENTS WHO ARE [...] BE BASED ON THE PRIMARY CLINICAL RECORDS. [employer] [facility]. provides no warranty or guarantee of the accuracy or completeness of information in this document.
--- NOTE | 2025-09-14 07:26 | BD_ITS ---
PROCEDURE: DEXA BONE DENSITY STUDY 09/14/2025 REASON FOR EXAM: F, age 55 y/o . Postmenopausal. TECHNIQUE: Procedure Code: BDDBD Modality: DX Procedure: DEXA BONE DENSITY STUDY COMPARISON: November 28, 2016. FINDINGS: BMD and T-SCORES Lumbar spine: 0.801 g/cm2, T-score -2.2 Levels: L1 through L4 Change from prior: Loss of 18%. Left femoral neck: 0.519 g/cm2, T-score -2.3 Femoral neck comparison data not recommended for monitoring change. Left total hip: 0.711 g/cm2, T-score -1.9 Change from prior: Loss of 4.3%. Right femoral neck: 0.591 g/cm2, T-score -2.3 Femoral neck comparison data not recommended for monitoring change. Right total hip: 0.727 g/cm2, T-score -1.8 Change from prior: Loss of 8.8%. The World Health Organization has defined the following categories based on bone density: Normal bone density: T-score equal to or greater than -1.0 Osteopenia: T-score between -1.0 and -2.5 Osteoporosis: T-score equal to or less than -2.5 FRAX (or Comparable) Fracture Risk Assessment: 10 Year Probability of Fracture: Major Osteoporotic Fracture: 8.3% Hip Fracture: 1.3% (Note: FRAX is not to be reported in setting of normal range bone density, osteoporosis on DEXA, known history of osteoporosis, prior osteoporotic hip or vertebral fracture, or for any patient undergoing pharmacological treatment for bone loss.) The National Osteoporosis Foundation (NOF) recommends pharmacological treatment for patients with a FRAX 10-year risk of 3% or higher for a hip fracture, or 20% or higher for a major osteoporotic fracture, to prevent osteoporosis and reduce fracture risk. The patient does meet the pharmacological treatment recommendations for prevention of osteoporosis. BD/Dexa Bone Density Study IMPRESSION: OSTEOPENIA. Recommend follow-up as clinically warranted. Reading Location: [place] [address]
== END | disposition home or self-care (01) ==
LOC: OPBD 07:14
PROVIDERS: PCP Internal Medicine; Referring Provider Internal Medicine; Visit Provider Internal Medicine
DX: M85.80 Other specified disorders of bone density and structure, unspecified site (principal); Z78.0 Asymptomatic menopausal state
CPT/HCPCS: 77080